=== PATIENT | female | born 1995 | race Caucasian/White ===

== ENCOUNTER 2022-03-20 21:58 | Emergency (ER) | payer OTHER, SELFPAY ==
[2022-03-20] VITALS (7 sets, daily range): BP systolic 103–143; BP diastolic 65–73; PULSE 81–98; RESP 16; TEMP 36.7; O2SAT 98–100
--- NOTE | ~2022-03-20 | US_ITS ---
EXAMINATION: US OB <=14 wk fetus w TV DATE: 03/21/2022 02:18 INDICATION: Vaginal bleeding. . TECHNIQUE: Real-time transabdominal and transvaginal pelvic ultrasound was performed. COMPARISON: None. FINDINGS: TRANSABDOMINAL ULTRASOUND: The uterus measures 7.9 x 5.9 x 3.9 cm. TRANSVAGINAL ULTRASOUND: There is an intrauterine gestational sac with mean diameter of 9 mm, which c orrelates with an estimated gestational age of 5 weeks and 5 days +/- 4 days. A yolk sac is identifie d. No pole is identified. The right ovary measures 3.3 x 1.8 x 2.4 cm. The left ovary measures 2.8 x 2.2 x 2.1 cm. There is no free fluid in the pelvis. IMPRESSION: 1. Single intrauterine gestation with estimated date of delivery of 11/16/2022. Reviewed, dictated and finalized at location A.
--- NOTE | 2022-03-20 22:40 | PC.NURSE ---
pt unable to provide urine sample at this time
[2022-03-20 23:15] LABS: Basophils Absolute Auto 0.1 K/mm3 (0.0-0.1); Basophils Percent Auto 0.4 % (0.2-1.2); Eosinophils Absolute Auto 0.2 K/mm3 (0-0.3); Eosinophils Percent Auto 1.5 % (0-4.4); Hematocrit 39.7 % (37.0-47.0); Hemoglobin 12.7 g/dL (12.0-15.0); Immature Granulocyte Absolute 0.04 K/mm3 (0.00-0.031); Immature Granulocyte Percent A 0.4 % (0-0.5); Lymphocytes Absolute Auto 4.11 K/mm3 (0.9-3.2); Lymphocytes Percent Auto 36.5 % (18.3-44.2); Mean Corpuscular Hemoglobin 28.1 pg (26-34); Mean Corpuscular Volume 87.8 fl (80-100); Mean Platelet Volume 10.7 fl (7.4-10.4); Monocytes Percent Auto 8.7 % (2.6-8.5); Neutrophils Absolute Auto 5.9 K/mm3 (1.3-6.7); Neutrophils Percent Auto 52.5 % (45.5-73.1); Platelet Count Result 297 k/mm3 (150-375); Red Blood Count 4.52 M/mm3 (4.2-5.4); White Blood Count 11.3 K/mm3 (4.5-10.0)
--- NOTE | 2022-03-20 23:16 | PC.NURSE ---
This RN notified pt of positive test.
--- NOTE | 2022-03-20 23:31 | ED.FEMALEGU ---
HPI - Female Genitourinary General Chief complaint: Vaginal Bleeding Stated complaint: vagianl bleeding Time Seen by Provider: 03/20/22 22:33 Source: patient and RN notes reviewed Mode of arrival: ambulatory Limitations: no limitations History of Present Illness HPI Narrative: This is a 26 year old female who presents for evaluation of abnormal vaginal bleeding. Her last menstrual cycle was 7-12 and she reports it was normal. Today she was getting her kids and she felt like she had urinated on herself. She found that she was having vaginal bleeding at that time so she came to ER. This bleeding started 2 hours ago. She does not think she is bleeding heavily and she has not had to change her pad since arrival. She denies dizziness, abdominal pain, or weakness. She denies history of irregular cycles. She does not take control. Last month her cycle was 8 Related Data Allergies Allergy/AdvReac Type Severity Reaction Status Date / Time iodine Allergy Unknown Swelling Verified 03/20/22 22:29 of Lip/Tongue/Throat shellfish derived Allergy Swelling Verified 03/20/22 22:29 of Lip/Tongue/Throat Review of Systems Review of Systems: All systems reviewed & are unremarkable except as noted in HPI and below Constitutional: Constitutional: Denies chills and Denies fatigue Eyes: Eyes: Denies change in vision ENT: Denies nasal congestion and Denies sore throat Cardiovascular: Cardiovascular: Denies chest pain Gastrointestinal: Gastrointestinal: Denies abdominal pain, Denies nausea and Denies vomiting Genitourinary: Genitourinary: Reports abnormal vaginal bleeding and Denies pelvic pain Musculoskeletal: Musculoskeletal: Denies back pain [facility] Past Medical History Medical History (Updated 03/21/22 @ 03:31 by Ilsa Gill MD) Patient denies medical problems Surgical History Surgical History (Updated 03/20/22 @ 23:34 by Ilsa Gill MD) H/O thyroidectomy Social History Social History (Updated 03/20/22 @ 23:34 by Ilsa Gill MD) Smoking packs per day: 0.5 Smoking cigarettes per day: 10.0 Smoking status: Current every day smoker Exam Const: General: healthy appearing, no acute distress and alert Nutritional Appearance: obese Orientation/consciousness: patient oriented x3 Limitations: no limitations HENMT: Head: normal to inspection Eyes: EOM: EOMs intact bilaterally Chest: Chest palpation & inspection: normal inspection of the chest Resp: Effort & Inspection: normal respiratory effort Auscultation: clear to auscultation bilaterally Cardio: Rate: regular rate Rhythm: regular rhythm Heart sounds: no murmurs GI: GI Palp: Yes Soft to palpation, No Tenderness to palpation present (GI), No Guarding due to palpation present (GI) and No Rigid due to palpation Auscultation: normal bowel sounds : Speculum Exam - Cervix: normal appearance of the cervix and Cervical os closed Other: small dark blood oozing from cervix Skin: General skin exam: normal color Rashes: no rashes Neuro: General: patient oriented x3, moves all extremities and CN's II-XI intact bilaterally Speech: normal speech Gait exam (Neuro): Normal gait present Extrem: General: normal to inspection Psych: Appearance: grossly normal Mental Status: mental status grossly normal Affect: normal affect Attitude: cooperative Course Reevaluation(s) Reevaluation #1: Patient reports minimal bleeding. I Discussed with patient US shows yolk sac but no pole. I Discussed that she will need to follow up with her OBGYN at [facility] as it is unclear if this is signs of miscarriage vs early . Date: 03/21/22 Time: 03:27 Vital Signs Vital signs: Vital Signs Temperature 98.0 F 03/20/22 22:12 Pulse Rate 87 03/20/22 22:12 Respiratory Rate 16 03/20/22 22:12 Blood Pressure 143/73 H 03/20/22 22:12 Pulse Oximetry 100 03/20/22 22:12 Oxygen Delivery Room Air
[2022-03-21 00:17] LABS: Prothrombin Time 13.1 Seconds (11.1-14.7)
[2022-03-21 00:32] LABS: Partial Thromboplastin Time 27.4 SECONDS (22.3-36.8)
[2022-03-21 01:18] VITALS: BP 124/78; PULSE 90; RESP 18; O2SAT 99
[2022-03-21 03:40] VITALS: BP 121/70; PULSE 84; RESP 18; O2SAT 98
== END 2022-03-21 03:40 | disposition home or self-care (01) ==
PROVIDERS: Emergency Provider General Practice; PCP Family Medicine
DX: O46.91 Antepartum hemorrhage, unspecified, first trimester (principal); Z3A.01 Less than 8 weeks gestation of pregnancy
CPT/HCPCS: 36415; 76801; 76817; 81025; 84702; 85025; 85461; 85610; 85730; 99284

== ENCOUNTER 2023-06-28 17:45 | Emergency (ER) | payer OTHER, SELFPAY ==
[2023-06-28 17:55] VITALS: BP 122/74; PULSE 102; RESP 18; TEMP 36.1; O2SAT 99
== END 2023-06-28 18:15 | disposition left against medical advice (07) ==
DX: R05.9 Cough, unspecified (principal)
CPT/HCPCS: 99199

== ENCOUNTER 2023-07-16 14:29 | Emergency (ER) | payer OTHER, SELFPAY ==
--- NOTE | ~2023-07-16 | XR_ITS ---
XR elbow LT min 3V DATE: 07/16/2023 14:51 INDICATION: Fall on hardwood floor fell 2 days ago. Left elbow injury, pain TECHNIQUE: 4 views COMPARISON: None FINDINGS: No fracture or dislocation or joint effusion. IMPRESSION: Negative Reviewed, dictated and finalized at location [facility]. [facility] IMPRESSION: Negative
--- NOTE | 2023-07-16 14:31 | ED.UPPEXIN ---
HPI - Extremity Injury (Upper) General Chief Complaint: Extremity Injury, Upper Stated Complaint: left arm injury Time Seen by Provider: 07/16/23 14:42 Source: patient, RN notes reviewed and old records reviewed Mode of arrival: ambulatory Limitations: no limitations History of Present Illness HPI narrative: 27-year-old female presents to the [facility] with complaints of left elbow pain after slipping on hardwood fours and landing on her left elbow. Pain is worse with full extension of the elbow. Injury 2 days ago No bruising, swelling noted No treatment prior to arrival Related Data Home Medications Medication Instructions Recorded Confirmed No Home Medications 07/16/23 07/16/23 Allergies Allergy/AdvReac Type Severity Reaction Status Date / Time iodine Allergy Unknown Swelling Verified 07/16/23 14:48 of Lip/Tongue/Throat shellfish derived Allergy Swelling Verified 07/16/23 14:48 of Lip/Tongue/Throat Review of Systems Review of Systems: All systems reviewed & are unremarkable except as noted in HPI and below Constitutional: Constitutional: Reports no additional constitutional complaints Eyes: Eyes: Reports no additional eye complaints ENT: Reports system reviewed and no additional complaints, except as documented Cardiovascular: Cardiovascular: Reports no additional cardiovascular complaints, Denies chest pain and Denies dyspnea Respiratory: Respiratory: Reports no additional respiratory complaints, Denies chest congestion, Denies cough and Denies dyspnea Gastrointestinal: Gastrointestinal: Reports no additional gastrointestinal complaints, Denies abdominal pain, Denies nausea and Denies vomiting Musculoskeletal: Musculoskeletal: Reports as per HPI and Reports arthralgias (Left elbow) Integumentary/Breasts: Skin/Breast: Reports system reviewed and no additional complaints, except as docu Neurologic: Reports system reviewed and no additional complaints, except as documented Psychiatric: Psychiatric: Reports no additional psychiatric complaints Allergic/Immunologic: Allergic/Immunologic: Reports no additional allergic/immunologic complaints PMFSH Past Medical History Medical History Patient denies medical problems Surgical History Surgical History H/O thyroidectomy Social History Social History Smoking packs per day: 0.5 Smoking cigarettes per day: 10.0 Smoking status: Current every day smoker Comments At the time of my signature, I reviewed and agree with the nursing past medical, surgical, social, and family history. There is no relevant family history pertinent to the patient complaint. Exam Const: General: cooperative, healthy appearing, comfortable, no acute distress, well developed, alert and well nourished Nutritional Appearance: well nourished and obese Orientation/consciousness: patient oriented x3 Limitations: no limitations HENMT: Head: normal to inspection Ears: hearing grossly normal bilaterally and external ears normal Face/Nose/Sinus: Normal external nose present, Normal nares present, Normal nasal mucous membranes and turbinates present, normal facial exam and face symmetric Face and sinus: normal facial exam and face symmetric Eyes: General: appearance normal, both eyes and all related structures Alignment and Position: alignment normal Periorbital: periorbital findings normal Pupils: Equal, round and reactive pupils present EOM: EOMs intact bilaterally Neck: Neck: normal visual inspection, full ROM, no lymphadenopathy and no meningeal signs Chest: Chest palpation & inspection: normal inspection of the chest Resp: Effort & Inspection: normal respiratory effort and able to speak in complete sentences Auscultation: clear to auscultation bilaterally, no crackles, no rales, no rhonchi a
[2023-07-16 14:42] VITALS: BP 107/59; PULSE 79; RESP 18; TEMP 36.3; O2SAT 100
== END 2023-07-16 15:05 | disposition home or self-care (01) ==
PROVIDERS: Emergency Provider Nurse Practitioner
DX: S50.02XA Contusion of left elbow, initial encounter (principal); W01.0XXA Fall on same level from slipping, tripping and stumbling without subsequent striking against object, initial encounter; F17.210 Nicotine dependence, cigarettes, uncomplicated
CPT/HCPCS: 73080; 99213; G0463

== ENCOUNTER 2023-08-29 19:26 | Emergency (ER) | payer OTHER, SELFPAY ==
[2023-08-29 19:32] VITALS: BP 136/71; PULSE 89; RESP 16; TEMP 36.8; O2SAT 100
--- NOTE | 2023-08-29 19:50 | ED.ALLEREA ---
HPI - Allergic Reaction General Chief complaint: Allergic Reaction Stated complaint: allergic reaction poss fish Time Seen by Provider: 08/29/23 19:36 Source: patient Mode of arrival: ambulatory Limitations: no limitations History of Present Illness HPI narrative: 27-year-old female presents [facility] with concern for allergic reaction. 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 Patient endorses that she has given a script for an EpiPen at that time and has since . Patient states that she is very cautious she about her diet. Patient reports that 30 minutes prior to arrival she ordered a chicken sandwich from [employer] knowing that they typically do not serve fish. Patient reports that she took 1 bite of a sandwich and immediately felt urticaria to her tongue the mouth and throat. Patient called restaurant and was informed that they are currently serving fish and cooking their chicken in the same oil. Patient has not taken anything OTC to treat her symptoms prior to arrival. Patient is A&O x3 upon arrival with no shortness of breath or signs of distress. Patient is calm and cooperative, speaking in full sentences. Patient able to control secretions the patient and tolerate fluids by mouth. Related Data Home Medications Medication Instructions Recorded Confirmed medroxyprogesterone 150 mg/mL mg IM 08/29/23 intramuscular syringe Allergies Allergy/AdvReac Type Severity Reaction Status Date / Time iodine Allergy Unknown Swelling Verified 07/16/23 14:48 of Lip/Tongue/Throat shellfish derived Allergy Swelling Verified 07/16/23 14:48 of Lip/Tongue/Throat Review of Systems Review of Systems: All systems reviewed & are unremarkable except as noted in HPI and below Constitutional: Constitutional: Reports no additional constitutional complaints Eyes: Eyes: Reports no additional eye complaints ENT: Reports system reviewed and no additional complaints, except as documented, Denies throat swelling, Denies tongue swelling and Reports other ( urticaria tongue, throat, oral mucosa) Cardiovascular: Cardiovascular: Reports no additional cardiovascular complaints, Denies chest pain and Denies dyspnea Respiratory: Respiratory: Reports no additional respiratory complaints, Denies cough and Denies dyspnea Gastrointestinal: Gastrointestinal: Reports no additional gastrointestinal complaints Musculoskeletal: Musculoskeletal: Reports no additional musculoskeletal complaints and Denies muscle weakness Neurologic: Reports system reviewed and no additional complaints, except as documented Psychiatric: Psychiatric: Reports no additional psychiatric complaints Allergic/Immunologic: Allergic/Immunologic: Reports as per HPI, Reports urticaria (throat, tongue, oral mucosa), Denies itchy eyes, Denies lip swelling, Denies throat swelling, Denies tongue swelling and Denies wheezing PMFSH Past Medical History Medical History Patient denies medical problems Surgical History Surgical History H/O thyroidectomy Social History Social History Smoking packs per day: 0.5 Smoking cigarettes per day: 10.0 Smoking status: Current every day smoker Comments At the time of my signature, I reviewed and agree with the nursing past medical, surgical, social, and family history. There is no relevant family history pertinent to the patient complaint. Exam Const: General: cooperative, healthy appearing, comfortable, no acute distress, alert and well nourished Nutritional Appearance: well nourished Orientation/consciousness: patient oriented x3 Limitations: no limitations HENMT: Head: normal to inspection Ears: external ears normal Face/Nose/Sinus: Normal external nose
[2023-08-29] MEDS: diphenhydrAMINE HCl CAP 25 MG CAPSULE PO (20:02)
[2023-08-29] MEDS: FAMOTIDINE 20 MG TABLET PO (20:02)
[2023-08-29] MEDS: predniSONE 20 MG TABLET 60 MG PO (20:03)
== END 2023-08-29 20:16 | disposition home or self-care (01) ==
PROVIDERS: Emergency Provider Nurse Practitioner Family
DX: T78.1XXA Other adverse food reactions, not elsewhere classified, initial encounter (principal); L50.9 Urticaria, unspecified; F17.210 Nicotine dependence, cigarettes, uncomplicated
CPT/HCPCS: 99213; A9270; G0463; J7512

== ENCOUNTER 2024-06-13 17:02 | Emergency (ER) | payer OTHER, SELFPAY ==
[2024-06-13 17:22] VITALS: BP 120/77; PULSE 88; RESP 17; TEMP 36.2; O2SAT 98
--- NOTE | 2024-06-13 18:07 | ED.ABDPAIN ---
HPI - Abdominal Pain General Chief Complaint: Abdominal Pain Stated Complaint: Sharp Pain in abdomen Time Seen by Provider: 06/13/24 17:53 Source: patient and RN notes reviewed Mode of arrival: ambulatory Limitations: no limitations History of Present Illness HPI narrative: Patient presents today complaining of upper abdominal pain that started last night followed by several episodes of vomiting and diarrhea. Last vomiting episode was 6:00 a.m. this morning and has been able to keep down fluids since that time. Last episode of diarrhea was around 2:00 p.m.. Denies blood or mucus in the stool. States abdominal pain has improved since onset and is intermittent. Currently rates her pain 5/10 and has tried no [id number] treatment for symptoms prior to arrival. Patient ate a [employer] buffet last night, but her mother also did and is not ill. Related Data Home Medications ?Medication ?Instructions ?Recorded ?Confirmed ?Last Taken ?Type medroxyprogesterone 150 mg/mL mg IM 08/29/23 Unknown History intramuscular syringe Allergies Allergy/AdvReac Type Severity Reaction Status Date / Time iodine Allergy Unknown Swelling Verified 06/13/24 17:49 of Lip/Tongue/Throat shellfish derived Allergy Swelling Verified 06/13/24 17:49 of Lip/Tongue/Throat Review of Systems Review of Systems: CONSTITUTIONAL: Denies body aches, fever, chills, or sweats. EYES: Denies visual changes, redness, or discharge. ENT: Denies rhinorrhea, congestion, sore throat, or otalgia. CARDIOVASCULAR: Denies chest pain, palpitations, or edema. RESPIRATORY: Denies cough or dyspnea. GASTROINTESTINAL: + abdominal pain, nausea, vomiting, diarrhea GENITOURINARY: Denies dysuria or hematuria. SKIN: Denies rash, itching, or wounds. MUSCULOSKELETAL: Denies back pain, joint pain, or myalgia. NEUROLOGIC: Denies headache, numbness, tingling, or weakness. PSYCH: Denies depression or anxiety. [facility] Past Medical History Medical History Patient denies medical problems Surgical History Surgical History H/O thyroidectomy Social History Social History Smoking packs per day: 0.5 Smoking cigarettes per day: 10.0 Smoking status: Current every day smoker Comments At time of signature, I have reviewed and agree with nursing past medical, surgical, social and family history unless otherwise noted. Please see nursing chart for further information. There is no relevant family history pertinent to the presenting complaint Exam Narrative: GENERAL: Well-appearing, well-nourished, and in no acute distress. HEAD: Normocephalic, atraumatic. EYES: EOMI. No redness or drainage. Conjunctivae normal. ENT: Mucous membranes pink and moist. NECK: Normal AROM. CHEST: No respiratory distress. Clear to auscultation. HEART: Regular rate and rhythm. No murmur appreciated. Normal peripheral pulses. ABDOMEN: Soft, nondistended, normal active bowel sounds. Mild tenderness to the upper abdomen without rebound or guarding. EXTREMITIES: Normal range of motion. No edema. SKIN: Warm, dry, no rash. Capillary refill normal. Normal skin turgor. NEURO: No focal deficits. Alert and oriented x3. Gait steady. PSYCH: Normal affect. No signs of depression or anxiety. Course Course Level of Care: Express Care Visit Vital Signs Vital signs: Vital Signs Temperature 97.2 F L 06/13/24 17:22 Pulse Rate 88 06/13/24 17:22 Respiratory Rate 17 06/13/24 17:22 Blood Pressure 120/77 06/13/24 17:22 Pulse Oximetry 98 06/13/24 17:22 Temperature 97.2 F L 06/13/24 17:22 Pulse Rate 88 06/13/24 17:22 Respiratory Rate 17 06/13/24 17:22 Blood Pressure 120/77 06/13/24 17:22 Pulse Oximetry 98 06/13/24 17:22 Reviewed MDM - Abdominal Pain MDM Narrative Medical decision making narrative: Patient's symptoms are improving. She is no longer vomiting or having diarrhea, and abdominal pain is improving. Symptoms likely viral or due to food poisoning. Zofran prescription sent to pharmacy. Recommend fluids and bland diet. Anticipatory guidance and ED precautions given. Differential Diagnosis Differential diagnosis: Likely abdominal pain, diverticulitis, gastroenteritis, pancreatitis and other (Cholecystitis, food poisoning) Critical Care Time Critical Care Time Critical Care Time: No Discharge Plan Discharge Clinical Impression: Intermittent upper abdominal pain, Nausea vomiting and diarrhea Patient Disposition: Home, Self-Care Condition: Stable Instructions: Acute Nausea and Vomiting (DC), Acute Diarrhea (ED), Abdominal Pain (ED) Additional Instructions: Please take the Zofran for nausea if needed. Rest and stay hydrated. As discussed, if symptoms worsen or your unable to keep down fluids, please go to the ER for further evaluation. Patient Language: [place] Prescriptions: New ondansetron 4 mg tablet,disintegrating 4 mg PO TID PRN (Reason: nausea and vomiting) Qty: 10 0RF No Action medroxyprogesterone 150 mg/mL syringe IM Follow-up/Referrals: [facility] [Primary Care Provider] - Time of Disposition: 18:12
== END 2024-06-13 18:18 | disposition home or self-care (01) ==
PROVIDERS: Emergency Provider Nurse Practitioner
DX: R10.10 Upper abdominal pain, unspecified (principal); R11.2 Nausea with vomiting, unspecified; R19.7 Diarrhea, unspecified; F17.210 Nicotine dependence, cigarettes, uncomplicated; Z90.89 Acquired absence of other organs
CPT/HCPCS: 99213; G0463

== ENCOUNTER 2024-12-05 10:40 | Emergency (ER) | payer OTHER, SELFPAY ==
--- NOTE | ~2024-12-05 | US_ITS ---
EXAMINATION: US OB <=14 wk fetus w TV DATE: 12/05/2024 11:45 INDICATION: Vaginal bleeding during first trimester TECHNIQUE: Real-time pelvic ultrasound utilizing both a transvaginal and transabdominal probe was pe rformed. The interpreting radiologist was not present for the study. COMPARISON: None. FINDINGS: The uterus measures 8.3 x 4.4 x 6.0 cm. There is an intrauterine gestational sac. A yolk sac and fet al pole are identified. The crown rump length measures 5 mm, which correlates with an estimated gesta tional age of 6 weeks and 1 days. heart motion is identified measuring 124 beats per minute (bp m) by M-mode Doppler. section scar seen along the anterior lower uterine segment. 8 x 3 x 3 mm region of anechoic fluid along the caudal margin of the gestational sac consistent with a very sma ll subchorionic hematoma. The right ovary measures 2.1 x 1.7 x 1.9 cm. The left ovary measures 2.2 x 1.7 x 1.6 cm. Vascular hansa w identified in both ovaries on color Doppler. There is a trace amount of anechoic free fluid in the cul-de-sac. IMPRESSION: 1. Single living fetus with heart rate of 124 bpm. 2. Gestational age by ultrasound of 6 weeks 1 day(s) +/- 3 day(s) with ultrasound estimated date of delivery (TUYET) of 07/30/2025. 3. Very small subchorionic hematoma. Reviewed, dictated and finalized at location A. IMPRESSION: 1. Single living fetus with heart rate of 124 bpm. 2. Gestational age by ultrasound of 6 weeks 1 day(s) +/- 3 day(s) with ultraso und estimated date of delivery (TUYET) of 07/30/2025. 3. Very small subchorionic hematoma.
--- OUTSIDE RECORDS SUMMARY | 2024-12-05 10:42 | XMS_ITS | Clinical Summary ---
Author Organization [facility] Address [address] [place] [address] Care Team Providers Care Diesel Technician Mechanic Name Role Phone No, Physician Primary Care Provider Allergies Active Allergy Reactions Criticality Noted Date Comments Fish Containing Products Anaphylaxis High 03/22/2021 Hydrocodone Itching Low 04/23/2022 Iodine Anaphylaxis High 03/22/2021 Shellfish Derived Anaphylaxis High 03/22/2021 Medications ibuprofen (ADVIL,MOTRIN) 600 mg tablet Take 1 tablet (600 mg total) by mouth every 6 (six) hours as needed for pain (pain > 5/10 or cramping) 20 tablet 2 Active ondansetron ODT (ZOFRAN-ODT) 4 mg disintegrating tablet Take 1 tablet (4 mg total) by mouth every 8 (eight) hours as needed for nausea or vomiting 20 tablet 5 Active Active Problems Problem Noted Date Diagnosed Date Retained products of conception after miscarriag e 04/26/2022 34 weeks gestation of 04/03/2021 Encounter for post surgical wound check 12/30/19 Dressing change or removal, surgical wound 12/29 Encounters Date Type Department Care Team Description 11/17/2024 1:12 PM CDT - 11/17/2024 11:59 PM CDT Hospital Encounter [facility] Ultrasound [address] [place] [address] Abdominal cramping affecting Discharge Disposition: Discharge to home or self care 11/16/2024 9:14 PM CDT - 11/16/2024 10:25 PM CDT Emergency [facility] Emergency Department [facility] [place] [address] Abdominal cramping affecting (Primary Dx) Discharge Disposition: Discharge to home or self care from Last 3 Months Immunizations Immunization Administration Dates Next Due Tdap 04/04/2021 Surgical History Surgery Date Site/Laterality Comments THYROIDECTOMY WRIST RECONSTRUCTION 07/01/2018 - 06/30/2019 Left plate in wrist due to shattered bone THYROIDECTOMY, PARTIAL 07/01/2015 - 06/30/2016 SECTION 07/01/2020 - 06/30/2021 Medical History Medical History Date Comments Gallstones Anemia hx w Miscarriage Family History Medical History Relation Name Comments Diabetes Maternal Grandfather Relation Name Status Comments Maternal Grandfather Social History Tobacco Use Types Packs/Day Years Used Date Smoking Tobacco: Every Day Cigarettes 0.8 8 Tobacco Cessation:Ready to Q uit: Not Asked; Counseling Given: Not Answered Alcohol Use Standard Drinks/Week Comments Yes 0 (1 standard drink = 0.6 oz pur e alcohol) occaisonally AUDIT-C Answer Date Recorded Q1: How often do you have a drink containing alcohol? Never 04/26/2022 Q2: How many drinks containi ng alcohol do you have on a typical day when you are drinking? Patient does not drink Q3: How often do you have si x or more drinks on one occasion? Never 04/26/2022 [place] Depression Scale Answer Date Recorded [place] Depression Scale Total 0 04/05/2021 The thought of harming myself has occurred to me . Never 04/05/2021 Personal Safety Answer Date Recorded Have you ever been in or are you currently in a harmful physical or emotional relationship or is someone making you feel afraid or unsafe? 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 Gender Identity Not on file Sexual Orientation Not on file Obstetrics History Para Term AB IAB SAB Ectopic Multiple Livin g Live Births 2 2 2 0 2 2 Date Outcome GA Total Labor Labor/2nd/3rd Weight Sex Type Anes PTL Millie A1 A5 Name Clin 020 32w 0d 10h 00m 2.268 kg (5 lb) M Vag-S pont None Y Livin g Delivery Location:[facility] 021 34w 3d 0h 03m 0h 03m 2.485 kg (5 lb 7.7 oz) F CS-LT ranv Epidu ral,S urban Y Livin g 8 8 MALON E,GIR LCIER Aruna Mckeon, DO Complications: Intolera nce,Rupture of Membranes > 18 hours,Premature Rupture of Membranes,Failure to Progress in First Stage Delivery Location:[facility] Main C ampus (E L AND D PROCEDURE) Last Filed Vital Signs Vital Sign Reading Time Taken Comments Blood Pressure 132/62 11/16/2024 7:16 PM CDT Pulse 102 11/16/2024 10:00 PM CDT Temperature 36.4 C (97.6 F) 11/16/2024 7:16 PM CDT Respiratory Rate 16 11/16/2024 7:16 PM CDT Oxygen Saturation 100% 11/16/2024 10: 00 PM CDT Inhaled Oxygen Concentration - - Weight 117.3 kg (258 lb 9.6 oz) 11/16/2024 7:16 PM CDT Height 162.6 cm (5' 4) 04/26/2022 8:13 AM CDT Body Mass Index 44.39 04/26/2022 8:13 AM CDT Plan of Treatment Health Maintenance Due Date Last Done Comments Cervical Cancer Screening 1993 Hepatitis C Screening 1993 Varicella Vaccines (1 of 2 - 13+ 2-dose series) 2006 HPV Vaccines (2 - 2-dose series) 07/14/2008 01/12/20 08 Regular Well Visit/Exam 18-64 11/10/2011 Pneumococcal vaccine <65 (1 of 2 - PCV) 2012 Depression Screening 04/05/2022 04/05/2021 Influenza Vaccine (Season Ended) 2025 DTaP/Tdap/Td Vaccine (8 - Td or Tdap) 04/04/2031 04/04/2021, 01/12/2008, 01/19/1999, Additional history exists Hepatitis B Screening Completed 02/14/1995 , 02/08/1994, 1993 Medical Devices Implanted Type Area Foot Gatherer Device Identifier Shelf Expiration Date Model / Serial / Lot Plate Plate Left: Wrist Description:2019 Procedures Procedure Name Priority Date/Time Associated Diagnosis Comments US OB TRANSVAGINAL Schedule CHRISTOPHER, Read CHRISTOPHER (Appt Today, Awaiting Results) 11/17/2024 1:45 PM CDT Abdominal cramping affecting URINALYSIS AND REFLEX TO MICROSCOPIC AND CULTURE STAT 11/16/2024 7:28 PM CDT EGFR STAT 11/16/2024 7:27 PM CDT DIFFERENTIAL AUTO STAT 11/16/2024 7:2 7 PM CDT ANTIBODY SCREEN STAT 11/16/2024 7:27 PM CDT ABO/RH STAT 11/16/2024 7:27 PM CDT TYPE AND SCREEN STAT 11/16/2024 7:27 PM CDT HCG, BLOOD, QUANTITATIVE STAT 11/16/2024 7:27 PM CDT LIPASE STAT 11/16/2024 7:27 PM CDT COMPREHENSIVE METABOLIC PANEL STAT 11/16/2024 7:27 PM CDT CBC WITH AUTO DIFFERENTIAL STAT 11/16/2024 7:27 PM CDT from Last 3 Months Results * US Ob Transvaginal (11/17/2024 1:45 PM CDT) Anatomical Region Laterality Modality Abdomen N/A Ultrasound 11/18/2024 1:28 AM CDT Narrative 11/18/2024 1:29 AM CDT EXAM DESCRIPTION: US OB TRANSVAGINAL REASON FOR STUDY: abdominal pain Beta-hC TECHNIQUE: Transvaginal images acquired of the pelvis. COMPARISON: None FINDINGS: UTERUS: 7.5 x 4.6 x 3.5 cm. No intrauterine gestation. 9 mm smooth endometrial stripe. RIGHT OVARY: 4 x 3 x 2.5 cm. Patent blood flow. No concerning abnormality identified. LEFT OVARY: 2.2 x 1.8 x 2.0 cm. Patent blood flow. No concerning abnormality identified. OTHER PELVIS: No free fluid. IMPRESSION: No intrauterine or ectopic gestation identified. Endometrial stripe appears normal. THIS IS AN ELECTRONICALLY VERIFIED FINAL REPORT 11/18/2024 1:29 AM - Electronically signed by Estiven Britton M.D. AR: DEDRA Report ID: [id number] Reading Location: [id number] Procedure Note Estiven Britton MD - 11/18/2024 EXAM DESCRIPTION: US OB TRANSVAGINAL REASON FOR STUDY: abdominal pain Beta-hC TECHNIQUE: Transvaginal images acquired of the pelvis. COMPARISON: None FINDINGS: UTERUS: 7.5 x 4.6 x 3.5 cm. No intrauterine gestation. 9 mm smooth endometrial stripe. RIGHT OVARY: 4 x 3 x 2.5 cm. Patent blood flow. No concerningabnormality identified. LEFT OVARY: 2.2 x 1.8 x 2.0 cm. Patent blood flow. No concerning abnormality identified. OTHER PELVIS: No free fluid. IMPRESSION: No intrauterine or ectopic gestation identified. Endometrial stripe appears normal. THIS IS AN ELECTRONICALLY VERIFIED FINAL REPORT 11/18/2024 1:29 AM - Electronically signed by Estiven Britton M.D. AR: DEDRA Report ID: [id number] Reading Location: [place] [address] us Meme Jacqueline McFadin BEDSPREAD INSPECTOR IMG OB US PROCEDURES Fin al Result * Urinalysis reflex to microscopic and culture Urine (11/16/2024 7:28 PM CDT) Color, ur Yellow Yellow Comment:Testing performed by : [facility], [address] [place] [address]., [address] Clarity, ur Clear Clear GRICEL Comment:Testing performed by : [address] [address] Specific gravity, ur 1.023 1.003 - 1.030 GRICEL Comment:Testing performed by : [facility], [address] [place] [address], [place]., [address] pH, urine 5.5 GRICEL Comment: Interpretive Data U rine pH is affected by diet, medications, systemic acid-base disturbances, and renal tubular function. pH may affect urinary stone formation. For example, urine pH below 6.0 may help reduce the tendency for calcium phosphate stones and pH greater than 6.0 may reduce the tendency for uric acid stone formation. Source: [facility] [employer] Current Interpretive Data was last revised on 2017 Testing performed by: [facility], [address] [place] [address], [place]., [address] Protein, ur ql Negative Negative GRICEL Comment:Testing performed by : [address], [place]., [address] Glucose, ur ql Negative Negative GRICEL Comment:Testing performed by : [address], [place]., [address] Ketones, ur Negative Negative GRICEL Comment:Testing performed by : [address], [place]., [address] Bilirubin, ur Negative Negative GRICEL Comment:Testing performed by : [address], [place]., [address] Blood, ur Negative Negative GRICEL Comment:Testing performed by : [address], [place]., [address] Urobilinogen, ur <2.0 <2.0 mg/dL GRICEL Comment:Testing performed by : [address] [address] Nitrite, ur Negative Negative GRICEL Comment:Testing performed by : [address], [place]., [address] Leukocyte esterase, ur Negative Negative GRICEL Comment:Testing performed by : [address], [place]., [address] UA reflex comment Reflex conditions for microscopic UA and culture not met. GRICEL Comment:Testing performed by : [address], [place]., [address] Urine 11/16/2024 7:28 PM CDT 11/16/2024 7:35 PM CDT us Julius Maddox MD LAB MICROBIOLOGY - GENERAL ORDERABLES Final Result Performing Organization Address [facility] Co de Phone Number GRICEL [address] [employer] [place] [address] * eGFR (11/16/2024 7:27 PM CDT) eGFR >90 >=60 mL/min/1. 73 m2 Comment: Interpretive Data Reference Interval Normal >/= 90 mL/min/1.73m2 Mildly decreased* 60 - 89 mL/min/1.73m2 Mildly to moderately decreased 45 - 59 mL/min/1.73m2 Moderately to severely decreased 30 - 44 mL/min/1.73m2 Severely decreased 15 - 29 mL/min/1.73m2 Kidney Failure < 15 mL/min/1.73m2 *Relative to young adult level Estimated glomerular filtration rate is determined by the 2020 CKD-EPI equation recommended by the National Kidney Foundation (A Unifying Approach to GFR Estimation: Recommendations of the NKF-ASK Task Force on Reassessing the Inclusion of Race in Diagnosing Kidney Disease, JASN 2020). The CKD-EPI equation should not be used for patients with unstable renal function and has not been validated in children and those over 70. Current interpretive data was last reviewed 2021. Testing performed by: [facility], [address] [place] [address]., [address] Blood 11/16/2024 7:27 PM CDT 11/16/2024 7:35 PM CDT us Julius Maddox MD LAB BLOOD ORDERABLE S Final Result Performing Organization Address City/[facility] Co de Phone Number GRICEL [address] Department of Laboratories [place], [place] [id number] * (ABNORMAL) Differential, auto (11/16/2024 7:27 PM CDT) Neutrophil abs 7.18(H) 1.50 - 6.50 K/cumm Comment:Testing performed by : [address], [place]., [address] Imm gran abs 0.05 0.00 - 0.10 K/cumm GRICEL Comment:Testing performed by : [address], [place]., [address] Lymphocyte abs 3.71(H) 0.80 - 3.30 K/cumm GRICEL Comment:Testing performed by : [address], [place]., [address] Monocyte abs 1.17(H) 0.20 - 0.80 K/cumm [facility] Comment:Testing performed by : [address], [place]., [address] Eosinophil abs 0.40 0.00 - 0.50 K/cumm [facility] Comment:Testing performed by : [address], [place]., [address] Basophil abs 0.07 0.00 - 0.10 K/cumm [facility] Comment:Testing performed by : [address] [address] Neutrophil pct 57.0 % [facility] Comment: Interpretive Data Percent cell count reference ranges are not reported, since discordance with absolute values may lead to misinterpretation of CBC data. Current Interpretive Data was last revised on 2017. Testing performed by: [address] [address] Imm gran pct 0.4 % [facility] Comment: Interpretive Data Percent cell count reference ranges are not reported, since discordance with absolute values may lead to misinterpretation of CBC data. Current Interpretive Data was last revised on 2017. Testing performed by: [address] [address] Lymphocyte pct 29.5 % CERNER Comment: Interpretive Data Percent cell count reference ranges are not reported, since discordance with absolute values may lead to misinterpretation of CBC data. Current Interpretive Data was last revised on 2017. Testing performed by: [address] [address] Monocyte pct 9.3 % CERNER Comment: Interpretive Data Percent cell count reference ranges are not reported, since discordance with absolute values may lead to misinterpretation of CBC data. Current Interpretive Data was last revised on 2017. Testing performed by: [address] [address] Eosinophil pct 3.2 % GRICEL Comment: Interpretive Data Percent cell count reference ranges are not reported, since discordance with absolute values may lead to misinterpretation of CBC data. Current Interpretive Data was last revised on 2017. Testing performed by: [address] [address] Basophil pct 0.6 % GRICEL Comment: Interpretive Data Percent cell count reference ranges are not reported, since discordance with absolute values may lead to misinterpretation of CBC data. Current Interpretive Data was last revised on 2017. Testing performed by: [address] [address] Blood 11/16/2024 7:27 PM CDT 11/16/2024 7:35 PM CDT us Julius Maddox MD LAB BLOOD ORDERABLE S Final Result [facility] [address] [facility] Department [place] [address] * (ABNORMAL) CBC with auto differential (11/16/2024 7:27 PM CDT) WBC 12.58(H) 3.80 - 9.90 K/cumm Comment:Testing performed by : [address] [address] Hgb 14.7 11.9 - 15.5 g/dL GRICEL Comment:Testing performed by : [address] [address] Hct 45.6(H) 35.6 - 45.5 % GRICEL Comment:Testing performed by : [address] [address] Plt 288 150 - 400 K/cumm GRICEL Comment:Testing performed by : [address] [address] MPV 10.5 9.1 - 12.3 fL GRICEL REYES Comment:Testing performed by : [address] [address] RBC 5.15 3.90 - 5.20 M/cumm GRICEL REYES Comment:Testing performed by : [address] [address] MCV 88.5 81.3 - 96.4 fL GRICEL REYES Comment:Testing performed by : [address] [address] MCH 28.5 27.1 - 33.3 pg GRICEL REYES Comment:Testing performed by : [address] [address] MCHC 32.2(L) 32.3 - 35.7 g/dL GRICEL REYES Comment:Testing performed by : [address] [address] RDW CV 13.8 11.1 - 14.9 % GRICEL Comment:Testing performed by : [address] [address] RDW SD 44.8 35.7 - 48.1 fL GRICEL Comment:Testing performed by : [address] [address] NRBC abs 0.00 0.00 - 0.01 K/cumm GRICEL REYES Comment:Testing performed by : [address] [address] Blood Venous blood specimen / Unknown 11/16/2024 7:27 PM CDT 11/16/2024 7:35 PM CDT us Julius Maddox MD LAB BLOOD ORDERABLE S Final Result GRICEL REYES [address] [facility] Department [place] [address] * ABO/Rh (11/16/2024 7:27 PM CDT) ABO/Rh A Positive Comment:Testing performed by : [address] [place] [address] Blood 11/16/2024 7:27 PM CDT 11/16/2024 7:36 PM CDT Narrative GRICEL - 11/16/2024 7:56 PM CDT Has the patient had Daratumumab or Isatuximab in the past 6 months?->Unknown Julius Maddox MD LAB BLOOD BANK TEST ORDERABLES Final Result Performing Organization Address [facility] de Phone Number [address] [address] * Antibody screen (11/16/2024 7:27 PM CDT) Pathologist [facility] Tamir, indirect, Gel Interpretation Negative ABSC Comment:Testing performed by : [address] [address] Blood 11/16/2024 7:27 PM CDT 11/16/2024 7:36 PM CDT Narrative GRICEL - 11/16/2024 8:12 PM CDT Has the patient had Daratumumab or Isatuximab in the past 6 months?->Unknown Julius Maddox MD LAB BLOOD BANK TEST ORDERABLES Final Result Performing Organization Address [facility] de Phone Number [address] [address] * (ABNORMAL) hCG, blood, quantitative (11/16/2024 7:27 PM CDT) Pathologist [facility] hCG, quant 94.9(H) 0.0 - 5.0 IUnits/L Comment: Interpretive Data Male: < 5 IU/L Non- premenopausal Female: <5 IU/L The Ruben hCG Beta Quant assay procedure was used. Results from different manufacturers or methods may not be comparable. Serial testing should be performed using the same method. Interpretive Data was last revised on 2023 Testing performed by: [address] [address] Blood 11/16/2024 7:27 PM CDT 11/16/2024 7:35 PM CDT Julius Maddox MD LAB BLOOD ORDERABLE S Edited Result - Final Performing Organization Address [facility] de Phone Number [address] [address] * Lipase (11/16/2024 7:27 PM CDT) Pathologist [facility] Lipase 19 10 - 99 Units/L Comment:Testing performed by : [address] [address] Blood Venous blood specimen / Unknown 11/16/2024 7:27 PM CDT 11/16/2024 7:35 PM CDT us Julius Maddox MD LAB BLOOD ORDERABLE S Final Result Performing Organization Address [facility] de Phone Number [address] [address] * (ABNORMAL) Comprehensive metabolic panel (11/16/2024 7:27 PM CDT) [facility] Sodium 137 135 - 145 mmol/L Comment:Testing performed by : [address] [address] Potassium, pl 4.0 3.3 - 4.9 mmol/L GRICEL Comment:Testing performed by : [address] [address] Chloride 104 97 - 110 mmol/L GRICEL Comment:Testing performed by : [address] [address] CO2 24 22 - 32 mmol/L GRICEL Comment:Testing performed by : [address] [address] Anion gap 9 2 - 15 mmol/L GRICEL Comment:Testing performed by : [address] [address] BUN 8 6 - 25 mg/dL GRICEL Comment:Testing performed by : [address] [address] Creatinine 0.50(L) 0.60 - 1.10 mg/dL GRICEL Comment:Testing performed by : [address] [address] Glucose 80 70 - 199 mg/dL GRICEL Comment: Interpretive Data Fasting glucose >/= 126 mg/dl is diagnostic for diabetes. Fasting is defined as no caloric intake for at least 8 hours. Fasting glucose between 100 mg/dl to 125 mg/dl is diagnostic of prediabetes. In a patient with classic symptoms of hyperglycemia or hyperglycemic crisis, a random glucose >/= 200 mg/dl is diagnostic for diabetes. In the absence of unequivocal hyperglycemia, results should be confirmed by repeat testing. The classification and Diagnosis of Diabetes Diabetes Care 202; 46: S19-S40. Current interpretive data was last revised 2022. Testing performed by: [address] [address] Calcium 8.9 8.5 - 10.3 mg/dL [facility] Comment:Testing performed by : [address] [address] Bilirubin, total <0.2 0.1 - 1.2 mg/dL GRICEL Comment:Testing performed by : [address] [address] Protein, pl 7.0 6.5 - 8.5 g/dL GRICEL Comment:Testing performed by : [address] [address] Albumin 3.9 3.5 - 5.0 g/dL [facility] Comment:Testing performed by : [address] [address] Alk phos 113 40 - 130 Units/L GRICEL Comment:Testing performed by : [address] [address] ALT 23 7 - 45 Units/L GRICEL Comment:Testing performed by : [address] [address] AST 18 10 - 45 Units/L GRICEL Comment:Testing performed by : [facility], [address] [place] [address]., [address] Blood 11/16/2024 7:27 PM CDT 11/16/2024 7:35 PM CDT us Julius Maddox MD LAB BLOOD ORDERABLE S Final Result Performing Organization Address City/State/ZIP Co vt Phone Number GRICEL [address] [facility] Department [place] [address] from Last 3 Months Insurance [facility] Advance Directives For more information, please contact: [phone] * Full Code (Latest Code Status on File) Date Activated Date Inactivated Comments 04/04/2021 6:16 AM 04/06/2021 3:50 PM * Full Code Date Activated Date Inactivated Comments 04/03/2021 7:35 AM 04/04/2021 6:16 AM Full CPR in case of cardiopulmonary arrest Care Teams Diesel Technician Mechanic Relationship Specialty Start Date End Date No, Physician PCP - General 03/22/21
--- OUTSIDE RECORDS SUMMARY | 2024-12-05 10:42 | XMS_ITS | Data Portability ---
Author Organization [employer] , [facility] Address [address] [place] [address] Assessment No assessment recorded. Plan of Treatment Reminders Order Date Submit Date Provider Last Modified By Organization Details Last Modified Time Details Appointments BAGGAGE HANDLER SONO 30 2024 11:00A M Ultrasound [place] 3 Not available Not available Not available BAGGAGE HANDLER EST 2024 11:30A M Mariela Gutierrez MD Not available Not available Not available Lab beta-HC G, quantit ative, serum or plasma 2024 025 [facility], [address] [place] [address], [address], 11/21/2024 10:33:33 pregnan cy test, urine 2022 023 [facility], [address] [place], [address], 01/23/2023 20:25:53 Referral dermato logist referra l 2022 023 [facility], [address] [facility] , [place], [address], 12/11/2022 15:30:04 Procedures None recorde d. Surgeries None recorde d. Imaging None recorde d. Medication Orders None recorde d. Patient TargetsNo targets recorded. Patient InstructionsNo instructions recorded. Reason for Referral Transportation Security Officer Referral for I nfection of sebaceous cyst Referring Physician: Nesha Minor, LEGAL INSTRUCTOR, Encounter Date: 11/07/2022 Results Created Date Observation Date Name Description Value Unit Range Abnormal Flag Note LastModifiedBy Organization Detail LastModifiedTime 07/26/1907/26/2022 TISSU E PATHO LOGY clinical information HGSIL Not Available [facility] [address] [address] [place], [address], 07/26/2022 21:06:26 07/26/19 23 07/26/2022 TISSU E PATHO LOGY pathologist Karen hwang MD Board Certi fied in Anato berta Patho logy and Clini linda Patho logy [phone] (elec troni c signa ture) Not Available [facility] [address] [address] [place], [address], 07/26/2022 21:06:26 07/26/19 23 07/26/2022 TISSU E PATHO LOGY report notes The curre nt biops y and recen t cytol ogic repor t corre late suffi cient ly to guide patie nt manag ement . (TC22 [id number]) This test was perfo rmed using a kit that has not been clear ed or appro lori by the FDA. The rosalinda tical perfo rmanc e kehinde cteri stics of this test have been deter mined by [facility] membrenos. Perfo rmanc e kehinde cteri stics refer to the rosalinda tical perfo rmanc e of the test. Not Available [facility] [address] [place], [address], 07/26/2022 21:06:26 07/26/19 23 07/26/2022 TISSU E PATHO LOGY A source Cervi x, 9 o'cristina ck, biops y Not Available [facility] [address] [address] [place], [address], 07/26/2022 21:06:26 07/26/19 23 07/26/2022 TISSU E PATHO LOGY A gross description Speci men is recei lori in forma ross, label ed with multi ple patie nt ident ifier s and consi sts of one fragm ent of tissu e measu ring 0.2 x 0.2 x 0.2 cm, irreg ular in shape and yello w-whi te in color . The speci men is entir karthik submi tted in one casse tte. 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 A few detac hed benig n strip s of endoc ervic al gland s. Not Available [facility] [address] [address] [place], [address], 07/26/2022 21:06:07/26/19 23 07/26/2022 TISSU E PATHO LOGY A comment No evide nce of dyspl marjan ident ified in the speci men submi tted. Immun ostai n p16 (nega tive resul t) suppo rts the diagn osis (all posit saeid and requi red negat saeid contr ols stain ed appro priat karthik). Trans forma tion zone not ident ified . Not Available [facility] [address] [address] [place], [address], 07/26/2022 21:06:07/26/19 23 07/26/2022 TISSU E PATHO LOGY B source Cervi x, 6 o'cristina ck, biops y Not Available [facility] [address] [address] [place], [address], 07/26/2022 21:06:07/26/19 23 07/26/2022 TISSU E PATHO LOGY B gross description Speci men is recei lori in forma ross, label ed with multi ple patie nt ident ifier s and consi sts of one fragm ent of tissu e measu ring 0.2 x 0.2 x 0.2 cm, irreg ular in shape and yello w-whi te in color . The speci men is entir karthik submi tted in one casse tte. Not Available [facility] [address] [address] [place], [address], 07/26/2022 21:06:07/26/19 23 07/26/2022 TISSU E PATHO LOGY B diagnosis Exoce rvix with react saeid dyllan es; no evide nce of dyspl marjan in the speci men submi tted. Trans forma tion zone not ident ified . Not Available [facility] [address] [address] [place], [address], 07/26/2022 21:06:07/26/19 23 07/26/2022 TISSU E PATHO LOGY C source Endoc ervix , curet tage Not Available [facility] [address], [address], 07/26/2022 21:06:07/26/19 23 07/26/2022 TISSU E PATHO LOGY C gross description Speci men is recei lori in forma ross, label ed with multi ple patie nt ident ifier s and consi sts of multi ple fragm ents of mucoi d mater ial aggre gatin g to 0.3 x 0.3 x 0.1 cm, irreg ular in shape and queen-b rown in color . The speci men is entir karthik submi tted in one casse tte. Not Available [facility] [address] [address] [place], [address], 07/26/2022 21:06:26 07/26/19 23 07/26/2022 TISSU E PATHO LOGY C diagnosis Small detac hed fragm ents of high grade squam ous intra epith elial lesio n (MILADYS 2-foc al 3). Scant benig n strip s of endoc ervic al gland s, react saeid and metap lasti c squam ous epith elium . Not Available [facility] [address] [place], [address], 07/26/2022 21:06:26 07/26/1907/26/2022 TISSU E PATHO LOGY C comment Immun ostai n p16 (posi tive resul t) suppo rts the diagn osis (all posit saeid and requi red negat saeid contr ols stain ed appro priat karthik). NO COLLE CTION DATE RECEI LORI. WE HAVE USED THE DATE THE SPECI MEN WAS RECEI LORI BY THIS LABOR ATORY THE COLLE CTION DATE. IF THIS IS INCOR RECT, PLEAS E CONTA CT CLIEN T SERVI NEO. PHONE NUMBE R: [phone] Not Available [facility] [address] [address] [address], [place], [address], 07/26/2022 21:06:26 11/22/19 25 11/21/2024 HCG, TOTAL , QUANT HCG, total, quant 513 mIU/m L <5 high Refer ence Range s are for femal es aged 18 years - Adult Nonpr egnan t or preme nopau maury <5 Postm enopa usal <10 Value s from diffe rent assay metho ds may vary. The use of this assay to monit or or to diagn ose patie nts with cance r or any other condi tion unrel ated to pregn hoang has not been valid ated by the manuf actur er of this assay . Not Available [facility] [address] [place], [address], 11/21/2024 10:33:33 11/26/19 25 11/25/2024 HCG, TOTAL , QUANT HCG, total, quant 2068 mIU/m L <5 high Refer ence Range s are for femal es aged 18 years - Adult Nonpr egnan t or preme nopau maury <5 Postm enopa usal <10 Value s from diffe rent assay metho ds may vary. The use of this assay to monit or or to diagn ose patie nts with cance r or any other condi tion unrel ated to pregn hoang has not been valid ated by the jeanette actur er of this assay . Not Available [facility] [address] [place], [address], 11/25/2024 11:14:00 07/23/19 23 07/23/2022 pregn hoang test, urine HCG negati ve Not Available [facility] [address] [place], [address], 07/23/2022 11:37:32 09/07/19 23 09/07/2022 JHON SURGI LINDA PATHO LOGY path report [facility] [address] [facility] [place] [address] Phone : [phone] Fax: Depar tment of Patho logy Patho logy Repor t SURGI LINDA FINAL REPOR T Patie nt Name: ИВАН AVENDAÑO jeremy# : [id number] : 1995 (Age: 26) Locat ion: DIONISIO Hendrix Gende r: F Colle cted Date: 023 Med Rec #: [id number] Date Recei lori: 023 Date Repor shelia: 2022 Provi kaylin: ANAID SHAFER ICK DO Speci men(s ) A: Ectoc ervic al biops y B: Endoc ervix , biops y C: Endoc ervix , curet tage Final Patho logic Diagn osis A. UTERU S, ECTOC ERVIX , LEEP EXCIS ION: SQUAM OUS AND ENDOC ERVIC AL MUCOS A WITH NO DYSPL MARJAN OR KAILAIG TRINIDAD B. UTERU S, ENDOC ERVIX , LEEP EXCIS ION: FOCAL HIGH GRADE SQUAM OUS DYSPL MARJAN (MILADYS 3) DYSPL MARJAN NOT PRESE NT AT RESEC TION ROSS N C. UTERU S, CERVI X, CURET TAGE: SCANT STRIP S OF BENIG N ENDOC ERVIC AL AND ENDOM ETRIA L EPITH ELIUM NO DYSPL MARJAN OR MALIG TRINIDAD Marli ctron icall y Sunni d Out MATT BURNETT MD Patho logis t SMO:l c Micro scopi c Descr iptio n: Micro scopi c exami natio n subst antia max above diagn osis. 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 A. Addit ional ly label ed ecto cervi linda (sutu re at 12), colle ction time 023 at 0830. The speci men consi sts of a porti on of ragge d pink- queen to red-p ink cervi linda tissu e measu ring 2.7x 2.0 x 0.7 cm. There is a sutur e desig natin g 12 o'cristina ck. The speci men is ragge d from the 6 to 9 to 12 o'cristina ck aspec t. There is minim al tissu e from 6 to 9 o'cristina ck. The ectoc ervix is pink- queen to red-p ink and sligh tly ragge d. The speci men is inked as follo ws: The tenta tive ectoc ervic al ross n is inked black , and the tenta tive endoc ervic al ross n is inked orang e. The cervi x is step secti oned and submi tted entir karthik as follo ws: A1 - tenta tive 3 to 6 o'cristina ck, step secti oned and submi tted entir karthik A2-4 - cervi x step secti oned from tenta tive 6 to 3 o'cristina ck and submi tted entir karthik (maddie ettes A2 and A3 conta in from 6 to 9 to 12 o'cristina ck tenta tivel y and casse tte A4 conta ins 12 to 3 o'cristina ck tenta tivel y) Revie wed orien tatio n with Dr. Ken Fernández. Addit ional ly label ed endo cervi linda, colle ction time 023 at 0830. The speci men consi sts of an unori ented porti on of pink- queen to red-p ink ragge d cervi linda tissu e measu ring 2.2 x 1.1 x up to 0.6 cm. One aspec t of the tissu e is pink- red and anatoliy h with minim al adher ed mucin ous mater ial. The remai mahad aspec ts are caute rized . The surgi linda ross n is inked black . The tissu e is step secti oned and submi tted entir karthik in casse ttes B1 throu gh B3. C. Addit ional ly label ed ECC (endo cervi linda biops y), colle ction time 023 at 0832. The speci men consi sts of a gauze pad with adher ed mucin ous and hemor rhagi c mater ial measu ring 0.5 x 0.4 x 0.1 cm in aggre gate dimen sions . The speci men is wrapp ed and submi tted in toto in casse tte C1. A porti on of the speci men will likel y not survi ve proce ssing . Pictu res are avail able of cervi linda tissu e of parts A and B. :curt aviles Fee Code( s): 28215 (2), 77619 Not Available [facility] ([facility] [address] [facility], [place], [address], 09/07/2022 23:10:14 01/24/20 23 01/23/2023 pregn hoang test, urine HCG negati ve Not Available [facility] [address] [facility], [place], [address], 01/23/2023 14:27:23 11/19/19 25 11/17/2024 imagi ng/di agnos tic resul t No observ ation record ed. [address], [address], 11/18/2024 02:33:36 Result Notes None recorded. Problems Name Problem SNOMED Code Status Onset Date Resolution Date Notes Provider Name and Address Organization Details Recorded Time Pregnanc y, childbir th and puerperi um finding Completed 201809/14/2019 Encounte r for supervis ion of normal first pregnanc y, second trimeste r; Progress : Stable Added By: Merle Friend Add to Current Problems : NO ProblemS tatus: Resolve Not Available [facility] 2 15:52:17 Gestatio n period, 29 weeks [id number] Completed 201909/14/2019 29 weeks gestatio n of pregnanc y; Progress : Stable Added By: Diane uGtierrez Add to Current Problems : NO ProblemS tatus: Resolve Not Available [facility] 2 15:52:16 Pregnanc y, childbir th and puerperi um finding Completed 201809/14/2019 Encounte r for supervis ion of normal first pregnanc y, first trimeste r; Progress : Stable Added By: Alpa Nicole Add to Current Problems : NO ProblemS tatus: Resolve Not Available [facility] 2 15:52:14 Contrace ptive sheath status [id number] Completed 201911/29/2020 Encounte r for initial prescrip tion of other contrace ptives; Progress : Stable Added By: Marion Gutierrez Add to Current Problems : NO ProblemS tatus: Resolve Not Available [facility] 2 15:52:12 Normal pregnanc y in multigra guerita [id number] 4106 Active 2020 Encounte r for supervis ion of other normal pregnanc y, first trimeste r; Severity : Moderate Progress : Stable Added By: Haroon Jason Add to Current Problems : NO ProblemS tatus: Resolve; Start Date : 10/05/19 21 Encou nter for supervis ion of other normal pregnanc y, second trimeste r; Severity : Moderate Progress : Stable Added By: Mert Vazquez Add to Current Problems : YES ProblemS tatus: Current Not Available [facility] 1 19:51:38 Gestatio n period, 13 weeks [id number] Completed 201809/14/2019 13 weeks gestatio n of pregnanc y; Progress : Stable Added By: Alpa Nicole Add to Current Problems : NO ProblemS tatus: Resolve Not Available [facility] 2 15:52:13 Gestatio n period, 17 weeks 86608928 Completed 201809/14/2019 17 weeks gestatio n of pregnanc y; Progress : Stable Added By: Marcy Noel Add to Current Problems : NO ProblemS tatus: Resolve Not Available [facility] 2 15:52:17 Gestatio n period, 10 weeks 36662415 Completed 201809/14/2019 10 weeks gestatio n of pregnanc y; Progress : Stable Added By: Diane Gutierrez Add to Current Problems : NO ProblemS tatus: Resolve Not Available [facility] 2 15:52:18 Pregnanc y, childbir th and puerperi um finding Completed 201909/14/2019 Encounte r for supervis ion of normal first pregnanc y, third trimeste r; Progress : Stable Added By: Ora Mantilla Add to Current Problems : NO ProblemS tatus: Resolve Not Available [facility] 2 15:52:14 Lochia finding Completed 201911/29/2020 Encounte r for routine postpart um follow-u p; Progress : Stable Added By: Jelena Sequeira Add to Current Problems : NO ProblemS tatus: Resolve Not Available [facility] 2 15:52:16 Gestatio n period, 16 weeks [id number] Completed 202012/27/2020 16 weeks gestatio n of pregnanc y; Progress : Stable Added By: Mert Vazquez Add to Current Problems : NO ProblemS tatus: Resolve Not Available [facility] 2 15:52:19 Postoper ative hypothyr oidism 29996411 Completed 202001/24/2021 Postproc edural hypothyr oidism; Progress : Stable Added By: Mert Vazquez Add to Current Problems : NO ProblemS tatus: Resolve Not Available [facility] 2 15:52:18 Gestatio n period, 24 weeks 441788415 Completed 202002/09/2021 24 weeks gestatio n of pregnanc y; Progress : Stable Added By: Mert Vazquez Add to Current Problems : NO ProblemS tatus: Resolve Not Available [facility] 2 15:52:15 Gestatio n period, 25 weeks 91925983 Completed 201809/14/2019 25 weeks gestatio n of pregnanc y; Progress : Stable Added By: Merle Friend Add to Current Problems : NO ProblemS tatus: Resolve Not Available [facility] 2 18:22:58 Evaluati on finding Completed 202011/29/2020 Other specifie d abnormal findings of blood chemistr y; Progress : Stable Added By: Kyle Lam Add to Current Problems : NO ProblemS tatus: Resolve Not Available [facility] 2 15:52:13 Gestatio n period, 18 weeks 57456373 Completed 202012/27/2020 18 weeks gestatio n of pregnanc y; Progress : Stable Added By: Kimmie Gonzalez Add to Current Problems : NO ProblemS tatus: Resolve Not Available [facility] 2 15:52:[address] Concept Completed 202001/24/2021 Supervis ion of other high risk pregnanc ies, second trimeste r; Progress : Stable Added By: Ludmila Reynolds Add to Current Problems : NO ProblemS tatus: Resolve Not Available [facility] 2 15:52:15 Gestatio n period, 22 weeks 37284842 Completed 202001/24/2021 22 weeks gestatio n of pregnanc y; Progress : Stable Added By: Ludmila Reynolds Add to Current Problems : NO ProblemS tatus: Resolve Not Available [facility] 2 15:52:17 Gestatio n period, 20 weeks 07151530 Completed 201801/09/2021 20 weeks gestatio n of pregnanc y; Progress : Stable Added By: Mert Vazquez Add to Current Problems : NO ProblemS tatus: Resolve Not Available [facility] 2 15:52:12 Gestatio n period, 8 weeks 63329621 Completed 202011/29/2020 8 weeks gestatio n of pregnanc y; Progress : Stable Added By: Haroon Jason Add to Current Problems : NO ProblemS tatus: Resolve Not Available [facility] 2 18:22:57 Gestatio n period, 31 weeks 28355119 Active 2019 31 weeks gestatio n of pregnanc y; Severity : Moderate Progress : Stable Added By: Kimmie Gonzalez Add to Current Problems : YES ProblemS tatus: Current Not Available [facility] 08:17:53 Gestatio n period, 33 weeks 23994928 Completed 201909/14/2019 33 weeks gestatio n of pregnanc y; Severity : Moderate Progress : Stable Added By: Ora Mantilla Add to Current Problems : NO ProblemS tatus: Resolve Not Available [facility] 19:51:42 Gestatio n period, 12 weeks 71776359 Completed 202011/29/2020 12 weeks gestatio n of pregnanc y; Progress : Stable Added By: Haroon Jason Add to Current Problems : NO ProblemS tatus: Resolve Not Available [facility] 2 15:52:13 High risk pregnanc y due to history of labor 005040812 Completed 202003/15/2021 Personal history of pre-term labor; Severity : Moderate Progress : Stable Added By: Mert Vazquez Add to Current Problems : NO ProblemS tatus: Resolve Not Available [facility] 08:17:[address] Concept Completed 202003/15/2021 Supervis ion of other high risk pregnanc ies, third trimeste r; Progress : Stable Added By: Ludmila Reynolds Add to Current Problems : NO ProblemS tatus: Resolve Not Available [facility] 2 18:22:58 Gestatio n period, 26 weeks 96693664 Completed 202002/23/2021 26 weeks gestatio n of pregnanc y; Progress : Stable Added By: Mert Vazquez Add to Current Problems : NO ProblemS tatus: Resolve Not Available [facility] 2 15:52:16 Gestatio n period, 28 weeks 95773773 Completed 202003/15/2021 28 weeks gestatio n of pregnanc y; Progress : Stable Added By: Marcy Noel Add to Current Problems : NO ProblemS tatus: Resolve Not Available [facility] 2 15:52:13 Depressi on screenin g Active 2020 Encounte r for screenin g for maternal depressi on; Progress : Stable Added By: Barbie Rosa Add to Current Problems : YES ProblemS tatus: Current Not Available [facility] 2 15:52:14 Antenata l screenin g Active 2020 Encounte r for antenata l screenin g for cervical length; Progress : Stable Added By: Mert Vazquez Add to Current Problems : NO ProblemS tatus: Resolve; Start Date : 12/14/19 Encou nter for other specifie d antenata l screenin g; Progress : Stable Added By: Layne Guaman Add to Current Problems : YES ProblemS tatus: Current Not Available [facility] 2 15:52:14 Congenit al abnormal ity of uterus complica ting postpart um care - baby delivere d during previous episode of care 784163157 Active 2020 Complica tion of the puerperi um, unspecif ied; Progress : Stable Added By: Jacki Brown i Add to Current Problems : YES ProblemS tatus: Current Not Available [facility] 2 15:52:15 Gestatio n period, 33 weeks 49911831 Active 2020 33 weeks gestatio n of pregnanc y; Progress : Stable Added By: Layne Guaman Add to Current Problems : YES ProblemS tatus: Current Not Available [facility] 15:52:17 Antenata l screenin g for malforma tion Completed 201801/24/2021 Encounte r for antenata l screenin g for malforma tions; Progress : Stable Added By: Ludmila Reynolds Add to Current Problems : NO ProblemS tatus: Resolve Not Available [facility] 15:52:18 Past pregnanc y history of prematur e labor 115178196 Completed 202003/15/2021 Personal history of pre-term labor; Progress : Stable Added By: Mert Vazquez Add to Current Problems : NO ProblemS tatus: Resolve Not Available [facility] 15:52:19 Problem Notes None recorded. Procedures Surgical History Date Name Laterality Status Provider Name and Address Organization Details Recorded Time 023 Depo Provera Injection completed Jelena Sequeira [facility] 01/23/2023 14:27:10 023 Depo Provera Injection completed Jelena Sequeira [facility] 09/20/2022 11:49:20 023 loop electrosurgical excision procedure completed ELDER XAVIER DO [address] [place] [address], [address], [facility] 09/20/2022 07:41:26 023 Colposcopy - Cervix completed JORGE LUIS Delaney [facility] [place], [address], [facility] 07/23/2022 12:06:28 022 Depo Provera Injection completed Jelena Sequeira [facility] 05/31/2022 15:04:24 022 Date of Last Pap Smear completed JORGE LUIS Delaney [address] [place], [address], [facility] 07/06/2022 09:28:31 022 Mirena IUD Removal completed Anjum Freedman [facility] [address] [place], [address], [facility] 07/18/2021 10:32:23 021 IUD Insertion completed JORGE LUIS Delaney [address] [facility], [place], [address], [facility] 06/19/2021 18:21:20 Dilation and curettage completed Funmilayo Washington [facility] 07/23/2022 11:36:53 [facility] 06/13/2021 21:04:20 procedure on upper arm completed [facility] 06/13/2021 21:05:21 Imaging Results None recorded. Procedure Notes None recorded. Medical Equipment None Reported. Allergies Allergen ID Allergen Name Allergen Category Reaction Reaction Severity Criticality Documentation Date Start Date Code Code System Note Provider Name and Address Organization Details Recorded Time 366933 iodine medicatio n Not available Not available Not available 04/21/20212018 5933 RxNorm Sever ity: Moder ate; Not Available [facility] 01:05:17 790029 shellfish derived food,medi cation Not available Not available Not available 05/31/2022 12508 UNLizzy Grossbentleymarissa [facility] 12:33:03 Medications Name Sig Start Date Stop Date Status Note LastModified by Organization Details LastModified Time Mirena 21 mcg/24 hr (up to 8 years) 52 mg intrauter ine device Take 1 device by intraute rine route. 03/22 completed Placed by Ute James DNP Not Available Not Available Not Available Colace 100 mg capsule TAKE ONE CAPSULE BY MOUTH TWICE DAILY WITH MEALS 05/17 completed Not Available Not Available Not Available desogestr el 0.15 mg-ethiny l estradiol 0.03 mg tablet take 1 tablet by oral route once daily 10/04 completed desogest reL-ethi nyl estradio L 0.15-0.0 3 mg oral tablet RxNorm: [id number] Allow Substitu tion: True Refill Denied: No Edited by: ranjana(Haroon Choi ) on 10/05/19 21 Stopped by: ranjana(Haroon Choi ) on 10/05/19 21 Not Available Not Available Not Available azithromy miladys 250 mg tablet TK 2 TS PO ON DAY 1, THEN TK 1 T PO D FOR 4 DAYS 05/17 completed Not Available Not Available Not Available Lidocaine Viscous 2 % mucosal solution PLEASE SEE ATTACHED FOR DETAILED DIRECTIO NS 11/20 completed Not Available Not Available Not Available cephalexi n 250 mg capsule take 1 capsule (250 mg) by oral route every 6 hours for 10 days 02/09 completed cephALEX in 250 mg oral capsule RxNorm: [id number] Allow Substitu tion: True Refill Denied: No Edited by: soco hendrix(Porfirio hankins, Mert ) on 02/10/20 Stopped by: soco hendrix(Porfirio hankins, Mert ) on 02/10/20 Not Available Not Available Not Available promethaz ine 6.25 mg/5 mL oral syrup TAKE 10 ML BY MOUTH EVERY 6 HOURS NEEDED 05/17 completed Not Available Not Available Not Available pyridoxin e (vitamin B6) 25 mg tablet Take one tablet up to 4 times daily before meals 11/29 completed pyridoxi ne (vitamin B6) 25 mg oral tablet RxNorm: [id number] Allow Substitu tion: True Refill Denied: No Edited by: soco hendrix(Porfirio hankins, Mert ) on 11/30/19 Stopped by: soco hendrix(Tony Mert hankins ) on 11/30/19 Not Available Not Available Not Available prednison e 20 mg tablet TAKE 2 TABLETS BY MOUTH DAILY FOR 3 DAYS THEN 1 TABLET DAILY FOR 3 DAYS 11/20 completed Not Available Not Available Not Available metronida zole 500 mg tablet 04/27 completed Not Available Not Available Not Available sulfameth oxazole 800 mg-trimet hoprim 160 mg tablet take 1 tablet by oral route twice daily for ten days 05/17 completed Not Available Not Available Not Available oxycodone -acetamin ophen 5 mg-325 mg tablet TAKE 1 TABLET BY MOUTH EVERY 4 HOURS NEEDED FOR PAIN 05/17 completed Not Available Not Available Not Available ibuprofen 600 mg tablet TAKE 1 TABLET (600 MG TOTAL) BY MOUTH EVERY 6 (SIX) HOURS NEEDED FOR PAIN OR FEVER 11/20 completed Not Available Not Available Not Available levofloxa miladys 500 mg tablet TAKE 1 TABLET BY MOUTH EVERY 24 HOURS 05/17 completed Not Available Not Available Not Available medroxypr ogesteron e 150 mg/mL intramusc ular syringe INJECT 1 MILLILIT ER INTRAMUS CULARLY EVERY 3 MONTHS 11/20 completed Not Available Not Available Not Available Sleep Aid (doxylami ne) 25 mg tablet Take one table every 8 hours 11/29 completed doxylami ne succinat e 25 mg oral tablet RxNorm: [id number] Allow Substitu tion: True Refill Denied: No Edited by: Mert Larson ) on 11/30/19 Stopped by: soco hendrix(Mert Morales ) on 11/30/19 Not Available Not Available Not Available Ibuprofen IB 600mg as needed 03/22 completed Ibuprofe n IB Allow Substitu tion: False Refill Denied: No Refill DateOccu rred: 04/18/20 Edited by: Jacki Kaye ) on 04/19/20 21 Stopped by: Jacki Kaye ) on Not Available Not Available Not Available 28 mg iron-800 mcg tablet 03/30 completed 28 mg iron- 800 mcg oral tablet Allow Substitu tion: False Refill Denied: No Refill DateOccu rred: 04/28/20 Edited by: Layne Rollins ) on 03/30/20 Stopped by: Layne Rollins ) on 03/30/20 21 Not Available Not Available Not Available Zofran (base) active Not Available Not Available Not Available Se-René 19 29 mg iron-1 mg tablet Take one tablet daily 11/29 completed PNV 119-iron fum-foli c acid 29 mg iron- 1 mg oral tablet Allow Substitu tion: True Refill Denied: No Edited by: Mert Larson ) on 11/30/19 21 Stopped by: soco s(Tonyl es, Mert ) on 11/30/19 21 Not Available Not Available Not Available Vitals Date Recorded Body height Body mass index (BMI) Body weight Body temperature Systolic blood pressure Diastolic blood pressure Provider Name and Address Organization Details Last Updated DateTime 3 162.56 cm 41.1 kg/m2 577124. 73 g 97.7 [degF] 110 mm[Hg] 70 mm[Hg] Teresita Fred [place] [facility] 3 10:21:53 Date Recorded Body height Body mass index (BMI) Body weight Body temperature Systolic blood pressure Diastolic blood pressure Provider Name and Address Organization Details Last Updated DateTime 3 162.56 cm 40.9 kg/m2 136285. 7 g 97.3 [degF] 120 mm[Hg] 70 mm[Hg] Teresita Fred [place] [facility] 3 11:04:51 Date Recorded Body height Provider Name an d Address Organization Details Last Updated DateTime 11/07/2022 162.56 cm Chelo Zurita [facility] 11/07/2022 14:23:48 Date Recorded Body height Body mass index (BMI) Body weight Systolic blood pressure Diastolic blood pressure Provider Name and Address Organization Details Last Updated DateTime 11/20/2024 162.56 cm 44.7 kg/m2 803695.7 3 g 124 mm[Hg] 80 mm[Hg] Diane Mtz [place] [employer] 5 12:21:39 Social History Question Answer Notes LastModified by Organizat ion Details LastModified Time Tobacco Smoking Status Current Every Day Smoker JORGE LUIS Delaney [address] [place], [address], [facility] [employer] [facility] 06/18/2021 10:03:14 Are You Blind Or Do You Have Difficulty Seeing? No Information not available 07/17/2021 Are You Deaf Or Do You Have Serious Difficulty Hearing? No Information not available 07/17/2021 What Type Of Diet Are You Following? REGULAR Information not available 07/17/2021 What Is Your Relationship Status? Single Information not available 06/13/2021 Are You Sexually Active? Yes Information not available 06/13/2021 Sex: Unknown Functional Status Question Answer Note LastModified by Organizat ion Details LastModified Time Do you use any illicit or recreational drugs? No Information not available 07/17/2021 Do you or have you ever used any other forms of tobacco or nicotine? No Information not available 07/17/2021 What is your exercise level? None Information not available 07/17/2021 Mental Status None recorded. Family History Relationship Description Onset Age of this Age Resolved Age Notes LastModified by Organization Details LastModified Time Maternal Grandfather Type 2 diabetes mellitus [email or web address] Not available 05/31 21:05:43 Medical History Condition Response Other Cancer N High Blood Pressure N Colon Cancer N Cytomegalovirus N Hyperthyroidism N Blood Transfusion N MRSA N Herpes (HSV) N Breast Cancer N Lung Cancer N Depression N Hypothyroidism N Incontinence N Panic Attacks N Neurological Disorder N Deep Vein Thrombosis N Anxiety Disorder N Autoimmune disease N Arthritis N Shingles N Tuberculosis/Positive PPD N Polycystic Ovarian Syndrome N Cervical Cancer N Chlamydia N Hematuria N Stroke N Varicosities N Seasonal allergies N Crohn's Disease N Alzheimer's/Dementia N COPD/Emphysema N Endometriosis N HPV/Genital Warts N IBS (Irritable Bowel Syndrome) N History of Abnormal Pap N High Cholesterol N Liver Disease N Kidney Infection N Fibromyalgia N Ulcer N Kidney Disease N HIV N Gallbladder disease N Von Willebrand disease N Sickle Cell Disease/Trait N ADD/ADHD N Eating Disorder N Diabetes Mellitus (non-insulin dependent ) N Anemia N Ovarian Problems N Multiple Sclerosis N Gonorrhea N Frequent Urinary Tract infections N Osteopenia N Headaches/migraines N GERD (reflux) N Ovarian Cancer N Diabetes (insulin dependent) N Seizures/Epilepsy N Fibroids N Asthma N Heart Attack N Endometrial Cancer N Lupus N Rubella N Blood Clotting Disorder N Bipolar Disorder N Diabetes Mellitus (during ) N Ulcerative Colitis N Hepatitis N Heart Disease N Pulmonary Embolism N RPR N Chicken Pox N Osteoporosis N Gynecological History Statement/Question Response Date of Last Pap Smear 05/31/2022 Current Control Method Age at Menarche 10 Flow Heavy Date of LMP 09/08/2024 Obstetrics History GPAL:G 3 P 1 1 1 2 Type Value Multiple Births 0 Full Term 1 Induced 0 Spontaneous 1 Premature 1 Living 2 Ectopics 0 Total 3 Past Encounters Encounter ID Performer Location Encounter Start Date Encounter Closed Date Diagnosis/Indication Diagnosis SNOMED-CT Code Diagnosis ICD10 Code Diagnosis Note [id number] Jacki Mckay Ko, [facility] [address] [place] [address] 05/17/2021 10:11:15 05/30/2021 13:58:15 state 15914464 Z39.2 Desires Mirena. Last pap 03/13/19 [id number] Ronna James, [facility] [address] [place] [address] 06/19/2021 13:17:39 07/04/2021 14:21:12 Insertion of intrauterine contraceptive device 00596734 Z30.430 Pt educated on risks Vs benefits of use, reviewed ACHES symptoms. Dosing schedule reviewed. Pt educated on bleeding profile of device, expulsion sx, and when to notify HCP/go to ER. Plan to F/U PRN or at next [employer]. [id number] Anjum Freedman, [address] [address] 07/17/2021 13:15:42 08/01/2021 12:07:42 Contraception care 013771790 Z30.09 control options reviewed. Carla is undecided as to what she wants to do. Educationa l pamhlets on options provided. Surveillan ce of intrauterine device contraception done 3798835611 28821 Z30.431 IUD removed per Carla's request. Explained that current bleeding pattern not unusual and that it may take several months before cessation of menses or reduced bleeding. Encouraged her to give it another 3 months at least and explained that we can give estrogen for now to help stop the bleeding-- she refuses. [id number] Sanjuana mayer, [address] [address] 03/22/2022 14:00:19 03/22/2022 14:55:19 test positive 302884273 Z32.01 Discussed bleeding precaution s, and concern for SAB will follow Hcg, states was 5000 in ER [id number] Jacki Mckay Ko, [facility] [address] [place] [place] [address] 04/17/2022 11:02:47 04/18/2022 11:36:42 test positive 519910550 Z32.01 Incomplete miscarriage 123136372 O03.4 test remains positive today. Retained products today. Discussed options and would like to continue to wait. Repeat quant today. Stict precaution s reviewed. [id number] NESHA MINOR [facility] [address] [place] [address] 04/27/2022 09:54:35 04/27/2022 10:38:03 Missed miscarriage 15252469 O02.1 Postoperative visit 1836 10728 Z09 [id number] [facility] [address] [place] [place] [address] 05/31/2022 12:14:30 06/01/2022 14:53:24 Gynecologic examination 57560430 Z01.419 Screening for malignant neoplasm of cervix 089756314 Z12.4 Contracept ion care education 518014702 Z30.09 Contracept saeid counseling : Discussed options including OCPs, NuvaRing, Nexplanon, hormonal and copper IUDs. Discussed risks, efficacy, noncontrac eptive benefits, and side effects of each option, including risk of VTE with hormonal contracept ion and uterine perforatio n, expulsion, infection with IUD. Depression screening 171 685185 Z13.31 Initiation of depot contraception done 4557416740 96198 Z30.619 [id number] Ludmila Reynolds, [facility] [address] [facility] [place] [address] 05/31/2022 13:25:22 06/06/2022 14:55:44 [id number] Ronna James [facility] [address] [place] [place] [address] 07/23/2022 11:18:01 07/23/2022 12:33:19 High grade squamous intraepithelial lesion on cervical Papanicolaou smear 2736830822 9107 R87.613 UPT in office is negative. Pt educated on exam findings and samples taken. Pt tolerated procedure well. Pt educated on bleeding precaution s following procedure, to avoid anything in the vagina X 1 week post procedure, and when to notify HCP/go to ER. Samples sent to pathology. Further POC pending pathology results. Pt encouraged to consider smoking cessation and Gardasil administra tion. [id number] ELDER XAVIER DO [facility] [address] [place] [address] 08/15/2022 10:02:10 08/15/2022 12:36:11 Cervical intraepithelial neoplasia grade 2 093952613 N87.1 26 y.o. with colpo showing MILADYS II, III on endocervic al biopsy after Pap. - Reviewed colpo path results- Per ASCCP guidelines recommend diagnostic excisional procedure- Discussed LEEP as lower risk, in-office option with local anesthesia versus LEEP with sedation, or CKC procedure. Discussed difference s in procedures , risks, recovery.- Does NOT desire future childbeari ng- After discussing options elects for office LEEP- Reviewed general risks of procedure including bleeding, infection, damage to surroundin g structures , potential need for further procedures , and anesthetic or medical complicati ons.- LEEP handout from [facility] given-Plan for LEEP in OR @ . [facility] [id number] ELDER XAVIER DO [facility] [address] [place] [address] 09/20/2022 10:37:27 09/20/2022 14:33:30 Postoperative visit 656603466 Z09 26 yo s/p LEEP for MILADYS 2,3 Post-op path: focal MILADYS 3 in endocervix w/ negative marginsRev iewed Surgical findings. Patient instructed that she may return to routine activities . All of her questions were answered. Resume routine [employer] care. Cervical intraepithelial neoplasia grade III with severe dysplasia 825430251 D06.9 Will need repeat pap w/ HPV in 6 months. Followed by yearly Pap w/ HPV for 3 normal paps in a row. Surveillan ce of depot contraception done 6524597522 9104 Z30.42 [id number] JORGE LUIS DURAN-JAYNE [facility] [address] [place] [address] 11/07/2022 14:09:21 11/08/2022 11:59:28 Infection of sebaceous cyst 817130666 L72.3 [id number] SHAD MARCIAL, [facility] [address] [place] [address] 01/23/2023 13:30:57 01/25/2023 02:11:39 Surveillance of depot contraception done 4003191180 9104 Z30.42 [id number] LEONARD BIRMINGHAM, [facility] [address] [place] [address] 11/20/2024 11:35:39 11/24/2024 15:06:41 test positive 235275853 Z32.01 Quant HCG 95 in ER on 11/16, repeat Quant today in office, and repeat Quant Saturday or Saturday at [facility]. Pt denies pain or abnormal vaginal bleeding. SAB/Ectopi c precaution s reviewed with patient. Will return to office for TVUS based upon quant HCG results. Health Concerns Section Related Observation LastModified by Organization Detai ls LastModified Time None Recorded Concern Status LastModified by Organization Details LastModified Time None Recorded Advance Directives Directive None Recorded Payers Insurance Date Sequence Insurance Name Policy Number Policy Jimenez Covered Member ID Jimenez Member ID Guarantor Name 12/05/2024 1 [facility] ON OR AFTER 12/29/20 (MEDICAID REPLACEMENT - HMO) Carla Santos [id number] Carla Santos Notes Date Note Type Note Provider Name and Address Organization Details Recorded Time 08/15/2022 text/html Pt here for LEEP consult. MILADYS 2-3 on endocervical biopsy ELDER XAVIER, [address] [facility], [place], [address], [facility] [employer] [facility] 08/15/2022 10:58:20 09/20/2022 text/html Post-OpReported bypatient.Associate d Symptoms:incision healing well; no fatigue; normal appetite; normal bowel function; no constipation; no nausea; no emesis; pain improving; no pain; no fever; no bleeding; no lower extremity edema/pain; no dysuria/urinary symptoms pt here for post-op from [facility]EEPPt requesting her depo-provera shot today. Pt brought it with her.denies fevers, chills, n/v, abdominal pain, dysuria, or vaginal bleeding ELDER XAVIER, [facility] [place], [address], [facility] [employer] [facility] 09/20/2022 14:01:19 11/07/2022 text/html Pt here for concerns of tender area underneath right breast.Pt states that there seems to be puss coming from a mole like bump. JORGE LUIS DURAN-[address], [place], [address], [facility] [employer] [facility] 11/07/2022 18:00:48 11/20/2024 text/html Confirmation VisitReported bypatient.obstetric s and gynecologyLMP: (august); date positive test: (11-16-24); no bleeding between periods; 4; para 3Notes:09/06/22 Carla is a 29 y/o female who presents today for ER Follow up. She was seen in ER on 11/16 for abdominal pain. Quant HCG in ER 95. Ultrasound was done which showed No intrauterine or ectopic gestation identified. Normal endometrial stripe.LMP 09/08/24 -History of HSIL with LEEP 09/06/22- Post-op path: focal MILADYS 3 in endocervix w/ negative margins pt did not follow up with repeat paps JORGE LIUS CRESPO [address] [place] [address], [phone], [facility] [employer] [facility] 11/20/2024 18:27:18 OBGyn Episode Ob Episode Information Episode Created Date Number of Fetuses Patient Bloodtype Patient rh Status Prepregnancy Weight lbs Domestic Partner Domestic Partner Phone Father Name Candy Butcher Status 07/17/19 22 1 CLOSED Fetus Data First Name Last Name Admitted to NICU Weight (g) Sex Living Outcome Pediatric Complications Fetus ID Race Codes Race Delivery Type 2494.75 6 F Prematur e [id number] Primary Elvis Calculation Initial Elvis Date Initial Exam Date Initial Exam Provider Initial Ultrasound Date Last Menstrual Period Date Ultra Sound Weeks Gestation 0 Eighteen To Twenty Week Elvis Update Ultra Sound Date Fundal Height At Umbil Quickening Date Ultra Sound Latest Weeks Gestation Final Elvis Confirmed By Final Elvis Confirmed Date Final Elvis Date Ultra Sound Latest Days Gestation 0 0 Menstrual History Last Menstrual Date Menses Monthly On Bcp Conception Prior Menses Frequency Hcg Plus Date Menarche Onset Age Delivery Information Delivery Date Delivery Type Labor Anesthesia Weeks Gestation Incision Type Labor Labor Length Hrs Delivered By Post Complications Tubal Sterilization Discharge Date Comments 1 Regional-Sp inal 36 true Discharge Information Feeding Method Contraceptive Method Maternal HG B and HCT Levels Ob Episode Information Episode Created Date Number of Fetuses Patient Bloodtype Patient rh Status Prepregnancy Weight lbs Domestic Partner Domestic Partner Phone Father Name Candy Butcher Status 09/15/19 22 1 CLOSED Fetus Data First Name Last Name Admitted to NICU Weight (g) Sex Living Outcome Pediatric Complications Fetus ID Race Codes Race Delivery Type 2267.96 M [id number] Elvis Calculation Initial Elvis Date Initial Exam Date Initial Exam Provider Initial Ultrasound Date Last Menstrual Period Date Ultra Sound Weeks Gestation 0 Eighteen To Twenty Week Elvis Update Ultra Sound Date Fundal Height At Umbil Quickening Date Ultra Sound Latest Weeks Gestation Final Elvis Confirmed By Final Elvis Confirmed Date Final Elvis Date Ultra Sound Latest Days Gestation 0 0 Menstrual History Last Menstrual Date Menses Monthly On Bcp Conception Prior Menses Frequency Hcg Plus Date Menarche Onset Age Delivery Information Delivery Date Delivery Type Labor Anesthesia Weeks Gestation Incision Type Labor Labor Length Hrs Delivered By Post Complications Tubal Sterilization Discharge Date Comments 0 None 237 true Discharge Information Feeding Method Contraceptive Method Maternal HG B and HCT Levels
--- OUTSIDE RECORDS SUMMARY | 2024-12-05 10:42 | XMS_ITS | Data Portability ---
Author Organization Chelsea ERICKSON Address [address] [facility] [place] [address] Assessment No assessment recorded. Plan of Treatment Reminders Order Date Submit Date Provider Last Modified By Organization Details Last Modified Time Details Appointments None recorded. Lab culture, wound 2018 019 SELENA WEBB, [address] [place], [place] [address]jacobkas[address]er[address], [address], [place], [address], 9 12:08:31 varicella- zoster igg Ab screen, serum 2018 019 SELENA JON, [address] [place], [place] [address]leroy Kartik, [address], [place], [address], 9 12:47:02 culture, urine 2018 019 SELENA JON, [address] [place], [place] [address]leroy [address], [address], [place], [address], 9 12:08:44 drug screen, urine 2018 019 SELENA LABTASNEEM, [facility] [address], [address], [place], [address], 9 12:08:41 hemoglobin S (hbs), presence, blood 2018 019 SELENA WEBB, [address] [place], [place] [address]kas[address]eroy [address], [address], [place], [address], 9 12:08:42 cf (cystic fibrosis) profile 2018 SELENA [facility], [address] [facility], [address], [place], [address], 9 12:08:42 obstetric screen, serum or blood 2018 019 lbsudheer [facility], [address] [facility], [address], [place], [address], 9 12:00:32 HIV 1+2 AB + HIV 1 p24 Ag, qualitativ e immunoassa y, serum 2018 SELENA [facility], [address] [facility] [address], [address], [place], [address], 9 12:08:43 CT + NG + TV, DNA, urine/swab 2018 019 SELENA [facility], [address] [facility], [address], [place], [address], 9 08:09:40 test, urine 2018 SELENA In-Office Order, Internal Use Only DO Not Attach Compendium DO Not Attach Compendium, Do Not Delete/merge, [id number] 9 15:46:[address]/dietiti an referral 2018 019 ATHENAFAX Not available 9 09:20:27 Procedures None recorded. Surgeries None recorded. Imaging None recorded. Medication Orders levofloxac in 500 mg tablet 2020 021 [facility] #[id number], [address] [place], [place], [id number], 10:35:29 promethazi ne 6.25 mg/5 mL oral syrup 2020 021 [facility], [address] [place] [address], [id number], 1 10:35:40 Zithromax Z-Moiz 250 mg tablet 2019 020 [facility], [address] [place] [address], [id number], 1 10:34:46 promethazi ne 6.25 mg/5 mL oral syrup 2019 020 [facility], [address] [place] [address], [id number], 1 10:35:40 promethazi ne 6.25 mg/5 mL oral syrup 2019 020 [facility], [address] [place] [address], [id number], 1 10:35:40 Zithromax Z-Moiz 250 mg tablet 2019 020 [facility], [address] [place] [address], [id number], 10:34:46 cephalexin 500 mg capsule 2018 019 [facility] #56391, [address] [place], [place], [id number], 10:35:03 Patient TargetsNo targets recorded. Patient Instructions Encounter Date Encounter Id Patient Instructions Last Modified By Organization Details Last Modified Time 02/27/2019 [id number] nutrition during : care instructions [email or web address] Not available 02/27/2019 17:34:04 06/09/2019 [id number] cellulitis: care instructions [email or web address] Not available 06/09/2019 13:35:34 skin abscess: care instructions [email or web address] Not available 06/09/2019 13:35:34 04/20/2020 [id number] upper respirator y infection (cold): care instructions [email or web address] Not available 04/20/2020 18:27:43 Take your medicines as directed. Get rest. Drink plenty of fluids. Get covid testing if symptoms persist. Follow up with your doctor. Go to the ER if symptoms worsen. Not available 04/21/2020 00:50:07 06/20/2020 [id number] upper respirator y infection (cold): care instructions [email or web address] Not available 06/20/2020 19:10:28 Take your medicines as directed. Get rest. Drink plenty of fluids. Follow up with your doctor. Go to the ER if symptoms worsen. Not available 06/20/2020 23:34:17 08/01/2020 [id number] upper respirator y infection (cold): care instructions [email or web address] Not available 08/01/2020 19:31:01 TAKE THE MEDICIN E DIRECTED. GET REST. DRINK PLENTY FLUIDS. FOLLOW UP WITH YOUR DOCTOR. GO TO THE ER IF YOU WORSEN. RETURN HERE NEEDED. 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 for Referring Physician: Radha Castillo, Manager Nursing, Encounter Date: 02/27/2019 Results Created Date Observation Date Name Description Value Unit Range Abnormal Flag Note LastModifiedBy Organization Detail LastModifiedTime 02/06/20 19 02/06/2019 HCG, intac t + beta subun it, quant , serum or plasm a HCG,beta subunit,qnt, serum 8195 mIU/m L Femal e (Non- pregn ant) 0 - 5 (Post menop ausal ) 0 - 8 Femal e (Preg nant) Weeks of Gesta tion 3 6 - 71 4 10 - 750 5 517 - 3056 6 102 - 86159 7 3730 -5352 63 8 71783 -6608 71 9 64688 -1612 10 10 23770 -6689 77 12 38621 -5141 12 14 58330 - 64898 15 90437 - 70741 16 9833 - 25675 17 9575 - 74645 18 5997 - [phone] Ruben ECLIA metho dolog y Not Available [facility] ([facility]) [address] [place], [address], 02/06/2019 14:11:27 02/06/20 19 02/06/2019 HCG, intac t + beta subun it, quant , serum or plasm a progesterone 5.7 NG/mL Folli cular phase 0.1 - 0.9 Lutea l phase 1.8 - 23.9 Ovula tion phase 0.1 - 12.0 Pregn ant First trime ster 11.0 - 44.3 Secon d trime ster 25.4 - 83.3 Third trime ster 58.7 - 214.0 Postm enopa usal 0.0 - 0.1 Not Available [facility] ([facility]) [address] [place], [address], 02/06/2019 14:11:27 02/18/20 19 02/18/2019 HCG, intac t + beta subun it, quant , serum or plasm a HCG,beta subunit,qnt, serum 99389 mIU/m L Femal e (Non- pregn ant) 0 - 5 (Post menop ausal ) 0 - 8 Femal e (Preg nant) Weeks of Gesta tion 3 6 - 71 4 10 - 750 5 217 - 5238 6 158 - 70970 7 2942 -9557 63 8 24193 -5357 71 9 90747 -1514 10 10 28430 -1859 77 12 72527 -2106 12 14 85570 - 42380 15 72725 - 66370 16 9040 - 43772 17 8175 - 69382 18 4324 - 88193 Ruben ECLIA metho dolog y Not Available [facility] ([facility]) [address] [place], [address], 02/18/2019 06:12:37 02/18/20 19 02/17/2019 cytol ogy pal cytology CYTOL OGY FINAL REPOR T Patie nt Name: JEFF ИВАН Sheets #:[id number] Med. Rec. #:[id number] : 1995 (Age: 23) Gende r: Florencia phelan( s): DOUGLAS Mejia t: [facility] Locat ion: ISAK aviles #[id number] [id number] Copy To: Taken : 2018 Recei lori: 2018 Repor shelia: 2018 Speci men(s ) Recei lori A: Thyro id, Fine Needl e Aspir ation , Isthm us B: Thyro id, Fine Needl e Aspir ation Final Patho logic Diagn osis A. THYRO ID, ISTHM US NODUL E; ULTRA SOUND -GUID ED FINE NEEDL E ASPIR ATION : -NEGA TIVE/ BENIG N The aspir ate smear s and Thin Prep slide demon strat e bland folli cular cells and abund ant collo id consi stent with a benig n thyro id nodul e. B. THYRO ID, RIGHT NODUL E; ULTRA SOUND -GUID ED FINE NEEDL E ASPIR ATION : -NEGA TIVE/ BENIG N The aspir ate smear s and Thin Prep slide demon strat e bland folli cular cells and abund ant collo id consi stent with a benig n thyro id nodul e. if/ 019 El ectro nical ly Sunni d Out By SNEHAL Reyes Micro scopi c Descr iptio n Micro scopi c exami natio n is perfo rmed and the findi ngs suppo rt the final diagn osis. Clini linda Histo ry Right and isthm us kirstin s Froze n Secti on Diagn osis Immed iate Inter preta tion A. Thyro id, isthm us nodul e Passe s 1-3: Adequ ate cellu larit y B. Thyro id, right nodul e Passe s 1-3: Adequ ate cellu larit y SNEHAL Reyes Gross Descr iptio n A. Recei lori from three passe s are three air-d ried slide s and two fixed slide s along with 30 cc of red CytoL yt from which one Thin Prep is made. B. Juliannai lori from three passe s are three air-d ried slide s and three fixed slide s along with 30 cc of red CytoL yt from which one Thin Prep is made. mpw/i / Ronny ng Fee Code( s): 02806 (2), 41027 (2) Not Available [facility] ([facility]) [address] [facility], [place], [address], 02/18/2019 14:47:33 02/28/2003/03/2019 CT + NG + TV, DNA, urine /swab chlamydia by MATI Positi ve negati ve abnormal Not Available [facility] ([facility]) [address] [place], [address], 03/03/2019 08:09:40 02/28/2003/03/2019 CT + NG + TV, DNA, urine /swab gonococcus by MATI Negati ve negati ve Not Available [facility] ([facility]) [address] [place], [address], 03/03/2019 08:09:40 02/28/2003/03/2019 CT + NG + TV, DNA, urine /swab trich vag by MATI Negati ve negati ve Not Available [facility] ([facility]) [address] [place], [address], 03/03/2019 08:09:40 02/28/20 19 02/28/2019 obste tric scree n, serum or blood HBsAg screen Negati ve negati ve Not Available [facility] ([facility]) [address] [place], [address], 03/09/2019 12:08:40 02/28/2002/28/2019 obste tric scree n, serum or blood RPR Non Reacti ve non reacti ve Not Available [facility] ([facility]) [address] [place], [address], 03/09/2019 12:08:40 02/28/2002/28/2019 obste tric scree n, serum or blood rubella antibodies, IgG <0.90 index immune >0.99 below low normal Non-i mmune <0.90 Equiv ocal 0.90 - 0.99 Immun e >0.99 Not Available [facility] ([facility]) [address], [place], [place], [address], 03/09/2019 12:08:40 02/28/2002/28/2019 obste tric scree n, serum or blood ABO grouping A Not Available [facility] ([facility]) [address], [place], [place], [address], 03/09/2019 12:08:40 02/28/2002/28/2019 obste tric scree n, serum or blood Rh factor Positi ve Pleas e note: Prior recor ds for this patie nt's ABO / Rh type are not avail able for addit ional verif icati on. Not Available [facility] ([facility]) [address], [place], [place], [address], 03/09/2019 12:08:40 02/28/2002/28/2019 obste tric scree n, serum or blood antibody screen Negati ve negati ve Not Available [facility] ([facility]) [address] [place], [address], 03/09/2019 12:08:40 02/28/2002/28/2019 obste tric scree n, serum or blood WBC 11.8 x10e3 /uL 3.4-10 .8 above high normal Not Available [facility] ([facility]) [address] [place], [address], 03/09/2019 12:08:40 02/28/20 19 02/28/2019 obste tric scree n, serum or blood RBC 4.42 x10e6 /uL 3.77-5 .28 Not Available [facility] ([facility]) [address], [place], [place], [address], 03/09/2019 12:08:40 02/28/20 19 02/28/2019 obste tric scree n, serum or blood hemoglobin 13.2 g/dL 11.1-1 5.9 Not Available [facility] ([facility]) [address], [place], [place], [address], 03/09/2019 12:08:40 02/28/20 19 02/28/2019 obste tric scree n, serum or blood hematocrit 39.7 % 34.0-4 6.6 Not Available [facility] ([facility]) [address], [place], [place], [address], 03/09/2019 12:08:40 02/28/20 19 02/28/2019 obste tric scree n, serum or blood MCV 90 fL 79-97 Not Available [facility] ([facility]) [address], [place], [place], [address], 03/09/2019 12:08:40 02/28/20 19 02/28/2019 obste tric scree n, serum or blood MCH 29.9 pg 26.6-3 3.0 Not Available [facility] ([facility]) [address], [place], [place], [address], 03/09/2019 12:08:40 02/28/20 19 02/28/2019 obste tric scree n, serum or blood MCHC 33.2 g/dL 31.5-3 5.7 Not Available [facility] ([facility]) [address], [place], [place], [address], 03/09/2019 12:08:40 02/28/20 19 02/28/2019 obste tric scree n, serum or blood RDW 13.6 % 12.3-1 5.4 Not Available [facility] ([facility]) [address] [place], [address], 03/09/2019 12:08:40 02/28/20 19 02/28/2019 obste tric scree n, serum or blood platelets 295 x10e3 /uL 150-45 0 Not Available [facility] ([facility]) [address], [place], [place], [address], 03/09/2019 12:08:40 02/28/20 19 02/28/2019 obste tric scree n, serum or blood neutrophils 71 % not estab. Not Available [facility] ([facility]) [address], [place], [place], [address], 03/09/2019 12:08:40 02/28/20 19 02/28/2019 obste tric scree n, serum or blood lymphs 20 % not estab. Not Available [facility] ([facility]) [address], [place], [place], [address], 03/09/2019 12:08:40 02/28/20 19 02/28/2019 obste tric scree n, serum or blood monocytes 8 % not estab. Not Available [facility] ([facility]) [address], [place], [place], [address], 03/09/2019 12:08:40 02/28/20 19 02/28/2019 obste tric scree n, serum or blood eos 1 % not estab. Not Available [facility] ([facility]) [address], [place], [place], [address], 03/09/2019 12:08:40 02/28/2002/28/2019 obste tric scree n, serum or blood basos 0 % not estab. Not Available [facility] ([facility]) [address], [place], [place], [address], 03/09/2019 12:08:40 02/28/2002/28/2019 obste tric scree n, serum or blood immature cells PATIENT SAFETY OFFICER Not Available [facility] ([facility]) [address], [place], [place], [address], 03/09/2019 12:08:40 02/28/20 19 02/28/2019 obste tric scree n, serum or blood neutrophils (absolute) 8.3 x10e3 /uL 1.4-7. 0 above high normal Not Available [facility] ([facility]) [address] [place], [address], 03/09/2019 12:08:40 02/28/20 19 02/28/2019 obste tric scree n, serum or blood lymphs (absolute) 2.4 x10e3 /uL 0.7-3. 1 Not Available [facility] ([facility]) [address] [place], [address], 03/09/2019 12:08:40 02/28/20 19 02/28/2019 obste tric scree n, serum or blood monocytes(ab solute) 1.0 x10e3 /uL 0.1-0. 9 above high normal Not Available [facility] ([facility]) [address] [place], [address], 03/09/2019 12:08:40 02/28/20 19 02/28/2019 obste tric scree n, serum or blood eos (absolute) 0.1 x10e3 /uL 0.0-0. 4 Not Available [facility] ([facility]) [address] [place], [address], 03/09/2019 12:08:40 02/28/20 19 02/28/2019 obste tric scree n, serum or blood baso (absolute) 0.0 x10e3 /uL 0.0-0. 2 Not Available [facility] ([facility]) [address] [place], [address], 03/09/2019 12:08:40 02/28/20 19 02/28/2019 obste tric scree n, serum or blood immature granulocytes 0 % not estab. Not Available [facility] ([facility]) [address] [place], [address], 03/09/2019 12:08:40 02/28/20 19 02/28/2019 obste tric scree n, serum or blood immature grans (abs) 0.0 x10e3 /uL 0.0-0. 1 Not Available [facility] ([facility]) [address] [place], [address], 03/09/2019 12:08:40 02/28/2002/28/2019 obste tric scree n, serum or blood NRBC PATIENT SAFETY OFFICER Not Available [facility] ([facility]) [address] [place], [address], 03/09/2019 12:08:40 02/28/20 19 02/28/2019 obste tric scree n, serum or blood hematology comments: PATIENT SAFETY OFFICER Not Available [facility] ([facility]) [address] [place], [address], 03/09/2019 12:08:40 02/28/20 19 02/28/2019 drug scree n, urine amphetamines , urine Negati ve NG/mL cutoff =1000 Amphe tamin e test inclu william Amphe tamin e and Metha mphet amine . Not Available [facility] ([facility]) [address] [place], [address], 03/09/2019 12:08:41 02/28/2002/28/2019 drug scree n, urine barbiturate Negati ve NG/mL cutoff =300 Not Available [facility] ([facility]) [address] [place], [address], 03/09/2019 12:08:41 02/28/2002/28/2019 drug scree n, urine benzodiazepi tariq Negati ve NG/mL cutoff =300 Not Available [facility] ([facility]) [address] [place], [address], 03/09/2019 12:08:41 02/28/20 19 02/28/2019 drug scree n, urine cannabinoid Negati ve NG/mL cutoff =50 Not Available [facility] ([facility]) [address] [place], [address], 03/09/2019 12:08:41 02/28/20 19 02/28/2019 drug scree n, urine cocaine (metab.) Negati ve NG/mL cutoff =300 Not Available [facility] ([facility]) [address] [place], [address], 03/09/2019 12:08:41 02/28/20 19 02/28/2019 drug scree n, urine opiates Negati ve NG/mL cutoff =300 Opiat e test inclu william Codei ne and Morph ine only. Not Available [facility] ([facility]) [address] [place], [address], 03/09/2019 12:08:41 02/28/20 19 02/28/2019 drug scree n, urine phencyclidin e Negati ve NG/mL cutoff =25 Not Available [facility] ([facility]) [address] [place], [address], 03/09/2019 12:08:41 02/28/20 19 02/28/2019 drug scree n, urine methadone screen, urine Negati ve NG/mL cutoff =300 Not Available [facility] ([facility]) [address] [place], [address], 03/09/2019 12:08:41 02/28/20 19 02/28/2019 drug scree n, urine propoxyphene , urine Negati ve NG/mL cutoff =300 Not Available [facility] ([facility]) [address] [place], [address], 03/09/2019 12:08:41 02/28/20 19 02/27/2019 cf (cyst ic fibro sis) profi le comment: Commen t The assay provi william infor matio n inten ded to be used for margarita er scree mahad in adult s of repro ducti ve age, as an aid in [facility] rn scree mahad, and as a confi rmato ry test for anoth er medic ally estab lishe d diagn osis in [facility] rns and child ulysses. The test is not indic ated for use in diagn ostic testi ng, pre-i mplan tatio n scree mahad, or for any stand -naomie e diagn ostic purpo ses witho ut confi rmati on by anoth er medic ally estab lishe d diagn ostic produ ct or proce dure. Not Available [facility] ([facility]) [address], [place], [place], [address], 03/09/2019 12:08:42 02/28/20 19 03/09/2019 cf (cyst ic fibro sis) profi le CF, screen Commen t: RESUL TS: Negat saeid for 32 mutat ions rosalinda zed INTER PRETA TION: This indiv idual is negat saeid for the mutat ions rosalinda zed. This negat saeid resul t may need furth er inter preta tion depen ding on the clini linda indic ation . This resul t reduc es but does not elimi lydia the risk to be a CF margarita er. COMME NTS: The detec tion rate varie s with [place] and is liste d below . The prese nce of an undet ected mutat ion in the CF gene canno t be ruled out. In the absen ce of famil y histo ry, the remai mahad risk that a perso n with a negat saeid resul t could have at least one CF mutat ion is liste d in the table . If there is a famil y histo ry of CF, these risk figur es do not apply . As detai led infor dalia mendez this indiv idual 's famil y histo ry would permi t a more accur ate asses sment of this indiv idual 's risk to be a margarita er of cysti c fibro sis, pleas e conta ct [facility] jaye at for a erik ed repor t. Mutat ion Detec tion Detec tion rates are based on mutat ion Rates among Ethni c frequ encie s in patie nts affec shelia with Group s cysti c fibro sis. Among indiv idual s with an atypi linda or mild prese ntati on (e.g. conge nital absen ce of the vas defer ens, pancr eatit is) detec tion rates may vary from those provi ded here: Margarita er risk reduc tion when no famil y histo ry Detec tion [place]ni city Rate Ashsapna nazi 07/26 to 97% Jewis h Cauca piero 07/25 to 90% (non- Hispa rocky) Afric an-Am radhames n to 69% Hispa rocky to 73% to 55% This inter preta tion is based on the clini linda and famil y relat ionsh ip infor matio n provi ded and the curre nt under stand ing of the molec ular dao ics of this condi tion. MUTAT IONS ROSALINDA ZED: G85E V520F W1282 X 2183A A to G R117H G542X N1303 K 2184d Khloe R334W S549N 394de lTT 2789+ 5G to A R347H S549R 621+1 G to T 3120+ 1G to A R347P G551D 711+1 G to T 3659d elC A455E R553X 1078d elT 3849+ 10kbC to T Delta I507 R560T 1717- 1G to A 3876d Khloe Delta F508 R1162 X 1898+ 1G to A 3905i nsT METHO DS/LI MITAT IONS: DNA is isola shelia from the sampl e and teste d for the 32 CF mutat ions on the [employer] (Lalitha nex). Regio ns of the CFTR gene are ampli fied enzym atica lly and subje cted to a solut ion-p hase multi plex allel e-spe cific prime r exten jeremy with subse quent hybri dizat ion to a bead array and fluor escen ce detec tion. Polym orphi sms F508C , I506V and I507V are inclu ded in this panel to rule out false posit saeid delta F508 homoz ygote s. Refle x testi ng of 5T is inclu ded in the panel for R117H inter preta tion. False posit saeid or negat saeid resul ts may occur for reaso ns that inclu de dao ic varia nts, blood trans fusio ns, bone marro w trans plant ation , lidia eous repre senta tion of famil y relat ionsh ips or conta minat ion of a sampl e with mater nal cells . REFER ENCES : 1. Updat es on Margarita er Scree mahad for Cysti c Fibro sis. (2011 ) Am J Ob Gynec ol 117(4 ):102 8-103 1 2. [place] chan et al. (2004 ) Dao Med 6:387 -91 3. Marla carreon, et al. (2002 ) Dao Med 4:379 -391 4. Preco ncept ion and prena tiffany margarita er scree mahad for cysti c fibro sis: (2000 )ACOG .ACMG publi catio n Resul ts Relea sed By: Eran guerrero, Ph.D. , [facility] Repor t Relea sed By: Eran guerrero, Ph.D. , [facility] Not Available [facility] ([facility]) [address], [place], [place], [address], 03/09/2019 12:08:42 02/28/2003/09/2019 cf (cyst ic fibro sis) profi le pdf . Not Available [facility] ([facility]) [address], [place], [place], [address], 03/09/2019 12:08:42 02/28/2003/03/2019 hemog lobin S (hbs) , prese nce, blood hemoglobin (HGB) solubility Negati ve negati ve Since a varie ty of condi tions and other abnor mal hemog lobin s in addit ion to Hemog lobin S may give false -posi tive resul ts, posit saeid Hemog lobin Solub ility tests shoul d be confi rmed by hemog lobin fract ionat ion testi ng. Not Available [facility] ([facility]) [address] [place], [address], 03/09/2019 12:08:42 02/28/20 19 02/28/2019 HIV 1+2 AB + HIV 1 p24 Ag, quali tativ e immun oassa y, serum HIV screen 4TH generation wrfx Non Reacti ve non reacti ve Not Available [facility] ([facility]) [address] [place], [address], 03/09/2019 12:08:43 02/28/20 19 02/28/2019 cultu re, urine urine culture, routine Final report Not Available [facility] ([facility]) [address] [place], [address], 03/09/2019 12:08:44 02/28/20 19 02/28/2019 cultu re, urine result 1 Commen t Mixed uroge nital kavitha 25,00 0-50, 000 colon y formi ng units per mL Not Available [facility] ([facility]) [address], [place], [place], [address], 03/09/2019 12:08:44 03/04/20 19 03/04/2019 pregn hoang test, urine HCG positi ve Not Available In-Office Order Internal Use Only DO Not Attach Compendium DO Not Attach Compendium, Do Not Delete/merge, [id number] 03/04/2019 14:47:57 06/09/20 19 06/12/2019 cultu re, wound aerobic culture Final report abnormal Not Available [facility] ([facility]) [address] [place] [address], [address], 06/15/2019 12:08:31 06/09/20 19 06/12/2019 cultu re, wound result 1 Staphy lococc us aureus abnormal Light growt h Most isola max of Staph yloco ccus sp. produ ce a beta- lacta caron enzym e rende ring them resis tant to penic illin . Pleas e conta ct the labor atory if penic illin is being consi dered for thera py. Based on susce ptibi lity to oxaci llin this isola te would be susce ptibl e to: *Peni cilli nase- stabl e penic illin s, such as: Cloxa cilli n, Diclo xacil ross, Nafci llin *Beta -lact am combi natio n agent s, such as: Amoxi cilli n-cla vulan ic acid, Ampic illin -sulb actam , Piper acill in-ta zobac devine *Oral cephe ms, such as: Cefac macy, Cefdi dee, Cefpo doxim e, Cefpr ozil, Cefur oxime , Cepha lexin , Lorac arbef *Pare ntera l cephe ms, such as: Cefaz jayne, Cefep juni, Cefot axime , Cefot carlin, Cefta rolin e, Cefti zoxim e, Ceftr iaxon e, Cefur oxime *Carb apene ms, such as: Dorip enem, Ertap enem, Imipe nem, Merop enem Not Available [facility] ([facility]) [address], [place], [place], [address], 06/15/2019 12:08:31 06/09/20 19 06/12/2019 cultu re, wound antimicrobia l susceptibili ty Commen t S = Susce ptibl e; I = Inter media te; R = Resis tant P = Posit saeid; N = Negat saeid MICS are expre ssed in micro grams per mL Antib iotic RSLT# 1 RSLT# 2 RSLT# 3 RSLT# 4 Cipro floxa imladys S Clind amyci n S Eryth romyc in R Genta micin S Levof loxac in S Linez olid S Moxif loxac in S Oxaci llin S Quinu prist in/Da lfopr istin S Rifam pin S Tetra cycli ne S Trime thopr im/Deng lfa S Vanco mycin S Not Available [facility] ([facility]) [address], [place], [place], [address], 06/15/2019 12:08:31 06/09/20 19 06/15/2019 cultu re, wound anaerobic culture Final report Not Available [facility] ([facility]) [address], [place], [place], [address], 06/15/2019 12:08:31 06/09/20 19 06/15/2019 cultu re, wound result 1 Commen t No anaer obic growt h in 72 hours . Not Available [facility] ([facility]) [address], [place], [place], [address], 06/15/2019 12:08:31 08/22/19 20 08/22/2019 patho logy, place nta pal surgical pathology [facility] [address] [facility] [place] [address] Phone : [phone] Fax: Depar tment of Patho logy Patho logy Repor t SURGI LINDA FINAL REPOR T Patie nt Name: ИВАН AVENDAÑO Carmen Madhavi jeremy# : [id number] : 1995 (Age: 23) Locat ion: [facility] IF Gende r: F Colle cted Date: 2019 Med Rec #: [id number] Date Recei lori: 2019 Date Repor shelia: 2019 Provi kaylin: NICOLE LOPEZ MD Speci men(s ) Place nta and Umbil ical Cord Final Patho logic Diagn osis PLACE NTA AND UMBIL ICAL CORD, VAGIN AL DELIV JULIAN: [address] NTA (>90T H PERCE NTILE FOR GESTA DINORAH L AGE) THREE -VESS EL UMBIL ICAL CORD WITH NO HISTO PATHO LOGIC ABNOR MALIT Y MEMBR ANES WITH ACUTE CHORI OAMNI ONITI S MATUR E VILLO US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 ELVIS of 10/03/2019 based on LMP/1st trimester US. PMHx of subtotal thyroidect lauren . complicate d by smoking. depression screen: negBMI: 30; and ideal term weight: 241-250lbs -discussed smoking cessation patient is down from 1ppd to 0.5ppd -nutrition consult ordered -IPN (initial ) labs: ordered; normal/abn ormal (list abnormals with appropriat e plan) - A1c to be completed at next visit - Rh pos/neg (if neg, list anticipate d RhoGam date(s)) - flu shot if in season (Jan-Aug) - 1st trimester US/2nd trimester US showed ____ - Pap done 18: negative- G&C neg/pos - genetic screening: CF/sickle/ MSAFP - 20 wk US showed - 28 wk CBC, GTT, Tdap, repeat dep screen - 32 wk repeat STI screening (if high risk) - 35-37 wk GBBS neg/pos; confirm vertex position w/ bedside US - 39 wk -- SVE, optional membrane sweeping, consider IOL planning - contracept ion plans, epidural Y/N, breastfeed ing Y/N, circumcisi on Y/N if applicable , preadmissi on paperwork done Y/N - RTC 4 wk(s) Smoker [id number] F17.200 1ppd previously has cut down to 0.5ppd-dis cussed continual decrease in number of cigarettes with hopes to get to zero by end of 1st trimester [id number] Aida Woodruff MD [place] [address] [address] 06/09/2019 12:16:57 06/10/2019 09:40:00 Cellulitis and abscess of buttock [id number] L02.31 Pt appears healthy, no systemic Sxs or local spread. She has not been treating abscess.Ap ply warm compresses 15 min four times per day.If abscess is not improving after 2 days or if it starts to worsen, pt should start Keflex 500mg 4x/daily.F [phone] [id number] Cristo Leonard MD [address] [address] 04/20/2020 17:34:00 04/21/2020 07:25:17 Upper respiratory infection [id number] J06.9 [id number] Cristo Leonard MD [address] [address] 06/20/2020 17:47:11 06/21/2020 09:10:44 Upper respiratory infection 26552585 J06.9 [id number] Cristo Leonard MD [address] [address] 08/01/2020 17:47:00 08/03/2020 07:30:52 Upper respiratory infection [id number] J06.9 Health Concerns Section Related Observation LastModified by Organization Detai ls LastModified Time None Recorded Concern Status LastModified by Organization Details LastModified Time None Recorded Advance Directives Directive Y: Payers Encounter Date Sequence Insurance Name Policy Number Policy Jimenez Covered Member ID Jimenez Member ID Guarantor Name 02/27/2019 1 [employer] PRIOR TO 12/29/2020 (MEDICAID REPLACEMENT - HMO) Carla Santos [id number] Cy Ireland 06/09/2019 1 [employer] PRIOR TO 12/29/2020 (MEDICAID REPLACEMENT - HMO) Carla Santos [id number] Cy Ireland 04/20/2020 1 [employer] PRIOR TO 12/29/2020 (MEDICAID REPLACEMENT - HMO) Carla Santos [id number] Cy Ireland 06/20/2020 1 [employer] PRIOR TO 12/29/2020 (MEDICAID REPLACEMENT - HMO) Carla Santos [id number] Cy Ireland 08/01/2020 1 [employer] PRIOR TO 12/29/2020 (MEDICAID REPLACEMENT - HMO) Carla Santos [id number] Cy [place] Notes Date Note Type Note Provider Name and Address Organization Details Recorded Time 02/27/2019 text/html [id number] @9+4wga by LMP c/w 1st trimester U/S ELVIS 10/03/2019 presents for IPN. complicated by smoking and hx of subtotal thyroidectomy. Patient states that early in the she had spotting but that has since resolved. Denies any vaginal discharge, vaginal bleeding, dysuria, N/V, hematuria, VILLATORO, change in vision.Last pap was 09/03/2017 and was negative [facility] [place], [place] - [facility] 03/06/2019 12:44:49 06/09/2019 text/html Pt presents for a spider bite that she got 1 week ago. She is 22 weeks and reports normal movement, denies LOF, VB, and ctxs. She denies fever, chills, night sweats. She notes pustular drainage from the spider bite which is on her left upper buttock. She states that she saw the spider but does not know what kind of spider it is. Vamsi Medina, CURRICULUM AND ASSESSMENT COORDINATOR null, [place] - [facility] 06/10/2019 09:22:19 04/20/2020 text/html Phone visit: Ángel ck Care: c/o a cold x 3 days. She tested neg. for covid 19. No appetite. ? mild fever. Cristo Leonard MD Attn: Accounting,[address] [facility], [place], [address], [facility] [place], [place] 04/21/2020 00:50:24 06/20/2020 text/html Phone visit: Ángel ck Care: In for a cold with cough & congestion x 2 1/2 days. No chills or fever. Cristo Leonard MD Attn: Accounting[address] [place], [address], [facility] [place], [place] 06/20/2020 23:34:34 08/01/2020 text/html Phone visit: Ángel ck Care: In for a cold with cough & congestion x 5 days. she ask for stronger medicine this time. No chills or fever. Cristo Leonard MD Attn: Accounting[address] [place], [address], [facility] [place], [place] 08/01/2020 23:37:05 OBGyn Episode Ob Episode Information Episode Created Date Number of Fetuses Patient Bloodtype Patient rh Status Prepregnancy Weight lbs Domestic Partner Domestic Partner Phone Father Name Jewel Hole Rough Opener Status 02/28/20 19 1 A Positive CLOSED Fetus Data First Name Last Name Admitted to NICU Weight (g) Sex Living Outcome Pediatric Complications Fetus ID Race Codes Race Delivery Type [id number] Elvis Calculation Initial Elvis Date Initial Exam Date Initial Exam Provider Initial Ultrasound Date Last Menstrual Period Date Ultra Sound Weeks Gestation 09/28/2019 02/27/2019 [email or web address] 12/22/2018 0 Eighteen To Twenty Week Elvis Update Ultra Sound Date Fundal Height At Umbil Quickening Date Ultra Sound Latest Weeks Gestation Final Elvis Confirmed By Final Elvis Confirmed Date Final Elvis Date Ultra Sound Latest Days Gestation 0 09/28/19 20 0 Pre- Flowsheet Flowsheet Date 02/27/2019 Ball Score Blood Edema Fundus Height Fundus Units Glucose Ketones Leukocytes Nitrite Labor Signs Protein Cervic Dilation Cervic Effacement Cervic Station Type Weight in lbs Pre/Post Dialysis Refused Weight [id number] BP Diastolic BP Location Tested BP Systolic BP Type 60 110 sitting Fetus Heart Rate Present Fetus Movement Comments Menstrual History Last Menstrual Date Menses Monthly On Bcp Conception Prior Menses Frequency Hcg Plus Date Menarche Onset Age 0612/22/2018 Genetic Screening And Infection History Question Response Note Patient's Age Will Be 35 Yea rs Or Older At Estimated Date of Delivery false Thalassemia (Korean, Mauritanian, Mediterranean, Or Background): MCV < 80 false Neural Tube Defect (Meningom yelocele, Spina Bifida, Or Anencephaly) false Congenital Heart Defect false Down Syndrome false Mingo-Sachs (eg, Yarsani, Cajun, Kazakh-Citizen Of [place]) f alse Luis E Disease false Sickle Cell Disease Or Trait () false Hemophilia Or Other Blood Disorders false Muscular Dystrophy false Cystic Fibrosis false Amanda's Chorea false Mental Retardation/Autism false If Yes, Was Person Tested For Fragile X? false Other Inherited Genetic Or Chromosomal Disorder false Maternal Metabolic Disorder (eg, Type 1 Diabetes , PKU) false Patient Or Baby's Father Had A Child With Defects Not Listed Above false Recurrent Loss, Or A Stillbirth false Medications (including Suppl ements, Vitamins, Herbs, OTC Drugs), Illicit/Recreational Drugs, Alcohol true cigarettes If Yes, Agent(s) And Strength/Dosage false Any Other Genetic History false Live With Someone With TB Or Exposed To TB false Patient Or Partner Has History Of Genital Herpes false Rash Or Viral Illness Since Last Menstrual Perio d false History Of STD, Gonorrhea, Chlamydia, HPV, Syphi lis false Other Infection History false History of HIV false History of Hepatitis false Prior GBS-infected child false Delivery Information Delivery Date Delivery Type Labor Anesthesia Weeks Gestation Incision Type Labor Labor Length Hrs Delivered By Post Complications Tubal Sterilization Discharge Date Comments Discharge Information Feeding Method Contraceptive Method Maternal HG B and HCT Levels
--- OUTSIDE RECORDS SUMMARY | 2024-12-05 10:43 | XMS_ITS | Referral Summary ---
Author Organization [facility] Address [address] [place] [address] Care Team Providers Care Director [facility] Name Role Phone No, Physician Primary Care Provider [phone] Encounters Date Type Department Care Team Description 11/17/2024 1:12 PM CDT - 11/17/2024 11:59 PM CDT Hospital Encounter [facility] Ultrasound [address] [place] [id number] Abdominal cramping affecting Discharge Disposition: Discharge to home or self care 11/16/2024 9:14 PM CDT - 11/16/2024 10:[address] [facility] Emergency Department [address] [place] [id number] Abdominal cramping affecting (Primary Dx) Discharge Disposition: Discharge to home or self care from Last 3 Months Allergies Active Allergy Reactions Criticality Noted Date Comments Fish Containing Products Anaphylaxis High 03/22/2021 Hydrocodone Itching Low 04/23/2022 Iodine Anaphylaxis High 03/22/2021 Shellfish Derived Anaphylaxis High 03/22/2021 Medications ibuprofen (ADVIL,MOTRIN) 600 mg tablet Take 1 tablet (600 mg total) by mouth every 6 (six) hours as needed for pain (pain > 5/10 or cramping) 20 tablet Active ondansetron ODT (ZOFRAN-ODT) 4 mg disintegrating tablet Take 1 tablet (4 mg total) by mouth every 8 (eight) hours as needed for nausea or vomiting 20 tablet 5 Active Active Problems Problem Noted Date Diagnosed Date Retained products of conception after miscarriag e 04/26/2022 34 weeks gestation of 04/03/2021 Encounter for post surgical wound check 12/30/19 19 Dressing change or removal, surgical wound 12/29 Immunizations Immunization Administration Dates Next Due Tdap 04/04/2021 Social History Tobacco Use Types Packs/Day Years [...] more drinks on one occasion? 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 AR: DEDRA Report ID: [id number] Reading Location: [id number] Procedure Note Estiven Britton MD - 11/18/2024 [...] Estiven Britton M.D. AR: DEDRA Report ID: [id number] Reading Location: [id number] us Meme Carlson FENCE ERECTOR SUPERVISOR IMG OB US PROCEDURES Fin al Result * Urinalysis reflex to microscopic and culture Urine (11/16/2024 7:28 PM CDT) Color, ur Yellow Yellow Comment:Testing performed by : [facility], [address] [place] [address]., [id number] Clarity, ur Clear Clear GRICEL Comment:Testing performed by : [facility], [address] [place] [address], [place]., [address] Specific gravity, ur 1.023 1.003 - 1.030 GRICEL Comment:Testing performed by : [facility], [address] [place] [address], [place]., [address] pH, urine 5.5 GRICEL Comment: Interpretive Data U rine pH is affected by diet, medications, systemic acid-base disturbances, and renal tubular function. pH may affect urinary stone formation. For example, urine pH below 6.0 may help reduce the tendency for calcium phosphate stones and pH greater than 6.0 may reduce the tendency for uric acid stone formation. Source: [facility] [employer] Current Interpretive Data was last revised on 2017 Testing performed by: [address] [address] Protein, ur ql Negative Negative GRICEL Comment:Testing performed by : [address] [address] Glucose, ur ql Negative Negative GRICEL Comment:Testing performed by : [address], [place]., [address] Ketones, ur Negative Negative GRICEL Comment:Testing performed by : [address] [address] Bilirubin, ur Negative Negative GRICEL Comment:Testing performed by : [address] [address] Blood, ur Negative Negative GRICEL Comment:Testing performed by : [address] [address] Urobilinogen, ur <2.0 <2.0 mg/dL GRICEL Comment:Testing performed by : [address] [address] Nitrite, ur Negative Negative GRICEL Comment:Testing performed by : [address] [address] Leukocyte esterase, ur Negative Negative GRICEL Comment:Testing performed by : [address] [address] UA reflex comment Reflex conditions for microscopic UA and culture not met. GRICEL Comment:Testing performed by : [address] [place] [address] Urine 11/16/2024 7:28 PM CDT 11/16/2024 7:35 PM CDT Julius Maddox MD LAB MICROBIOLOGY - GENERAL ORDERABLES Final Result Performing Organization Address [facility] Co de Phone Number GRICEL [address] [place] [address] * eGFR (11/16/2024 7:27 PM CDT) eGFR [...] was last reviewed 2021. Testing performed by: [facility], [address] [place] [address]., [address] Blood 11/16/2024 7:27 PM CDT 11/16/2024 7:35 PM CDT us Julius Maddox MD LAB BLOOD ORDERABLE S Final Result Performing Organization Address City/[facility]/ZIP Co de Phone Number GRICEL [facility] [place] [address] * (ABNORMAL) Differential, auto (11/16/2024 7:27 PM CDT) Neutrophil abs 7.18(H) 1.50 - 6.50 K/cumm Comment:Testing performed by : [address] [address] Imm gran abs 0.05 0.00 - 0.10 K/cumm GRICEL Comment:Testing performed by : [address] [address] Lymphocyte abs 3.71(H) 0.80 - 3.30 K/cumm GRICEL Comment:Testing performed by : [address] [address] Monocyte abs 1.17(H) 0.20 - 0.80 K/cumm GRICEL Comment:Testing performed by : [address] [address] Eosinophil abs 0.40 0.00 - 0.50 K/cumm GRICEL Comment:Testing performed by : [address] [address] Basophil abs 0.07 0.00 - 0.10 K/cumm [facility] Comment:Testing performed by : [address] [address] Neutrophil pct 57.0 % [facility] Comment: Interpretive Data Percent cell count reference ranges are not reported, since discordance with absolute values may lead to misinterpretation of CBC data. Current Interpretive Data was last revised on 2017. Testing performed by: [address] [address] Imm gran pct 0.4 % [facility] Comment: Interpretive Data Percent cell count reference ranges are not reported, since discordance with absolute values may lead to misinterpretation of CBC data. Current Interpretive Data was last revised on 2017. Testing performed by: [address] [address] Lymphocyte pct 29.5 % [facility] Comment: Interpretive Data Percent cell count reference ranges are not reported, since discordance with absolute values may lead to misinterpretation of CBC data. Current Interpretive Data was last revised on 2017. Testing performed by: [address] [address] Monocyte pct 9.3 % GRICEL Comment: Interpretive Data Percent cell count reference ranges are not reported, since discordance with absolute values may lead to misinterpretation of CBC data. Current Interpretive Data was last revised on 2017. Testing performed by: [address] [address] Eosinophil pct 3.2 % GRICEL REYES Comment: Interpretive Data Percent cell count reference ranges are not reported, since discordance with absolute values may lead to misinterpretation of CBC data. Current Interpretive Data was last revised on 2017. Testing performed by: [address] [address] Basophil pct 0.6 % GRICEL Comment: Interpretive Data Percent cell count reference ranges are not reported, since discordance with absolute values may lead to misinterpretation of CBC data. Current Interpretive Data was last revised on 2017. Testing performed by: [address] [address] Blood 11/16/2024 7:27 PM CDT 11/16/2024 7:35 PM CDT us Julius Maddox MD LAB BLOOD ORDERABLE S Final Result GRICEL [address] [facility] [place] [address] * (ABNORMAL) CBC with auto differential (11/16/2024 7:27 PM CDT) WBC 12.58(H) 3.80 - 9.90 K/cumm Comment:Testing performed by : [address] [address] Hgb 14.7 11.9 - 15.5 g/dL GRICEL REYES Comment:Testing performed by : [address] [address] Hct 45.6(H) 35.6 - 45.5 % GRICEL REYES Comment:Testing performed by : [address] [address] Plt 288 150 - 400 K/cumm GRICEL REYES Comment:Testing performed by : [address] [address] MPV 10.5 9.1 - 12.3 fL GRICEL REYES Comment:Testing performed by : [address], [address] RBC 5.15 3.90 - 5.20 M/cumm GRICEL REYES Comment:Testing performed by : [address] [address] MCV 88.5 81.3 - 96.4 fL GRICEL REYES Comment:Testing performed by : [address], [address] MCH 28.5 27.1 - 33.3 pg GRICEL REYES Comment:Testing performed by : [address], [address] MCHC 32.2(L) 32.3 - 35.7 g/dL GRICEL REYES Comment:Testing performed by : [address], [address] RDW CV 13.8 11.1 - 14.9 % GRICEL Comment:Testing performed by : [address], [address] RDW SD 44.8 35.7 - 48.1 fL GRICEL Comment:Testing performed by : [address], [address] NRBC abs 0.00 0.00 - 0.01 K/cumm GRICEL Comment:Testing performed by : [address] [address] Blood Venous blood specimen / Unknown 11/16/2024 7:27 PM CDT 11/16/2024 7:35 PM CDT us Julius Maddox MD LAB BLOOD ORDERABLE S Final Result GRICEL [address] [facility] Department [place] [address] * ABO/Rh (11/16/2024 7:27 PM CDT) Pathologist [facility] ABO/Rh A Positive Comment:Testing performed by : [address] [address] Blood 11/16/2024 7:27 PM CDT 11/16/2024 7:36 PM CDT Narrative [facility] 11/16/2024 7:56 PM CDT Has the patient had Daratumumab or Isatuximab in the past 6 months?->Unknown Julius Maddox MD LAB BLOOD BANK TEST ORDERABLES Final Result Performing Organization Address [facility] Co de Phone Number [address] [place] [address] * Antibody screen (11/16/2024 7:27 PM CDT) Pathologist [facility] Tamir, indirect, Gel Interpretation Negative ABSC Comment:Testing performed by : [facility], [address] [place] [address]., [address] Blood 11/16/2024 7:27 PM CDT 11/16/2024 7:36 PM CDT Narrative [facility] 11/16/2024 8:12 PM CDT Has the patient had Daratumumab or Isatuximab in the past 6 months?->Unknown Julius Maddox MD LAB BLOOD BANK TEST ORDERABLES Final Result Performing Organization Address [facility] Co de Phone Number [address] [place] [address] * (ABNORMAL) hCG, blood, quantitative (11/16/2024 7:27 PM CDT) Pathologist [facility] hCG, quant 94.9(H) 0.0 - 5.0 IUnits/L Comment: Interpretive Data Male: < 5 IU/L Non- premenopausal Female: <5 IU/L The Ruben hCG Beta Quant assay procedure was used. Results from different manufacturers or methods may not be comparable. Serial testing should be performed using the same method. Interpretive Data was last revised on 2023 Testing performed by: [address] [address] Blood 11/16/2024 7:27 PM CDT 11/16/2024 7:35 PM CDT Julius Maddox MD LAB BLOOD ORDERABLE S Edited Result - Final Performing Organization Address [facility]/ZIP Co de Phone Number [address] [place] [address] * Lipase (11/16/2024 7:27 PM CDT) Pathologist [facility] Lipase 19 10 - 99 Units/L Comment:Testing performed by : [address] [address] Blood Venous blood specimen / Unknown 11/16/2024 7:27 PM CDT 11/16/2024 7:35 PM CDT Julius Maddox MD LAB BLOOD ORDERABLE S Final Result Performing Organization Address [facility] Co de Phone Number [address] [address] * (ABNORMAL) Comprehensive metabolic panel (11/16/2024 7:27 PM CDT) Pathologist [facility] Sodium 137 135 - 145 mmol/L Comment:Testing performed by : [address] [address] Potassium, pl 4.0 3.3 - 4.9 mmol/L GRICEL Comment:Testing performed by : [address] [address] Chloride 104 97 - 110 mmol/L GRICEL Comment:Testing performed by : [address] [address] CO2 24 22 - 32 mmol/L GRICEL Comment:Testing performed by : [address] [address] Anion gap 9 2 - 15 mmol/L GRICEL Comment:Testing performed by : [address] [address] BUN 8 6 - 25 mg/dL GRICEL Comment:Testing performed by : [address] [address] Creatinine 0.50(L) 0.60 - 1.10 mg/dL GRICEL Comment:Testing performed by : [address] [address] Glucose 80 70 - 199 mg/dL GRICEL [...] was last revised 2022. Testing performed by: [address] [address] Calcium 8.9 8.5 - 10.3 mg/dL GRICEL Comment:Testing performed by : [address] [address] Bilirubin, total <0.2 0.1 - 1.2 mg/dL GRICEL Comment:Testing performed by : [address] [address] Protein, pl 7.0 6.5 - 8.5 g/dL GRICEL Comment:Testing performed by : [address] [address] Albumin 3.9 3.5 - 5.0 g/dL GRICEL Comment:Testing performed by : [address] [address] Alk phos 113 40 - 130 Units/L GRICEL Comment:Testing performed by : [address] [address] ALT 23 7 - 45 Units/L GRICEL Comment:Testing performed by : [address], [place]., [address] AST 18 10 - 45 Units/L GRICEL REYES Comment:Testing performed by : [facility], [address] [place] [address]., [address] Blood 11/16/2024 7:27 PM CDT 11/16/2024 7:35 PM CDT us Julius Maddox MD LAB BLOOD ORDERABLE S Final Result GRICEL REYES [address] [facility] [place] [address] from Last 3 Months Insurance [facility] Advance Directives For more information, please contact: [phone] * Full Code (Latest Code Status on File) Date Activated Date Inactivated Comments 04/04/2021 6:16 AM 04/06/2021 3:50 PM * Full Code Date Activated Date Inactivated Comments 04/03/2021 7:35 AM 04/04/2021 6:16 AM Full CPR in case of cardiopulmonary arrest Care Teams Director [employer] Relationship Specialty Start Date End Date No, Physician PCP - General 03/22/21
[2024-12-05 10:45] VITALS: BP 137/82; PULSE 80; RESP 16; TEMP 36.8; O2SAT 97
--- NOTE | 2024-12-05 10:53 | ED_ITS ---
HPI - General Adult General Chief complaint: HIGH TENSION TESTER Stated complaint: 7.5 weeks -vaginal bleeding Time Seen by Provider: 12/05/24 10:42 History of Present Illness HPI narrative: 29-year-old female presented to the emergency department for evaluation for vaginal bleeding. Patient is 7.5 weeks . Patient is with 1 prior miscarriage. Patient does follow up with [facility] in [facility]. Patient states that she started having vaginal bleeding this morning. Patient states she has gone through 1 pad today. Patient described as light vaginal bleeding not as heavy as a menstrual cycle. Patient denies any associated pain. Patient presented emergency department as she was concerned that she was having a miscarriage. Patient does have follow-up with OB Gyne on Saturday. Related Data Home Medications ?Medication ?Instructions ?Recorded ?Confirmed ?Last Taken ?Type medroxyprogesterone 150 mg/mL mg IM 08/29/23 Unknown History intramuscular syringe Allergies Allergy/AdvReac Type Severity Reaction Status Date / Time iodine Allergy Unknown Swelling Verified 12/05/24 11:00 of Lip/Tongue/Throat shellfish derived Allergy Swelling Verified 12/05/24 11:00 of Lip/Tongue/Throat Review of Systems 2 Review of Systems: All systems reviewed & are unremarkable except as noted in HPI and below PMFSH Past Medical History Medical History Patient denies medical problems Surgical History Surgical History H/O thyroidectomy Social History Social History Smoking packs per day: 0.5 Smoking cigarettes per day: 10.0 Smoking status: Current every day smoker Course Vital Signs Vital signs: Vital Signs Temperature 98.3 F 12/05/24 10:45 Pulse Rate 80 12/05/24 10:45 Respiratory Rate 16 12/05/24 10:45 Blood Pressure 137/82 12/05/24 10:45 Pulse Oximetry 97 12/05/24 10:45 Oxygen Delivery Room Air 12/05/24 10:45 Temperature 98.3 F 12/05/24 10:45 Pulse Rate 95 12/05/24 12:32 Respiratory Rate 18 12/05/24 12:32 Blood Pressure 120/70 12/05/24 12:32 Pulse Oximetry 97 12/05/24 12:32 Oxygen Delivery Room Air 12/05/24 10:45 Medical Decision Making [facility] Narrative Medical decision making narrative: 29-year-old female presents emergency department for evaluation for vaginal bleeding during early . Patient is currently afebrile with a leukocytosis of 10.5 and hemoglobin of 14.1. Patient's INR is 1.0. Patient has no acute abnormalities on her CMP. Patient's blood type was A positive. Ultrasound shows a Single living fetus with heart rate of 124 bpm, gestational age by ultrasound of 6 weeks 1 day(s) +/- 3 day(s) with ultrasound estimated date of delivery (TUYET) of 07/30/2025, very small subchorionic hematoma. Patient was encouraged to have close follow-up with Ob gyne. All questions concerns were addressed. Differential Diagnosis Differential Diagnosis: Miscarriage, recurrent hemorrhage, vaginal bleeding, vaginal bleeding early , ectopic Vital Signs Vital Signs: Vital Signs Temperature 98.3 F 12/05/24 10:45 Pulse Rate 80 12/05/24 10:45 Respiratory Rate 16 12/05/24 10:45 Blood Pressure 137/82 12/05/24 10:45 Pulse Oximetry 97 12/05/24 10:45 Oxygen Delivery Room Air 12/05/24 10:45 Temperature 98.3 F 12/05/24 10:45 Pulse Rate 95 12/05/24 12:32 Respiratory Rate 18 12/05/24 12:32 Blood Pressure 120/70 12/05/24 12:32 Pulse Oximetry 97 12/05/24 12:32 Oxygen Delivery Room Air 12/05/24 10:45 Lab Data Lab results reviewed: Yes I reviewed the patient's lab results. 12/05/24 11:03 12/05/24 11:03 Labs: Lab Results 12/05/24 Range/Units 11:03 WBC 10.5 H (4.5-10.0) K/mm3 RBC 4.89 (4.2-5.4) M/mm3 Hgb 14.1 (12.0-15.0) g/dL Hct 43.3 (37.0-47.0) % MCV 88.5 (80-100) fl MCH 28.8 (26-34) pg MCHC 32.6 (32-36) g/dl RDW 13.6 (11.5-14.5) % Plt Count 294 (150-375) k/mm3 MPV 10.3 (7.4-10.4) fl Immature Gran % (Auto) 0.3 (0-0.5) % Neut % (Auto) 65.1 (45.5-73.1) % Lymph % (Auto) 23.4 (18.3-44.2) % Boyle % (Auto) 8.1 (2.6-8.5) % Eos % (Auto) 2.7 (0-4.4) % Baso % (Auto) 0.4 (0.2-1.2) % Lymph # (Auto) 2.45 (0.9-3.2) K/mm3 Boyle # (Auto) 0.9 H (0.1-0.6) K/mm3 Eos # (Auto) 0.3 (0-0.3) K/mm3 Baso # (Auto) 0.0 (0.0-0.1) K/mm3 Abs Immat Gran (auto) 0.03 (0.00-0.031) K/mm3 Absolute Neuts (auto) 6.8 H (1.3-6.7) K/mm3 Absolute Nucleated RBC 0.000 (0.0-0.012) K/mm3 Nucleated RBC % 0.0 (0.0-0.2) % PT 13.5 (11.1-14.7) Seconds INR 1.0 APTT 25.2 (22.3-36.8) Seconds Sodium 135 L (137-145) mmol/L Potassium 3.9 (3.4-5.0) mmol/L Chloride 106 (98-107) mmol/L Carbon Dioxide 22 (22-30) mmol/L Anion Gap 7 (4-12) mmol/L BUN 8 (7-17) mg/dL Creatinine 0.57 L (0.7-1.0) mg/dL Estim Creat Clear Calc 147 ml/min Estimated GFR > 60 (59 - ) Glucose 108 (65-110) mg/dL Calcium 9.4 (8.4-10.2) mg/dL Total Bilirubin 0.3 (0.2-1.3) mg/dL AST 40 H (14-36) U/L ALT 53 H (6-35) U/L Alkaline Phosphatase 98 (38-126) U/L Total Protein 6.8 (6.3-8.2) g/dL Albumin 3.9 (3.5-5.1) g/dL Beta HCG, Quant 07398.00 mIU/ML Blood Type A Positive Antibody Screen Negative Screen Not Reportable Baby's Blood Type Not Reportable Baby's GIRMA Not Reportable Doses of RhIg Required 0 Imaging Data Radiologist's impression: Impressions Obstetrics Ultrasound 12/05/24 11:49 IMPRESSION: 1. Single living fetus with heart rate of 124 bpm. 2. Gestational age by ultrasound of 6 weeks 1 day(s) +/- 3 day(s) with ultrasound estimated date of delivery (TUYET) of 07/30/2025. 3. Very small subchorionic hematoma. Discharge Plan Discharge Clinical Impression: Vaginal bleeding in , Subchorionic hemorrhage Patient Disposition: Home Condition: Stable Instructions: Antibiotic Form, Non-Threatening First Trimester Vaginal Bleed (ED) Additional Instructions: Your ultrasound showed single living fetus with a heart rate of 124 beats per minute and an estimated gestational age of 6 weeks and 1 day. Have close follow-up with OB Gyne as scheduled on Saturday. Drink plenty of fluids. Tylenol for pain control as needed. If you have any worsening symptoms then please call or return to the emergency department. Patient Language: Slovenian Prescriptions: No Action medroxyprogesterone 150 mg/mL syringe IM ondansetron 4 mg tablet,disintegrating 4 mg PO TID PRN (Reason: nausea and vomiting) Qty: 10 0RF ondansetron 4 mg tablet,disintegrating 4 mg PO DAILY PRN (Reason: nausea and vomiting) Qty: 10 0RF Follow-up/Referrals: [facility] [Non-Staff] -
[2024-12-05 11:08] LABS: Basophils Percent Auto 0.4 % (0.2-1.2); Eosinophils Absolute Auto 0.3 K/mm3 (0-0.3); Eosinophils Percent Auto 2.7 % (0-4.4); Hematocrit 43.3 % (37.0-47.0); Hemoglobin 14.1 g/dL (12.0-15.0); Immature Granulocyte Absolute 0.03 K/mm3 (0.00-0.031); Immature Granulocyte Percent A 0.3 % (0-0.5); Lymphocytes Absolute Auto 2.45 K/mm3 (0.9-3.2); Lymphocytes Percent Auto 23.4 % (18.3-44.2); Mean Corpuscular HGB Conc 32.6 g/dl (32-36); Mean Corpuscular Hemoglobin 28.8 pg (26-34); Mean Corpuscular Volume 88.5 fl (80-100); Mean Platelet Volume 10.3 fl (7.4-10.4); Monocytes Absolute Auto 0.9 K/mm3 (0.1-0.6); Monocytes Percent Auto 8.1 % (2.6-8.5); Neutrophils Absolute Auto 6.8 K/mm3 (1.3-6.7); Neutrophils Percent Auto 65.1 % (45.5-73.1); Platelet Count Result 294 k/mm3 (150-375); Red Blood Count 4.89 M/mm3 (4.2-5.4); Red Cell Distribution Width 13.6 % (11.5-14.5); White Blood Count 10.5 K/mm3 (4.5-10.0)
[2024-12-05 11:21] LABS: Prothrombin Time 13.5 Seconds (11.1-14.7)
[2024-12-05 11:22] LABS: Partial Thromboplastin Time 25.2 Seconds (22.3-36.8)
[2024-12-05 11:23] LABS: Alanine Aminotransferase 53 U/L (6-35); Albumin Level 3.9 g/dL (3.5-5.1); Alkaline Phosphatase 98 U/L (38-126); Anion Gap 7 mmol/L (4-12); Aspartate Amino Transferase 40 U/L (14-36); Bilirubin,Total 0.3 mg/dL (0.2-1.3); Blood Urea Nitrogen 8 mg/dL (7-17); Calcium 9.4 mg/dL (8.4-10.2); Carbon Dioxide 22 mmol/L (22-30); Chloride 106 mmol/L (98-107); Estimated CRCL calculation 147 ml/min; Estimated Glomerular Filt Rate > 60; Glucose 108 mg/dL (65-110); Potassium 3.9 mmol/L (3.4-5.0); Sodium 135 mmol/L (137-145); Total Protein 6.8 g/dL (6.3-8.2)
[2024-12-05 12:32] VITALS: BP 120/70; PULSE 95; RESP 18; O2SAT 97
== END 2024-12-05 12:33 | disposition home or self-care (01) ==
PROVIDERS: Emergency Provider Emergency Medicine
DX: O20.8 Other hemorrhage in early pregnancy (principal); O99.281 Endocrine, nutritional and metabolic diseases complicating pregnancy, first trimester; E89.0 Postprocedural hypothyroidism; O99.331 Smoking (tobacco) complicating pregnancy, first trimester; F17.210 Nicotine dependence, cigarettes, uncomplicated; Z3A.01 Less than 8 weeks gestation of pregnancy
CPT/HCPCS: 36415; 76801; 76817; 80053; 84702; 85025; 85461; 85610; 85730; 86850; 86900; 86901; 99284

== ENCOUNTER 2025-02-19 21:46 | Emergency (ER) | payer OTHER, SELFPAY ==
--- NOTE | ~2025-02-19 | XR_ITS ---
XR chest 1V portable INDICATION: Shortness of breath and cough TECHNIQUE: 2 view chest. FINDINGS: 09/14/2015 There is mild bilateral interstitial prominence and peribronchial cuffing. There is no focal consolidation, pleural effusion, or pneumothorax. The cardiomediastinal silhouette is normal. IMPRESSION: 1. Findings most consistent with bronchiolitis versus an atypical or viral pneumonia. Reviewed, dictated and finalized at location O. IMPRESSION: 1. Findings most consistent with bronchiolitis versus an atypical or viral pne umonia.
[2025-02-19 21:48] VITALS: BP 131/72; PULSE 117; RESP 20; TEMP 37.2; O2SAT 100
--- OUTSIDE RECORDS SUMMARY | 2025-02-19 21:48 | XMS_ITS | Clinical Summary ---
Author Organization [facility] Address [address] [place] [address] Care Team Providers Care Legal Administrator Name Role Phone None, Provider MD Primary Care Provider Unavaila ble Allergies Active Allergy Reactions Criticality Noted Date Comments Fish-Derived Products Anaphylaxis High 12/19/2020 Hydrocodone Itching 10/24/2022 Iodine Throat swelling 05/04/2017 Shellfish-Derived Products Anaphylaxis High 12/23/19 19 Shrimp/tilapia Medications medroxyPROGEST ERone (DEPO-PROVERA) injection INJECT 1 MILLILITER INTRAMUSCULARLY EVERY 3 MONTHS 05/31/20 22 Active lidocaine viscous (XYLOCAINE) 2 % solution Take 15 mLs by mouth every 4 (four) hours as needed for Pain. May dilute in 30 CC of water and swish, gargle, and spit. 200 mL 10/25/19 23 Active Active Problems Problem Noted Date Diagnosed Date High grade squamous intraepi thelial lesion (HGSIL), grade 3 HAN, on biopsy of cervix 09/06/2022 S/P LEEP 09/06/2022 Resolved Problems Problem Noted Date Diagnosed Date Resolved Date uterine contractions , antepartum, third trimester (HHS/HCC) 08/23/2019 08/23/2019 Other closed extra-articular fracture of distal end of left radius, initial encounter 12/23/2018 08/23/2019 Family History Medical History Relation Comments Diabetes Maternal Grandmother Relation Status Comments Maternal Grandmother Mother Alive Social History Tobacco Use Types Packs/Day Years Used Date Smoking Tobacco: Every Day Cigarettes 0.5 6 Smokeless Tobacco: Never Tobacco Cessation:Ready to Q uit: Not Asked; Counseling Given: Not Answered Alcohol Use Standard Drinks/Week Comments No 0 (1 standard drink = 0.6 oz pur e alcohol) AUDIT-C Answer Date Recorded Frequency of Alcohol Consumption Never 06/05/2018 Average Number of Drinks Not on file 018 Frequency of Binge Drinking Not on file 11/2017 Comments No Sex and Gender Information Value Date Recorded Sex Assigned at Female 08/06/2019 9:24 PM INTERVENTIONAL PAIN PHYSICIAN Legal Sex Female 10:39 PM CDT Gender Identity Female 08/06/2019 9:24 PM INTERVENTIONAL PAIN PHYSICIAN Sexual Orientation Straight 08/06/2019 9: 24 PM INTERVENTIONAL PAIN PHYSICIAN Last Filed Vital Signs Vital Sign Reading Time Taken Comments Blood Pressure 134/106 07/28/2024 10:19 PM INTERVENTIONAL PAIN PHYSICIAN Pulse 112 07/28/2024 10:19 PM INTERVENTIONAL PAIN PHYSICIAN Temperature 37.2 C (99 F) 07/28/2024 10:19 PM INTERVENTIONAL PAIN PHYSICIAN Respiratory Rate 18 07/29/2024 12:52 AM INTERVENTIONAL PAIN PHYSICIAN Oxygen Saturation 100% 07/28/2024 10:19 PM INTERVENTIONAL PAIN PHYSICIAN Inhaled Oxygen Concentration - - Weight 104.3 kg (230 lb) 07/28/2024 10:19 PM INTERVENTIONAL PAIN PHYSICIAN Height 162.6 cm (5' 4) 07/28/2024 10:19 PM INTERVENTIONAL PAIN PHYSICIAN Body Mass Index 39.48 07/28/2024 10:19 PM INTERVENTIONAL PAIN PHYSICIAN Plan of Treatment Health Maintenance Due Date Last Done Comments Cervical Cancer Screening Pa p Smear (Age 30 to 64) Every 3 Years 1993 Annual Physical 1996 HPV Vaccines (2 - 2-dose series) 07/14/2008 01/12/2008 Hepatitis C 11/10/2011 DTaP, Tdap and Td Vaccines ( 3 - Tdap) 2012 01/19/1999, 05/04/1997 Hepatitis B Vaccines (1 of 3 - 19+ 3-dose series) 2012 Pneumococcal Vaccine: Pediatrics (0 to 5 Years) and At-Risk Patients (6 to 49 Years) (1 of 2 - PCV) 2012 Cervical Cancer Screening Pa p with HPV Testing (Age 30 to 64) Every 5 Years 11/10/2023 Cervical Cancer Screening wi th HPV 11/10/2023 COVID-19 Vaccine (2023-2 5 season) 2024 Meningococcal Vaccine Aged Out 01/12/2008 No mónica meseret eligible based on patient's age to complete this topic Meningococcal B Vaccine Aged Out No l onger eligible based on patient's age to complete this topic RSV Immunizations Under 20 Months Aged Out No longer eligible b ased on patient's age to complete this topic Medical Devices Implanted Type Area Robotics Application Engineer Device Identifier Shelf Expiration Date Model / Serial / Lot Plate Synthes 2.4 Va-Lcp Vlr Dist Radius 6h Hd/2h Shaft Left - [id number] Implanted:Qty: 1 on 12/23/2018 by Jose Antonio Bhatt MD at [facility] Left: Radius SYNTHES [id number] / / Description:6 HOLE VA DISTAL RADIUS PLATE Screw Synthes 2.4 Cortical Self Tap 14mm - [id number] Implanted:Qty: 2 on 12/23/2018 by Jose Antonio Bhatt MD at [facility] Left: Radius SYNTHES [id number] / / Screw Synthes 2.4 Locking Stardrive 16mm - [id number] Implanted:Qty: 4 on 12/23/2018 by Jose Antonio Bhatt MD at [facility] Left: Radius SYNTHES [id number] / / Screw Synthes 2.4 Locking Stardrive 18mm - [id number] Implanted:Qty: 1 on 12/23/2018 by Jose Antonio Bhatt MD at [facility] Left: Radius SYNTHES [id number] / / Explanted Type Area Robotics Application Engineer Device Identifier Shelf Expiration Date Model / Serial / Lot Wire Synthes 1.25mm Wes W/Trocar Point 150mm - [id number] Explanted:Qty: 1 on 12/23/2018 by Jose Antonio Bhatt MD at [facility] Left: Radius SYNTHES [id number] / / Insurance [facility] Advance Directives * Full Code (Latest Code Status on File) Date Activated Date Inactivated Comments 08/22/2019 12:41 PM 08/23/2019 8:39 AM Care Teams Legal Administrator Relationship Specialty Start Date End Date None, Provider, MD PCP - General UNKNOWN PHYSICIAN SPECIALTY 09/06/22
--- OUTSIDE RECORDS SUMMARY | 2025-02-19 21:48 | XMS_ITS | Clinical Summary ---
Author Organization [facility] Address [address] [place] [address] Care Team Providers Care Handy Worker Name Role Phone No, Physician Primary Care Provider [phone] Allergies Active Allergy Reactions Criticality Noted Date [...] nausea or vomiting 20 tablet 5 Active albuterol HFA (PROVENTIL HFA,VENTOLIN HFA,PROAIR HFA) 90 mcg/actuation inhalerIndications: Bronchospasm Prevention Inhale 2 puffs every 4 (four) hours as needed for wheezing 1 each 1 5 02/17/20 26 Active Active Problems Problem Noted Date Diagnosed Date Retained products of conception after miscarriag e 04/26/2022 34 weeks gestation of 04/03/2021 Encounter for post surgical wound check 12/30/19 Dressing change or removal, surgical wound 12/29 Estimated Date of Delivery Comme nts Yes 07/26/2025 Encounters Date Type Department Care Team Description 02/15/2025 11:57 PM CDT - 02/16/2025 1:05 AM CDT Emergency [facility] Emergency Department [address] [place] [address] Cindy Galvan MD Spotting affecting in second trimester (Primary Dx); Chronic cough; Tobacco abuse Discharge Disposition: Discharge to home or self [...] more drinks on one occasion? Never 04/26/2022 [place] Depression Scale Answer Date Recorded [place] Depression Scale Total 0 04/05/2021 The thought of harming myself has occurred to me . Never 04/05/2021 Personal Safety Answer Date Recorded Have you ever been in or are you currently in a harmful physical or emotional relationship or is someone making you feel afraid or unsafe? Denies 02/16/2025 Estimated Date of Delivery Comme nts Yes 07/26/2025 Sex and Gender Information Value Date Recorded Sex Assigned at Not on file Legal Sex Female 9:06 PM NIGHT STOCKER Gender Identity Not on file Sexual Orientation Not on file Obstetrics History Para Term AB IAB SAB Ectopic Multiple Livin g Live Births 3 2 2 0 2 2 Date Outcome GA Total Labor Labor/2nd/3rd Weight Sex Type Anes PTL Millie A1 A5 Name Clin 020 32w 0d 10h 00m 2.268 kg (5 lb) M Vag-S pont None Y Livin g Delivery Location:[facility] 021 34w 3d 0h 03m 0h 03m 2.485 kg (5 lb 7.7 oz) F CS-LT ranv Epidu ral,S urban Y Livin g 8 8 MALON E,GIR LCIER Aruna Mckeon, Complications: Intolera nce,Rupture of Membranes > 18 hours,Premature Rupture of Membranes,Failure to Progress in First Stage Delivery Location:[facility] Main C ampus (E L AND D PROCEDURE) Current Last Filed Vital Signs Vital Sign Reading Time Taken Comments Blood Pressure 107/64 02/16/2025 12:45 AM CDT Pulse 105 02/16/2025 12:45 AM CDT Temperature 36.8 C (98.2 F) 02/15/2025 9:10 PM CDT Respiratory Rate 16 02/15/2025 9:10 PM CDT Oxygen Saturation 98% 02/16/2025 12:45 AM CDT Inhaled Oxygen Concentration - - Weight 121.6 kg (268 lb) 02/15/2025 9:10 PM CDT Height 162.6 cm (5' 4) 02/15/2025 9:10 PM CDT Body Mass Index 46 02/15/2025 9:10 PM CDT Plan of Treatment Health Maintenance Due Date Last Done Comments Cervical Cancer Screening 1993 Hepatitis C Screening 1993 Varicella Vaccines (1 of 2 - 13+ 2-dose series) 2006 HPV Vaccines (2 - 2-dose series) 07/14/2008 01/12/20 08 Regular Well Visit/Exam 18-64 11/10/2011 Pneumococcal vaccine <65 (1 of 2 - PCV) 2012 Depression Screening 04/05/2022 04/05/2021 Influenza Vaccine (#1) 2025 DTaP/Tdap/Td Vaccine (8 - Td or Tdap) 04/04/2031 04/04/2021, 01/12/2008, 01/19/1999, Additional history exists Hepatitis B Screening Completed 02/14/1995 , 02/08/1994, 1993 Medical Devices Implanted Type Area Early Intervention Specialist Device Identifier Shelf Expiration Date Model / Serial / Lot Plate Plate Left: Wrist Description:2019 Procedures Procedure Name Priority Date/Time Associated Diagnosis Comments DIFFERENTIAL AUTO STAT 02/15/2025 9:2 0 PM CDT ABO/RH STAT 02/15/2025 9:20 PM CDT HCG, BLOOD, QUANTITATIVE STAT 02/15/2025 9:20 PM CDT CBC WITH AUTO DIFFERENTIAL STAT 02/15/2025 9:20 PM CDT from Last 3 Months Results * (ABNORMAL) Differential, auto (02/15/2025 9:20 PM CDT) Neutrophil abs 10.81(H) 1.50 - 6.50 K/cumm Imm gran abs 0.07 0.00 - 0.10 K/cumm [facility] ([facility]) Lymphocyte abs 3.02 0.80 - 3.30 K/cumm [facility] ([facility]) Monocyte abs 1.06(H) 0.20 - 0.80 K/cumm [facility] ([facility]) Eosinophil abs 0.24 0.00 - 0.50 K/cumm [facility] ([facility]) Basophil abs 0.04 0.00 - 0.10 K/cumm [facility] ([facility]) Neutrophil pct 70.8 % [facility] ([facility]) Comment: Interpretive Data Percent cell count reference ranges are not reported, since discordance with absolute values may lead to misinterpretation of CBC data. Current Interpretive Data was last revised on 2017. Imm gran pct 0.5 % [facility] ([facility]) Comment: Interpretive Data Percent cell count reference ranges are not reported, since discordance with absolute values may lead to misinterpretation of CBC data. Current Interpretive Data was last revised on 2017. Lymphocyte pct 19.8 % [facility] ([facility]) Comment: Interpretive Data Percent cell count reference ranges are not reported, since discordance with absolute values may lead to misinterpretation of CBC data. Current Interpretive Data was last revised on 2017. Monocyte pct 7.0 % [facility] ([facility]) Comment: Interpretive Data Percent cell count reference ranges are not reported, since discordance with absolute values may lead to misinterpretation of CBC data. Current Interpretive Data was last revised on 2017. Eosinophil pct 1.6 % [facility] ([facility]) Comment: Interpretive Data Percent cell count reference ranges are not reported, since discordance with absolute values may lead to misinterpretation of CBC data. Current Interpretive Data was last revised on 2017. Basophil pct 0.3 % [facility] ([facility]) Comment: Interpretive Data Percent cell count reference ranges are not reported, since discordance with absolute values may lead to misinterpretation of CBC data. Current Interpretive Data was last revised on 2017. Blood 02/15/2025 9:20 PM CDT 02/15/2025 9:22 PM CDT us Cindy Galvan MD LAB BLOOD ORDERABLES Final Resul t [facility] ([facility]) 1 [facility] Department of Laboratories [place], [place] [id number] * (ABNORMAL) CBC with auto differential (02/15/2025 9:20 PM CDT) WBC 15.24(H) 3.80 - 9.90 K/cumm Hgb 12.0 11.9 - 15.5 g/dL [facility] ([facility]) Hct 36.0 35.6 - 45.5 % [facility] ([facility]) Plt 230 150 - 400 K/cumm [facility] ([facility]) MPV 10.4 9.1 - 12.3 fL [facility] ([facility]) RBC 4.05 3.90 - 5.20 M/cumm [facility] ([facility]) MCV 88.9 81.3 - 96.4 fL [facility] ([facility]) MCH 29.6 27.1 - 33.3 pg [facility] ([facility]) MCHC 33.3 32.3 - 35.7 g/dL [facility] ([facility]) RDW CV 13.3 11.1 - 14.9 % [facility] ([place]) RDW SD 43.4 35.7 - 48.1 fL [facility] ([place]) NRBC abs 0.00 0.00 - 0.01 K/cumm [facility] ([facility]) Blood Venous blood specimen / Unknown 02/15/2025 9:20 PM CDT 02/15/2025 9:22 PM CDT Cindy Galvan MD LAB BLOOD ORDERABLES Final Resul t [facility] ([place]) 1 [facility] [place] [address] * ABO/Rh (02/15/2025 9:20 PM CDT) ABO/Rh A Positive Blood 02/15/2025 9:20 PM CDT 02/15/2025 9:22 PM CDT Result [facility] Cindy Galvan MD LAB BLOOD BANK TEST ORDERABLES F inal Result Performing Organization Address [facility] Co de Phone Number [facility] ([place]) 1 [facility] [place] [address] * (ABNORMAL) hCG, blood, quantitative (02/15/2025 9:20 PM CDT) hCG, quant 17,823.0( H) 0.0 - 5.0 IUnits/L [facility] ([place]) Comment: Interpretive Data Male: < 5 IU/L Non- premenopausal Female: <5 IU/L The Ruben hCG Beta Quant assay procedure was used. Results from different manufacturers or methods may not be comparable. Serial testing should be performed using the same method. Interpretive Data was last revised on 2023 Blood 02/15/2025 9:20 PM CDT 02/15/2025 9:22 PM CDT Cindy Galvan MD LAB BLOOD ORDERABLES Final Resul t [facility] 1 [facility] Department [place] [address] from Last 3 Months Insurance [employer] [facility] Advance Directives For more information, please contact: [phone] * Full Code (Latest Code Status on File) Date Activated Date Inactivated Comments 04/04/2021 6:16 AM 04/06/2021 3:50 PM * Full Code Date Activated Date Inactivated Comments 04/03/2021 7:35 AM 04/04/2021 6:16 AM Full CPR in case of cardiopulmonary arrest Care Teams Handy Worker Relationship Specialty Start Date End Date No, Physician PCP - General 03/22/21
[2025-02-19] MEDS: SODIUM CHLORIDE 0.9% IV 1,000 ML 999 ML IV CONT (22:22)
[2025-02-19] MEDS: ONDANSETRON INJ 4 MG/2 ML VIAL IV PUSH (22:23)
[2025-02-19 22:39] LABS: Alanine Aminotransferase 20 U/L (6-35); Albumin Level 3.5 g/dL (3.5-5.1); Alkaline Phosphatase 111 U/L (38-126); Anion Gap 7 mmol/L (4-12); Aspartate Amino Transferase 26 U/L (14-36); Bilirubin,Total 0.3 mg/dL (0.2-1.3); Blood Urea Nitrogen 3 mg/dL (7-17); Calcium 8.9 mg/dL (8.4-10.2); Carbon Dioxide 22 mmol/L (22-30); Chloride 105 mmol/L (98-107); Estimated CRCL calculation 218 ml/min; Estimated Glomerular Filt Rate > 60; Glucose 94 mg/dL (65-110); Lipase 23 U/L (23-300); Magnesium 1.7 mg/dL (1.6-2.3); Potassium 3.3 mmol/L (3.4-5.0); Sodium 134 mmol/L (137-145); Total Protein 6.8 g/dL (6.3-8.2)
[2025-02-19 22:46] LABS: Hematocrit 37.0 % (37.0-47.0); Hemoglobin 12.4 g/dL (12.0-15.0); Immature Granulocyte Percent A 0.5 % (0-0.5); Lymphocytes Absolute Auto 2.68 K/mm3 (0.9-3.2); Mean Corpuscular HGB Conc 33.5 g/dl (32-36); Mean Corpuscular Hemoglobin 29.2 pg (26-34); Mean Corpuscular Volume 87.1 fl (80-100); Nucleated Red Blood Cells Absolute Auto 0.000 K/mm3 (0.0-0.012); Nucleated Red Blood Cells Perc 0.0 % (0.0-0.2); Platelet Count Result 259 k/mm3 (150-375); Red Blood Count 4.25 M/mm3 (4.2-5.4); White Blood Count 15.3 K/mm3 (4.5-10.0)
--- NOTE | 2025-02-19 23:04 | ED.GENADULT ---
HPI - General Adult General Chief complaint: Upper Respiratory Infection Stated complaint: cough Time Seen by Provider: 02/19/25 21:57 History of Present Illness HPI narrative: Patient is a 29-year-old female who presents to the emergency department this evening complaining of 3 days worth of a cough. States that she has been having some shortness of breath, chills and denies any sick contacts at home or any exposure to illnesses far she is aware. Patient is also complaining of nausea and vomiting, states that she is approximately 17 weeks . Patient does have Zofran at home but states that it has not really been helping with her nausea/ vomiting. Denies any additional symptoms or concerns at this time. Related Data Home Medications ?Medication ?Instructions ?Recorded ?Confirmed ?Last Taken ?Type medroxyprogesterone 150 mg/mL mg IM 08/29/23 Unknown History intramuscular syringe Allergies Allergy/AdvReac Type Severity Reaction Status Date / Time iodine Allergy Unknown Swelling Verified 02/19/25 21:54 of Lip/Tongue/Throat shellfish derived Allergy Swelling Verified 02/19/25 21:54 of Lip/Tongue/Throat Review of Systems Review of Systems: All systems are reviewed and are negative unless stated otherwise in the HPI. [facility] Past Medical History Medical History Patient denies medical problems Surgical History Surgical History H/O thyroidectomy Social History Social History Smoking packs per day: 0.5 Smoking cigarettes per day: 10.0 Smoking status: Current every day smoker Exam Narrative: General: Alert, awake, afebrile, in no acute distress, dry cough. HEENT: PERRL, no rhinorrhea, no post nasal drip, oropharynx clear. Neck: Trachea midline, no JVD, no lymphadenopathy. Cardiovascular: Regular rate and rhythm, no murmurs, rubs or gallops, no peripheral edema. Respiratory: Mild expiratory wheezing bilaterally, no tachypnea, no rhonchi, no rubs, no respiratory distress. Abdomen: Soft, nontender, nondistended, no rebound, no guarding, no peritoneal signs. Musculoskeletal: No joint swelling or deformity, normal muscle tone. Skin: No rashes or petechia, no signs of infection. Psychiatric: Alert and oriented, normal behavior and judgment for situation. Neurological: Alert and oriented to person, place, and time. Follows all commands. No focal deficits, speech is clear and fluent. Course Vital Signs Vital signs: Vital Signs Temperature 99 F 02/19/25 21:48 Pulse Rate 117 H 02/19/25 21:48 Respiratory Rate 20 02/19/25 21:48 Blood Pressure 131/72 02/19/25 21:48 Pulse Oximetry 100 02/19/25 21:48 Oxygen Delivery Room Air 02/19/25 21:48 Temperature 99 F 02/19/25 21:48 Pulse Rate 117 H 02/19/25 21:48 Respiratory Rate 20 02/19/25 21:48 Blood Pressure 131/72 02/19/25 21:48 Pulse Oximetry 100 02/19/25 21:48 Oxygen Delivery Room Air 02/19/25 22:27 Medical Decision Making MDM Narrative Medical decision making narrative: The patient was evaluated by myself in the emergency department. History is obtained from patient who is an independent historian and physical exam was performed. External medical records were reviewed at this time. IV was established and pertinent tests were ordered. Patient was administered 4 mg IV Zofran for nausea / vomiting and 1 L IV fluid bolus with normal saline. Laboratory results obtained revealing Mild hypokalemia with a potassium of 3.3 otherwise unremarkable. At this time patient was administered 40 mEq of potassium orally. Viral swabs negative for COVID / influenza/ RSV. Imaging studies obtained included CXR which was independently interpreted by me revealing: IMPRESSION: 1. Findings most consistent with bronchiolitis versus an atypical or viral pneumonia. Differential diagnosis considerations include acute viral syndrome, pneumonia, dehydration, electrolyte derangements, hyperemesis . Comorbidities impacting this visit include current 1st trimester . I have evaluated and discussed social determinants of health with the patient that could potentially impact subsequent diagnosis and treatment plans. On repeat assessment of the patient, reevaluation revealed that the patient is doing well and is in no acute distress. Patient symptoms have improved since she arrived to our emergency department. Repeat vital signs were all reviewed and noted to be stable. Differential diagnosis and treatment plan were discussed with the patient at bedside. Patient agrees with discussion and after shared medical decision making agrees with discharge. All questions were answered to the patient's satisfaction. Patient will follow up with her PCP/OBGYN in 3-5 days. A script for Amoxicillin was sent to patients pharmacy to take as prescribed for her possible pneumonia. Patient was provided with strict return precautions and instructed to return to the emergency department if any new or worsening symptoms develop. The patient was discharged in stable condition. Vital Signs Vital Signs: Vital Signs Temperature 99 F 02/19/25 21:48 Pulse Rate 117 H 02/19/25 21:48 Respiratory Rate 20 02/19/25 21:48 Blood Pressure 131/72 02/19/25 21:48 Pulse Oximetry 100 02/19/25 21:48 Oxygen Delivery Room Air 02/19/25 21:48 Temperature 99 F 02/19/25 21:48 Pulse Rate 117 H 02/19/25 21:48 Respiratory Rate 20 02/19/25 21:48 Blood Pressure 131/72 02/19/25 21:48 Pulse Oximetry 100 02/19/25 21:48 Oxygen Delivery Room Air 02/19/25 22:27 Lab Data 02/19/25 22:20 02/19/25 22:20 Labs: Lab Results 02/19/25 Range/Units 22:20 WBC 15.3 H (4.5-10.0) K/mm3 RBC 4.25 (4.2-5.4) M/mm3 Hgb 12.4 (12.0-15.0) g/dL Hct 37.0 (37.0-47.0) % MCV 87.1 (80-100) fl MCH 29.2 (26-34) pg MCHC 33.5 (32-36) g/dl RDW 13.5 (11.5-14.5) % Plt Count 259 (150-375) k/mm3 MPV 10.8 H (7.4-10.4) fl Immature Gran % (Auto) 0.5 (0-0.5) % Neut % (Auto) 73.8 H (45.5-73.1) % Lymph % (Auto) 17.5 L (18.3-44.2) % Starke % (Auto) 6.8 (2.6-8.5) % Eos % (Auto) 1.2 (0-4.4) % Baso % (Auto) 0.2 (0.2-1.2) % Lymph # (Auto) 2.68 (0.9-3.2) K/mm3 Starke # (Auto) 1.0 H (0.1-0.6) K/mm3 Eos # (Auto) 0.2 (0-0.3) K/mm3 Baso # (Auto) 0.0 (0.0-0.1) K/mm3 Abs Immat Gran (auto) 0.07 H (0.00-0.031) K/mm3 Absolute Neuts (auto) 11.3 H (1.3-6.7) K/mm3 Absolute Nucleated RBC 0.000 (0.0-0.012) K/mm3 Nucleated RBC % 0.0 (0.0-0.2) % Sodium 134 L (137-145) mmol/L Potassium 3.3 L (3.4-5.0) mmol/L Chloride 105 (98-107) mmol/L Carbon Dioxide 22 (22-30) mmol/L Anion Gap 7 (4-12) mmol/L BUN 3 L D (7-17) mg/dL Creatinine 0.39 L (0.7-1.0) mg/dL Estim Creat Clear Calc 218 ml/min Estimated GFR > 60 (59 - ) Glucose 94 (65-110) mg/dL Calcium 8.9 (8.4-10.2) mg/dL Magnesium 1.7 (1.6-2.3) mg/dL Total Bilirubin 0.3 (0.2-1.3) mg/dL AST 26 (14-36) U/L ALT 20 (6-35) U/L Alkaline Phosphatase 111 (38-126) U/L Total Protein 6.8 (6.3-8.2) g/dL Albumin 3.5 (3.5-5.1) g/dL Lipase 23 (23-300) U/L Influenza A (RT-PCR) Negative (Negative) Influenza B (RT-PCR) Negative (Negative) SARS-CoV-2 RNA (RT-PCR) Negative (Negative) Discharge Plan Discharge Clinical Impression: Upper respiratory infection, Pneumonia, Nausea & vomiting Patient Disposition: Home Condition: Improved Instructions: Antibiotic Form, Acute Nausea and Vomiting (DC), Community Acquired Pneumonia (DC) Additional Instructions: Please take the prescribed antibiotic as instructed for your pneumonia. Return to the emergency department if any new or worsening symptoms develop. Follow-up with your family doctor or your OBGYN within the next 3-5 days. Patient Language: Welsh Prescriptions: New amoxicillin 500 mg capsule 1,000 mg PO TID 5 Days Qty: 30 0RF No Action medroxyprogesterone 150 mg/mL syringe IM ondansetron 4 mg tablet,disintegrating 4 mg PO TID PRN (Reason: nausea and vomiting) Qty: 10 0RF ondansetron 4 mg tablet,disintegrating 4 mg PO DAILY PRN (Reason: nausea and vomiting) Qty: 10 0RF Follow-up/Referrals: UNKNOWN,DOCTOR [Primary Care Provider] - 3 Days Time of Disposition: 23:02
[2025-02-19] MEDS: POTASSIUM CHLORIDE 20 MEQ PACKET (FOR LIQUID) 40 MEQ PO (23:15)
[2025-02-19 23:18] LABS: Influenza A QL RT-PCR Negative (Negative); Influenza B QL RT-PCR Negative (Negative); SARS-CoV-2 RNA PCR Negative (Negative)
[2025-02-20 00:08] VITALS: BP 136/70; PULSE 110; RESP 20; O2SAT 99
== END 2025-02-20 00:09 | disposition home or self-care (01) ==
PROVIDERS: Emergency Provider Emergency Medicine
DX: O99.512 Diseases of the respiratory system complicating pregnancy, second trimester (principal); J18.9 Pneumonia, unspecified organism; J06.9 Acute upper respiratory infection, unspecified; O21.9 Vomiting of pregnancy, unspecified; Z20.822 Contact with and (suspected) exposure to COVID-19; O99.332 Smoking (tobacco) complicating pregnancy, second trimester; F17.210 Nicotine dependence, cigarettes, uncomplicated; Z3A.17 17 weeks gestation of pregnancy
CPT/HCPCS: 36415; 71045; 80053; 83690; 83735; 85025; 87636; 96361; 96374; 99284; A9270; J2405; J7030

== ENCOUNTER 2025-03-25 14:18 | Observation (INO) | payer OTHER, SELFPAY ==
[2025-03-25 14:43] VITALS: BP 115/53; PULSE 97
[2025-03-25 14:52] VITALS: BMI 46.5
--- NOTE | 2025-03-25 14:53 | OBADM ---
This patient, Carla Santos, admitted to the OB room OB Post 115 for observation. Patient/family oriented to hospital policies and general routines including ID bracelet, bed and alarms, visiting hours, pain management, procedures, bathroom and other care routines, personal items, smoking policy, room service/diet, and visiting hours. Patient/Family are encouraged to report perceived risks to care and to ask questions if they do not understand what they are told or what they should do.
[2025-03-25 14:55] LABS: Add Urine Microscopic? YES; Appearance Urine Cloudy (Clear); Glucose Urine UA Negative (Negative); Leukocyte Esterase Ur Trace LEU/UL (Negative); Nitrate Urine Negative (Negative); Non Pathogenic Casts 0-2; Specific Grav Ur 1.014 (1.001-1.035)
[2025-03-25 15:01] VITALS: BP 115/62; PULSE 104
[2025-03-25 15:31] VITALS: BP 116/67; PULSE 100
--- OUTSIDE RECORDS SUMMARY | 2025-03-25 17:02 | XMS_ITS | Clinical Summary ---
Author Organization [facility] Address [address] [place] [address] Care Team Providers Care Company Secretary Name Role Phone No, Physician Primary Care Provider [phone] No, Physician Unavailable Allergies Active Allergy Reactions Criticality Noted Date [...] Encounters Date Type Department Care Team Description 02/19/2025 8:49 PM CDT - 02/19/2025 9:32 PM CDT Emergency [facility] Emergency Department [address] [place] [address] Naif Altman MD Discharge Disposition: Left without being seen 02/15/2025 11:57 PM CDT - 02/16/2025 1:05 AM CDT Emergency [facility] Emergency Department 1 [place] [address] Cindy Galvan MD Spotting affecting in second [...] more drinks on one occasion? 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 Gender Identity Not on file Sexual Orientation Not on file Obstetrics History Para Term AB IAB SAB Ectopic Multiple Livin g Live Births 3 2 2 0 2 2 Date Outcome GA Total Labor Labor/2nd/3rd Weight Sex Type Anes PTL Millie A1 A5 Name Clin 020 32w 0d 10h 00m 2.268 kg (5 lb) M Vag-S pont None Y Livin g Delivery Location:[facility] 021 34w 3d 0h 03m 0h 03m 2.485 kg (5 lb 7.7 oz) F CS-LT ranv Epidu ral,S urban Y Livin g 8 8 ZULLY AVENDAÑO RA, Debra Ann, Complications: Intolera nce,Rupture of Membranes > 18 hours,Premature Rupture of Membranes,Failure to Progress in First Stage Delivery Location:[facility] Main C ampus (MHE L AND D PROCEDURE) Current Last Filed [...] 02/08/1994, 1993 Medical Devices Implanted Type Area Customs Opener Verifier Packer Device Identifier Shelf Expiration Date Model / [...] 3.02 0.80 - 3.30 K/cumm [facility] (YAIR) Monocyte abs 1.06(H) 0.20 - 0.80 K/cumm [...] BLOOD ORDERABLES Final Resul t [facility] (YAIR) 1 [facility] Department [place] [address] * (ABNORMAL) CBC with auto differential (02/15/2025 9:20 PM CDT) WBC 15.24(H) 3.80 - 9.90 K/cumm Hgb 12.0 11.9 - 15.5 g/dL [facility] (YAIR) Hct 36.0 35.6 - 45.5 % [facility] (YAIR) Plt 230 150 - 400 K/cumm [facility] (YAIR) MPV 10.4 9.1 - 12.3 fL [facility] ([facility] RBC 4.05 3.90 - 5.20 M/cumm [facility] (YAIR) MCV 88.9 81.3 - 96.4 fL [facility] (YA[place]) MCH 29.6 27.1 - 33.3 pg [facility] (YA[place]) MCHC 33.3 32.3 - 35.7 g/dL [facility] (YA[place]) RDW CV 13.3 11.1 - 14.9 % [facility] ([place]) RDW SD 43.4 35.7 - 48.1 fL [facility] ([facility]) NRBC abs 0.00 0.00 - 0.01 K/cumm [facility] (YAIR) Blood Venous blood specimen / Unknown 02/15/2025 9:20 PM CDT 02/15/2025 9:22 PM CDT Cindy Galvan MD LAB BLOOD ORDERABLES Final Resul t Performing Organization Address City/[facility]/ZIP Co de Phone Number [facility] ([place]) 1 [facility] [employer] [place] [address] * ABO/Rh (02/15/2025 9:20 PM CDT) Pathologist [facility] ABO/Rh A Positive Blood 02/15/2025 9:20 PM CDT 02/15/2025 9:22 PM CDT Cindy Galvan MD LAB BLOOD BANK TEST ORDERABLES F inal Result [facility] ([place]) 1 [facility] [employer] [place] [address] * (ABNORMAL) hCG, blood, quantitative (02/15/2025 9:20 PM CDT) hCG, quant 17,823.0( H) 0.0 - 5.0 IUnits/L [facility] (YAIR) Comment: Interpretive Data Male: < 5 IU/L [...] BLOOD ORDERABLES Final Resul t [facility] ([place]) 1 [facility] Department of Laboratories [place], [place] [id number] from Last 3 Months Insurance [facility] Advance Directives For more information, please contact: [phone] * Full Code (Latest Code Status on File) Date Activated Date Inactivated Comments 04/04/2021 6:16 AM 04/06/2021 3:50 PM * Full Code Date Activated Date Inactivated Comments 04/03/2021 7:35 AM 04/04/2021 6:16 AM Full CPR in case of cardiopulmonary arrest Care Teams Company Secretary Relationship Specialty Start Date End Date No, Physician PCP - General 02/19/25 No, Physician 02/19/25
--- OUTSIDE RECORDS SUMMARY | 2025-03-25 17:02 | XMS_ITS | Clinical Summary ---
Author Organization [facility] Address [address] [place] [address] Care Team Providers Care Hydraulic Press Operator Name Role Phone None, Provider MD Primary [...] Sex Assigned at Female 08/06/2019 9:24 PM MANDREL CLEANER Legal Sex Female 10:39 PM CDT Gender Identity Female 08/06/2019 9:24 PM MANDREL CLEANER Sexual Orientation Straight 08/06/2019 9: 24 PM MANDREL CLEANER Last Filed Vital Signs Vital Sign Reading Time Taken Comments Blood Pressure 134/106 07/28/2024 10:19 PM MANDREL CLEANER Pulse 112 07/28/2024 10:19 PM MANDREL CLEANER Temperature 37.2 C (99 F) 07/28/2024 10:19 PM MANDREL CLEANER Respiratory Rate 18 07/29/2024 12:52 AM MANDREL CLEANER Oxygen Saturation 100% 07/28/2024 10:19 PM MANDREL CLEANER Inhaled Oxygen Concentration - - Weight 104.3 kg (230 lb) 07/28/2024 10:19 PM MANDREL CLEANER Height 162.6 cm (5' 4) 07/28/2024 10:19 PM MANDREL CLEANER Body Mass Index 39.48 07/28/2024 10:19 PM MANDREL CLEANER Plan of Treatment Health Maintenance Due Date [...] HPV 11/10/2023 COVID-19 Vaccine (2023-2 5 season) 2025 Meningococcal Vaccine Aged Out 01/12/2008 No mónica meseret eligible based on patient's age to complete this topic Meningococcal B Vaccine Aged Out No l onger eligible based on patient's age to complete this topic RSV Immunizations Under 20 Months Aged Out No longer eligible b ased on patient's age to complete this topic Medical Devices Implanted Type Area Felt Washing Machine Tender Device Identifier Shelf Expiration Date Model / Serial / Lot Plate Synthes 2.4 Va-Lcp Vlr Dist Radius 6h Hd/2h Shaft Left - [id number] Implanted:Qty: 1 on 12/23/2018 by Jose Antonio Bhatt MD at [facility] Left: Radius SYNTHES [id number] / / Description:6 HOLE VA DISTAL RADIUS PLATE Screw Synthes 2.4 Cortical Self Tap 14mm - [id number] Implanted:Qty: 2 on 12/23/2018 by Jose Antonio Bhatt MD at [facility] Left: Radius SYNTHES 201.764 / / Screw Synthes 2.4 Locking Stardrive 16mm - [id number] Implanted:Qty: 4 on 12/23/2018 by Jose Antonio Bhatt MD at [facility] Left: Radius SYNTHES 02.210.116 / / Screw Synthes 2.4 Locking Stardrive 18mm - [id number] Implanted:Qty: 1 on 12/23/2018 by Jose Antonio Bhatt MD at [facility] Left: Radius SYNTHES 02.210.118 / / Explanted Type Area Felt Washing Machine Tender Device Identifier Shelf Expiration Date Model / Serial / Lot Wire Synthes 1.25mm Wes W/Trocar Point 150mm - [id number] Explanted:Qty: 1 on 12/23/2018 by Jose Antonio Bhatt MD at [facility] Left: Radius SYNTHES 292.12 / / Insurance [facility] Advance Directives * Full Code (Latest Code Status on File) Date Activated Date Inactivated Comments 08/22/2019 12:41 PM 08/23/2019 8:39 AM Care Teams Hydraulic Press Operator Relationship Specialty Start Date End Date None, Provider, MD PCP - General UNKNOWN PHYSICIAN SPECIALTY 09/06/22
--- NOTE | 2025-04-17 23:34 | PM.OBTRLD ---
OB - Triage/Final Diagnosis Visit Information Comments/Additional reasons for admission: I have assessed the risk for this patient, Carla Santos, and determined that she would benefit from observation care. Evaluation Laboratory results: Laboratory Tests 03/25/25 14:44 Urine Color Yellow Urine Appearance Cloudy H Urine pH 7.0 Ur Specific [place] 1.014 Urine Protein Negative Urine Glucose (UA) Negative Urine Ketones Negative Ur Blood (Man) Negative Urine Nitrate Negative Urine Bilirubin Negative Urine Urobilinogen 1.0 Ur Leukocyte Esterase Trace H Urine RBC 0-2 Urine WBC 6-10 H Ur Squamous Epith Cells Moderate Urine Bacteria None seen Urine Casts 0-2 Final Diagnosis (1) False labor: Code(s): O47.9 - False labor, unspecified Status: Acute
== END 2025-03-25 16:15 | disposition home or self-care (01) ==
PROVIDERS: Admitting Provider Obstetrics & Gynecology; PCP Obstetrics & Gynecology; Visit Provider Obstetrics & Gynecology
DX: O47.02 False labor before 37 completed weeks of gestation, second trimester (principal); Z3A.22 22 weeks gestation of pregnancy
CPT/HCPCS: 81001; G0378; G0379

== ENCOUNTER 2025-05-05 10:32 | Observation (INO) | payer OTHER, SELFPAY ==
[2025-05-05 11:00] VITALS: BMI 45.8
[2025-05-05 11:01] VITALS: BP 124/64; PULSE 110
[2025-05-05 11:16] VITALS: BP 119/60; PULSE 100
[2025-05-05 11:31] VITALS: BP 115/71; PULSE 97
--- NOTE | 2025-05-05 11:42 | OBADM ---
This patient, Carla Santos, admitted to the OB room OB Post 113 for observation. Patient/family oriented to hospital policies and general routines including ID bracelet, bed and alarms, visiting hours, pain management, procedures, bathroom and other care routines, personal items, smoking policy, room service/diet, and visiting hours. Patient/Family are encouraged to report perceived risks to care and to ask questions if they do not understand what they are told or what they should do.
[2025-05-05 11:43] VITALS: TEMP 36.6
[2025-05-05 13:01] VITALS: BP 117/56; PULSE 94
[2025-05-05 13:24] LABS: Appearance Urine Clear (Clear)
[2025-05-05 13:25] LABS: Add Urine Microscopic? NO; Glucose Urine UA Negative (Negative); Leukocyte Esterase Ur Negative LEU/UL (Negative); Nitrate Urine Negative (Negative); Specific Grav Ur 1.016 (1.001-1.035)
[2025-05-05 13:31] VITALS: BP 125/67; PULSE 96
--- OUTSIDE RECORDS SUMMARY | 2025-05-05 19:19 | XMS_ITS | Encounter Summary ---
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 Role Phone No, Physician Primary Care Provider [phone] No, Physician Unavailable Reason for Visit * Reason Comments Contractions Encounter Details Date Type Department Care Team (Latest Contact Info) Description 05/05/2025 7:19 PM HIGH LEAD YARDER - 05/06/2025 12:05 AM [facility] Hospital Encounter [facility] [address] [place] [address] Byron Franklin MD [address] [place] [address] DR MACHADO B [address] [address] Discharge Disposition: Discharge to home or self care Social History Tobacco Use Types Packs/Day Years Used Date Smoking Tobacco: Every Day Cigarettes 0.8 8 Alcohol Use Standard Drinks/Week Comments Not Currently 0 (1 standard drink = 0.6 oz pur e alcohol) occaisonally PHQ-2 Answer Date Recorded PHQ-2 Total Score (If total score is 3 or more points, staff should administer the PHQ-9) 0 05/05/2025 Pike Depression Scale Answer Date Recorded Pike Depression Scale Total 0 04/05/2021 The thought of harming myself has occurred to me . Never 04/05/2021 Humiliation, Afraid, Rape, and Kick questionnair e Answer Date Recorded Within the last year, have y ou been afraid of your partner or ex-partner? No 05/05/2025 Within the last year, have y ou been humiliated or emotionally abused in other ways by your partner or ex-partner? No Within the last year, have y ou been kicked, hit, slapped, or otherwise physically hurt by your partner or ex-partner? No 05/05/2025 Within the last year, have y ou been raped or forced to have any kind of sexual activity by your partner or ex-partner? No 05/05/2025 Social Connection and Isolation Panel Answer Date Recorded In a typical week, how many times do you talk on the phone with family, friends, or neighbors? More than three times a week 05/05/2025 How often do you get togethe r with friends or relatives? More than three times a week 05/05/2025 How often do you attend [facility] or latter day services? Never 05/05/2025 Do you belong to any clubs o r organizations such as caodaism groups, unions, fraternal or athletic groups, or school groups? No 05/05/2025 How often do you attend meet ings of the clubs or organizations you belong to? Never 05/05/2025 Are you , , di vorced, , never , or living with a partner? Never 05/05/2025 AUDIT-C Answer Date Recorded Q1: How often do you have a drink containing alcohol? Never 05/05/2025 Q2: How many drinks containi ng alcohol do you have on a typical day when you are drinking? Patient does not drink Q3: How often do you have si x or more drinks on one occasion? Never 05/05/2025 Overall Financial Resource Strain (CARDIA) Answe r Date Recorded How hard is it for you to pa y for the very basics like food, housing, medical care, and heating? Not very hard 05/05/2025 [facility] Point of Occupat ional Health - Occupational Stress Questionnaire Answer Date Recorded Do you feel stress - tense, restless, nervous, or anxious, or unable to sleep at night because your mind is troubled all the time - these days? Not at all 05/05/2025 Exercise Vital Sign Answer Date Recorde d On average, how many days pe r week do you engage in moderate to strenuous exercise (like a brisk walk)? 7 days 05/05/2025 On average, how many minutes do you engage in exercise at this level? 60 min 05/05/2025 Hunger Vital Sign Answer Date Recorded Within the past 12 months, y ou worried that your food would run out before you got the money to buy more. Never true 05/05/20 25 Within the past 12 months, t he food you bought just didn't last and you didn't have money to get more. Never true 05/05/2025 PRAPARE - Transportation Answer Date Re corded In the past 12 months, has l ack of transportation kept you from medical appointments or from getting medications? No 10/2024 In the past 12 months, has l ack of transportation kept you from meetings, work, or from getting things needed for daily living? No 05/05/2025 Housing Stability Vital Sign Answer Hans e Recorded In the last 12 months, was t here a time when you were not able to pay the mortgage or rent on time? No 05/05/2025 In the past 12 months, how m any times have you moved where you were living? 1 05/05/2025 At any time in the past 12 m [place], were you homeless or living in a alf (including now)? No 05/05/2025 [facility] Utilities Answer Date Recorded In the past 12 months has th e electric, gas, oil, or water company threatened to shut off services in your home? No 05/05/2025 Personal Safety Answer Date Recorded Have you ever been in or are you currently in a harmful physical or emotional relationship or is someone making you feel afraid or unsafe? Denies 05/05/2025 Estimated Date of Delivery Comme nts Yes 07/26/2025 Date entered paras or to episode creation Sex and Gender Information Value Date Recorded Sex Assigned at Not on file Legal Sex Female 9:06 PM HIGH LEAD YARDER Gender Identity Not on file Sexual Orientation Not on file documented as of this encounter Last Filed Vital Signs Vital Sign Reading Time Taken Comments Blood Pressure 124/58 05/05/2025 10:56 PM HIGH LEAD YARDER Pulse 93 05/05/2025 10:56 PM HIGH LEAD YARDER Temperature - - Respiratory Rate - - Oxygen Saturation - - Inhaled Oxygen Concentration - - Weight - - Height - - Body Mass Index - - documented in this encounter Functional Status * AUDIT-C Score Answer Date of Assessment Author 0 05/05/2025 7:42 PM Sofia Hammond RN * Question Answer Date of Assessment Author Q1: How often do you have a drink containing alcohol? Never 05/05/2025 7:42 PM Sofia Hammond RN Q2: How many drinks containing alcohol do you have on a typical day when you are drinking? Patient does not drink 05/05/2025 7:42 PM Sofia Hammond RN Q3: How often do you have six or more drinks on one occasion? Never 05/05/2025 7:42 PM Sofia Hammond RN documented as of this encounter Discharge Instructions * Attachments The following attachments cannot be sent through Care Everywhere. * Labor (General Information) (Maldivian) documented in this encounter Medications at Time of Discharge nitrofurantoin monohydrate (MACROBID) 100 mg capsuleIndications :Urinary Tract/Genitourinar y Infection Take 1 capsule (100 mg total) by mouth 2 (two) times a day 10 capsule 04/11/2025 PNV [id number] acid-dha 35 mg iron-5 mg iron-1 mg capsule Take 1 tablet/capsul e by mouth daily documented as of this encounter Discharge Disposition Disposition Code Departure Means Destination Discharge to home or self care documented in this encounter Plan of Treatment Upcoming Encounters Date Type Department Care Team (Late st Contact Info) Description 07/26/2025 Hospital Encounter [facility] [address] [place] [address] Byron Franklin MD [address] [place] [address] DR JEANNETTE Fernández [address] [address] documented as of this encounter Procedures Procedure Name Priority Date/Time Associated Diagnosis Comments FIBRONECTIN Routine 05/05/2025 8:1 8 PM HIGH LEAD YARDER URINALYSIS AND REFLEX TO MICROSCOPIC AND CULTURE Routine 05/05/2025 7:56 PM HIGH LEAD YARDER documented in this encounter Results * fibronectin (05/05/2025 8:18 PM HIGH LEAD YARDER) Fibronectin, Negative Negative Comment: NORMAL RANGE: Symptomatic women (24 - 34 weeks gestation):Positive result is 16.7% predictive of delivery in less than or equal to 14 days. Negative result is 99.2% predictive that delivery will not occur in less than or equal to 14 days. (N=[id number]; AM J OBSTET GYNECOL 1997;177:13) Asymptomatic women (21 - 31 weeks gestation): Positive result is 14.7% predictive of delivery at less than or equal to 35 weeks. Negative result is 99.7% predictive that delivery will not occur at less than or equal to 35 weeks.(T=[id number]; AM J OBSTET GYNECOL 1997;177:8) Testing performed by: [facility], [address] [place] [address]., [id number] Cervical 05/05/2025 8:18 PM HIGH LEAD YARDER 05/06/2025 1:55 AM HIGH LEAD YARDER Byron Franklin MD LAB BODY FLUIDS AND ST OOLS ORDERABLES Final Result [facility] ([place]) 1 [facility] Department [place] [address] * (ABNORMAL) Urinalysis reflex to microscopic and culture Urine, clean voided (05/05/2025 7:56 PM HIGH LEAD YARDER) Color, ur Yellow Yellow Clarity, ur Clear Clear [facility] ([place]) Specific gravity, ur 1.016 1.003 - 1.030 [facility] ([place]) pH, urine 6.5 [facility] ([place]) Comment: Interpretive Data U rine pH is affected by diet, medications, systemic acid-base disturbances, and renal tubular function. pH may affect urinary stone formation. For example, urine pH below 6.0 may help reduce the tendency for calcium phosphate stones and pH greater than 6.0 may reduce the tendency for uric acid stone formation. Source: [facility] Current Interpretive Data was last revised on 2017 Protein, ur ql Negative Negative [facility] ([place]) Glucose, ur ql Negative Negative [facility] ([place]) Ketones, ur Negative Negative [facility] (YAIR) Bilirubin, ur Negative Negative [facility] ([place]) Blood, ur Negative Negative [facility] ([place]) Urobilinogen, ur 2.0(A) <2.0 mg/dL [facility] ([place]) Nitrite, ur Negative Negative [facility] (YA[facility]) Leukocyte esterase, ur Negative Negative [facility] ([place]) UA reflex comment Reflex conditions for microscopic UA and culture not met. [facility] ([place]) Urine, clean voided 05/05/2025 7:56 PM HIGH LEAD YARDER 05/05/2025 8:01 PM HIGH LEAD YARDER us Byron Franklin MD LAB MICROBIOLOGY - GEN ERAL ORDERABLES Final Result [facility] ([place]) 1 [facility] Department [place] [address] documented in this encounter Visit Diagnoses Not on filedocumented in this encounter Administered Medications Inactive Administered Medications - up to 3 most recent administrations Medication Order MAR Action Action Date Dose Rate Site Lactated Ringer's (LR) bolus 1,000 mL 1,000 mL, intravenous, at 999 mL/hr, Administer over 1 Hours, Once, On Sat05/05/25 at 2100, For 1 dose New Bag 05/05/2025 9:10 PM HIGH LEAD YARDER 1,000 mL 999 mL/hr documented in this encounter Discontinued Medications Medication Sig Discontinue Reason Start Date End Da te ondansetron ODT (ZOFRAN-ODT) 4 mg disintegrating tablet Take 1 tablet (4 mg total) by mouth every 8 (eight) hours as needed for nausea or vomiting Therapy completed 11/16/2024 05/05/2025 documented as of this encounter Active and Recently Administered Medications Times are shown in HIGH LEAD YARDER. Scheduled Medication Order 05/04/2025 05/05/2025 05/06/2025 Lactated Ringer's (LR) bolus 1,000 mL (COMPLETED) 1,000 mL, intravenous, at 999 mL/hr, Administer over 1 Hours, Once, On Sat05/05/25 at 2100, For 1 dose 2109 (New Bag - Provider: Sofia Washington, RN)2209 (Stopped - Provider: Sofia Washington, RN) documented in this encounter Orders Medications Ordered That Blair ht Not Have Been Administered Count Last Ordered Date First Ordered Date Lactated Ringer's (LR) bolus 1,000 mL 1 10/2024 Discharge Count Last Ordered Date First Orde red Date DISCHARGE PATIENT 1 05/05/2025 documented in this encounter Care Teams Sugar Cane Planting Equipment Operator Relationship Specialty Start Date End Date No, Physician PCP - General 02/19/25 No, Physician 02/19/25 documented as of this encounter
--- OUTSIDE RECORDS SUMMARY | 2025-05-06 10:17 | XMS_ITS | Data Portability ---
Author Organization [employer] , [facility]_[place] Address [address] [place] [address] Assessment Encounter Date Assessment Date Assessment LastModified by Organization Details LastModified Time 02/02/2025 02/02/2025 This patient was initially evaluated by JORGE LUIS Crespo who performed the history and examination. I then saw the patient to review the findings and plan of care, which was developed in collaboration . josue Not available 02/02/2025 14:23:24 Plan of Treatment Reminders Order Date Submit Date Provider Last Modified By Organization Details Last Modified Time Details Appointments LAB 15 2024 09:30A M [facility] H Not available Not available Not available OB [id number] EST 2024 09:30A M DRE IQBAL NP Not available Not available Not available Lab afp (alpha-fe toprotein ) panel, maternal screen, serum 2024 025 [facility], [address] [place], [address], 02/25/2025 15:16:27 hemoglobi n A1c, QN, blood 2024 025 [employer] Clay Kemar, [address] [place] [address], [address], 01/05/2025 12:52:25 abo group + rh type, blood 2024 025 [facility], [address] [place], [address], 01/05/2025 23:42:00 CBC w/ auto diff 2024 025 [facility], [address] [place], [address], 01/05/2025 15:06:20 CT + NG DNA, PCR, unspecifi ed specimen 2024 025 [facility], [address] [place], [address], 01/05/2025 14:55:42 drug of abuse panel, urine 2024 025 [facility], [address] [place], [address], 01/05/2025 12:52:32 obstetric screen + HIV, serum or blood 2024 025 [facility], [address] [place], [address], 01/05/2025 13:48:44 measles igg Ab, serum 2024 025 [facility], [address] [place], [address], 01/05/2025 23:41:59 culture, urine 2024 025 [facility], [address] [place], [address], 01/05/2025 23:42:00 varicella -zoster igg Ab screen, serum 2024 025 [facility], [address] [place], [address], 01/05/2025 23:41:59 antibody screen, serum or plasma 2024 025 [facility], [address] [place], [address], 01/05/2025 23:42:00 TSH + free T4, serum 2024 025 [facility], [address] [place], [address], 01/06/2025 14:41:42 HPV E6+E7 mRNA, qualitati ve PCR, cervix 2024 025 SELENA [facility], [address] [place], [address], 01/12/2025 14:10:06 pap, LB 2024 025 [facility], [address] [facility], [place], [address], 01/05/2025 23:41:58 Referral None recorded. Procedures None recorded. Surgeries None recorded. Imaging US, obstetric , transvagi nal 2024 025 [facility], [address], [place], [address], 03/25/2025 07:11:27 US, obstetric , 2nd trimester 2024 025 [email or web address], [address], [place], [address], 03/24/2025 14:04:58 US, obstetric , 2nd trimester 2024 025 [facility]LE[facility], [address], [place], [address], 03/11/2025 23:17:53 US, obstetric , transvagi nal 2024 025 [facility], [address], [place], [address], 03/11/2025 23:17:07 US, obstetric , transvagi nal 2024 025 [facility], [address], [place], [address], 03/03/2025 13:58:31 US, obstetric , transvagi nal - cervical length baseline 2024 025 [facility], [address] [place], [address], 02/02/2025 14:16:01 Medication Orders ondansetr on 4 mg disintegr ating tablet [email or web address] [place] [address] [id number], [address] [place], [place], [id number], 02/02/2025 14:21:58 Patient TargetsNo targets recorded. Patient Instructions Encounter Date Encounter Id Patient Instructions Last Modified By Organization Details Last Modified Time 01/04/2025 [id number] - Continue takin g vitamins and attend all scheduled visits. - Use Zyrtec and Mucinex for chest congestion and consult if symptoms persist. - Quit smoking to reduce risks of low weight and labor. - Monitor for any heavy bleeding or severe abdominal pain and seek medical attention if these occur. [email or web address] Not available 01/04/2025 12:33:21 I discussed with the patient the importance of monitoring cervical length due to her history of LEEP procedure, and the need for regular visits to ensure a healthy . We also reviewed the risks associated with smoking during , including low weight and labor, and I encouraged her to quit smoking. The patient was advised to use Zyrtec and Mucinex for her chest congestion, suspected to be allergy-related. We scheduled her next visit in four weeks and discussed the importance of follow-up appointments. [email or web address] Not available 01/04/2025 12:33:22 Reason for Referral None Reported. Results Created Date Observation Date Name Description Value Unit Range Abnormal Flag Note LastModifiedBy Organization Detail LastModifiedTime 01/05/20 25 01/05/2025 HEMOG LOBIN A1C hemoglobin A1C 5.4 % <5.7 normal The refer ence range for HbA1c is indic ated in the table below . Sugge sted Diagn osis =6.5% Consi stent with diabe max 5.7 6.4% Consi stent with incre ased risk for diabe max (pred iabet ic) <5.7% Consi stent with the absen ce of diabe max Not Available [facility] [address] [place], [address], 01/05/2025 12:52:25 01/05/20 25 01/05/2025 DRUG ABUSE PANEL 7 W/CON FIRM amphetamines Negati ve negati ve normal Not Available [facility] [address] [place], [address], 01/05/2025 12:52:32 01/05/20 25 01/05/2025 DRUG ABUSE PANEL 7 W/CON FIRM barbiturates Negati ve negati ve normal Not Available [facility] [address] [place], [address], 01/05/2025 12:52:32 01/05/20 25 01/05/2025 DRUG ABUSE PANEL 7 W/CON FIRM benzodiazepi tariq Negati ve negati ve normal Not Available [facility] [address] [place], [address], 01/05/2025 12:52:32 01/05/20 25 01/05/2025 DRUG ABUSE PANEL 7 W/CON FIRM cocaine metabolites Negati ve negati ve normal Not Available [facility] [address] [place], [address], 01/05/2025 12:52:32 01/05/20 25 01/05/2025 DRUG ABUSE PANEL 7 W/CON FIRM cannabinoids Negati ve negati ve normal Not Available [facility] [address] [place], [address], 01/05/2025 12:52:32 01/05/20 25 01/05/2025 DRUG ABUSE PANEL 7 W/CON FIRM methadone Negati ve negati ve normal Not Available [facility] [address] [place], [address], 01/05/2025 12:52:32 01/05/20 25 01/05/2025 DRUG ABUSE PANEL 7 W/CON FIRM opiates Negati ve negati ve normal Not Available [address], [address], 01/05/2025 12:52:32 01/05/20 25 01/05/2025 DRUG ABUSE PANEL 7 W/CON FIRM creatinine, urine 163 mg/dL 20 - 275 normal Not Available [address], [address], 01/05/2025 12:52:32 01/05/20 25 01/05/2025 OB PANEL - STD BLOOD WORK hep BS Ag Non-Re active non-re active normal Not Available [address], [address], 01/05/2025 13:48:44 01/05/20 25 01/05/2025 OB PANEL - STD BLOOD WORK hep C Ab Non-Re active non-re active normal Not Available [address], [address], 01/05/2025 13:48:44 01/05/20 25 01/05/2025 OB PANEL - STD BLOOD WORK HIV 1/2 Ag/Ab Non-Re active non-re active normal Not Available [address], [address], 01/05/2025 13:48:44 01/05/20 25 01/05/2025 OB PANEL - STD BLOOD WORK syphilis Ab Non-Re active non-re active normal Not Available [address], [address], 01/05/2025 13:48:44 01/05/20 25 01/05/2025 OB PANEL - STD BLOOD WORK rubella Ab IgG 6.1 IU/mL low INTER PRETI VE INFOR MATIO N: Rubel la Antib ct, IgG. < 5.0 IU/mL ..... ..... . Not consi stent with immun ity 5.0 - 9.9 IU/mL ..... . Equiv ocal: Indet ermin ate-R epeat testi ng in 10-14 days may be helpf ul. > or = 10.0 IU/mL ... Consi stent with immun ity The prese nce of Rubel la IgG antib ct sugge st respo nse to immun izati on or prior /curr ent expos ure to the Rubel la virus . Not Available [address], [place], [address], 01/05/2025 13:48:44 01/05/20 25 01/05/2025 CT/NG chlamydia trachomatis CT neg negati ve normal This repor t is inten ded for us in clini raman monit oring and manag ement of patie nts. It is not inten ded for use in medic al-le gal appli catio n. Not Available [facility] [address] [place] [address], [place], [address], 01/05/2025 14:55:42 01/05/20 25 01/05/2025 CT/NG neisseria gonorrhoeae GC neg negati ve normal This repor t is inten ded for us in clini raman monit oring and manag ement of patie nts. It is not inten ded for use in medic al-le gal appli catio n. Not Available [employer] [address] [place] [address], [place], [address], 01/05/2025 14:55:42 01/05/20 25 01/05/2025 CBC (INCL UDES DIFF/ PLT) WBC 11.5 thous and/u L 4.0 - 9.8 high Not Available [facility] [address] [place] [address], [address], 01/05/2025 15:06:20 01/05/20 25 01/05/2025 CBC (INCL UDES DIFF/ PLT) RBC 4.8 emilee on/uL 3.9 - 4.9 normal Not Available [place], [address], 01/05/2025 15:06:20 01/05/20 01/05/2025 CBC (INCL UDES DIFF/ PLT) hemoglobin 13.9 g/dL 11.8 - 14.8 normal Not Available [address], [address], 01/05/2025 15:06:20 01/05/2001/05/2025 CBC (INCL UDES DIFF/ PLT) hematocrit 42.8 % 35.5 - 44.0 normal Not Available [address], [address], 01/05/2025 15:06:20 01/05/20 25 01/05/2025 CBC (INCL UDES DIFF/ PLT) MCV 89.9 fL 82.0 - 99.0 normal Not Available [address], [address], 01/05/2025 15:06:20 01/05/2001/05/2025 CBC (INCL UDES DIFF/ PLT) MCH 29.2 pg 27.2 - 32.6 normal Not Available [address], [address], 01/05/2025 15:06:20 01/05/2001/05/2025 CBC (INCL UDES DIFF/ PLT) MCHC 32.5 g/dL 31.5 - 35.5 normal Not Available [address], [address], 01/05/2025 15:06:20 01/05/2001/05/2025 CBC (INCL UDES DIFF/ PLT) RDW-CV 13.4 % 11.5 - 14.5 normal Not Available [address], [address], 01/05/2025 15:06:20 01/05/20 25 01/05/2025 CBC (INCL UDES DIFF/ PLT) platelet 221 thous and/u L 140 - 350 normal Not Available [address], [address], 01/05/2025 15:06:20 01/05/20 25 01/05/2025 CBC (INCL UDES DIFF/ PLT) MPV 12.1 fL 9.3 - 12.4 normal Not Available [address], [address], 01/05/2025 15:06:20 01/05/20 25 01/05/2025 CBC (INCL UDES DIFF/ PLT) absolute neutrophil 7.97 thous and/u L 1.90 - 7.00 high Not Available [address], [address], 01/05/2025 15:06:20 01/05/20 25 01/05/2025 CBC (INCL UDES DIFF/ PLT) absolute lymphocyte 2.48 thous and/u L 0.70 - 4.50 normal Not Available [address], [address], 01/05/2025 15:06:20 01/05/20 25 01/05/2025 CBC (INCL UDES DIFF/ PLT) absolute monocyte 0.67 thous and/u L 0.10 - 1.30 normal Not Available [address], [address], 01/05/2025 15:06:20 01/05/20 25 01/05/2025 CBC (INCL UDES DIFF/ PLT) absolute eosinophil 0.22 thous and/u L <0.70 normal Not Available [address], [address], 01/05/2025 15:06:20 01/05/20 25 01/05/2025 CBC (INCL UDES DIFF/ PLT) absolute basophil 0.07 thous and/u L <0.20 normal Not Available [address], [address], 01/05/2025 15:06:20 01/05/20 25 01/05/2025 CBC (INCL UDES DIFF/ PLT) absolute immature granulocyte 0.06 thous and/u L <0.03 high Not Available [facility] [address] [place], [address], 01/05/2025 15:06:20 01/05/2001/05/2025 THINP REP TIS PAP report status: Not Available [address] [address] [place], [address], 01/05/2025 23:41:58 01/05/2001/05/2025 THINP REP TIS PAP clinical information: Not Available [address] [address] [place], [address], 01/05/2025 23:41:58 01/05/2001/05/2025 THINP REP TIS PAP LMP: Not Available [address] [address] [place], [address], 01/05/2025 23:41:58 01/05/20 25 01/05/2025 THINP REP TIS PAP prev. Pap: Not Available [address] [address] [place], [address], 01/05/2025 23:41:58 01/05/2001/05/2025 THINP REP TIS PAP prev. BX: Not Available [address] [address] [place], [address], 01/05/2025 23:41:58 01/05/2001/05/2025 THINP REP TIS PAP source: Not Available [address] [address] [place], [address], 01/05/2025 23:41:58 01/05/2001/05/2025 THINP REP TIS PAP statement of adequacy: Not Available [address] [address] [place], [address], 01/05/2025 23:41:58 01/05/20 25 01/05/2025 THINP REP TIS PAP general categorizati on: Not Available [address] [place], [address], 01/05/2025 23:41:58 01/05/20 25 01/05/2025 THINP REP TIS PAP interpretati on/result: Not Available [address] [place], [address], 01/05/2025 23:41:58 01/05/20 25 01/05/2025 THINP REP TIS PAP infection: Not Available [address] [place], [address], 01/05/2025 23:41:58 01/05/20 25 01/05/2025 THINP REP TIS PAP comment: Not Available [address] [place], [address], 01/05/2025 23:41:58 01/05/20 25 01/05/2025 THINP REP TIS PAP cytotechnolo gist: Not Available [address] [place], [address], 01/05/2025 23:41:58 01/05/20 25 01/05/2025 THINP REP TIS PAP review cytotechnolo gist: Not Available [address] [place], [address], 01/05/2025 23:41:58 01/05/20 25 01/05/2025 THINP REP TIS PAP pathologist: Not Available [address] [address] [place], [address], 01/05/2025 23:41:58 01/05/20 25 01/05/[address] VIRUS ANTIB CT (IGG) varicella zoster virus antibody (IgG) 8.11 S/co normal Signa l to Cut-o ff S/CO Inter preta tion ----- ---- ----- ----- ----- ----- -- <1.00 Negat saeid - Antib ct not detec shelia > or = 1.00 Posit saeid - Antib ct detec shelia A posit saeid resul t indic ates that the patie nt has antib ct to VZV but does not diffe renti ate betwe en an activ e or past infec tion. The clini raman diagn osis must be inter prete d in conju nctio n with the clini raman signs and sympt oms of the patie nt. This assay relia sachin measu res immun ity due to previ ous infec tion but may not be sensi tive enoug h to detec t antib odies induc ed by vacci natio n. Thus, a negat saeid resul t in a vacci nated indiv idual does not neces saril y indic ate susce ptibi lity to VZV infec tion. A more sensi tive test for vacci natio n-ind uced immun ity is Varic cora Alejaste r Virus Antib ct Immun ity Scree n, ACIF. Not Available [address] [address] [place], [address], 01/05/2025 23:41:59 01/05/20 25 01/05/2025 MEASL ES AB (IGG) , IMMUN E STATU S measles Ab (IgG), immune status 39.10 AU/mL normal AU/mL Inter preta tion ----- ----- ----- ---- <13.5 0 Not consi stent with immun ity 13.50 -16.4 9 Equiv ocal >16.4 9 Consi stent with immun ity The prese nce of measl es IgG sugge sts immun izati on or past or curre nt infec tion with measl es virus . For addit ional jt alas refer to http: //yanni vincentQue stDia gnost ics.c om/fa q/FAQ 162 (This link is being provi ded for infor dalia kirk/ educa tonya l purpo ses only. ) Not Available [address], [address], 01/05/2025 23:41:59 01/05/2001/08/[address] SCREE N, RBC W/REF L ID, TITER AND AG antibody screen, RBC w/refl id, titer and Ag NO ANTIBO DIES DETECT ED normal Refer ence range No antib odies detec shelia This assay is a scree mahad test for the detec tion of red blood cell antib odies . The test is not to be used for pretr ansfu jeremy scree mahad or for the medic al manag ement of an alloi mmuni zed pregn hoang. Not Available [address], [address], 01/08/2025 10:50:18 01/05/20 25 01/08/2025 ABO GROUP AND RH TYPE ABO group A Not Available [address], [address], 01/08/2025 10:50:19 01/05/20 25 01/08/2025 ABO GROUP AND RH TYPE Rh type RH(D) POSITI VE For addit ional infor jt servin e refer to http: //[facility] asia Olvera stDia gnost ics.c om/fa q/FAQ 111 (This link is being provi ded for infor dalia kirk/ pete salgado purpo ses only. ) Not Available [address] [place], [address], 01/08/2025 10:50:19 01/05/2001/08/2025 CULTU RE, URINE , ROUTI NE culture, urine, routine SEE NOTE abnormal CULTU RE, URINE , ROUTI NE Micro Numbe r: [id number] Test Statu s: Final Speci men Sourc e: Urine Speci men Quali ty: Adequ ate Resul t: 10,00 0-49, 000 CFU/m L of Group B Strep tococ cus isola shelia Beta- hemol ytic strep tococ ci are predi ctabl y susce ptibl e to Penic illin and other beta- lacta ms. Susce ptibi lity testi ng not routi drake perfo rmed. Pleas e conta ct the labor atory withi n 3 days if susce ptibi lity testi ng is kaelyn ed. Comme nt: Eryth romyc in and clind amyci n are not recom donya d for treat ment of urina ry tract infec tions , but clind amyci n may be usefu l for treat ment of recto vagin al colon izati on or infec tion. Any amoun t of group B Strep tococ cus in urine speci mens obtai stuart from pregn ant femal es is a marke r of genit al tract colon izati on. If this patie nt is pregn ant, pleas e refer to ACOG guide lines for appro priat e scree mahad and manag ement of pregn ant women . Resul t: 10,00 0-49, 000 CFU/m L of Enter ococc us speci es Enter ococc us sp. ----- ----- ----- - INT LONG AMPIC ILLIN S <=2 NITRO FURAN TOIN S <=16 VANCO MYCIN S 1 S = Susce ptibl e I = Inter media te R = Resis tant NS = Not susce ptibl e SDD = Susce ptibl e Dose Depen dent * = Not Teste d NR = Not Repor shelia NN = See Thera py Comme nts Not Available [facility] [address] [place], [address], 01/08/2025 10:50:19 01/05/20 25 01/06/2025 TSH W/ T4, FREE TSH 0.22 mIU/L 0.55 - 4.78 low COMME NT: Erika te teste d with TSH Gener ation II reage nt. Refer ence Range Femal e aged 18-Ad ult: 0.55- 4.78 Pregn hoang Refer ence Range s First Trime ster 0.26- 2.66 Secon d Trime ster 0.55- 2.73 Third Trime ster 0.43- 2.91 Not Available [facility] [address] [place], [address], 01/06/2025 14:41:42 01/05/20 25 01/06/2025 TSH W/ T4, FREE T4, free 0.92 NG/dL 0.89 - 1.76 normal Not Available [address], [address], 01/06/2025 14:41:42 01/05/20 25 01/08/2025 THINP REP TIS PAP clinical information: normal None given Not Available [facility] [address], [address], 01/08/2025 12:43:15 01/05/20 25 01/08/2025 THINP REP TIS PAP LMP: normal NONE GIVEN Not Available [facility] [address] [place], [address], 01/08/2025 12:43:15 01/05/20 25 01/08/2025 THINP REP TIS PAP prev. Pap: normal NONE GIVEN Not Available [facility] [address], [address], 01/08/2025 12:43:15 01/05/20 25 01/08/2025 THINP REP TIS PAP prev. BX: normal NONE GIVEN Not Available [facility] [address], [address], 01/08/2025 12:43:15 01/05/20 25 01/08/2025 THINP REP TIS PAP source: normal Cervi x Not Available [facility] [address], [address], 01/08/2025 12:43:15 01/05/20 25 01/08/2025 THINP REP TIS PAP statement of adequacy: normal Satis facto ry for evalu ation . Endoc ervic al/tr ansfo rmati on zone compo nent prese nt. Age and/o r menst rual statu s not provi ded Not Available [address] [address] [place], [address], 01/08/2025 12:43:15 01/05/20 25 01/08/2025 THINP REP TIS PAP interpretati on/result: normal Cytol ogy Resul ts: Negat saeid for intra epith elial lesio n or malig mariela . Not Available [address] [address] [place], [address], 01/08/2025 12:43:15 01/05/20 25 01/08/2025 THINP REP TIS PAP infection: normal Shift in vagin al kavitha sugge stive of bacte rial vagin osis. Not Available [address] [address] [place], [address], 01/08/2025 12:43:15 01/05/20 25 01/08/2025 THINP REP TIS PAP comment: normal This Pap test has been evalu ated with compu ter grace shelia techn ology . Not Available [address] [address] [place], [address], 01/08/2025 12:43:15 01/05/20 25 01/08/2025 THINP REP TIS PAP cytotechnolo gist: normal LMT, CT( CP) CT scree mahad locat ion: [address] [address] [place] [address] Not Available [address] [address] [place], [address], 01/08/2025 12:43:15 01/05/2001/08/2025 THINP REP TIS PAP review cytotechnolo gist: normal MARINA, CT( CP) CT scree mahad locat ion: [address] [address] [place] [address] Not Available [address] [address] [place], [address], 01/08/2025 12:43:15 01/05/20 25 01/08/2025 THINP REP TIS PAP comment EXPLA NATMICHELLE Y NOTE: The Pap is a scree mahad test for cervi raman cance r. It is not a diagn ostic test and is subje ct to false negat saeid and false posit saeid resul ts. It is most relia ble when a satis facto ry sampl e, regul mireille obtai stuart, is submi tted with relev ant clini raman findi ngs and histo ry, and when the Pap resul t is evalu ated along with histo alethea and curre nt clini raman infor matio n. Not Available [address] [address] [place], [address], 01/08/2025 12:43:15 01/05/20 25 01/11/2025 T3, FREE T3, free 3.9 pg/mL 2.3 - 4.2 normal Not Available [facility] [address] [place] [address], [address], 01/11/2025 14:10:39 01/05/20 25 01/12/2025 HPV GENOT YPE HPV 16 Negati ve negati ve normal Not Available [facility] [place], [address], 01/12/2025 14:10:06 01/05/20 25 01/12/2025 HPV GENOT YPE HPV 18/45 Negati ve negati ve normal Assay can diffe renti ate HPV 16 from HPV 18 and/o r HPV 45. But canno t diffe renti ate betwe en 18 and 45. Not Available [place], [address], 01/12/2025 14:10:06 01/05/20 25 01/05/2025 HPV HIGH RISK HPV high risk POSITI VE negati ve abnormal The HPV High Risk assay is inten ded for use as co-te sting with cytol ogy and not as a subst itute for regul ar cervi raman cytol ogy scree mahad. This assay is not inten ded for use as a scree mahad devic e for women under age 30 with brody l cervi raman cytol ogy. Not Available [facility] [address] [place], [address], 01/12/2025 14:10:06 01/07/20 25 01/06/2025 CHROM OSOME S 13, 18, 21 + SEX CHROM OSOME ERIKA SIS chromosomes 13, 18, 21 + sex chromosome analysis Negati ve normal See PDF for compl ete resul ts. Overa ll Resul t: Negat saeid Negat saeid for all order ed condi tions Clini raman Notes : * The resid ual risks provi ded repre sent the remai mahad chanc e that the pregn hoang is affec shelia with the indic ated chrom osome aneup loidy in view of a negat saeid resul t. * This is a scree mahad test; there fore, false posit saeid and false negat saeid resul ts can occur . No irrev ersib le decis ion shoul d be made based on these findi ngs alone . Clini raman corre latio n with ultra sound findi ngs and histo ry is indic ated. If defin itive diagn osis is kaelyn ed, chori onic villu s sampl ing or amnio cente sis is neces barb. fract ion: 13.7% - fract ion is one compo nent of the algor ithm used and is combi stuart with other quali ty metri cs to deter mine the aneup loidy scree mahad resul t. Not Available [facility] [address], [place], [address], 01/12/2025 10:17:36 02/24/20 25 02/25/2025 MATER NAL SERUM AFP interpretati on: Scree n negat saeid for open NTD. Not Available [facility] [address] [address], [place], [address], 02/25/2025 15:16:27 02/24/20 25 02/25/2025 MATER NAL SERUM AFP risk for ontd 1 [place] [address] Not Available [facility] [address] [address] [place], [address], 02/25/2025 15:16:27 02/24/2002/25/2025 MATER NAL SERUM AFP AFP, serum 42.4 NG/mL Not Available [facility] [address] [address] [place], [address], 02/25/2025 15:16:27 02/24/20 25 02/25/2025 MATER NAL SERUM AFP AFP MOM 1.35 Not Available [facility] [address] [address] [place], [address], 02/25/2025 15:16:27 02/24/2002/25/2025 MATER NAL SERUM AFP comments: This patie nt's ELVIS (brandy mated date of shar whittaker) was used to calcu late the gesta tonya l age. The AFP test resul t indic ates that this patie nt is scree n negat saeid for open NTD. It shoul d be noted that brody l test resul ts can never guara ntee the of a brody l baby and that 2-3% of [facility] rns have some type of physi raman or menta l defec t, many of which are undet ectab le throu gh any known prena tiffany diagn ostic techn ique. Not Available [facility] [address] [address] [place], [address], 02/25/2025 15:16:27 02/24/20 25 02/25/2025 MATER NAL SERUM AFP comment This is a scree mahad test, not a diagn ostic test. This risk asses sment repor t is based in part on demog raphi c data provi ded by the order ing physi zhane. Pleas e notif y the labor atory promp tly if any data are incor rect. For grace tance with recal culat ions, pleas e call your local [facility] . For grace tance with inter preta tion of these resul ts, pleas e conta ct your Local [facility] dao ic couns elor or call [phone]( [phone]). Inter preti ve Cutof fs Scree n Posit saeid for Open NTD: > or = 2.50 adjus shelia MOM > or = 1.90 adjus shelia MOM for insul in-de pende nt diabe tics > or = 4.00 adjus shelia MOM for twins > or = 3.50 adjus shelia MOM for twins insul in-de pende nt diabe tics > or = 4.50 adjus shelia MOM for tripl ets For addit ional infor jt servin e refer to http: //[facility] asia chan.que stdia gnost ics.c om/fa q/FAQ 74v1 (This link is being provi ded for infor dalia kirk/ pete ratliffo ses only. ) Not Available [facility] [address] [address] [place], [address], 02/25/2025 15:16:27 02/24/20 25 02/25/2025 MATER NAL SERUM AFP calc'd gestational age 18.0 weeks Not Available [facility] [address] [address] [place], [address], 02/25/2025 15:16:27 02/24/20 25 02/25/2025 MATER NAL SERUM AFP maternal weight 267 lbs Not Available [facility] [address] [address] [place], [address], 02/25/2025 15:16:27 02/24/20 25 02/25/2025 MATER NAL SERUM AFP est'd date of delivery 2025 Not Available [facility] [address] [address] [place], [address], 02/25/2025 15:16:27 02/24/20 25 02/25/2025 MATER NAL SERUM AFP elvis determined by ULTRAS OUND Not Available [facility] [address] [address] [place], [address], 02/25/2025 15:16:27 02/24/20 25 02/25/2025 MATER NAL SERUM AFP mother's ethnic origin CAUCAS SNEHAL Not Available [address] [address] [place], [address], 02/25/2025 15:16:27 02/24/20 25 02/25/2025 MATER NAL SERUM AFP number of fetuses 1 Not Available [address] [address] [place], [address], 02/25/2025 15:16:27 02/24/20 25 02/25/2025 MATER NAL SERUM AFP insulin depend diabetic NO Not Available [address] [address] [place], [address], 02/25/2025 15:16:27 02/24/20 25 02/25/2025 MATER NAL SERUM AFP repeat specimen NO Not Available [address] [address] [place], [address], 02/25/2025 15:16:27 02/24/20 25 02/25/2025 MATER NAL SERUM AFP Hx of neural tube defects NO Not Available [address] [address] [place], [address], 02/25/2025 15:16:27 02/24/20 25 02/25/2025 MATER NAL SERUM AFP prev down synd NO Not Available [address] [address] [place], [address], 02/25/2025 15:16:27 02/24/20 25 02/25/2025 MATER NAL SERUM AFP donor egg NO Not Available [address] [address] [place], [address], 02/25/2025 15:16:27 02/24/20 25 02/25/2025 MATER NAL SERUM AFP donor age: egg retrieval NOT GIVEN Not Available [address] [address] [place], [address], 02/25/2025 15:16:27 12/10/1912/08/2024 US, trans vagin al No observ ation record ed. [email or web address] [address], [place], [address], 12/09/2024 22:17:34 02/03/2002/02/2025 US, obste tric, trans vagin al No observ ation record ed. [email or web address] [address], [place], [address], 02/02/2025 22:33:02 02/24/2002/23/2025 US, obste tric, trans vagin al No observ ation record ed. [email or web address] [address], [place], [address], 02/23/2025 15:13:37 03/08/20 , obste tric, 2nd trime ster No observ ation record ed. [facility] [address] [place] [address], [address], 03/09/2025 11:42:12 03/09/2003/09/2025 , obste tric, 2nd trime ster No observ ation record ed. [email or web address] Kim[address], [place], [address], 03/12/2025 00:51:26 03/24/20 , obste tric, 2nd trime ster No observ ation record ed. [facility] [address] [place], [address], 03/24/2025 10:34:03 03/25/2003/24/2025 US, obste tric, trans vagin al No observ ation record ed. [email or web address] [address], [place], [address], 03/25/2025 13:20:18 Result Notes None recorded. Problems Name Problem [...] : NO ProblemS tatus: Resolve Not Available [facility] 2 15:52:14 Gestatio n period, 10 weeks 31995224 Completed 201809/14/2019 10 weeks gestatio n of pregnanc y; Progress : Stable Added By: Diane Gutierrez Add to Current Problems : NO ProblemS tatus: Resolve Not Available [facility] 2 15:52:18 Gestatio n period, 13 weeks 56115968 Completed 201809/14/2019 13 weeks gestatio n of pregnanc y; Progress : Stable Added By: Alpa Nicole Add to Current Problems : NO ProblemS tatus: Resolve Not Available [facility] 2 15:52:13 Pregnanc y, childbir th and puerperi um finding Completed 201809/14/2019 Encounte r for supervis ion of normal first pregnanc y, second trimeste r; Progress : Stable Added By: Merle Friend Add to Current Problems : NO ProblemS tatus: Resolve Not Available [facility] 2 15:52:17 Gestatio n period, 17 weeks 39042477 Completed 201809/14/2019 17 weeks gestatio n of pregnanc y; Progress : Stable Added By: Marcy Noel Add to Current Problems : NO ProblemS tatus: Resolve Not Available [facility] 2 15:52:17 Gestatio n period, 20 weeks 51355038 Completed 201801/09/2021 20 weeks gestatio n of pregnanc y; Progress : Stable Added By: Mert Vazquez Add to Current Problems : NO ProblemS tatus: Resolve Not Available [facility] 2 15:52:12 Antenata l screenin g for malforma tion Completed 201801/24/2021 Encounte r for antenata l screenin g for malforma tions; Progress : Stable Added By: Ludmila Reynolds Add to Current Problems : NO ProblemS tatus: Resolve Not Available [facility] 2 15:52:18 Gestatio n period, 25 weeks 64854368 Completed 201809/14/2019 25 weeks gestatio n of pregnanc y; Progress : Stable Added By: Merle Friend Add to Current Problems : NO ProblemS tatus: Resolve Not Available [facility] 2 18:22:58 Gestatio n period, 29 weeks 26016231 Completed 201909/14/2019 29 weeks gestatio n of pregnanc y; Progress : Stable Added By: Diane Gutierrez Add to Current Problems : NO ProblemS tatus: Resolve Not Available [facility] 2 15:52:16 Pregnanc y, childbir th and puerperi um finding Completed 201909/14/2019 Encounte r for supervis ion of normal first pregnanc y, third trimeste r; Progress : Stable Added By: Ora Mantilla Add to Current Problems : NO ProblemS tatus: Resolve Not Available [facility] 2 15:52:14 Gestatio n period, 31 weeks 00097777 Active 2019 31 weeks gestatio n of pregnanc y; Severity : Moderate Progress : Stable Added By: Kimmie Gonzalez Add to Current Problems : YES ProblemS tatus: Current Not Available [facility] 1 08:17:53 Gestatio n period, 33 weeks 48418476 Completed 201909/14/2019 33 weeks gestatio n of pregnanc y; Severity : Moderate Progress : Stable Added By: Ora Mantilla Add to Current Problems : NO ProblemS tatus: Resolve Not Available [facility] 1 19:51:42 Contrace ptive sheath status 338997046 Completed 201911/29/2020 Encounte r for initial prescrip tion of other contrace ptives; Progress : Stable Added By: Marion Gutierrez Add to Current Problems : NO ProblemS tatus: Resolve Not Available [facility] 2 15:52:12 Lochia finding Completed 201911/29/2020 Encounte r for routine postpart um follow-u p; Progress : Stable Added By: Jelena Sequeira Add to Current Problems : NO ProblemS tatus: Resolve Not Available [facility] 2 15:52:16 Gestatio n period, 8 weeks 88807395 Completed 202011/29/2020 8 weeks gestatio n of pregnanc y; Progress : Stable Added By: Haoron Jason Add to Current Problems : NO ProblemS tatus: Resolve Not Available [facility] 2 18:22:57 Evaluati on finding Completed 202011/29/2020 Other specifie d abnormal findings of blood chemistr y; Progress : Stable Added By: Kyle Lam Add to Current Problems : NO ProblemS tatus: Resolve Not Available [facility] 2 15:52:13 Gestatio n period, 12 weeks 86946304 Completed 202011/29/2020 12 weeks gestatio n of pregnanc y; Progress : Stable Added By: Haroon Jason Add to Current Problems : NO ProblemS tatus: Resolve Not Available [facility] 2 15:52:13 Normal pregnanc y in multigra guerita 79514874121 4106 Active 2020 Encounte r for supervis [...] : YES ProblemS tatus: Current Not Available [facility] 1 19:51:38 Gestatio n period, 16 weeks 74779567 Completed 202012/27/2020 16 weeks gestatio n of pregnanc y; Progress : Stable Added By: Mert Vazquez Add to Current Problems : NO ProblemS tatus: Resolve Not Available [facility] 2 15:52:19 Gestatio n period, 18 weeks 39052076 Completed 202012/27/2020 18 weeks gestatio n of pregnanc y; Progress : Stable Added By: Kimmie Gonzalez Add to Current Problems : NO ProblemS tatus: Resolve Not Available [facility] 2 15:52:18 Postoper ative hypothyr oidism 06341766 Completed 202001/24/2021 Postproc edural hypothyr oidism; Progress : Stable Added By: Mert Vazquez Add to Current Problems : NO ProblemS tatus: Resolve Not Available [facility] 2 15:52:[address] Concept Completed 202001/24/2021 Supervis ion of other high risk pregnanc ies, second trimeste r; Progress : Stable Added By: Ludmila Reynolds Add to Current Problems : NO ProblemS tatus: Resolve Not Available [facility] 2 15:52:15 Gestatio n period, 22 weeks 93136629 Completed 202001/24/2021 22 weeks gestatio n of pregnanc y; Progress : Stable Added By: Ludmila Reynolds Add to Current Problems : NO ProblemS tatus: Resolve Not Available [facility] 2 15:52:17 Gestatio n period, 24 weeks 006387925 Completed 202002/09/2021 24 weeks gestatio n of pregnanc y; Progress : Stable Added By: Mert Vazquez Add to Current Problems : NO ProblemS tatus: Resolve Not Available [facility] 2 15:52:15 High risk pregnanc y due to history of labor 597920521 Completed 202003/15/2021 Personal history of pre-term labor; Severity : Moderate Progress : Stable Added By: Mert Vazquez Add to Current Problems : NO ProblemS tatus: Resolve Not Available [facility] 08:17:51 Gestatio n period, 26 weeks 67750646 Completed 202002/23/2021 26 weeks gestatio n of pregnanc y; Progress : Stable Added By: Mert Vazquez Add to Current Problems : NO ProblemS tatus: Resolve Not Available [facility] 2 15:52:16 Past pregnanc y history of prematur e labor 682112785 Completed 202003/15/2021 Personal history of pre-term labor; Progress : Stable Added By: Mert Vazquez Add to Current Problems : NO ProblemS tatus: Resolve Not Available [facility] 2 15:52:[address] Concept Completed 202003/15/2021 Supervis ion of other high risk pregnanc ies, third trimeste r; Progress : Stable Added By: Ludmila Reynolds Add to Current Problems : NO ProblemS tatus: Resolve Not Available [facility] 2 18:22:58 Gestatio n period, 28 weeks 62769493 Completed 202003/15/2021 28 weeks gestatio n of pregnanc y; Progress : Stable Added By: Marcy Noel Add to Current Problems : NO ProblemS tatus: Resolve Not Available [facility] 2 15:52:13 Antenata l screenin g Active 2020 Encounte [...] : YES ProblemS tatus: Current Not Available [facility] 2 15:52:14 Gestatio n period, 33 weeks 09270879 Active 2020 33 weeks gestatio n of pregnanc y; Progress : Stable Added By: Layne Guaman Add to Current Problems : YES ProblemS tatus: Current Not Available [facility] 2 15:52:17 Depressi on screenin g Active 2020 Encounte r for screenin g for maternal depressi on; Progress : Stable Added By: Barbie Rosa Add to Current Problems : YES ProblemS tatus: Current Not Available [facility] 2 15:52:14 Congenit al abnormal ity of uterus complica ting postpart um care - baby delivere d during previous episode of care 004411995 Active 2020 Complica tion of the puerperi um, unspecif ied; Progress : Stable Added By: Jacki Brown i Add to Current Problems : YES ProblemS tatus: Current Not Available [facility] 2 15:52:15 Pregnanc y 40437505 Active 2024 JORGE LUIS CRESPO [address] [place] [address], [address] , [facility] [employer] IV 5 15:44:46 Body mass index 40+ - severely obese 227005926 Active 2024 pre-preg BMI 44.7 Serial Growths at 28w, 32w, 36w Weekly BPP at 34w JORGE LUIS CRESPO [address] [place] [address], [address] , [facility] [employer] | [employer] | [employer] IV 5 12:11:17 History of loop electros urgical excision procedur e 08125437844 102 Active 2024 Hx of Leep 09-05-19 23 MILADYS 3 Cervical Length at 18, 20, and 22 weeks JORGE LUIS CRESPO [address] [place] [address], [address] , [facility] [employer] 5 12:05:28 Tobacco user 887034738 Active 2024 pre-preg mariela smoking 1 ppd, has decrease d to 1/2 ppd at NOB. Discusse d smoking cessatio n. 03/09: has decrease d to 4 cig/day. Praised and continue efforts at reductio n/quitti ng Mariela Gutierrez MD [address] [place] [address], [address] , [facility] [employer] | [employer] IV 5 23:10:44 Past pregnanc y history of section 622283712 Active 2024 JORGE LUIS CRESPO [address] [place] [address], [address] , [facility] [employer] 5 15:26:26 History of thyroide ctomy 588304046 Active 2024 TSH and T4 drawn at [facility] [place] [place], [address], [address] , [facility] [employer] [facility] IV 5 17:42:19 Bacteriu rochelle 48645990 Active 2024 GBS positive urine culture at [facility] [place], [address], [address] , [facility] [employer] [facility] IV 5 18:40:03 Past pregnanc y history of prematur e rupture of membrane s 36291393101 9100 Active 2024 32-33 weeks with first pregnanc y [facility] [place], [address], [address] , [facility] [employer] [facility] IV 5 20:08:45 Human papillom avirus deoxyrib onucleic acid detected , high risk on cervical specimen 201593442 Active 2024 Needs colposco py PP [facility] [place], [address], [address] , [facility] [employer] [facility] IV 5 14:20:13 History of pneumoni a 197412075 Active 2024 Mariela Gutierrez MD [address] [place] [address], [address] , [facility] [employer] [facility] 5 23:09:29 Problem Notes None recorded. Procedures Surgical History Date Name Laterality Status Provider Name and Address Organization Details Recorded Time 025 Date of Last Pap Smear completed Jennie Hernandez [facility] [employer] [facility] 02/23/2025 10:22:59 023 Depo Provera Injection completed Jelena Sequeira [facility] [employer] [facility] 01/23/2023 14:27:10 023 Depo Provera Injection completed Jelena Sequeira [facility] [employer] [facility] IV 09/20/2022 11:49:20 023 loop electrosurgical excision procedure completed ELDER XAVIER DO [address] [place] [address] [place], [address], [facility] - [facility] 09/20/2022 07:41:26 023 Colposcopy - Cervix completed Ronna James, [address], [address], [facility] - [facility] 07/23/2022 12:06:28 022 Depo Provera Injection completed Jelena Sequeira [place] - [facility] 05/31/2022 15:04:24 022 Mirena IUD Removal completed Anjum Freedman, [address], [address], [facility] - [facility] IV 07/18/2021 10:32:23 021 IUD Insertion completed Ronna James, [address], [address], [facility] - [facility] IV 06/19/2021 18:21:20 Dilation and curettage completed Funmilayo Washington [facility] 07/23/2022 11:36:53 C Section completed Leia Tariq [place] - [facility] 01/04/2025 11:42:41 thyroidectomy completed [facility] [place], [address], [address], [facility] - [facility] IV 01/09/2025 19:57:11 procedure on upper arm completed Delisa Muller [place] - [facility] 06/13/2021 21:05:21 Imaging Results None recorded. Procedure Notes None recorded. Medical Equipment None Reported. Allergies Allergen ID Allergen Name Allergen Category Reaction Reaction Severity Criticality Documentation Date Start Date Code Code System Note Provider Name and Address Organization Details Recorded Time 039102 iodine medicatio n Not available Not available Not available 04/21/20212018 5933 RxNorm Sever ity: Moder ate; Not Available [facility] 01:05:17 795095 shellfish derived food,medi cation Not available Not available Not available 05/31/2022 [place], [place] - [facility] 12/01/202 2 12:33:03 691453 iodine medicatio n Not available Not available Not available 01/04/[address] [facility], [facility] 5 11:42:41 309178 Fish (substanc e) food,medi cation anaphylax is Not available high 02/23/20252020 [address] [facility], [facility] 5 11:05:15 181027 hydrocodo ne Not available itching Not available low 02/23/20252021 [address] [facility], [facility] 5 11:05:18 337982 Shellfish (substanc e) food,medi cation anaphylax is Not available high 02/23/20252020 [address] [facility], [facility] 5 11:05:26 Medications Name Sig Start Date Stop Date Status Note LastModified by Organization Details LastModified Time amoxicill in 500 mg capsule TAKE 2 CAPSULES BY MOUTH THREE TIMES DAILY FOR 5 DAYS 03/08 completed Not Available Not Available Not Available Mirena 21 mcg/24 hr (up to 8 years) 52 mg intrauter ine device Take 1 device by intraute rine route. 03/22 completed Placed by Ute James, DEREK Not Available Not Available Not Available Colace 100 mg capsule TAKE ONE CAPSULE BY MOUTH TWICE DAILY WITH MEALS 05/17 completed Not Available Not Available Not Available desogestr el 0.15 mg-ethiny l estradiol 0.03 mg tablet take 1 tablet by oral route once daily 10/04 completed desogest reL-ethi nyl estradio L 0.15-0.0 3 mg oral tablet RxNorm: [id number] Allow Substitu tion: True Refill Denied: No Edited by: ranjana(Haroon Choi ) on 10/05/19 Stopped by: ranjana(Haroon Choi ) on 10/05/19 [...] cephALEX in 250 mg oral capsule RxNorm: [id number] Allow Substitu tion: True Refill Denied: No Edited by: soco hendrix([employer]ra[employer], Mert ) on 02/10/20 Stopped by: soco [...] (vitamin B6) 25 mg oral tablet RxNorm: [id number] Allow Substitu tion: True Refill Denied: No Edited by: soco hendrix([employer], Taramparo ) on 11/30/19 Stopped by: soco hendrix(Porfirio es, Taryne ) on 11/30/19 Not Available Not Available Not Available prednison e 20 mg tablet TAKE 2 TABLETS BY MOUTH DAILY FOR 3 DAYS THEN 1 TABLET DAILY FOR 3 DAYS 11/20 completed Not Available Not Available Not Available metronida zole 500 mg tablet Take 1 tablet twice a day by oral route for 7 days. 01/28 completed Not Available Not Available Not Available [...] completed Not Available Not Available Not Available albuterol sulfate HFA 90 mcg/actua tion aerosol inhaler INHALE 2 PUFFS BY MOUTH EVERY 4 HOURS NEEDED FOR WHEEZING active Not Available Not Available No t Available ondansetr on 4 mg disintegr ating tablet Place 1 tablet every 8 hours by translin gual route as needed, for nausea. 2024 active Not Available Not Available Not Avai lable Vitamin 27 mg iron-0.8 mg tablet TAKE 1 TABLET BY MOUTH EVERY DAY active Not Available Not Available No t Available medroxypr ogesteron e 150 mg/mL intramusc ular syringe INJECT 1 MILLILIT ER INTRAMUS CULARLY EVERY 3 MONTHS 11/20 completed Not Available Not Available Not Available Sleep Aid (doxylami ne) 25 mg tablet Take one table every 8 hours 11/29 completed doxylami ne succinat e 25 mg oral tablet RxNorm: [id number] Allow Substitu tion: True Refill Denied: No Edited by: Mert Larson ) on 11/30/19 Stopped by: Mert Larson ) on 11/30/19 Not Available Not Available Not Available Ibuprofen IB 600mg as needed 03/22 completed Ibuprofe n IB Allow Substitu tion: False Refill Denied: No Refill DateOccu rred: 04/18/20 Edited by: Jacki Kaye ) on 04/19/20 21 Stopped by: Jacki Kaye ) on Not Available Not Available Not Available 28 mg iron-800 mcg tablet Take 1 tablet every day by oral route. 03/09 completed Not Available Not Available Not Available Zofran (base) 02/23 completed Not Available Not Available Not Available Se- 19 29 mg iron-1 mg tablet Take one tablet daily 11/29 completed PNV 119-iron fum-foli c acid 29 mg iron- 1 mg oral tablet Allow Substitu tion: True Refill Denied: No Edited by: Mert Larson ) on 11/30/19 Stopped by: soco hendrix(Mert Morales ) on 11/30/19 21 Not Available Not Available Not Available Vitals Date Recorded Body height Body mass index (BMI) Body weight Systolic And Diastolic Provider Name and Address Organization Details Last Updated DateTime 01/04/2025 162.56 cm 45.6 kg/m2 227967.85 g 120/60 mm[Hg] [facility] 01/04/2025 11:49:28 Date Recorded Body height Body mass index (BMI) Body weight Systolic And Diastolic Provider Name and Address Organization Details Last Updated DateTime 02/02/2025 162.56 cm 46 kg/m2 597781.76 g 116/70 mm[Hg] [facility] IV 02/02/2025 11:23:58 Date Recorded Body height Provider Name an d Address Organization Details Last Updated DateTime 02/23/[address] [facility] 02/23/2025 11:05:03 Date Recorded Body mass index (BMI) Body weight Systolic And Diastolic Provider Name and Address Organization Details Last Updated DateTime 02/23/2025 45.9 kg/m2 104356.88 g 114/70 mm[Hg] Jacki Thorneshelia [facility] 02/23/2025 11:23:15 Date Recorded Body height Body weight Systolic And Diastolic Provider Name and Address Organization Details Last Updated DateTime 03/09/2025 162.56 cm 086945.978 05 g 100/68 mm[Hg] [facility] 03/09/2025 12:41:54 Date Recorded Body height Body mass index (BMI) Body weight Systolic And Diastolic Provider Name and Address Organization Details Last Updated DateTime 03/24/2025 162.56 cm 46.5 kg/m2 893932.53 g 100/62 mm[Hg] [facility] IV 03/24/2025 11:52:20 Social History Question Answer Notes LastModified by Organizat ion Details LastModified Time Tobacco Smoking Status Current Every Day Smoker JORGE LUIS Delaney [address] [place], [address], [facility] 06/18/2021 10:03:14 If You Are , What Was Your Level Of Alcohol Consumption Prior To ? Occasional Information not available 01/04/2025 Are You Blind Or Do You Have Difficulty Seeing? No Information not available 07/17/2021 Are You Deaf Or Do You Have Serious Difficulty Hearing? No Information not available 07/17/2021 What Type Of Diet Are You Following? REGULAR Information not available 07/17/2021 What Is The Highest Grade Or Level Of School You Have Completed Or The Highest Degree You Have Received? [id number] Information not available 01/04/2025 How Many Children Do You Have? 2 Information not available 01/04/2025 What Is Your Relationship Status? Single [email or web address] Information not available 06/13/2021 Are You Sexually Active? No Information not available 01/04/2025 At What Age Did You Start Smoking Tobacco? 15 Information not available 01/04/2025 How Much Tobacco Do You Smoke? 0.5 PPD Information not available 01/04/2025 How Many Years Have You Smoked Tobacco? 13 Information not available 01/04/2025 Sex: Unknown Functional Status Question Answer Note LastModified by Organizat ion Details LastModified Time Do you use any illicit or recreational drugs? No Information not available 07/17/2021 Do you or have you ever used any other forms of tobacco or nicotine? No Information not available 07/17/2021 What is your level of alcohol consumption? None Information not available 01/04/2025 Are you currently employed? No Information not available 01/04/2025 Do you or have you ever used e-cigarettes or vape? Never used electronic cigarettes Information not available 01/04/2025 What is your exercise level? None Information not available 07/17/2021 Mental Status None recorded. Family History Relationship Description Onset Age of this Age Resolved Age Notes LastModified by Organization Details LastModified Time Maternal Grandfather Type 2 diabetes mellitus Not available 2024 11:42:41 Maternal Grandfather Hypertensive disorder Not available 2024 11:42:41 Maternal Grandfather Diabetes mellitus Not available 2024 11:42:41 Sister Hypertensive disorder Not available 2024 11:42:41 Father Hypercholest erolemia Not available 2024 11:42:41 Father Myocardial infarction Not available 01/04 11:42:41 Father Hypertensive disorder Not available 2024 11:42:41 Father Diabetes mellitus Not available 2024 11:42:41 Medical History Condition Response Other Cancer N High Blood Pressure N Colon Cancer N Cytomegalovirus N Hyperthyroidism N MRSA N Blood Transfusion N Herpes (HSV) N Breast Cancer N [...] Gynecological History Statement/Question Response Date of Last Colonoscopy Date of last HPV 01/04/2025 Frequency of Cycle (Q days) 30 Date of LMP 09/08/2024 Most Recent Bone Density Date of Last Pap Smear 01/04/2025 Duration of Flow (days) 5 Most Recent Mammogram Current Control Method Age at Menarche 10 Obstetrics History GPAL:G 4 P 0 2 1 2 Type Value Multiple Births 0 Full Term 0 Induced 0 Spontaneous 1 Premature 2 Living 2 Ectopics 0 Total 4 Past Encounters Encounter ID Performer Location Encounter Start Date Encounter Closed Date Diagnosis/Indication Diagnosis SNOMED-CT Code Diagnosis ICD10 Code Diagnosis IMO Codes Diagnosis Note [id number] Jacki Connell, [facility] [address] [place] [address] 05/17/2021 10:11:15 05/30/2021 13:58:15 state 39736606 Z39.2 Desires Mirena. Last pap 03/13/19 [id number] Ronna James, [facility] [address] [place] [address] 06/19/2021 13:17:39 07/04/2021 14:21:12 Insertion of intrauterine contraceptive device 36808294 Z30.430 Pt educated on risks Vs benefits of use, reviewed ACHES symptoms. Dosing schedule reviewed. Pt educated on bleeding profile of device, expulsion sx, and when to notify HCP/go to ER. Plan to F/U PRN or at next WWE. [id number] Anjum Freedman, [address] [address] 07/17/2021 13:15:42 08/01/2021 12:07:42 Contraception care 852819897 Z30.09 control options reviewed. Carla is undecided as to what she wants to do. Cori silva on options provided. Surveillan ce of intrauterine device contraception done 7881319879 49439 Z30.431 IUD removed per Carla's request. Explained that current bleeding pattern not unusual and that it may take several months before cessation of menses or reduced bleeding. Encouraged her to give it another 3 months at least and explained that we can give estrogen for now to help stop the bleeding-- she refuses. [id number] Sanjuana mayer, [facility] [address] [place] [address] 03/22/2022 14:00:19 03/22/2022 14:55:19 test positive 706459815 Z32.01 Discussed bleeding precaution s, and concern for SAB will follow Hcg, states was 5000 in ER [id number] [facility] [address] [place] [address] 04/17/2022 11:02:47 04/18/2022 11:36:42 test positive 250415477 Z32.01 Incomplete miscarriage 892749121 O03.4 test remains positive today. Retained products today. Discussed options and would like to continue to wait. Repeat quant today. Stict precaution s reviewed. [id number] [facility] [address] [place] [address] 04/27/2022 09:54:35 04/27/2022 10:38:03 Missed miscarriage 85837059 O02.1 Postoperative visit 1836 40509 Z09 [id number] [facility] [address] [place] [address] 05/31/2022 12:14:30 06/01/2022 14:53:24 Gynecologic examination 09886612 Z01.419 Screening for malignant neoplasm of cervix 744420183 Z12.4 Contracept ion care education 853359032 Z30.09 Contracept saeid counseling : Discussed options including OCPs, NuvaRing, Nexplanon, hormonal and copper IUDs. Discussed risks, efficacy, noncontrac eptive benefits, and side effects of each option, including risk of VTE with hormonal contracept ion and uterine perforatio n, expulsion, infection with IUD. Depression screening 171 313217 Z13.31 Initiation of depot contraception done 1314436619 11870 Z30.993 [id number] [facility] [address] [place] [address] 05/31/2022 13:25:22 06/06/2022 14:55:44 [id number] Ronna James [facility] [address] [place] [address] 07/23/2022 11:18:01 07/23/2022 12:33:19 High grade squamous intraepithelial lesion on cervical Papanicolaou smear 4303243358 9107 R87.613 UPT in office is negative. [...] consider smoking cessation and Gardasil administra tion. [id number] ELDER XAVIER, DO [facility] [address] [place] [address] 08/15/2022 10:02:10 08/15/2022 12:36:11 Cervical intraepithelial neoplasia grade 2 278338407 N87.1 26 y.o. with colpo showing MILADYS [...] given-Plan for LEEP in OR @ . ' [id number] ELDER XAVIER DO [facility] [address] [place] [address] 09/20/2022 10:37:27 09/20/2022 14:33:30 Postoperative visit 906404566 Z09 26 yo s/p LEEP for MILADYS 2,3 Post-op path: focal MILADYS 3 in endocervix w/ negative marginsRev iewed Surgical findings. Patient instructed that she may return to routine activities . All of her questions were answered. 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 Cervical intraepithelial neoplasia grade III with severe dysplasia 144825917 D06.9 Will need repeat pap w/ HPV in 6 months. Followed by yearly Pap w/ HPV for 3 normal paps in a row. Surveillan ce of depot contraception done 3710281052 9104 Z30.42 [id number] NESHA CERVANTES, [facility] [address] 11/07/2022 14:09:21 11/08/2022 11:59:28 Infection of sebaceous cyst 469518822 L72.3 [id number] SHAD MARCIAL, [address] [address] 01/23/2023 13:30:57 01/25/2023 02:11:39 Surveillance of depot contraception done 7985595177 9104 Z30.42 [id number] LEONARD B[place] [place] [address] 11/20/2024 11:35:39 11/24/2024 15:06:41 test positive 473553526 Z32.01 [id number] Quant HCG 95 in ER on 11/16, repeat Quant today in office, and repeat Quant Saturday or Saturday at [facility]. Pt denies pain or abnormal vaginal bleeding. SAB/Ectopi c precaution s reviewed with patient. Will return to office for TVUS based upon quant HCG results. [id number] Mariela Gutierrez MD [address] [address] 12/08/2024 11:59:21 12/08/2024 19:37:45 Uncertain viability of 871655501 O36.80X0 31939687 - Routine antepartum care reviewed including visit schedule, ultrasound s, and labs. Care team reviewed. First trimester teaching provided. Reviewed Guide.-Pre vitamins daily-S/S of SAB reviewed and when to seek care Patient was counseled on purpose, process and potential outcomes of NIPT and carrier screening. We discussed benefits, limitation s and accuracy of screenings . Alternativ es including, no testing, were reviewed. Patient was given the opportunit y to ask questions, which were addressed thoroughly . After confirming understand ing, patient provided verbal consent for NIPT and carrier screening. Plan for NIPT at next visit. --BMI: 44.7Gestat ional weight gain during reviewed RTC 4 weeks for 1st OBV -NOB labs and pap at next visit First trim bebeto 20942660 Z34.91 535258 [id number] JORGE LUIS CRESPO [facility] [address] [place] [address] 01/04/2025 11:39:39 01/11/2025 12:57:47 screening 123723635 Z36.89 - Conduct genetic screening and other tests as scheduled. Cancer cer vix screening status 395414347 Z12.4 797555 -Pap and HPV collected today, history of abnormal pap with Leep procedure in 2022, has not had follow up pap since LEEP High risk 4720 0007 O09.91 67100778 - Continue routine visits to monitor progressio n and address any complicati ons early.-- NOB labs done today-- Accepts NIPT-- PAP collected today-- Low dose aspirin recommende d start at 12 weeks gestation- - Pre-Pregna ncy BMI: 44.7-- History of section due to distress; future delivery options should be discussed. -- Smoking cessation is encouraged due to risks of low weight and labor. -- Chest congestion suspected to be allergy-re lated; advised to use Zyrtec and Mucinex - Advise use of Zyrtec and Mucinex for suspected allergy-re lated congestion . Re-evaluat e if symptoms persist. - OB/ER warnings reviewed. RTC in 4 weeks History of loop electrosurgical excision procedure 1287367688 9102 Z98.890 61785334 - Monitor cervical length due to history of LEEP procedure, with ultrasound s scheduled at 18, 20, and 22 weeks. Body mass index 40+ - severely obese 594076129 Z68.41 606159 pre-preg BMI 44.7Serial Growths at 28w, 32w, 36wWeekly BPP at 34w Tobacco user 556484112 Z 72.0 674663 - Has reduced smoking significan tly from 1 ppd to 1/2 ppd. Encouraged smoking cessation to reduce risks. History of thyroidectomy 845821593 Z98.890 Z90.89 024652 [id number] Mariela Gutierrez MD [facility] [address] [place] [address] 02/02/2025 11:06:12 02/03/2025 11:37:31 Gestation period, 15 weeks 8548043 Z3A.15 2965573 High risk 4720 0007 O09.212 64933998 Hx of delivery with SROM at 32-33 weeks and history of leep CL 3.68, occasional nausea zofran refilledro und ligament pain discussed comfort measuresRT C in 3 weeks, repeat CL at next visit Nausea and vomiting in 6604456109 O21.9 032697 [id number] Mariela Gutierrez MD [address] [address] 02/23/2025 10:46:28 02/23/2025 16:23:16 Gestation period, 18 weeks 91482816 Z3A.18 4252464 High risk 4720 0007 O09.892 07037060 Hx of delivery with SROM at 32-33 weeks and history of leep CL, following cervical lengths and today was 3.82cm. will repeat next visit with anatomy scan [id number] Mariela Gutierrez MD [address] [address] 03/09/2025 11:42:10 03/12/2025 09:56:59 screening for malformation 354280379 Z36.3 anatomy incomplete screening 2437 49801 Z36.86 High risk 4720 0007 O09.068 2249410 Hx of delivery with SROM at 32-33 weeks and history of leep CL, following cervical lengths will repeat next visit at 22 wks/p recent pneumonia, appears resolved. [id number] JORGE LUIS CRESPO [address] [address] 03/24/2025 10:33:13 03/24/2025 13:34:22 High risk 55306115 O09.892 97014555 Gestation period, 22 weeks 75861516 Z3A.22 9064695 anatomy study 2714 32426 Z36.2 5378996865 care status 24 9957285 Z34.82 31416929 Anatomy complete, CL WNLPTL precaution s reviewedDi scussed stretches for sciaticaRT C in 4 wks Health Concerns Section Related Observation LastModified by Organization Detai ls LastModified Time None Recorded Concern Status LastModified by Organization Details LastModified Time None Recorded Advance Directives Directive None Recorded Payers Insurance Date Sequence Insurance Name Policy Number Policy Jimenez Covered Member ID Jimenez Member ID Guarantor Name 04/28/2025 1 [facility] - DOS ON OR AFTER 20 (MEDICAID REPLACEMENT - HMO) Carla Santos [id number] Carla Santos Notes Date Note Type Note Provider Name and Address Organization Details Recorded Time 01/04/2025 text/html ROS as noted in the HPI Carla is a 29 y/o who presents for an initial visit at 10.6 weeks gestation --Medical History:Partial Thyroidectomy in 2016 -- Medications:Taking daily PNV, was prescribed Zofran after ER visit but has not taken since shortly after ER visit - -Pap History:last Pap smear: [id number] electrosurgical excision procedure: 07-20-4692KCR 3 --OB History:.08-22-2019,M, 5lbs- 32-33w following PPROM 2.04-04-2021-F, 5lbs 8oz, Primary @36 weeksfetal distress caused by umbilical cord complications -- Denies of defects or chromosomal abnormalities - - Pre- BMI: 44.7 She denies any complaints of the presence of vaginal bleed, leaking fluid, abdominal cramps, nausea, vomiting, headache or visual disturbances. JORGE LUIS CRESPO [facility] [place], [address], [facility] [employer] [facility] IV 01/10/2025 01:58:31 02/02/2025 text/html ROS as noted in the HPI Carla is a 29 y/o at 15 weeks gestation who presents today for return ob visit She denies any complaints of the presence of vaginal bleed, leaking fluid, abdominal cramps, nausea, vomiting, headache or visual disturbances. Mariela Gutierrez MD [facility] [place], [address], [facility] [employer] [facility] 03/02/2025 14:32:01 02/23/2025 text/html Patient is here today for a routine OB visit. She is currently at 18.0 weeks gestation. vitamins: yes She has not felt movement.She denies any complaints of the presence of vaginal bleed, leaking fluid, abdominal cramps, nausea, vomiting, headache or visual disturbances. Patient had a cervical length u/s done today due to history of LEEP procedure. Carla reports she has had a cough for the past few weeks, it got worse and she went to [facility] ER, was told she had pneumonia and was given Amoxicillin with improvement. She has no hx of asthma. She is a smoker, used to smoke 1.5 ppd and now 0.5ppd.States she smokes due to anxiety. 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 Working on decreasing smoking She is currently at 20.0 weeks gestation. vitamins: yes She has felt movement.She is getting anatomy scan today. We are also following serial cx length She denies any complaints of the presence of vaginal bleed, leaking fluid, abdominal cramps, nausea, vomiting, headache or visual disturbances. Pt. has no concerns. Mariela Gutierrez MD [address] [place] [address], [place], [address], [employer] [facility] 03/11/2025 23:17:16 03/24/2025 text/html ROS as noted in the HPI Patient is here today for a routine OB visit. She is currently at 22.1 weeks gestation. vitamins: yes She has felt movement.She denies any complaints of the presence of vaginal bleed, leaking fluid, abdominal cramps, nausea, vomiting, headache or visual disturbances. JORGE LUIS CRESPO [address] [place], [address], [facility] 03/24/2025 13:24:12 OBGyn Episode Ob Episode Information Episode Created Date Number of Fetuses Patient Bloodtype Patient rh Status Prepregnancy Weight lbs Domestic Partner Domestic Partner Phone Father Name Ham Sawyer Status 07/17/19 22 1 CLOSED Fetus Data First Name Last Name Admitted to NICU Weight (g) Sex Living Outcome Pediatric Complications Fetus ID Race Codes Race Delivery Type 2494.75 6 F Prematur e [id number] Primary Elvis Calculation Initial Elvis Date Initial [...] Domestic Partner Domestic Partner Phone Father Name Ham Sawyer Status 09/15/19 22 1 CLOSED Fetus Data First Name Last Name Admitted to NICU Weight (g) Sex Living Outcome Pediatric Complications Fetus ID Race Codes Race Delivery Type 2267.96 M Prematur e [id number] Elvis Calculation Initial Elvis Date Initial Exam [...] Tubal Sterilization Discharge Date Comments 0 None 33 true at 32-33w following SROM Discharge Information Feeding Method Contraceptive Method Maternal HG B and HCT Levels Ob Episode Information Episode Created Date Number of Fetuses Patient Bloodtype Patient rh Status Prepregnancy Weight lbs Domestic Partner Domestic Partner Phone Father Name Ham Sawyer Status 01/02/20 25 1 A Positive OPEN Fetus Data First Name Last Name Admitted to NICU Weight (g) Sex Living Outcome Pediatric Complications Fetus ID Race Codes Race Delivery Type [id number] Problems Problem Notes Problem Name Start Date End Date Resolution Snomed Code Not e Past history of section 01/04/2025 [id number] Body mass index 40+ - severely obese 01/04/2025 248619895 pre-preg BMI 44.7Serial Growths at 28w, 32w, 36wWeekly BPP at 34w Human papillomavirus deoxyribonucleic acid detected, high risk on cervical specimen 02/02/2025 888180564 Needs colp oscopy PP Bacteriuria 01/06/2025 00230138 GBS pos itive urine culture at [facility] History of pneumonia 03/11/2025 85697860 4 History of thyroidectomy 01/04/2025 076590106 TSH and T4 pj wn at [facility] Tobacco user 01/04/2025 567142811 pre-pr egnancy smoking 1 ppd, has decreased to 1/2 ppd at [facility]. Discussed smoking cessation.03/09: has decreased to 4 cig/day. Praised and continue efforts at reduction/quitti ng History of loop electrosurgical excision procedure 01/04/2025 20957533619601 Hx of L eep 09-04-2022 MILADYS 3Cervical Length at 18, 20, and 22 weeks Past history of premature rupture of membranes 01/09/2025 395391737102859 32-3 3 weeks with first Elvis Calculation Initial Elvis Date Initial Exam Date Initial Exam Provider Initial Ultrasound Date Last Menstrual Period Date Ultra Sound Weeks Gestation 01/01/2025 0 Eighteen To Twenty Week Elvis Update Ultra Sound Date Fundal Height At Umbil Quickening Date Ultra Sound Latest Weeks Gestation Final Elvis Confirmed By Final Elvis Confirmed Date Final Elvis Date Ultra Sound Latest Days Gestation 0 07/27/19 26 0 Pre-rohit Flowsheet Flowsheet Date 01/04/2025 Ball Score Blood Edema Fundus Height Fundus Units Glucose Ketones Leukocytes Nitrite Labor Signs Protein Cervic Dilation Cervic Effacement Cervic Station none none none neg Type Weight in lbs Pre/Post Dialysis Refused With clothes 265.256052603598 BP Diastolic BP Location Tested BP Systolic BP Type 60 120 sitting Fetus Heart Rate Present A 160 Fetus Movement A No Comments 1st OBV- Pre-preg BMI 44.7 - NOB labs, NIPT, and Pap collected todayc/o congestion discussed safe meds- recommend Zyrtec and Mucinex RTC 4 weeks Flowsheet Date 02/02/2025 Ball Score Blood Edema Fundus Height Fundus Units Glucose Ketones Leukocytes Nitrite Labor Signs Protein Cervic Dilation Cervic Effacement Cervic Station none none Type Weight in lbs Pre/Post Dialysis Refused With clothes 268.58109686374 BP Diastolic BP Location Tested BP Systolic BP Type 70 116 sitting Fetus Heart Rate Present A 142 Fetus Movement Comments Hx of delivery with SROM at 32-33 weeks and history of leep CL 3.68, occasional nausea zofran refilledround ligament pain discussed comfort measuresRTC in 3 weeks, repeat CL at next visit Flowsheet Date 02/23/2025 Ball Score Blood Edema Fundus Height Fundus Units Glucose Ketones Leukocytes Nitrite Labor Signs Protein Cervic Dilation Cervic Effacement Cervic Station none none neg Type Weight in lbs Pre/Post Dialysis Refused Weight 267.081681915356 BP Diastolic BP Location Tested BP Systolic BP Type 70 114 sitting Fetus Heart Rate Present A 130 Fetus Movement A No Comments cervical length today 3.82cm , being followed for hx of and LEEP. Cx length is stable. Discussed and delivery preferences. Would prefer vaginal if possible. Pt had LTCS 03/[address] Zavala due to NRFHT. discussed risk uterine rupture, 0.5%. Pt dx with pneumonia last week, went to [facility], prescribed amoxil and improving. no hx of asthma but + smoker. used to smoke 1.5 ppd, cut down to 0.5 ppd. Advised that she can use nicotine patches, gum to help with cessation Flowsheet Date 03/09/2025 Ball Score Blood Edema Fundus Height Fundus Units Glucose Ketones Leukocytes Nitrite Labor Signs Protein Cervic Dilation Cervic Effacement Cervic Station none none none neg Type Weight in lbs Pre/Post Dialysis Refused 265.454918539506 BP Diastolic BP Location Tested BP Systolic BP Type 68 100 sitting Fetus Heart Rate Present A 150 Present Fetus Movement A Yes Comments anatomy scan incomplete toda y. cervical length good. s/p pneumonia, doing well. discussed smoking cessation, has dec to 4/day and enc to continueRTC 2 wk for final cx length check and complete anatomy Flowsheet Date 03/24/2025 Ball Score Blood Edema Fundus Height Fundus Units Glucose Ketones Leukocytes Nitrite Labor Signs Protein Cervic Dilation Cervic Effacement Cervic Station none none none neg Type Weight in lbs Pre/Post Dialysis Refused With clothes 271.911811223059 BP Diastolic BP Location Tested BP Systolic BP Type 62 100 sitting Fetus Heart Rate Present A 147 Fetus Movement A Yes Comments Anatomy complete, CL WNLPTL precautions reviewedDiscussed stretches for sciaticaRTC in 4 wks Menstrual History Last Menstrual Date Menses Monthly On Bcp Conception Prior Menses Frequency Hcg Plus Date Menarche Onset Age Genetic Screening And Infection History Question Response Note Patient's Age Will Be 35 Years Or Older At Estim ated Date of Delivery false Personal or Family History o f Neural Tube Defect (Meningomyelocele, Spina Bifida, Or Anencephaly) false Personal or Family History of Congenital Heart D efect false Maternal Metabolic Disorder (eg, Type 1 Diabetes , PKU) false Recurrent Loss, Or A Stillbirth false Patient Or Partner Has History Of Genital Herpes false Prior GBS-infected child false History of HIV false History of Hepatitis false Genetic Carrier Screen positive false Delivery Information Delivery Date Delivery Type Labor Anesthesia Weeks Gestation Incision Type Labor Labor Length Hrs Delivered By Post Complications Tubal Sterilization Discharge Date Comments Discharge Information Feeding Method Contraceptive Method Maternal HG B and HCT Levels Ob Episode Information Episode Created Date Number of Fetuses Patient Bloodtype Patient rh Status Prepregnancy Weight lbs Domestic Partner Domestic Partner Phone Father Name Ham Sawyer Status 12/09/19 25 1 DELETED Fetus Data First Name Last Name Admitted to NICU Weight (g) Sex Living Outcome Pediatric Complications Fetus ID Race Codes Race Delivery Type [id number] Elvis Calculation Initial Elvis Date Initial Exam Date Initial Exam Provider Initial Ultrasound Date Last Menstrual Period Date Ultra Sound Weeks Gestation 12/08/2024 0 Eighteen To Twenty Week Elvis Update Ultra Sound Date Fundal Height At Umbil Quickening Date Ultra Sound Latest Weeks Gestation Final Elvis Confirmed By Final Elvis Confirmed Date Final Elvis Date Ultra Sound Latest Days Gestation 0 07/27/19 26 0 Menstrual History Last Menstrual Date Menses Monthly On Bcp Conception Prior Menses Frequency Hcg Plus Date Menarche Onset Age Delivery Information Delivery Date Delivery Type Labor Anesthesia Weeks Gestation Incision Type Labor Labor Length Hrs Delivered By Post Complications Tubal Sterilization Discharge Date Comments Discharge Information Feeding Method Contraceptive Method Maternal HG B and HCT Levels"
--- OUTSIDE RECORDS SUMMARY | 2025-05-06 10:18 | XMS_ITS | Clinical Summary ---
Author Organization [facility] Address [address] [place] [address] Care Team Providers Care Furniture Sprayer Name Role Phone None, Provider MD Primary Care Provider Unavaila ble Allergies Active Allergy Reactions Criticality Noted Date Comments Fish Protein-Containing Drug Products Anaphylaxis High 12/19/2020 Hydrocodone Itching 10/24/2022 Iodine Throat swelling 05/04/2017 Shellfish Protein-Containing Drug Products Anaphylaxis High 12/22/2018 Shrimp/tilapia Medications medroxyPROGEST ERone (DEPO-PROVERA) injection INJECT [...] Date uterine contractions , antepartum, third trimester 08/23/2019 08/23/2019 Other closed extra-articular fracture of [...] Sex Assigned at Female 08/06/2019 9:24 PM EMPLOYMENT SERVICE SPECIALIST Legal Sex Female 10:39 PM CDT Gender Identity Female 08/06/2019 9:24 PM EMPLOYMENT SERVICE SPECIALIST Sexual Orientation Straight 08/06/2019 9: 24 PM EMPLOYMENT SERVICE SPECIALIST Last Filed Vital Signs Vital Sign Reading Time Taken Comments Blood Pressure 134/106 07/28/2024 10:19 PM EMPLOYMENT SERVICE SPECIALIST Pulse 112 07/28/2024 10:19 PM EMPLOYMENT SERVICE SPECIALIST Temperature 37.2 C (99 F) 07/28/2024 10:19 PM EMPLOYMENT SERVICE SPECIALIST Respiratory Rate 18 07/29/2024 12:52 AM EMPLOYMENT SERVICE SPECIALIST Oxygen Saturation 100% 07/28/2024 10:19 PM EMPLOYMENT SERVICE SPECIALIST Inhaled Oxygen Concentration - - Weight 104.3 kg (230 lb) 07/28/2024 10:19 PM EMPLOYMENT SERVICE SPECIALIST Height 162.6 cm (5' 4) 07/28/2024 10:19 PM EMPLOYMENT SERVICE SPECIALIST Body Mass Index 39.48 07/28/2024 10:19 PM EMPLOYMENT SERVICE SPECIALIST Plan of Treatment Health Maintenance Due Date [...] Every 5 Years 11/10/2023 Cervical Cancer Screening [facility] HPV 11/10/2023 COVID-19 Vaccine ( - 2024-2 6 season) 2025 Influenza Adult (#1) 2025 Meningococcal Vaccine Aged Out 01/12/2008 No mónica meseret eligible based on patient's age to complete this topic Hepatitis A Vaccines Aged Out No long er eligible based on patient's age to complete this topic Meningococcal B Vaccine Aged Out No l onger eligible based on patient's age to complete this topic RSV Immunizations Under 20 Months Aged Out No longer eligible b ased on patient's age to complete this topic Medical Devices Implanted Type Area Wire Wrapper Machine Operator Device Identifier Shelf Expiration Date Model / Serial / Lot Plate Synthes 2.4 Va-Lcp Vlr Dist Radius 6h Hd/2h Shaft Left - [id number] Implanted:Qty: 1 on 12/23/2018 by Jose Antonio Bhatt MD at [facility] Left: Radius SYNTHES [id number] / / Description:6 HOLE VA DISTAL RADIUS PLATE Screw Synthes 2.4 Cortical Self Tap 14mm - [id number] Implanted:Qty: 2 on 12/23/2018 by Jose Antonio Bhatt MD at [facility] Left: Radius SYNTHES 201.764 / / Screw Synthes 2.4 Locking Stardrive 16mm - [id number] Implanted:Qty: 4 on 12/23/2018 by Jose Antonio Bhatt MD at [facility] Left: Radius SYNTHES 02.210.116 / / Screw Synthes 2.4 Locking Stardrive 18mm - [id number] Implanted:Qty: 1 on 12/23/2018 by Jose Antonio Bhatt MD at [facility] Left: Radius SYNTHES [id number] / / Explanted Type Area Wire Wrapper Machine Operator Device Identifier Shelf Expiration Date Model / Serial / Lot Wire Synthes 1.25mm Wes W/Trocar Point 150mm - [id number] Explanted:Qty: 1 on 12/23/2018 by Jose Antonio Bhatt MD at [facility] Left: Radius SYNTHES [id number] / / Insurance [employer] Advance Directives * Full Code (Latest Code Status on File) Date Activated Date Inactivated Comments 08/22/2019 12:41 PM 08/23/2019 8:39 AM Care Teams Furniture Sprayer Relationship Specialty Start Date End Date None, Provider, MD PCP - General UNKNOWN PHYSICIAN SPECIALTY 09/06/22
--- OUTSIDE RECORDS SUMMARY | 2025-05-06 10:18 | XMS_ITS | Clinical Summary ---
Author Organization [facility] Address [address] [place] [address] Care Team Providers Care Textile Artist Name Role Phone No, Physician Primary Care Provider [phone] No, Physician Unavailable Allergies Active Allergy Reactions Criticality Noted Date Comments Fish Containing Products Anaphylaxis High 03/22/2021 Hydrocodone Itching Low 04/23/2022 Iodine Anaphylaxis High 03/22/2021 Shellfish Derived Anaphylaxis High 03/22/2021 Medications PNV [id number] acid-dha 35 mg iron-5 mg iron-1 mg capsule Take 1 tablet/capsule by mouth daily Active nitrofurantoin monohydrate (MACROBID) 100 mg capsuleIndications :Urinary Tract/Genitourinar y Infection Take 1 capsule (100 mg total) by mouth 2 (two) times a day 10 capsule 04/11/20 25 Active Additional Information Patient not taking.Reported on 05/05/2025 ibuprofen (ADVIL,MOTRIN) 600 mg tablet Take 1 tablet (600 mg total) by mouth every 6 (six) hours as needed for pain (pain > 5/10 or cramping) 20 tablet 04/26/20 22 025 Discontin ued(Thera py completed ) ondansetron ODT (ZOFRAN-ODT) 4 mg disintegrating tablet Take 1 tablet (4 mg total) by mouth every 8 (eight) hours as needed for nausea or vomiting 20 tablet 11/17/19 25 025 Discontin ued(Thera py completed ) albuterol HFA (PROVENTIL HFA,VENTOLIN HFA,PROAIR HFA) 90 mcg/actuation inhalerIndications :Bronchospasm Prevention Inhale 2 puffs every 4 (four) hours as needed for wheezing 1 each 1 02/17/20 25 025 Discontin ued(Stop Taking at Discharge ) Active Problems Problem Noted Date Diagnosed Date Retained products of conception after miscarriag e 04/26/2022 34 weeks gestation of 04/03/2021 Encounter for post surgical wound check 12/30/19 Dressing change or removal, surgical wound 12/29 Estimated Date of Delivery Comme nts Yes 07/26/2025 Date entered paras or to episode creation Encounters Date Type Department Care Team Description 05/05/2025 7:19 PM SERVICE CENTER SUPERVISOR - 05/06/2025 12:05 AM SERVICE CENTER SUPERVISOR Hospital Encounter [facility] [address] [place] [address] Byron Franklin MD Discharge Disposition: Discharge to home or self care 04/11/2025 6:47 PM CDT - 04/11/2025 8:20 PM CDT Hospital Encounter [facility] [address] [place] [address] Byron Franklin MD Discharge Disposition: Discharge to home or self care 02/19/2025 8:49 PM CDT - 02/19/2025 9:32 PM CDT Emergency [facility] Emergency Department [address] [place] [address] Naif Altman MD Discharge Disposition: Left without being seen 02/15/2025 11:57 PM CDT - 02/16/2025 1:05 AM CDT Emergency [facility] Emergency Department [address] [place] [address] Cindy Galvan MD Spotting affecting in second trimester (Primary Dx); Chronic cough; Tobacco abuse Discharge Disposition: Discharge to home or self care from Last 3 Months Immunizations Immunization Administration Dates Next Due Tdap 04/04/2021 Surgical History Surgery Date Site/Laterality Comments THYROIDECTOMY WRIST RECONSTRUCTION 07/01/2018 - 06/30/2019 Left plate in wrist due to shattered bone THYROIDECTOMY, PARTIAL 07/01/2015 - 06/30/2016 SECTION 07/01/2020 - 06/30/2021 DILATION AND CURETTAGE OF UTERUS 07/01/2021 - 06/30/2022 Medical History Medical History Date Comments Gallstones Anemia hx w Miscarriage Thyroid disease had partial thyr oidectomy but not meds Abnormal Pap smear of cervix Family History Medical History Relation Name Comments Diabetes Maternal Grandfather Relation Name Status Comments Maternal Grandfather Social History Tobacco Use Types Packs/Day Years Used Date Smoking Tobacco: Every Day Cigarettes 0.8 8 Tobacco Cessation:Ready to Q uit: Not Asked; Counseling Given: Not Answered Alcohol Use Standard Drinks/Week Comments Not Currently 0 (1 standard drink = 0.6 oz pur e alcohol) occaisonally PHQ-2 Answer Date Recorded PHQ-2 Total Score (If total score is 3 or more points, staff should administer the PHQ-9) 0 05/05/2025 Ruffin Depression Scale Answer Date Recorded Ruffin Depression Scale Total 0 04/05/2021 The thought [...] week 05/05/2025 How often do you attend chur ch or cheondoism services? Never 05/05/2025 Do you belong to any clubs o r organizations such as mu-ism groups, unions, fraternal or athletic groups, or [...] care, and heating? Not very hard 05/05/2025 [facility] - Occupational Stress [...] any time in the past 12 m [facility], were you homeless or living in a care home (including now)? No 05/05/2025 [facility] Utilities Answer Date Recorded In the past [...] on file Legal Sex Female 9:06 PM SERVICE CENTER SUPERVISOR Gender Identity Not on file Sexual Orientation Not on file Obstetrics History Para Term AB IAB SAB Ectopic Multiple Livin g Live Births 4 2 2 1 0 2 2 Date Outcome GA Total Labor Labor/2nd/3rd Weight Sex Type Anes PTL Millie A1 A5 Name Clin AB 020 32w 0d 10h 00m 2.268 kg (5 lb) M Vag-S pont None Y Livin g Delivery Location:[facility] Es 021 34w 3d 0h 03m 0h 03m 2.485 kg (5 lb 7.7 oz) F CS-LT ranv Epidu ral,S urban Y Livin g 8 8 MALON E,GIR Aruna Linder RA, Complications: Intolera nce,Rupture of Membranes > 18 hours,Premature Rupture of Membranes,Failure to Progress in First Stage Delivery Location:[facility] ([facility] L AND D PROCEDURE) Current Summary Episode Dates Number of Fetuses Estimated Date of Delivery 04/11/2025 - Present (05/06/2025) 07/26/2025 (based on Alternate TUYET Entry) Dating Summary Based On TUYET GA Diff Last Menstrual Period on 10/21/2024 07/28/2025 -2d Alternate TUYET Entry 07/26/2025 Working Comment:Date entered prior t o episode creation Vitals Pregravid Weight Height TWG (As of 05/06/2025) Pregrav id BMI 162.6 cm (5' 4) Date GA Fund Present FHR Mvmt BP Weight Edema Alb Glu Ket Dil/ Eff/Sta 5 24w6d Inpatient data not displayed here. See encounter summary. 28w3d Inpatient data not displayed here. See encounter summary. Last Filed Vital Signs Vital Sign Reading Time Taken Comments Blood Pressure 124/58 05/05/2025 10:56 PM SERVICE CENTER SUPERVISOR Pulse 93 05/05/2025 10:56 PM SERVICE CENTER SUPERVISOR Temperature 36.5 C (97.7 F) 04/11/2025 7:12 PM CDT Respiratory Rate 18 04/11/2025 7:12 PM CDT Oxygen Saturation 96% 04/11/2025 6:39 PM CDT Inhaled Oxygen Concentration - - Weight 120.2 kg (265 lb) 04/11/2025 6:39 PM CDT Height 162.6 cm (5' 4) 04/11/2025 7:12 PM CDT Body Mass Index 45.49 04/11/2025 6:39 PM CDT Plan of Treatment Upcoming Encounters Date Type Department Care Team (Late st Contact Info) Description 07/26/2025 Hospital Encounter [facility] [address] [place] [address] Byron Franklin MD [address] [place] [address] DR MACHADO B [facility] [address] [place] [address] Health Maintenance Due Date Last Done Comments Cervical Cancer Screening 1993 Hepatitis C Screening 1993 Varicella Vaccines (1 of 2 - 13+ 2-dose series) 2006 HPV Vaccines (2 - 2-dose series) 07/14/2008 01/12/20 08 Regular Well Visit/Exam 18-64 11/10/2011 Pneumococcal vaccine <65 (1 of 2 - PCV) 2012 Influenza Vaccine (#1) 2025 Depression Screening 04/11/2026 04/11/2025, 04/11/2025, 04/05/2021 DTaP/Tdap/Td Vaccine (8 - Td or Tdap) 04/04/2031 04/04/2021, 01/12/2008, 01/19/1999, Additional history exists Hepatitis B Screening Completed 02/14/1995 , 02/08/1994, 1993 Medical Devices Implanted Type Area Analyst Programmer Device Identifier Shelf Expiration Date Model / Serial / Lot Plate Plate Left: Wrist Description:2019 Procedures Procedure Name Priority Date/Time Associated Diagnosis Comments FIBRONECTIN Routine 05/05/2025 8:1 8 PM SERVICE CENTER SUPERVISOR URINALYSIS AND REFLEX TO MICROSCOPIC AND CULTURE Routine 05/05/2025 7:56 PM SERVICE CENTER SUPERVISOR URINALYSIS, MICROSCOPIC ONLY STAT 04/11/2025 7:03 PM CDT URINE CULTURE STAT 04/11/2025 7:03 PM CDT URINALYSIS AND REFLEX TO MICROSCOPIC AND CULTURE STAT 04/11/2025 7:03 PM CDT DIFFERENTIAL AUTO STAT 02/15/2025 9:2 0 PM CDT ABO/RH STAT 02/15/2025 9:20 PM CDT HCG, BLOOD, QUANTITATIVE STAT 02/15/2025 9:20 PM CDT CBC WITH AUTO DIFFERENTIAL STAT 02/15/2025 9:20 PM CDT from Last 3 Months Results * fibronectin (05/05/2025 8:18 PM SERVICE CENTER SUPERVISOR) Fibronectin, Negative Negative Comment: NORMAL RANGE: Symptomatic [...] at less than or equal to 35 weeks.(S=1352; AM J OBSTET GYNECOL 1997;177:8) Testing performed by: [facility], [place]., [address] Cervical 05/05/2025 8:18 PM SERVICE CENTER SUPERVISOR 05/06/2025 1:55 AM SERVICE CENTER SUPERVISOR us Byron Franklin MD LAB BODY FLUIDS AND ST OOLS ORDERABLES Final Result [facility] ([place]) 1 [facility] Department [place] [address] * (ABNORMAL) Urinalysis reflex to microscopic and culture Urine, clean voided (05/05/2025 7:56 PM SERVICE CENTER SUPERVISOR) Color, ur Yellow Yellow Clarity, ur Clear Clear [facility] ([place]) Specific gravity, ur 1.016 1.003 - 1.030 [facility] ([place]) pH, urine 6.5 [facility] ([place]) Comment: Interpretive Data U rine pH is affected by diet, medications, systemic acid-base disturbances, and renal tubular function. pH may affect urinary stone formation. For example, urine pH below 6.0 may help reduce the tendency for calcium phosphate stones and pH greater than 6.0 may reduce the tendency for uric acid stone formation. Source: [facility] Current Interpretive Data was last revised on [...] (YAIR) Urine, clean voided 05/05/2025 7:56 PM SERVICE CENTER SUPERVISOR 05/05/2025 8:01 PM SERVICE CENTER SUPERVISOR us Byron Franklin MD LAB MICROBIOLOGY - GEN ERAL ORDERABLES Final Result [facility] ([place]) 1 [facility] Department [place] [address] * (ABNORMAL) Urinalysis reflex to microscopic and culture Urine, clean voided (04/11/2025 7:03 PM CDT) Color, ur Yellow Yellow Clarity, ur Clear Clear [facility] ([place]) Specific gravity, ur 1.009 1.003 - 1.030 [facility] ([place]) pH, urine 7.0 [facility] ([place]) Comment: Interpretive Data U rine pH is affected by diet, medications, systemic acid-base disturbances, and renal tubular function. pH may affect urinary stone formation. For example, urine pH below 6.0 may help reduce the tendency for calcium phosphate stones and pH greater than 6.0 may reduce the tendency for uric acid stone formation. Source: [facility] [employer] Current Interpretive Data was last revised on 2017 Protein, ur ql Negative Negative [facility] ([place]) Glucose, ur ql Negative Negative [facility] ([place]) Ketones, ur Negative Negative [facility] ([place]) Bilirubin, ur Negative Negative [facility] ([place]) Blood, ur Negative Negative [facility] ([place]) Urobilinogen, ur <2.0 <2.0 mg/dL [facility] ([place]) Nitrite, ur Negative Negative [facility] ([place]) Leukocyte esterase, ur 3+(A) Negative [facility] ([place]) UA reflex comment Reflex to microscopic UA will be performed. [facility] ([place]) Urine, clean voided 04/11/2025 7:03 PM CDT 04/11/2025 7:08 PM CDT Byron Franklin MD LAB MICROBIOLOGY - GEN ERAL ORDERABLES Final Result Performing Organization Address City/[facility]/ZIP Co de Phone Number GR[facility] MICHAEL) [address] [place] [address] * (ABNORMAL) Urinalysis, microscopic only (04/11/2025 7:03 PM CDT) WBC, ur 21-50(A) 0 - 5 /HPF RBC, ur 0-2 0 - 2 /HPF [facility] ([place]) Epithelial cells, squamous, ur 1-5 0 - 5 /HPF [facility] ([place]) Mucous, ur Present(A) [facility] ([place]) Culture Reflex Comment Reflex to urine culture will be performed. [facility] ([place]) Urine, clean voided 04/11/2025 7:03 PM CDT 04/11/2025 7:08 PM CDT Byron Franklin MD LAB URINE ORDERABLES F inal Result Performing Organization Address [facility] Co de Phone Number [facility] ([place]) [address] [place] [address] * (ABNORMAL) Urine culture Urine, clean voided (04/11/2025 7:03 PM CDT) Report Final Report: Less than 100,000 colonies/mL (clinically insignificant growth based on current clinical standards) Includes the following: Less than 100,000 colonies/mL Streptococcus agalactiae (Group B Streptococci) * * * * * * * * * * * * * * * * * * * * Resistance to penicillin in Group B Streptococcus has not been reported. Group B Streptococci are universally susceptible to beta-lactam antibiotics and vancomycin. Routine susceptibility testing is not performed. In penicillin allergic patients, please contact the laboratory at [phone] to request susceptibility testing * * * * * * * * * * * * * * * * * * * * This laboratory routinely screens urine cultures for any amount of Group B Streptococcus in reproductive age women. Recovery of this isolate may be significant in women, however, the recovery of this organism in small quantities in non- women represents contamination with periurethral kavitha. (.) Comment:Testing performed by : [facility], [address] [place]., [address] Organism (CLINICALLY INSIGNIFICANT GROWTH [facility] ([place]) Organism STREPTOCOCCUS AGALACTIAE (GROUP B STREPTOCOCCI) [facility] ([place]) Urine, clean voided 04/11/2025 7:03 PM CDT 04/12/2025 1:36 AM CDT Narrative [facility] ([place]) - 04/13/2025 10:47 AM CDT Urine culture reflexed based upon urinalysis results. Testing performed by [facility] ([phone]) us Byron Franklin MD LAB MICROBIOLOGY - GEN ERAL ORDERABLES Final Result [facility] ([place]) 1 [facility] Department [place] [address] * (ABNORMAL) Differential, auto (02/15/2025 9:20 PM [...] revised on 2017. Basophil pct 0.3 % [facility] ([place]) Comment: Interpretive Data Percent cell count reference ranges are not reported, since discordance with absolute values may lead to misinterpretation of CBC data. Current Interpretive Data was last revised on 2017. Blood 02/15/2025 9:20 PM CDT 02/15/2025 9:22 PM CDT us Cindy Galvan MD LAB BLOOD ORDERABLES Final Resul t [facility] ([place]) 1 [facility] Department [place] [address] * (ABNORMAL) CBC with auto differential (02/15/2025 9:20 PM CDT) WBC 15.24(H) 3.80 - 9.90 K/cumm Hgb 12.0 11.9 - 15.5 g/dL [facility] ([place]) Hct 36.0 35.6 - 45.5 % [facility] ([place]) Plt 230 150 - 400 K/cumm [facility] ([place]) MPV 10.4 9.1 - 12.3 fL [facility] ([place]) RBC 4.05 3.90 - 5.20 M/cumm [facility] ([place]) MCV 88.9 81.3 - 96.4 fL [facility] ([place]) MCH 29.6 27.1 - 33.3 pg [facility] ([place]) MCHC 33.3 32.3 - 35.7 g/dL [facility] ([place]) RDW CV 13.3 11.1 - 14.9 % [facility] ([place]) RDW SD 43.4 35.7 - 48.1 fL [facility] ([place]) NRBC abs 0.00 0.00 - 0.01 K/cumm [facility] ([place]) Blood Venous blood specimen / Unknown 02/15/2025 9:20 PM CDT 02/15/2025 9:22 PM CDT Cindy Galvan MD LAB BLOOD ORDERABLES Final Resul t Performing Organization Address City/[facility]/ZIP Co de Phone Number [facility] ([place]) 1 [facility] [employer] [place] [address] * ABO/Rh (02/15/2025 9:20 PM CDT) ABO/Rh A Positive Blood 02/15/2025 9:20 PM CDT 02/15/2025 9:22 PM CDT Cindy Galvan MD LAB BLOOD BANK TEST ORDERABLES F inal Result Performing Organization Address City/[facility]/ZIP Co de Phone Number [facility] ([place]) [address] [facility] [place] [address] * (ABNORMAL) hCG, blood, quantitative (02/15/2025 9:20 PM CDT) hCG, quant 17,823.0( H) 0.0 - 5.0 IUnits/L [facility] ([place]) Comment: Interpretive Data Male: < [...] BLOOD ORDERABLES Final Resul t [facility] ([place]) 1 [facility] Department [place] [address] from Last 3 Months Insurance [facility] Advance Directives For more information, please contact: [phone] * Full Code (Latest Code Status on File) Date Activated Date Inactivated Comments 04/04/2021 6:16 AM 04/06/2021 3:50 PM * Full Code Date Activated Date Inactivated Comments 04/03/2021 7:35 AM 04/04/2021 6:16 AM Full CPR in case of cardiopulmonary arrest Care Teams Textile Artist Relationship Specialty Start Date End Date No, Physician PCP - General 02/19/25 No, Physician 02/19/25
--- NOTE | 2025-05-07 07:45 | PM.OBTRLD ---
OB - Triage/Final Diagnosis Visit Information Date of evaluation: 05/05/25 Reason for evaluation: threatened labor Comments/Additional reasons for admission: I have assessed the risk for this patient, Carla Santos, and determined that she would benefit from observation care. Evaluation Laboratory results: Laboratory Tests 05/05/25 11:20 Urine Color Light yellow Urine Appearance Clear Urine pH 7.0 Ur Specific [place] 1.016 Urine Protein Negative Urine Glucose (UA) Negative Urine Ketones Negative Ur Blood (Man) Negative Urine Nitrate Negative Urine Bilirubin Negative Urine Urobilinogen 1.0 Leukocyte Esterase Rfl Negative
== END 2025-05-05 13:43 | disposition home or self-care (01) ==
PROVIDERS: Admitting Provider Obstetrics & Gynecology; Visit Provider Obstetrics & Gynecology
DX: O47.03 False labor before 37 completed weeks of gestation, third trimester (principal); Z3A.28 28 weeks gestation of pregnancy
CPT/HCPCS: 81003; G0378; G0379

== ENCOUNTER 2025-05-22 18:36 | Emergency (ER) | payer OTHER, SELFPAY ==
[2025-05-22 18:42] VITALS: PULSE 120; RESP 24; TEMP 36.8; O2SAT 100
[2025-05-22 18:48] VITALS: BP 131/64; PULSE 120; RESP 23; O2SAT 100
--- NOTE | 2025-05-22 19:11 | ECG_ITS ---
Test Date: 2025-05-22 19:32:32 Measurements Intervals [place] Rate: 108 P: 50 WV: 129 QRS: 34 QRSD: 82 T: 11 QT: 315 QTc: 423 Interpretive Statements SINUS TACHYCARDIA POSSIBLE LEFT ATRIAL ENLARGEMENT [-0.1mV P-WAVE IN V1/V2] ABNORMAL RHYTHM ECG No previous ECG available for comparison Electronically Signed On 05-22-2025 22:56:17 CASE MANAGEMENT ASSISTANT by Ambrose Quezada M.D.
[2025-05-22 19:16] VITALS: BP 111/75; PULSE 118; RESP 18; O2SAT 99
--- NOTE | 2025-05-22 19:21 | ED_ITS ---
HPI - Extremity Injury (Upper) General Chief Complaint: Extremity Injury, Upper Stated Complaint: 30 weeks , headache, hands and feet swelli Time Seen by Provider: 05/22/25 19:03 History of Present Illness HPI narrative: 29-year-old female at 30 weeks presenting to the emergency department today with numerous complaints. She follows my the [facility] for her OBGYN care. Patient has had 3 prior pregnancies 2 alive and 1 miscarriage. Patient presents today as she was having a frontal headache that started at 9:00 p.m. last night rating 4-5 in intensity. She has also been noticing worsening leg swelling. She has had bilateral extremity swelling throughout the that usually stops when she elevates her legs but for last day she has not had any relief and notices that she is having puffiness in both over top of the foot. She is also complaining of paresthesias in both palms. She describes the paresthesias as a numb tingling almost burning sensation that starts at the flexor retinaculum was and goes to each finger tip on the palmar surface only. No traumatic injuries or history of carpal tunnel. Was otherwise in her normal state of health. No complications during this otherwise. She has had some premature deliveries during prior pregnancies but no history of preeclampsia, eclampsia, gestational hypertension or diabetes. She tried some Tylenol at home for headache and had no symptom relief. She has tried elevation of her legs without any symptom relief. No chest pain difficulty in breathing. No nausea vomiting, vision changes, neck pain, cough, fever, chills, back pain. No vaginal bleeding or leakage of fluids. Related Data Home Medications ?Medication ?Instructions ?Recorded ?Confirmed ?Last Taken ?Type vits no.130-ferrous fum tablet PO 04/05/25 Unknown History 27 mg iron-folic acid 800 mcg tablet ( Vitamin) Allergies Allergy/AdvReac Type Severity Reaction Status Date / Time iodine Allergy Unknown Swelling Verified 05/22/25 18:41 of Lip/Tongue/Throat shellfish derived Allergy Swelling Verified 05/22/25 18:41 of Lip/Tongue/Throat Review of Systems 2 Review of Systems: as reviewed above in HPI [facility] Past Medical History Medical History Patient denies medical problems Surgical History Surgical History H/O dilation and curettage History of delivery (04/04/21) distress cord around baby neck H/O wrist surgery H/O thyroidectomy Family History Family History Father Hypertension Heart disease Diabetes mellitus Depression Grandparent Heart disease Hypertension Social History Social History Smoking packs per day: 0.5 Smoking cigarettes per day: 10.0 Smoking status: Current every day smoker Tobacco type: cigarettes Alcohol intake: never Substance use: never Substance use type: does not use Do You Feel Safe in your Home?: Yes Lack of Transportation: No Lack of Food: Never True Current Housing: I Have Housing Concerned About Future Housing: No Difficulty Paying Gas/Electric Bills: No Difficulty Paying for Meds: No Currently Unemployed: No Education: High School Diploma/GED Difficulty w/ Childcare or Family Care: No Living arrangements: with family Additional living arrangements comments: single Occupation/Education: occupation 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 Mucous membranes moist. NECK: Supple. CHEST: [Clear to auscultation. No respiratory distress.] HEART: Tachycardic rate but regular rhythm. No murmur heard. [Normal peripheral pulses.] ABDOMEN: [Soft, nondistended], [nontender], [No rigidity or guarding] EXTREMITIES: Normal range of motion. 1+ pitting edema bilaterally to the distal knees down. Normal range of motion of the arms and legs. Senior Cytotechnologist strength full 5/5 bilaterally. Ankle plantar and dorsiflexion 5/5 bilaterally. Ambulatory without difficulty. SKIN: Warm, dry, no rash. NEURO: [No focal deficits]. Alert and oriented [x3.] PSYCH: [Normal mood and affect.] Course Vital Signs Vital signs: Vital Signs Temperature 36.8 C 05/22/25 18:42 Pulse Rate 120 H 05/22/25 18:42 Respiratory Rate 24 H 05/22/25 18:42 Pulse Oximetry 100 05/22/25 18:42 Oxygen Delivery Room Air 05/22/25 18:42 Temperature 36.8 C 05/22/25 18:42 Pulse Rate 104 H 05/22/25 20:16 Respiratory Rate 26 H 05/22/25 20:16 Blood Pressure 117/62 05/22/25 20:16 Pulse Oximetry 99 05/22/25 20:16 Oxygen Delivery Room Air 05/22/25 18:42 MDM - Extremity Injury (Upper) MDM Narrative Medical decision making narrative: 29-year-old female at 30 weeks presenting to the emergency department today with numerous complaints. She follows my the [facility] for her OBGYN care. Patient has had 3 prior pregnancies 2 alive and 1 miscarriage. Patient presents today as she was having a frontal headache that started at 9:00 p.m. last night rating 4-5 in intensity. She has also been noticing worsening leg swelling. She has had bilateral extremity swelling throughout the that usually stops when she elevates her legs but for last day she has not had any relief and notices that she is having puffiness in both over top of the foot. She is also complaining of paresthesias in both palms. She describes the paresthesias as a numb tingling almost burning sensation that starts at the flexor retinaculum was and goes to each finger tip on the palmar surface only. No traumatic injuries or history of carpal tunnel. Was otherwise in her normal state of health. No complications during this otherwise. She has had some premature deliveries during prior pregnancies but no history of preeclampsia, eclampsia, gestational hypertension or diabetes. She tried some Tylenol at home for headache and had no symptom relief. She has tried elevation of her legs without any symptom relief. No chest pain difficulty in breathing. No nausea vomiting, vision changes, neck pain, cough, fever, chills, back pain. No vaginal bleeding or leakage of fluids. patient has a blood pressure 114/84, pulse rate of 118/120. Respirations at 20. Afebrile, 100% saturation on room air. She does have pitting edema 1+ bilateral ankles slightly worse than her baseline according to the patient. Does have subjective paresthesias in the palmar distribution distal to the flexor retinaculum is of both wrists right worse than left consistent with carpal tunnel syndrome rather than central pathology as this does not match dermatomal distributions. Patient has a mild headache nonexertional in onset and no red flag signs or symptoms on examination to suspect subarachnoid hemorrhage or other acute intracranial process. Given she has tried some Tylenol at home we will try Reglan diphenhydramine fluid bolus. Basic laboratory studies obtained. Urinalysis ordered to see if there is protein or infectious process. Possibility of some proteinuria or atypical presentation of preeclampsia less likely as she is normotensive. Got q15 minute blood pressure checks ordered. Will re-evaluate for symptom control and disposition. Patient re-evaluated and doing well. Feels improved after interventions. Symptoms improving. Laboratory studies showed no signs of preeclampsia. she does have a leukocytosis but has had elevated leukocytosis in the past, no signs of infection on examination. No abdominal discomfort or pain. No nausea, vomiting. Headache resolved with fluids and Reglan. Heart rate came down with fluids. Currently 104. Afebrile. No significant anemia. Normal platelet count. Electrolytes are unremarkable. Normal kidney function. Normal GFR. Normal ALT and AST. Normal uric acid. Normal LDH. urine protein count is normal. No urinary signs of infection or proteinuria. Albumin is slightly low which could explain some for increased swelling. Likely having some increased swelling arms as well, and some carpal tunnel like symptoms. I went and discussed these results with the patient and plan of care for outpatient follow- up with OBGYN and strict return precautions. She has an appointment in 2 days time to meet with her OBGYN which is reassuring. We discussed signs and symptoms to watch out for and return with and she was safe for discharge home. Medical Records Attestation: I reviewed the patient's medical records. Lab Data Attestation: I reviewed the patient's lab results. 05/22/25 19:27 05/22/25 19:27 Labs: Lab Results 05/22/25 Range/Units 19:27 WBC 15.6 H (4.5-10.0) K/mm3 RBC 4.06 L (4.2-5.4) M/mm3 Hgb 11.7 L (12.0-15.0) g/dL Hct 35.2 L (37.0-47.0) % MCV 86.7 (80-100) fl MCH 28.8 (26-34) pg MCHC 33.2 (32-36) g/dl RDW 14.2 (11.5-14.5) % Plt Count 302 (150-375) k/mm3 MPV 10.5 H (7.4-10.4) fl Immature Gran % (Auto) 0.6 H (0-0.5) % Neut % (Auto) 69.1 (45.5-73.1) % Lymph % (Auto) 21.2 (18.3-44.2) % [place] % (Auto) 7.8 (2.6-8.5) % Eos % (Auto) 1.0 (0-4.4) % Baso % (Auto) 0.3 (0.2-1.2) % Lymph # (Auto) 3.31 H (0.9-3.2) K/mm3 [place] # (Auto) 1.2 H (0.1-0.6) K/mm3 Eos # (Auto) 0.2 (0-0.3) K/mm3 Baso # (Auto) 0.0 (0.0-0.1) K/mm3 Abs Immat Gran (auto) 0.10 H (0.00-0.031) K/mm3 Absolute Neuts (auto) 10.8 H (1.3-6.7) K/mm3 Absolute Nucleated RBC 0.000 (0.0-0.012) K/mm3 Nucleated RBC % 0.0 (0.0-0.2) % Sodium 132 L (137-145) mmol/L Potassium 3.6 (3.4-5.0) mmol/L Chloride 105 (98-107) mmol/L Carbon Dioxide 23 (22-30) mmol/L Anion Gap 4 (4-12) mmol/L BUN 3 L (7-17) mg/dL Creatinine 0.44 L (0.7-1.0) mg/dL Estim Creat Clear Calc 203 ml/min Estimated GFR > 60 (59 - ) Glucose 90 (65-110) mg/dL Uric Acid 3.1 (2.5-7.5) mg/dL Calcium 8.9 (8.4-10.2) mg/dL Magnesium 1.8 (1.6-2.3) mg/dL Total Bilirubin 0.3 (0.2-1.3) mg/dL AST 21 (14-36) U/L ALT 13 (6-35) U/L Alkaline Phosphatase 165 H (38-126) U/L Lactate Dehydrogenase 158 (120-246) U/L Total Protein 6.6 (6.3-8.2) g/dL Albumin 3.3 L (3.5-5.1) g/dL Urine Color Yellow (Yellow) Urine Appearance Clear (Clear) Urine pH 7.0 (5.0-9.0) Ur Specific [place] 1.004 (1.001-1.035) Urine Protein Negative (Negative) mg/dL Urine Glucose (UA) Negative (Negative) mg/dL Urine Ketones Negative (Negative) mg/dL Ur Blood (Man) Negative (Negative) Urine Nitrate Negative (Negative) Urine Bilirubin Negative (Negative) Urine Urobilinogen 0.2 (<2.0) mg/dL Leukocyte Esterase Rfl Negative (Negative) JADA/UL U Random Total Protein 16 mg/dL Discharge Plan Discharge Clinical Impression: Headache in , Leg swelling in , Carpal tunnel syndrome Patient Disposition: Home Condition: Stable Instructions: Antibiotic Form, Acute Headache (DC), Leg Edema (ED) Additional Instructions: Follow-up with your OBGYN in 2 days on Saturday. Return with any recurrent symptoms or emergent concerns such as nausea and vomiting inability to tolerate oral intake, neck stiffness, vision changes, worsening leg swelling, shortness of breath, mental status changes, diffuse abdominal pain, vaginal bleeding or contractions. you have no urinary proteinuria or any signs of preeclampsia on examination or laboratory studies but you do have some mildly low serum albumin protein which can contribute to the leg swelling you are experiencing. Follow- up with your doctors and return with any emergencies. Patient Language: Croatian Prescriptions: No Action Vitamin 27 mg iron- 800 mcg tablet PO Follow-up/Referrals: UNKNOWN,DOCTOR [Primary Care Provider] Time of Disposition: 20:52
[2025-05-22] MEDS: LACTATED RINGERS 1,000 ML 999 ML IV CONT (19:29)
[2025-05-22 19:31] VITALS: BP 136/67; PULSE 115; RESP 26; O2SAT 100
--- NOTE | 2025-05-22 19:31 | PC.NURSE ---
Received report from MICHAEL Friend for cont. of care, pt lying on stretcher c/o bilateral hand tingling, edema to lower extremities, and headache. Pt 30 weeks , and tachycardiac on monitor. EKG done at bedside, refer to MISAEL for medication administration.
[2025-05-22 19:34] LABS: Hematocrit 35.2 % (37.0-47.0); Hemoglobin 11.7 g/dL (12.0-15.0); Immature Granulocyte Percent A 0.6 % (0-0.5); Lymphocytes Absolute Auto 3.31 K/mm3 (0.9-3.2); Mean Corpuscular HGB Conc 33.2 g/dl (32-36); Mean Corpuscular Hemoglobin 28.8 pg (26-34); Mean Corpuscular Volume 86.7 fl (80-100); Nucleated Red Blood Cells Absolute Auto 0.000 K/mm3 (0.0-0.012); Nucleated Red Blood Cells Perc 0.0 % (0.0-0.2); Platelet Count Result 302 k/mm3 (150-375); Red Blood Count 4.06 M/mm3 (4.2-5.4); White Blood Count 15.6 K/mm3 (4.5-10.0)
[2025-05-22] MEDS: METOCLOPRAMIDE HCL INJ 10 MG/2 ML VIAL IV PUSH (19:34)
[2025-05-22 19:37] LABS: Add Urine Microscopic? NO; Appearance Urine Clear (Clear); Glucose Urine UA Negative (Negative); Leukocyte Esterase Ur Negative LEU/UL (Negative); Nitrate Urine Negative (Negative); Specific Grav Ur 1.004 (1.001-1.035)
[2025-05-22 19:44] LABS: Total Protein Urine Random 16 mg/dL
--- OUTSIDE RECORDS SUMMARY | 2025-05-22 19:46 | XMS_ITS | Continuity of Care Document ---
Author Organization [facility] Address [address] [place] [address] Assessment No assessment recorded. Plan of Treatment Reminders Order Date Submit Date Provider Last Modified By Organization Details Last Modified Time Details Appointments 3HR GLUCOSE 2024 08:30A M RN SCHEDULE Not available Not available Not available U/S OB GROWTH 2024 02:30P M ULTRASOUND Not available Not available Not available OB ROUTINE 2024 03:15P M NAZANIN OTTO MD Not available Not available Not available Lab drug screen, urine [email or web address] [place], [place] [address], [address], [place], [address], 05/21/2025 11:46:46 CT + NG + TV, RNA, unspeci fied specime n 2024 025 [facility] (Lab), [address], [place], [address], 05/21/2025 11:47:20 culture , urine 2024 025 [facility] (Lab), [address], [place], [address], 05/21/2025 11:47:20 Referral None recorde d. Procedures None recorde d. Surgeries None recorde d. Imaging None recorde d. Medication Orders None recorde d. Patient TargetsNo targets recorded. Patient InstructionsNo instructions recorded. Reason for Referral None Reported. Results Created Date Observation Date Name Description Value Unit Range Abnormal Flag Note LastModifiedBy Organization Detail LastModifiedTime 05/21/20 25 05/21/2025 drug scree n, urine Amphetamines : negati ve Not Available [place] [address], [place], [address], 05/21/2025 11:45:28 05/21/20 25 05/21/2025 drug scree n, urine Cannabinoids : negati ve Not Available [place] [address], [place], [address], 05/21/2025 11:45:28 05/21/20 25 05/21/2025 drug scree n, urine Cocaine: negati ve Not Available [place] [address], [place], [address], 05/21/2025 11:45:28 05/21/20 25 05/21/2025 drug scree n, urine Opiates: negati ve Not Available [place] [address], [place], [address], 05/21/2025 11:45:28 05/21/20 25 05/21/2025 drug scree n, urine Phenocyclidi ne: negati ve Not Available [place] [address], [place], [address], 05/21/2025 11:45:28 05/21/20 25 05/21/2025 drug scree n, urine Barbiturates : negati ve Not Available [place] [address], [place], [address], 05/21/2025 11:45:28 05/21/20 25 05/21/2025 drug scree n, urine Benzodiazepi tariq: negati ve Not Available [place] [address], [place], [address], 05/21/2025 11:45:28 Result Notes None recorded. Problems Name Problem SNOMED Code Status Onset Date Resolution Date Notes Provider Name and Address Organization Details Recorded Time 25145056 Active 2024 Annalee [place], [facility] 10:03:53 Past history of premature delivery 786783935 Active 2024 x2 31 weeks PPROM 34 weeks PPROM plan MFM consult Madiha Hernandez CNM [address], [place], [address], [facility] 5 12:01:52 Obesity caused by energy imbalance 762905576 Active 2024 bmi 48 Madiha Hernandez CNM [address], [place], [address], [facility] 5 11:58:27 Past history of premature delivery 898332196 Active 2024 x2 31 weeks PPROM 34 weeks PPROM plan MFM consult Madiha Hernandez CNM [address], [place], [address], [facility] 5 12:01:52 Past history of section 042962219 Active 2024 due to distress desires TOLAC Madiha Hernandez CNM [address], [place], [address], [facility] 5 12:02:17 Tobacco user 635158107 Active 2024 1-2 packs/day Madiha Hernandez CNM [address], [place], [address], [facility] 5 12:02:31 History of subtotal thyroidec kyler 052051642 Active 2024 no meds currently , will rpt today Madiha Hernandez CNM [address], [place], [address], [place] [facility] 12:02:49 Problem Notes None recorded. Procedures Surgical History Date Name Laterality Status Provider Name and Address Organization Details Recorded Time 1 Caesarean Section completed [facility] 05/21/2025 09:42:35 Thyroid Surgery completed [facility] 05/21/2025 09:42:35 procedure on wrist completed [facility] 05/21/2025 10:35:26 Imaging Results None recorded. Procedure Notes None recorded. Medical Equipment None Reported. Allergies Allergen ID Allergen Name Allergen Category Reaction Reaction Severity Criticality Documentation Date Start Date Code Code System Note Provider Name and Address Organization Details Recorded Time 29231 hydrocodo ne Not available itching Not available Not available 05/21/20252022 5489 RxNorm Not Available [facility] - prod 03:03:44 75084 iodine medicatio n Not available Not available Not available 05/21/20252016 5933 RxNorm unrec ogniz ed react ion (text : Iker briceno ing, code: 63791 [id number]) (from exter nal sourc e) Not Available [employer] [facility] - prod 03:03:44 96682 Fish (substanc e) food,medi cation other severe Not available 05/21/2025 06454 1005 SNOMED [facility] 09:42:34 55881 Shellfish (substanc e) food,medi cation anaphylax is Not available [facility] 05/21/20252020 95990 9006 SNOMED Not Available [employer] [facility] - prod 03:04:05 Medications Name Sig Start Date Stop Date Status Note LastModified by Organization Details LastModified Time amoxicillin 500 mg capsule TAKE 2 CAPSULES BY MOUTH THREE TIMES DAILY FOR 5 DAYS 05/18 completed Not Available Not Available Not Available metronidazo le 500 mg tablet TAKE 1 TABLET BY MOUTH TWICE DAILY FOR 7 DAYS 05/18 completed Not Available Not Available Not Available albuterol sulfate HFA 90 mcg/actuati on aerosol inhaler INHALE 2 PUFFS BY MOUTH EVERY 4 HOURS NEEDED FOR WHEEZING active Not Available Not Available No t Available Vitamin 27 mg iron-0.8 mg tablet TAKE 1 TABLET BY MOUTH EVERY DAY active Not Available Not Available No t Available Vitals Date Recorded Body height Body mass index (BMI) Body weight Systolic And Diastolic Provider Name and Address Organization Details Last Updated DateTime 05/21/2025 162.56 cm 48.2 kg/m2 525197.46 g 140/84 mm[Hg] Annalee Duron [facility] 05/21/2025 09:42:07 Social History Question Answer Notes LastModified by Organizat ion Details LastModified Time Do You Have An Advance Directive? No [email or web address] Information n ot available 05/21/2025 How Many Years Have You Consumed Alcohol? 10 [email or web address] Information not available 05/21/2025 Are You Blind Or Do You Have Difficulty Seeing? No [email or web address] Information not available 05/21/2025 What Is Your Level Of Caffeine Consumption? Heavy [email or web address] Information not available 05/21/2025 How Much Tobacco Do You Chew? None [email or web address] Information not available 05/21/2025 In The 14 Days Before Symptom Onset, Have You Had Close Contact With A Laboratory-confirme d COVID-19 While That Case Was Ill? No [email or web address] Information n ot available 05/21/2025 In The 14 Days Before Symptom Onset, Have You Had Close Contact With A Person Who Is Under Investigation For COVID-19 While That Person Was Ill? No [email or web address] Information not available 05/21/2025 Have You Been To An Area Known To Be High Risk For COVID-19? No [email or web address] Information not available 05/21/2025 Are You Deaf Or Do You Have Serious Difficulty Hearing? No [email or web address] Information not available 05/21/2025 What Type Of Diet Are You Following? REGULAR [email or web address] Information n ot available 05/21/2025 What Is The Highest Grade Or Level Of School You Have Completed Or The Highest Degree You Have Received? MX58993-6 [email or web address] Information not available 05/21/2025 Are There Any Guns Present In Your Home? No [email or web address] Information not available 05/21/2025 Do You Use Protection During Sex? Usually [email or web address] Information not available 05/21/2025 Do You Use Your Seat Belt Or Car Seat Routinely? Yes [email or web address] Information not available 05/21/2025 Do You Have Smoke And Carbon Monoxide Detectors In Your Home? Yes Information not available 05/21/2025 At What Age Did You Start Smoking Tobacco? 14 [email or web address] Information not available 05/21/2025 How Much Tobacco Do You Smoke? 1 PPD [email or web address] Information not available 05/21/2025 Do You Use Sunscreen Routinely? No [email or web address] Information not available 05/21/2025 How Many Years Have You Smoked Tobacco? 15 Information not available 05/21/2025 Have You Used IV Drugs? No [email or web address] Information not available 05/21/2025 Sex: Unknown Functional Status Question Answer Note LastModified by Organizat ion Details LastModified Time Do you use any illicit or recreational drugs? No [email or web address] Information not available 05/21/2025 What is your level of alcohol consumption? Occasional [email or web address] Information not available 05/21/2025 Are you able to walk independently without assistance or assistive devices? YESWOREST [email or web address] Information not available 05/21/2025 What is your occupation? Na [email or web address] Information not available 05/21/2025 What is your exercise level? Moderate [email or web address] Information not available 05/21/2025 Mental Status Question Answer Note LastModified by Organization D etails LastModified Time Do you feel stressed (tense, restless, nervous, or anxious, or unable to sleep at night)? [id number] [email or web address] Information not available 05/21/2025 Family History Relationship Description Onset Age of this Age Resolved Age Notes LastModified by Organization Details LastModified Time Paternal Grandmother Anxiety disorder [email or web address] Not available 2024 09:42:34 Paternal Grandmother Heart disease [email or web address] Not available 2024 09:42:34 Paternal Grandmother Mental disorder [email or web address] Not available 2024 09:42:34 Paternal Aunt Anxiety disorder [email or web address] Not available 2024 09:42:34 Paternal Aunt Substance abuse [email or web address] Not available 2024 09:42:34 Paternal Aunt Diabetes mellitus [email or web address] Not available 2024 09:42:34 Paternal Aunt Mental disorder [email or web address] Not available 2024 09:42:34 Paternal Uncle Anxiety disorder [email or web address] Not available 2024 09:42:34 Paternal Uncle Substance abuse [email or web address] Not available 2024 09:42:34 Paternal Uncle Diabetes mellitus [email or web address] Not available 2024 09:42:34 Paternal Uncle Mental disorder [email or web address] Not available 2024 09:42:34 Maternal Grandfather Diabetes mellitus [email or web address] Not available 2024 09:42:34 Paternal Grandfather Substance abuse Not available 2024 09:42:34 Paternal Grandfather Diabetes mellitus [email or web address] Not available 2024 09:42:34 Father Anxiety disorder [email or web address] Not available 2024 09:42:34 Father Substance abuse [email or web address] Not available 2024 09:42:34 Father Diabetes mellitus Not available 2024 09:42:34 Father Mental disorder [email or web address] Not available 2024 09:42:34 Medical History Condition Response Thyroid Problems Y Gynecological History Statement/Question Response Abnormal Pap Y Date of Last Mammogram On BCP's at Conception? N N Was last menstrual period normal Y STIs/STDs N HPV Vaccine N Duration of Flow (days) 5 Current Control Method Age at First Child 23 Date of Last Colonoscopy Frequency of Cycle (Q days) 30 Sexually Active? N Date of DEXA bone scan Age of first menstrual cycle 14 Date of Last Pap Smear Sexual Problems? N Desired Control Method Unknown LMP Unknown N Obstetrics History GPAL:G 3 P 2 0 1 0 Type Value Full Term 2 Spontaneous 1 Total 3 Past Encounters Encounter ID Performer Location Encounter Start Date Encounter Closed Date Diagnosis/Indication Diagnosis SNOMED-CT Code Diagnosis ICD10 Code Diagnosis IMO Codes Diagnosis Note [id number] Madiha Hernandez CNM [place] [address] [address] 05/21/2025 09:27:14 05/21/2025 12:08:11 screening 264325339 Z36.85 Gestation period, 30 weeks 07446065 Z3A.30 1391365 Health Concerns Section Related Observation LastModified by Organization Detai ls LastModified Time None Recorded Concern Status LastModified by Organization Details LastModified Time None Recorded Payers Encounter Date Sequence Insurance Name Policy Number Policy Jimenez Covered Member ID Jimenez Member ID Guarantor Name 05/21/2025 1 [facility] ON OR AFTER 12/29/20 (MEDICAID REPLACEMENT - HMO) Carlade Santos [id number] Carlaangelica Santos OBGyn Episode Ob Episode Information Episode Created Date Number of Fetuses Patient Bloodtype Patient rh Status Prepregnancy Weight lbs Domestic Partner Domestic Partner Phone Father Name Stage Electrician Status 05/21/20 25 1 OPEN Fetus Data First Name Last Name Admitted to NICU Weight (g) Sex Living Outcome Pediatric Complications Fetus ID Race Codes Race Delivery Type [id number] Problems Problem Notes MFM referral faxed 05/21 Problem Name Start Date End Date Resolution Snomed Code Not e Past history of section 05/21/2025 819465077 due to f etal distress desires TOLAC Obesity caused by energy imbalance 05/21/2025 879459477 bmi 48 Tobacco user 05/21/2025 067577466 1-2 pa cks/day History of subtotal thyroidectomy 05/21/2025 568343405 no meds gissell heller today Past history of premature delivery 05/21/2025 399187842 x231 w eeks PPROM34 weeks PPROMplan MFM consult Elvis Calculation Initial Elvis Date Initial Exam Date Initial Exam Provider Initial Ultrasound Date Last Menstrual Period Date Ultra Sound Weeks Gestation 05/21/2025 [email or web address] 0 Eighteen To Twenty Week Elvis Update Ultra Sound Date Fundal Height At Umbil Quickening Date Ultra Sound Latest Weeks Gestation Final Elvis Confirmed By Final Elvis Confirmed Date Final Elvis Date Ultra Sound Latest Days Gestation 0 07/27/19 26 0 Pre-rohit Flowsheet Flowsheet Date 05/21/2025 Ball Score Blood Edema Fundus Height Fundus Units Glucose Ketones Leukocytes Nitrite Labor Signs Protein Cervic Dilation Cervic Effacement Cervic Station Type Weight in lbs Pre/Post Dialysis Refused Weight 281.693741989731 BP Diastolic BP Location Tested BP Systolic BP Type 84 L arm 140 sitting Fetus Heart Rate Present Fetus Movement A Yes Comments transfer from [facility], [facility] to home, wants tolac at [place], has not been referred to [facility] place order today, not currently taking bASA, tobacco use 1-2packs/daily discussed risks of /SGA. history of vaginal delivery at 31 weeks pprom, 34 weeks pprom and distress and section. history of partial thyroidectomy no current meds will order labs today. elevated bp today, no hx of elevated bp plan [facility] lab baseline with gtt. denies pih sxs. reviewed risks of tolac including uterine rupture and maternal . education and precautions +FM, will review with md plan next visit with md Menstrual History Last Menstrual Date Menses Monthly On Bcp Conception Prior Menses Frequency Hcg Plus Date Menarche Onset Age Genetic Screening And Infection History Question Response Note Mental Retardation/Autism false Patient's Age Will Be 35 Years Or Older At Estim ated Date of Delivery false Thalassemia (Tanzanian, Mongolian, Mediterranean, Or Background): MCV < 80 false Neural Tube Defect (Meningomyelocele, Spina Bifi da, Or Anencephaly) false Congenital Heart Defect false Down Syndrome false Mingo-Sachs (eg, Lutheran, Cajun, Latvian-[place]urn) f alse Luis E Disease false Sickle Cell Disease Or Trait () false Hemophilia Or Other Blood Disorders false Muscular Dystrophy false Cystic Fibrosis false Amanda's Chorea false Intellectual Disability/Autism false If Yes, Was Person Tested For Fragile X? false Other Inherited Genetic Or Chromosomal Disorder false Maternal Metabolic Disorder (eg, Type 1 Diabetes , PKU) false Patient Or Baby's Father Had A Child With Defects Not Listed Above false Recurrent Loss, Or A Stillbirth false Medications (including Suppl ements, Vitamins, Herbs, OTC Drugs), Illicit/Recreational Drugs, Alcohol false If Yes, Agent(s) And Strength/Dosage false Any [...] of Hepatitis false Prior GBS-infected child false Hemoglobinopathy Or Carrier false Other Structural Defect false Recent Travel History Outside of Country false Delivery Information Delivery Date Delivery Type Labor Anesthesia Weeks Gestation Incision Type Labor Labor Length Hrs Delivered By Post Complications Tubal Sterilization Discharge Date Comments Discharge Information Feeding Method Contraceptive Method Maternal HG B and HCT Levels
--- OUTSIDE RECORDS SUMMARY | 2025-05-22 19:46 | XMS_ITS | Data Portability ---
Author Organization [employer] , [facility] Address [address] [place] [address] Assessment Encounter Date Assessment Date Assessment LastModified [...] Modified Time Details Appointments LAB 15 2024 09:00A M LAB_[facility] Not available Not available Not available OB RETURN EST 2024 11:30A M DRE FARIDA, FREELANCE COPYWRITER Not available Not available Not available OB SONOGRA M 30 2024 11:00A M Ultrasound [place] 3 Not available Not available Not available OB RETURN EST 2024 11:30A M DRE IQBAL, FREELANCE COPYWRITER Not available Not available Not available Lab glucose toleran ce test, post-50 G, 1-hour 2024 025 [facility], [address] [place], [address], 05/11/2025 11:29:09 CBC w/ auto diff 2024 025 [facility], [address] [place], [address], 05/11/2025 12:41:14 obstetr ic screen, serum or blood 2024 025 [facility], [address] [place], [address], 05/11/2025 12:46:24 TSH + free T4, serum 2024 025 [facility], [address] [place], [address], 05/11/2025 12:50:06 afp (alpha- fetopro tein) panel, materna l screen, serum 2024 025 [facility], [address] [place], [address], 02/25/2025 15:16:27 Referral None recorde d. Procedures None recorde d. Surgeries None recorde d. Imaging US, obstetr ic, transva ginal 2024 025 [facility], [address], [place], [address], 03/25/2025 07:11:27 US, obstetr ic, 2nd trimest er 2024 025 [email or web address] [facility], [address], [place], [address], 03/24/2025 14:04:58 US, obstetr ic, 2nd trimest er 2024 025 [facility], [address], [place], [address], 03/11/2025 23:17:53 US, obstetr ic, transva ginal 2024 025 ATHENAFAX [facility], [address], [place], [address], 03/11/2025 23:17:07 US, obstetr ic, transva ginal 2024 025 [email or web address] [facility], [address] [place], [address], 03/03/2025 13:58:31 US, obstetr ic, transva ginal - cervica l length baselin e 2024 [facility]25 [facility] [address] [place], [address], 02/02/2025 14:16:01 Medication Orders ondanse francisco j 4 mg disinte grating tablet 2024 PAHRUMP [id number], [address] [place] [address], [id number], 05/10/2025 10:37:04 Patient TargetsNo targets recorded. Patient Instructions Encounter Date Encounter Id Patient Instructions Last Modified By Organization Details Last Modified Time 05/10/2025 [id number] learning about depression during Not available 05/10/2025 10:55:28 learning about screening for gestational diabetes Not available 05/10/2025 10:55:28 Reason for Referral None Reported. Results Created Date Observation Date Name Description Value Unit Range Abnormal Flag Note LastModifiedBy Organization Detail LastModifiedTime 05/11/2005/11/2025 TSH+F REE T4 TSH 0.19 mIU/L low Refer ence Range > or = 20 Years 0.40- 4.50 Pregn hoang Range s First trime ster 0.26- 2.66 Secon d trime ster 0.55- 2.73 Third trime ster 0.43- 2.91 Not Available [facility] [id number] [place] [address], [place], [address], 05/11/2025 12:50:06 05/11/2005/11/2025 TSH+F REE T4 T4, free 0.9 NG/dL 0.8-1. 8 normal NO COLLE CTION DATE RECEI MICHAEL. WE HAVE USED THE DATE THE SPECI MEN WAS RECEI MICHAEL BY THIS LABOR ATORY THE COLLE CTION DATE. IF THIS IS INCOR RECT, PLEAS E CONTA CT CLIEN T SERVI NEO. PHONE NUMBE R: [phone] Not Available [facility] [address] , [place], [address], 05/11/2025 12:50:06 01/05/20 25 01/05/2025 HEMOG LOBIN A1C hemoglobin A1C 5.4 % <5.7 normal The refer ence range for HbA1c is indic ated in the table below . Sugge sted Diagn osis =6.5% Consi stent with diabe max 5.7 6.4% Consi stent with incre ased risk for diabe max (pred iabet ic) <5.7% Consi stent with the absen ce of diabe max Not Available [facility] [address] [place], [address], 01/05/2025 12:52:25 01/05/20 25 01/05/2025 DRUG ABUSE PANEL 7 W/CON FIRM amphetamines Negati ve negati ve normal Not Available [facility] [address] [place], [address], 01/05/2025 12:52:32 01/05/20 25 01/05/2025 DRUG ABUSE PANEL 7 W/CON FIRM barbiturates Negati ve negati ve normal Not Available [facility] [address] [place], [address], 01/05/2025 12:52:32 01/05/20 25 01/05/2025 DRUG ABUSE PANEL 7 W/CON FIRM benzodiazepi tariq Negati ve negati ve normal Not Available [facility] [address] [place], [address], 01/05/2025 12:52:32 01/05/20 25 01/05/2025 DRUG ABUSE PANEL 7 W/CON FIRM cocaine metabolites Negati ve negati ve normal Not Available [facility] [address] [place], [address], 01/05/2025 12:52:32 01/05/20 25 01/05/2025 DRUG ABUSE PANEL 7 W/CON FIRM cannabinoids Negati ve negati ve normal Not Available [facility] [address] [place] [address], [address], 01/05/2025 12:52:32 01/05/20 25 01/05/2025 DRUG ABUSE PANEL 7 W/CON FIRM methadone Negati ve negati ve normal Not Available [facility] [address] [place] [address], [address], 01/05/2025 12:52:32 01/05/20 25 01/05/2025 DRUG ABUSE PANEL 7 W/CON FIRM opiates Negati ve negati ve normal Not Available [address], [address], 01/05/2025 12:52:32 01/05/20 25 01/05/2025 DRUG ABUSE PANEL 7 W/CON FIRM creatinine, urine 163 mg/dL 20 - 275 normal Not Available [address], [address], 01/05/2025 12:52:32 01/05/20 25 01/05/2025 OB PANEL - STD BLOOD WORK hep BS Ag Non-Re active non-re active normal Not Available [address], [address], 01/05/2025 13:48:44 01/05/20 25 01/05/2025 OB PANEL - STD BLOOD WORK hep C Ab Non-Re active non-re active normal Not Available [address], [address], 01/05/2025 13:48:44 01/05/20 25 01/05/2025 OB PANEL - STD BLOOD WORK HIV 1/2 Ag/Ab Non-Re active non-re active normal Not Available [facility], [address], 01/05/2025 13:48:44 01/05/20 25 01/05/2025 OB PANEL - STD BLOOD WORK syphilis Ab Non-Re active non-re active normal Not Available [address], [address], 01/05/2025 13:48:44 01/05/20 25 01/05/2025 OB PANEL [...] the Rubel la virus . Not Available [facility] [address] [place] [address], [place], [address], 01/05/2025 13:48:44 01/05/20 25 01/05/2025 CT/NG chlamydia trachomatis CT neg negati ve normal This repor t is inten ded for us in clini raman monit oring and manag ement of patie nts. It is not inten ded for use in medic al-le gal appli catio n. Not Available [address], [address], 01/05/2025 14:55:42 01/05/20 25 01/05/2025 CT/NG neisseria gonorrhoeae GC neg negati ve normal This repor t is inten ded for us in clini raman monit oring and manag ement of patie nts. It is not inten ded for use in medic al-le gal appli catio n. Not Available [facility] [address] [place], [address], 01/05/2025 14:55:42 01/05/20 25 01/05/2025 CBC (INCL UDES DIFF/ PLT) WBC 11.5 thous and/u L 4.0 - 9.8 high Not Available [facility] [address] [place] [address], [address], 01/05/2025 15:06:20 01/05/20 25 01/05/2025 CBC (INCL UDES DIFF/ PLT) RBC 4.8 emilee on/uL 3.9 - 4.9 normal Not Available [facility] [address] [place] [address], [address], 01/05/2025 15:06:20 01/05/20 25 01/05/2025 CBC (INCL UDES DIFF/ PLT) hemoglobin 13.9 g/dL 11.8 - 14.8 normal Not Available [facility], [address], 01/05/2025 15:06:20 01/05/20 25 01/05/2025 CBC (INCL UDES DIFF/ PLT) hematocrit 42.8 % 35.5 - 44.0 normal Not Available [facility] [address] [place] [address], [address], 01/05/2025 15:06:20 01/05/20 25 01/05/2025 CBC (INCL UDES DIFF/ PLT) MCV 89.9 fL 82.0 - 99.0 normal Not Available [facility], [address], 01/05/2025 15:06:20 01/05/20 25 01/05/2025 CBC (INCL UDES DIFF/ PLT) MCH 29.2 pg 27.2 - 32.6 normal Not Available [facility] [address] [place] [address], [address], 01/05/2025 15:06:20 01/05/20 25 01/05/2025 CBC (INCL UDES DIFF/ PLT) MCHC 32.5 g/dL 31.5 - 35.5 normal Not Available [facility] [address] [place] [address], [address], 01/05/2025 15:06:20 01/05/20 25 01/05/2025 CBC (INCL UDES DIFF/ PLT) RDW-CV 13.4 % 11.5 - 14.5 normal Not Available [address], [address], 01/05/2025 15:06:20 01/05/20 25 01/05/2025 CBC (INCL UDES DIFF/ PLT) platelet 221 thous and/u L 140 - 350 normal Not Available [address], [address], 01/05/2025 15:06:20 01/05/20 25 01/05/2025 CBC (INCL UDES DIFF/ PLT) MPV 12.1 fL 9.3 - 12.4 normal Not Available [address], [address], 01/05/2025 15:06:20 01/05/20 25 01/05/2025 CBC (INCL UDES DIFF/ PLT) absolute neutrophil 7.97 thous and/u L 1.90 - 7.00 high Not Available [address], [address], 01/05/2025 15:06:20 01/05/20 25 01/05/2025 CBC (INCL UDES DIFF/ PLT) absolute lymphocyte 2.48 thous and/u L 0.70 - 4.50 normal Not Available [address], [address], 01/05/2025 15:06:20 01/05/20 25 01/05/2025 CBC (INCL UDES DIFF/ PLT) absolute monocyte 0.67 thous and/u L 0.10 - 1.30 normal Not Available [address], [address], 01/05/2025 15:06:20 01/05/20 25 01/05/2025 CBC (INCL UDES DIFF/ PLT) absolute eosinophil 0.22 thous and/u L <0.70 normal Not Available [address], [address], 01/05/2025 15:06:20 01/05/20 25 01/05/2025 CBC (INCL UDES DIFF/ PLT) absolute basophil 0.07 thous and/u L <0.20 normal Not Available [address], [address], 01/05/2025 15:06:20 01/05/20 25 01/05/2025 CBC (INCL UDES DIFF/ PLT) absolute immature granulocyte 0.06 thous and/u L <0.03 high Not Available [address], [address], 01/05/2025 15:06:20 01/05/20 25 01/05/2025 THINP REP TIS PAP report status: Not Available [address] [place], [address], 01/05/2025 23:41:58 01/05/20 25 01/05/2025 THINP REP TIS PAP clinical information: Not Available [address] [address] [place], [address], 01/05/2025 23:41:58 01/05/20 25 01/05/2025 THINP REP TIS PAP LMP: Not Available [address] [place], [address], 01/05/2025 23:41:58 01/05/20 25 01/05/2025 THINP REP TIS PAP prev. Pap: Not Available [address] [place], [address], 01/05/2025 23:41:58 01/05/20 25 01/05/2025 THINP REP TIS PAP prev. BX: Not Available [address] [place], [address], 01/05/2025 23:41:58 01/05/2001/05/2025 THINP REP TIS PAP source: Not Available [address], [address], 01/05/2025 23:41:58 01/05/2001/05/2025 THINP REP TIS PAP statement of adequacy: Not Available [address], [address], 01/05/2025 23:41:58 01/05/2001/05/2025 THINP REP TIS PAP general categorizati on: Not Available [address], [address], 01/05/2025 23:41:58 01/05/2001/05/2025 THINP REP TIS PAP interpretati on/result: Not Available [address], [address], 01/05/2025 23:41:58 01/05/2001/05/2025 THINP REP TIS PAP infection: Not Available [address], [address], 01/05/2025 23:41:58 01/05/2001/05/2025 THINP REP TIS PAP comment: Not Available [address], [address], 01/05/2025 23:41:58 01/05/20 25 01/05/2025 THINP REP TIS PAP cytotechnolo gist: Not Available [address], [address], 01/05/2025 23:41:58 01/05/20 25 01/05/2025 THINP REP TIS PAP review cytotechnolo gist: Not Available [address], [address], 01/05/2025 23:41:58 01/05/2001/05/2025 THINP REP TIS PAP pathologist: Not Available [facility] [address] [place], [address], 01/05/2025 23:41:58 01/05/20 25 01/05/2025 VARIC CORA ZOSTE R VIRUS ANTIB CT (IGG) varicella zoster virus [...] n-ind uced immun ity is Varic cora Zoste r Virus Antib ct Immun ity Scree n, ACIF. Not Available [facility] [address] [place], [address], 01/05/2025 23:41:59 01/05/2001/05/2025 MEASL ES AB (IGG) , IMMUN E [...] measl es virus . For addit ional elvar jt servin e refer to http: //[facility].Que stDia gnost ics.c om/fa q/FAQ 162 (This link is being provi ded for infor matio nal/ educa dinorah l purpo ses only. ) Not Available [facility] [address] [address] [place], [address], 01/05/2025 23:41:59 01/05/20 25 01/08/[address] SCREE N, RBC W/REF L [...] alloi mmuni zed pregn hoang. Not Available [facility] [address] [address] [place], [address], 01/08/2025 10:50:18 01/05/20 25 01/08/2025 ABO GROUP AND RH TYPE ABO group A Not Available [facility] [address] [address] [place], [address], 01/08/2025 10:50:19 01/05/20 25 01/08/2025 ABO GROUP AND RH TYPE Rh type RH(D) POSITI VE For addit ional infor jt servin e refer to http: //[facility].Que stDia gnost ics.c om/fa q/FAQ 111 (This link is being provi ded for infor matio nal/ educa dinorah l purpo ses only. ) Not Available [facility] [address], [place], [address], 01/08/2025 10:50:19 01/05/20 25 01/08/2025 CULTU RE, URINE , ROUTI NE culture, urine, routine SEE NOTE abnormal CULTU RE, URINE , ROUTI NE Micro Numbe r: [id number] Test Statu s: Final Speci men [...] See Thera py Comme nts Not Available [address], [address], 01/08/2025 10:50:19 01/05/20 25 01/06/2025 TSH W/ T4, FREE TSH 0.22 mIU/L 0.55 - 4.78 low COMME NT: Erika te teste d with TSH Gener ation II reage nt. Refer ence Range Femal e aged 18-Ad ult: 0.55- 4.78 Pregn hoang Refer ence Range s First Trime ster 0.26- 2.66 Secon d Trime ster 0.55- 2.73 Third Trime ster 0.43- 2.91 Not Available [address], [address], 01/06/2025 14:41:42 01/05/20 25 01/06/2025 TSH W/ T4, FREE T4, free 0.92 NG/dL 0.89 - 1.76 normal Not Available [address], [address], 01/06/2025 14:41:42 01/05/2001/08/2025 THINP REP TIS PAP clinical information: normal None given Not Available [facility] [address], [address], 01/08/2025 12:43:15 01/05/20 25 01/08/2025 THINP REP TIS PAP LMP: normal NONE GIVEN Not Available [facility] [address], [address], 01/08/2025 12:43:15 01/05/20 25 01/08/2025 THINP REP TIS PAP prev. Pap: normal NONE GIVEN Not Available [facility] [address], [address], 01/08/2025 12:43:15 01/05/20 25 01/08/2025 THINP REP TIS PAP prev. BX: normal NONE GIVEN Not Available [facility] [place], [address], 01/08/2025 12:43:15 01/05/20 25 01/08/2025 THINP REP TIS PAP source: normal Cervi x Not Available [address], [address], 01/08/2025 12:43:15 01/05/20 25 01/08/2025 THINP REP TIS PAP statement of adequacy: normal Satis facto ry for evalu ation . Endoc ervic al/tr ansfo rmati on zone compo nent prese nt. Age and/o r menst rual statu s not provi ded Not Available [address], [address], 01/08/2025 12:43:15 01/05/20 25 01/08/2025 THINP REP TIS PAP interpretati on/result: normal Cytol ogy Resul ts: Negat saeid for intra epith elial lesio n or malmaddie sierra . Not Available [address], [address], 01/08/2025 12:43:15 01/05/20 25 01/08/2025 THINP REP TIS PAP infection: normal Shift in vagin al kavitha sugge stive of bacte rial vagin osis. Not Available [address], [address], 01/08/2025 12:43:15 01/05/20 25 01/08/2025 THINP REP TIS PAP comment: normal This Pap test has been evalu ated with compu ter grace shelia techn ology . Not Available [address], [address], 01/08/2025 12:43:15 01/05/20 25 01/08/2025 THINP REP TIS PAP cytotechnolo gist: normal LMT, CT( CP) CT scree mahad locat ion: [address] [address] [place] [address] Not Available [facility] [address] [address] [address], [place], [address], 01/08/2025 12:43:15 01/05/20 25 01/08/2025 THINP REP TIS PAP review cytotechnolo gist: normal MARINA, CT( CP) CT scree mahad locat ion: [address] [address] [place] [address] Not Available [facility] [address], [place], [address], 01/08/2025 12:43:15 01/05/20 25 01/08/2025 THINP REP TIS PAP comment EXPLA NATOR Y NOTE: The Pap is a scree [...] clini raman infor matio n. Not Available [address], [place], [address], 01/08/2025 12:43:15 01/05/20 25 01/11/2025 T3, FREE T3, free 3.9 pg/mL 2.3 - 4.2 normal Not Available [facility] [address] [place], [address], 01/11/2025 14:10:39 01/05/20 25 01/12/2025 HPV GENOT YPE HPV 16 Negati ve negati ve normal Not Available [facility] [address] [place], [address], 01/12/2025 14:10:06 01/05/20 25 01/12/2025 HPV GENOT YPE HPV 18/45 Negati ve negati ve normal Assay can diffe renti ate HPV 16 from HPV 18 and/o r HPV 45. But canno t diffe renti ate betwe en 18 and 45. Not Available [facility] [address] [place], [address], 01/12/2025 14:10:06 01/05/20 25 01/05/2025 HPV HIGH [...] l cervi raman cytol ogy. Not Available [facility] [address] [place], [address], 01/12/2025 14:10:06 01/07/20 25 01/06/2025 CHROM OSOME [...] cs to deter mine the aneup loidy fabienne bynum t. Not Available [facility] [address], [place], [address], 01/12/2025 10:17:36 02/24/20 25 02/25/2025 MATER NAL SERUM AFP interpretati on: Scree n negat saeid for open NTD. Not Available [address] [address] [place], [address], 02/25/2025 15:16:27 02/24/20 25 02/25/2025 MATER NAL SERUM AFP risk for ontd 1 IN [address] Not Available [address] [place], [address], 02/25/2025 15:16:27 02/24/20 25 02/25/2025 MATER NAL SERUM AFP AFP, serum 42.4 NG/mL Not Available [facility] [address], [address], 02/25/2025 15:16:27 02/24/20 25 02/25/2025 MATER NAL SERUM AFP AFP MOM 1.35 Not Available [address], [address], 02/25/2025 15:16:27 02/24/20 25 02/25/2025 MATER NAL SERUM AFP comments: This patie nt's ELVIS (brandy mated date of shar whittaker) was used to calcu late the gesta dinorah l age. The AFP test resul t indic ates that this patie nt is scree n negat saeid for open NTD. It shoul d be noted that brody l test resul ts can never guara ntee the of a brody l baby and that 2-3% of [facility] rns have some type of physi raman or menta l defec t, many of which are undet ectab le throu gh any known prena tiffany diagn ostic techn ique. Not Available [facility] [address] [address] [place], [address], 02/25/2025 15:16:27 02/24/20 25 02/25/2025 MATER NAL [...] s dao ic couns elor or call [phone]( [phone]). Inter preti ve Cutof fs Scree n [...] infor jt servin e refer to http: //yanni chan.que stdia gnost ics.c om/fa q/FAQ 74v1 (This link is being provi ded for infor dalia kirk/ educa dinorah l purpo ses only. ) Not Available [facility] [address] [address] [place], [address], 02/25/2025 15:16:27 02/24/20 25 02/25/2025 MATER NAL SERUM AFP calc'd gestational age 18.0 weeks Not Available [facility] [address] [address] [place], [address], 02/25/2025 15:16:27 02/24/20 25 02/25/2025 MATER NAL SERUM AFP maternal weight 267 lbs Not Available [facility] [address] [place], [address], 02/25/2025 15:16:27 02/24/20 25 02/25/2025 MATER NAL SERUM AFP est'd date of delivery 2025 Not Available [address], [address], 02/25/2025 15:16:27 02/24/20 25 02/25/2025 MATER NAL SERUM AFP elvis determined by ULTRAS OUND Not Available [address], [address], 02/25/2025 15:16:27 02/24/20 25 02/25/2025 MATER NAL SERUM AFP mother's ethnic origin CAUCAS SNEHAL Not Available [address], [address], 02/25/2025 15:16:27 02/24/20 25 02/25/2025 MATER NAL SERUM AFP number of fetuses 1 Not Available [address], [address], 02/25/2025 15:16:27 02/24/20 25 02/25/2025 MATER NAL SERUM AFP insulin depend diabetic NO Not Available [address], [address], 02/25/2025 15:16:27 02/24/20 25 02/25/2025 MATER NAL SERUM AFP repeat specimen NO Not Available [address], [address], 02/25/2025 15:16:27 02/24/20 25 02/25/2025 MATER NAL SERUM AFP Hx of neural tube defects NO Not Available [address], [address], 02/25/2025 15:16:27 02/24/20 25 02/25/2025 MATER NAL SERUM AFP prev down synd NO Not Available [address], [address], 02/25/2025 15:16:27 02/24/20 25 02/25/2025 MATER NAL SERUM AFP donor egg NO Not Available [facility] [address] [place], [address], 02/25/2025 15:16:27 02/24/20 25 02/25/2025 MATER NAL SERUM AFP donor age: egg retrieval NOT GIVEN Not Available [facility] [address] [place], [address], 02/25/2025 15:16:27 05/10/20 25 05/11/2025 (50G) 1HR - GLUCO SE ANABELLE ANCE TEST, GESTA DINORAH L SCREE N glucose (50g) 1 hour 138 mg/dL <135 high Not Available [address], [address], 05/11/2025 11:29:09 05/10/20 25 05/11/2025 CBC (INCL UDES DIFF/ PLT) WBC 14.1 thous and/u L 4.0 - 10.0 high Not Available [address], [address], 05/11/2025 12:41:14 05/10/20 25 05/11/2025 CBC (INCL UDES DIFF/ PLT) RBC 4.1 emilee on/uL 3.9 - 4.9 normal Not Available [facility] [address], [address], 05/11/2025 12:41:14 05/10/20 25 05/11/2025 CBC (INCL UDES DIFF/ PLT) hemoglobin 12.2 g/dL 11.8 - 14.8 normal Not Available [facility] [address], [address], 05/11/2025 12:41:14 05/10/20 25 05/11/2025 CBC (INCL UDES DIFF/ PLT) hematocrit 37.5 % 35.5 - 44.0 normal Not Available [address], [address], 05/11/2025 12:41:14 05/10/2005/11/2025 CBC (INCL UDES DIFF/ PLT) MCV 91.2 fL 82.0 - 99.0 normal Not Available [address], [address], 05/11/2025 12:41:14 05/10/20 25 05/11/2025 CBC (INCL UDES DIFF/ PLT) MCH 29.7 pg 27.2 - 32.6 normal Not Available [address], [address], 05/11/2025 12:41:14 05/10/20 25 05/11/2025 CBC (INCL UDES DIFF/ PLT) MCHC 32.5 g/dL 31.5 - 35.5 normal Not Available [address], [address], 05/11/2025 12:41:14 05/10/2005/11/2025 CBC (INCL UDES DIFF/ PLT) RDW-CV 13.8 % 11.5 - 14.5 normal Not Available [address], [address], 05/11/2025 12:41:14 05/10/20 25 05/11/2025 CBC (INCL UDES DIFF/ PLT) platelet 286 thous and/u L 140 - 350 normal Not Available [address], [address], 05/11/2025 12:41:14 05/10/20 25 05/11/2025 CBC (INCL UDES DIFF/ PLT) MPV 11.6 fL 9.4 - 12.4 normal Not Available [address], [address], 05/11/2025 12:41:14 05/10/20 25 05/11/2025 CBC (INCL UDES DIFF/ PLT) absolute neutrophil 10.68 thous and/u L 1.90 - 7.00 high Not Available [address], [address], 05/11/2025 12:41:14 05/10/20 25 05/11/2025 CBC (INCL UDES DIFF/ PLT) absolute lymphocyte 2.23 thous and/u L 0.70 - 4.50 normal Not Available [address], [address], 05/11/2025 12:41:14 05/10/20 25 05/11/2025 CBC (INCL UDES DIFF/ PLT) absolute monocyte 0.92 thous and/u L 0.10 - 1.30 normal Not Available [address], [address], 05/11/2025 12:41:14 05/10/20 25 05/11/2025 CBC (INCL UDES DIFF/ PLT) absolute eosinophil 0.17 thous and/u L <0.70 normal Not Available [address], [address], 05/11/2025 12:41:14 05/10/20 25 05/11/2025 CBC (INCL UDES DIFF/ PLT) absolute basophil 0.09 thous and/u L <0.20 normal Not Available [address], [address], 05/11/2025 12:41:14 05/10/20 25 05/11/2025 CBC (INCL UDES DIFF/ PLT) absolute immature granulocyte 0.03 thous and/u L <0.03 normal Not Available [address], [address], 05/11/2025 12:41:14 05/10/20 25 05/11/2025 OB 28W (SYPH HIV 1/2 Ag/Ab Non-Re active non-re active normal Not Available [address], [address], 05/11/2025 12:46:24 05/10/20 25 05/11/2025 OB 28W (SYPH syphilis Ab Non-Re active non-re active normal Not Available [facility] [address] [facility], [place], [address], 05/11/2025 12:46:24 02/03/20 25 02/02/2025 US, obste tric, trans vagin al No observ ation record ed. [email or web address] Kimi [address], [place], [address], 02/02/2025 22:33:02 02/24/2002/23/2025 US, obste tric, trans vagin al No observ ation record ed. [email or web address] Kimi [address], [place], [address], 02/23/2025 15:13:37 03/08/20 US, obste tric, 2nd trime ster No observ ation record [facility]. [facility] [address] [place], [address], 03/09/2025 11:42:12 03/09/20 25 03/09/2025 US, obste tric, 2nd trime ster No observ ation record ed. [email or web address] [address]i [address], [place], [address], 03/12/2025 00:51:26 03/24/20 , obste tric, 2nd trime ster No observ ation record ed. [facility] [address] [place], [address], 03/24/2025 10:34:03 03/25/20 25 03/24/2025 US, obste tric, trans vagin al No observ ation record ed. [email or web address] [address], [place], [address], 03/25/2025 13:20:18 Result Notes None recorded. Problems [...] : NO ProblemS tatus: Resolve Not Available [facility] 2 15:52:14 Gestatio n period, 10 weeks [id number] Completed 201809/14/2019 10 weeks gestatio n of pregnanc y; Progress : Stable Added By: Diane Gutierrez Add to Current Problems : NO ProblemS tatus: Resolve Not Available [facility] 2 15:52:18 Gestatio n period, 13 weeks 22046960 Completed 201809/14/2019 13 weeks gestatio n of pregnanc y; Progress : Stable Added By: Alpa Nicole Add to Current Problems : NO ProblemS tatus: Resolve Not Available [facility] 2 15:52:13 Pregnanc y, childbir th and puerperi um finding Completed 201809/14/2019 Encounte r for supervis ion of normal first pregnanc y, second trimeste r; Progress : Stable Added By: Merle Friend Add to Current Problems : NO ProblemS tatus: Resolve Not Available [facility] 2 15:52:17 Gestatio n period, 17 weeks 33321267 Completed 201809/14/2019 17 weeks gestatio n of pregnanc y; Progress : Stable Added By: Marcy Noel Add to Current Problems : NO ProblemS tatus: [facility] 2 15:52:17 Gestatio n period, 20 weeks 86246307 Completed 201801/09/2021 20 weeks gestatio n of pregnanc y; Progress : Stable Added By: Mert Vazquez Add to Current Problems : NO ProblemS tatus: Resolve Not Available [facility] 2 15:52:12 Antenata l screenin g for malforma tion Completed 201801/24/2021 Encounte r for antenata l screenin g for malforma tions; Progress : Stable Added By: Ludmila Reynolds Add to Current Problems : NO ProblemS tatus: Resolve Not Available [facility] 2 15:52:18 Gestatio n period, 25 weeks 41259570 Completed 201809/14/2019 25 weeks gestatio n of pregnanc y; Progress : Stable Added By: Merle Friend Add to Current Problems : NO ProblemS tatus: Resolve Not Available [facility] 2 18:22:58 Gestatio n period, 29 weeks 37987583 Completed 201909/14/2019 29 weeks gestatio n of pregnanc y; Progress : Stable Added By: Diane Gutierrez Add to Current Problems : NO ProblemS tatus: Resolve Not Available [facility] 2 15:52:16 Pregnanc y, childbir th and puerperi um finding Completed 201909/14/2019 Encounte r for supervis ion of normal first pregnanc y, third trimeste r; Progress : Stable Added By: Ora Mantilla Add to Current Problems : NO ProblemS tatus: Resolve Not Available [facility] 2 15:52:14 Gestatio n period, 31 weeks 10065891 Active 2019 31 weeks gestatio n of pregnanc y; Severity : Moderate Progress : Stable Added By: Kimmie Gonzalez Add to Current Problems : YES ProblemS tatus: Current Not Available [facility] 1 08:17:53 Gestatio n period, 33 weeks 62394650 Completed 201909/14/2019 33 weeks gestatio n of pregnanc y; Severity : Moderate Progress : Stable Added By: Ora Mantilla Add to Current Problems : NO ProblemS tatus: Resolve Not Available [facility] 1 19:51:42 Contrace ptive sheath status 927161615 Completed 201911/29/2020 Encounte r for initial prescrip tion of other contrace ptives; Progress : Stable Added By: Marion Gutierrez Add to Current Problems : NO ProblemS tatus: Resolve Not Available [facility] 2 15:52:12 Lochia finding Completed 201911/29/2020 Encounte r for routine postpart um follow-u p; Progress : Stable Added By: Jelena Sequeira Add to Current Problems : NO ProblemS tatus: Resolve Not Available [facility] 2 15:52:16 Gestatio n period, 8 weeks 25833600 Completed 202011/29/2020 8 weeks gestatio n of pregnanc y; Progress : Stable Added By: Haroon Jason Add to Current Problems : NO ProblemS tatus: Resolve Not Available [facility] 2 18:22:57 Evaluati on finding Completed 202011/29/2020 Other specifie d abnormal findings of blood chemistr y; Progress : Stable Added By: Kyle Lam Add to Current Problems : NO ProblemS tatus: Resolve Not Available [facility] 2 15:52:13 Gestatio n period, 12 weeks 25298902 Completed 202011/29/2020 12 weeks gestatio n of pregnanc y; Progress : Stable Added By: Haroon Jason Add to Current Problems : NO ProblemS tatus: Resolve Not Available [facility] 2 15:52:13 Normal pregnanc y in multigra guerita 34198053200 4106 Active 2020 Encounte r for supervis [...] YES ProblemS tatus: Current Not Available [facility] 1 19:51:38 Gestatio n period, 16 weeks 34798261 Completed 202012/27/2020 16 weeks gestatio n of pregnanc y; Progress : Stable Added By: Mert Vazquez Add to Current Problems : NO ProblemS tatus: Resolve Not Available [facility] 2 15:52:19 Gestatio n period, 18 weeks 53857681 Completed 202012/27/2020 18 weeks gestatio n of pregnanc y; Progress : Stable Added By: Kimmie Gonzalez Add to Current Problems : NO ProblemS tatus: Resolve Not Available [facility] 2 15:52:18 Postoper ative hypothyr oidism 31726480 Completed 202001/24/2021 Postproc edural hypothyr oidism; Progress : Stable Added By: Mert Vazquez Add to Current Problems : NO ProblemS tatus: Resolve Not Available [facility] 2 15:52:[address] Concept Completed 202001/24/2021 Supervis ion of other high risk pregnanc ies, second trimeste r; Progress : Stable Added By: Ludmila Reynolds Add to Current Problems : NO ProblemS tatus: Resolve Not Available [facility] 2 15:52:15 Gestatio n period, 22 weeks 36813911 Completed 202001/24/2021 22 weeks gestatio n of pregnanc y; Progress : Stable Added By: Ludmila Reynolds Add to Current Problems : NO ProblemS tatus: Resolve Not Available [facility] 2 15:52:17 Gestatio n period, 24 weeks 932368119 Completed 202002/09/2021 24 weeks gestatio n of pregnanc y; Progress : Stable Added By: Mert Vazquez Add to Current Problems : NO ProblemS tatus: Resolve Not Available [facility] 2 15:52:15 High risk pregnanc y due to history of labor 504241050 Completed 202003/15/2021 Personal history of pre-term labor; Severity : Moderate Progress : Stable Added By: Mert Vazquez Add to Current Problems : NO ProblemS tatus: Resolve Not Available [facility] 08:17:51 Gestatio n period, 26 weeks 50751622 Completed 202002/23/2021 26 weeks gestatio n of pregnanc y; Progress : Stable Added By: Mert Vazquez Add to Current Problems : NO ProblemS tatus: Resolve Not Available [facility] 2 15:52:16 Past pregnanc y history of prematur e labor 568247540 Completed 202003/15/2021 Personal history of pre-term labor; Progress : Stable Added By: Mert Vazquez Add to Current Problems : NO ProblemS tatus: Resolve Not Available [facility] 2 15:52:[address] Concept Completed 202003/15/2021 Supervis ion of other high risk pregnanc ies, third trimeste r; Progress : Stable Added By: Ludmila Reynolds Add to Current Problems : NO ProblemS tatus: Resolve Not Available [facility] 2 18:22:58 Gestatio n period, 28 weeks 15002849 Completed 202003/15/2021 28 weeks gestatio n of pregnanc y; Progress : Stable Added By: Marcy Noel Add to Current Problems : NO ProblemS tatus: Resolve Not Available [facility] 2 15:52:13 Antenata l screenin g Active [...] : YES ProblemS tatus: Current Not Available [facility] 2 15:52:14 Gestatio n period, 33 weeks 59166663 Active 2020 33 weeks gestatio n of pregnanc y; Progress : Stable Added By: Layne Guaman Add to Current Problems : YES ProblemS tatus: Current Not Available [facility] 2 15:52:17 Depressi on screenin g Active 2020 Encounte r for screenin g for maternal depressi on; Progress : Stable Added By: Barbie Rsoa Add to Current Problems : YES ProblemS tatus: Current Not Available [facility] 2 15:52:14 Congenit al abnormal ity of uterus complica ting postpart um care - baby delivere d during previous episode of care 883294390 Active 2020 Complica tion of the puerperi um, unspecif ied; Progress : Stable Added By: Jacki Brown i Add to Current Problems : YES ProblemS tatus: Current Not Available [facility] 2 15:52:15 Pregnanc y 36737862 Active 2024 JORGE LUIS CRESPO [address] [place] [address], [address] , [facility] [employer] [facility] 5 15:44:46 Body mass index 40+ - severely obese 346918920 Active 2024 pre-preg BMI 44.7 Serial Growths at 28w, 32w, 36w Weekly BPP at 34w JORGE LUIS CRESPO [address] [place] [address], [phone] , [facility] [employer] [facility] 5 12:11:17 History of loop electros urgical excision procedur e 31452798400 102 Active 2024 Hx of Leep 09-05-19 23 MILADYS 3 Cervical Length at 18, 20, and 22 weeks JORGE LUIS CRESPO [address] [place] [address], [address] , [facility] [employer] [facility] 5 12:05:28 Tobacco user 100664729 Active 2024 pre-preg mariela smoking 1 ppd, has decrease d to 1/2 ppd at NOB. Discusse d smoking cessatio n. 03/09: has decrease d to 4 cig/day. Praised and continue efforts at reductio n/quitti ng Mariela Gutierrez MD [address] [place] [address], [phone] , [facility] [employer] [facility] 5 23:10:44 Past pregnanc y history of section 474735138 Active 2024 JORGE LUIS CRESPO [address] [place] [address], [address] , [facility] 5 15:26:26 History of thyroide ctomy 810546398 Active 2024 TSH and T4 drawn at [facility] LEONARD [place], [address], [address] , [facility] 5 17:42:19 Bacteriu rochelle 94331805 Active 2024 GBS positive urine culture at [facility] [place]ARD [place], [address], [address] , [facility] 5 18:40:03 Past pregnanc y history of prematur e rupture of membrane s 13997177497 9100 Active 2024 32-33 weeks with first pregnanc y LEONARD [place], [address], [address] , [facility] 5 20:08:45 Human papillom avirus deoxyrib onucleic acid detected , high risk on cervical specimen 714498424 Active 2024 Needs colposco py PP LEONARD [place], [address], [address] , [facility] 5 14:20:13 History of pneumoni a 824884684 Active 2024 Mariela Gutierrez MD [address] [place] [address], [address] , [facility] [employer] [facility] 5 23:09:29 Problem Notes None recorded. Procedures Surgical History Date Name Laterality Status Provider Name and Address Organization Details Recorded Time 025 Date of Last Pap Smear completed Jennie Hernandez [facility] 02/23/2025 10:22:59 023 Depo Provera Injection completed Jelena Sequeira [facility] 01/23/2023 14:27:10 023 Depo Provera Injection completed Jelena Sequeira [facility] [employer] [facility] 09/20/2022 11:49:20 023 loop electrosurgical excision procedure completed ELDER XAVIER, DO [address] [place], [address], [facility] 09/20/2022 07:41:26 023 Colposcopy - Cervix completed Ronna James [address], [address], [facility] - [facility] 07/23/2022 12:06:28 022 Depo Provera Injection completed Jelena Sequeira [facility] 05/31/2022 15:04:24 022 Mirena IUD Removal completed Anjum Freedman, [address], [address], [facility] 07/18/2021 10:32:23 021 IUD Insertion completed Ronna James, [address], [address], [facility] 06/19/2021 18:21:20 Dilation and curettage completed Funmilayo Washington [facility] 07/23/2022 11:36:53 C Section completed Leia Tariq [place] - [facility] 01/04/2025 11:42:41 thyroidectomy completed LEONARD [place] [address], [address], [facility] - [facility] 01/09/2025 19:57:11 procedure on upper arm completed Delisa Muller [facility] 06/13/2021 21:05:21 Imaging Results None recorded. Procedure Notes None recorded. Medical Equipment None Reported. Allergies Allergen ID Allergen Name Allergen Category Reaction Reaction Severity Criticality Documentation Date Start Date Code Code System Note Provider Name and Address Organization Details Recorded Time 013057 iodine medicatio n Not available Not available Not available 04/21/20212018 5933 RxNorm Sever ity: Moder ate; Not Available [facility] 01:05:17 851607 shellfish derived food,medi cation Not available Not available Not available 05/31/2022 Merry Icenogle null, [facility] 2 12:33:03 989380 iodine medicatio n Not available Not available Not available 01/04/2025 5933 RxNorm Leia Tariq [facility], [facility] 5 11:42:41 833810 Fish (substanc e) food,medi cation anaphylax is Not available high 02/23/20252020 45927 1005 SNOMED Jennie Hernandez [facility] 5 11:05:15 838910 hydrocodo ne Not available itching Not available low 02/23/20252021 5489 RxNorm Jennie Hernandez [facility], [facility] 5 11:05:18 605924 Shellfish (substanc e) food,medi cation anaphylax is Not available high 02/23/20252020 20108 9006 SNOMED Jennie Hernandez [facility] 5 11:05:26 Medications Name Sig Start Date [...] L 0.15-0.0 3 mg oral tablet RxNorm: 210019 Allow Substitu tion: True Refill Denied: No [...] cephALEX in 250 mg oral capsule RxNorm: 040584 Allow Substitu tion: True Refill Denied: No Edited by: soco hendrix([employer], [place] ) on 02/10/20 Stopped by: soco hendrix([employer], [place] ) on 02/10/20 Not Available Not Available Not Available promethaz ine 6.25 mg/5 mL oral syrup TAKE 10 ML BY MOUTH EVERY 6 HOURS NEEDED 05/17 completed Not Available Not Available Not Available pyridoxin e (vitamin B6) 25 mg tablet Take one tablet up to 4 times daily before meals 11/29 completed pyridoxi ne (vitamin B6) 25 mg oral tablet RxNorm: 2525583 Allow Substitu tion: True Refill Denied: No Edited by: soco hendrix([employer], [place]aryne ) on 11/30/19 Stopped by: soco hendrix([employer], [place]aryne ) on 11/30/19 Not Available [...] translin gual route as needed, for nausea. 05/10 completed Not Available Not Available Not Available Vitamin 27 mg iron-0.8 mg tablet [...] succinat e 25 mg oral tablet RxNorm: 5595888 Allow Substitu tion: True Refill Denied: No Edited by: Mert Larson ) on 11/30/19 Stopped by: soco hendrix(Mert Morales ) on 11/30/19 21 Not Available Not Available Not Available Ibuprofen IB 600mg as needed 03/22 completed Ibuprofe n IB Allow Substitu tion: False Refill Denied: No Refill DateOccu rred: 04/18/20 Edited by: stephanie schneider(Jacki Gilliland ) on 04/19/20 21 Stopped by: Jacki Kaye ) on Not Available Not Available Not Available 28 mg iron-800 mcg tablet Take 1 tablet every day by oral route. 03/09 completed Not Available Not Available Not Available Zofran (base) 02/23 completed Not Available Not Available Not Available Se-René 19 29 mg iron-1 mg tablet Take one tablet daily 11/29 completed PNV 119-iron fum-foli c acid 29 mg iron- 1 mg oral tablet Allow Substitu tion: True Refill Denied: No Edited by: Mert Larson ) on 11/30/19 Stopped by: soco hendrix(Mert Morales ) on 11/30/19 Not Available Not Available Not Available Vitals Date Recorded Body height Body mass index (BMI) Body weight Systolic And Diastolic Provider Name and Address Organization Details Last Updated DateTime 02/02/2025 162.56 cm 46 kg/m2 829410.76 g 116/70 mm[Hg] [facility] 02/02/2025 11:23:58 Date Recorded Body height Provider Name an d Address Organization Details Last Updated DateTime 02/23/2025 162.56 cm [facility] 02/23/2025 11:05:03 Date Recorded Body mass index (BMI) Body weight Systolic And Diastolic Provider Name and Address Organization Details Last Updated DateTime 02/23/2025 45.9 kg/m2 538808.88 g 114/70 mm[Hg] Jacki Isai [facility] [employer] [facility] 02/23/2025 11:23:15 Date Recorded Body height Body weight Systolic And Diastolic Provider Name and Address Organization Details Last Updated DateTime 03/09/2025 162.56 cm 032108.978 05 g 100/68 mm[Hg] [facility] 03/09/2025 12:41:54 Date Recorded Body height Body mass index (BMI) Body weight Systolic And Diastolic Provider Name and Address Organization Details Last Updated DateTime 03/24/2025 162.56 cm 46.5 kg/m2 892217.53 g 100/62 mm[Hg] Leia [facility] 03/24/2025 11:52:20 Date Recorded Body weight Body mass index (BMI) Body height Systolic And Diastolic Provider Name and Address Organization Details Last Updated DateTime 05/10/2025 207717.86 36 g 48.1 kg/m2 162.56 cm 118/82 mm[Hg] [facility] 05/10/2025 10:38:01 Social History Question Answer Notes LastModified by Organizat ion Details LastModified Time Tobacco Smoking Status Current Every Day Smoker Ronna James, JORGE LUIS [address] [facility], [place], [address], [facility] 06/18/2021 10:03:14 If You Are , What [...] Or The Highest Degree You Have Received? [id number] Information not available 01/04/2025 How Many Children [...] Time Maternal Grandfather Type 2 diabetes mellitus [facility] Not available 2024 11:42:41 Maternal Grandfather Hypertensive disorder [email or web address] Not available 2024 11:42:41 Maternal Grandfather Diabetes mellitus [facility] Not available 2024 11:42:41 Sister Hypertensive disorder [email or web address] Not available 2024 11:42:41 Father Hypercholest erolemia [email or web address] Not available 2024 11:42:41 Father Myocardial infarction [email or web address] Not available 01/04 11:42:41 Father Hypertensive disorder [email or web address] Not available 2024 11:42:41 Father Diabetes mellitus [facility] Not available 2024 11:42:41 Medical History Condition Response Other Cancer N High Blood Pressure N Colon Cancer N Cytomegalovirus N Hyperthyroidism N MRSA N Breast Cancer N Herpes (HSV) N Blood Transfusion N Lung Cancer N Depression N Hypothyroidism N Incontinence N Panic Attacks N Neurological Disorder N Deep Vein Thrombosis N Anxiety Disorder N Autoimmune disease N Arthritis N Tuberculosis/Positive PPD N Shingles N Polycystic Ovarian Syndrome N Cervical Cancer N Hematuria N Chlamydia N Stroke N Varicosities N Seasonal allergies N Crohn's Disease N Alzheimer's/Dementia N COPD/Emphysema N Endometriosis N HPV/Genital Warts N IBS (Irritable Bowel Syndrome) N History of Abnormal Pap N High Cholesterol N Liver Disease N Kidney Infection N Fibromyalgia N Ulcer N Kidney Disease N HIV N Gallbladder disease N Sickle Cell Disease/Trait N Von Willebrand disease N ADD/ADHD N Eating Disorder N Anemia N Diabetes Mellitus (non-insulin dependent ) N Multiple Sclerosis N Ovarian Problems N Gonorrhea N Frequent Urinary Tract infections N Osteopenia N Headaches/migraines N GERD (reflux) N Ovarian Cancer N Diabetes (insulin dependent) N Seizures/Epilepsy N Fibroids N Asthma N Heart Attack N Lupus N Endometrial Cancer N Rubella N Blood Clotting Disorder N [...] ICD10 Code Diagnosis IMO Codes Diagnosis Note [id number] Jacki Connell, [address] [address] 05/17/2021 10:11:15 05/30/2021 13:58:15 state 98759865 Z39.2 Desires Mirena. Last pap 03/13/19 [id number] Ronna James, [address] [address] 06/19/2021 13:17:39 07/04/2021 14:21:12 Insertion of intrauterine contraceptive device 16355053 Z30.430 Pt educated on risks Vs benefits of use, reviewed ACHES symptoms. Dosing schedule reviewed. Pt educated on bleeding profile of device, expulsion sx, and when to notify HCP/go to ER. Plan to F/U PRN or at next [employer]. [id number] Anjum Freedman, [address] [address] 07/17/2021 13:15:42 08/01/2021 12:07:42 Contraception care 185522248 Z30.09 control options reviewed. Carla is undecided as to what she wants to do. Cori salgado pamhlets on options provided. Surveillan ce of intrauterine device contraception done [id number] 78039 Z30.431 IUD removed per Carla's request. Explained that current bleeding pattern not unusual and that it may take several months before cessation of menses or reduced bleeding. Encouraged her to give it another 3 months at least and explained that we can give estrogen for now to help stop the bleeding-- she refuses. [id number] Sanjuana mayer, [address] [address] 03/22/2022 14:00:19 03/22/2022 14:55:19 test positive 188423685 Z32.01 Discussed bleeding precaution s, and concern for SAB will follow Hcg, states was 5000 in ER [id number] [facility] [address] [place] [address] 04/17/2022 11:02:47 04/18/2022 11:36:42 test positive 322490578 Z32.01 Incomplete miscarriage 693926205 O03.4 test remains positive today. Retained products today. Discussed options and would like to continue to wait. Repeat quant today. Stict precaution s reviewed. [id number] [facility] [address] [place] [address] 04/27/2022 09:54:35 04/27/2022 10:38:03 Missed miscarriage 27530001 O02.1 Postoperative visit 1836 17208 Z09 [id number] [facility] [address] [place] [address] 05/31/2022 12:14:30 06/01/2022 14:53:24 Gynecologic examination 85645058 Z01.419 Screening for malignant neoplasm of cervix 228179476 Z12.4 Contracept ion care education 145778754 Z30.09 Contracept saeid counseling : Discussed options including OCPs, NuvaRing, Nexplanon, hormonal and copper IUDs. Discussed risks, efficacy, noncontrac eptive benefits, and side effects of each option, including risk of VTE with hormonal contracept ion and uterine perforatio n, expulsion, infection with IUD. Depression screening 171 605532 Z13.31 Initiation of depot contraception done 5898495535 14087 Z30.261 [id number] [facility] [address] [place] [address] 05/31/2022 13:25:22 06/06/2022 14:55:[id number] [facility] [address] [place] [address] 07/23/2022 11:18:01 07/23/2022 12:33:19 High grade squamous intraepithelial lesion on cervical Papanicolaou smear 3475456530 9107 R87.613 UPT in office is negative. [...] consider smoking cessation and Gardasil administra tion. [id number] ELDER DRUMMONDDO Lizzy [address] [address] 08/15/2022 10:02:10 08/15/2022 12:36:11 Cervical intraepithelial neoplasia grade 2 444759932 N87.1 26 y.o. with colpo showing MILADYS [...] ACOG given-Plan for LEEP in OR @ [facility] [id number] ELDER XAVIER, [address] [address] 09/20/2022 10:37:27 09/20/2022 14:33:30 Postoperative visit 297166442 Z09 26 yo s/p LEEP for MILADYS 2,3 Post-op path: focal MILADYS 3 in endocervix w/ negative marginsRev iewed Surgical findings. Patient instructed that she may return to routine activities . All of her questions were answered. Resume routine [employer] care. Cervical intraepithelial neoplasia grade III with severe dysplasia 326809077 D06.9 Will need repeat pap w/ HPV in 6 months. Followed by yearly Pap w/ HPV for 3 normal paps in a row. Surveillan ce of depot contraception done 0221056601 9104 Z30.42 [id number] [facility]ESHA [facility]ES [facility] [address] [place] [address] 11/07/2022 14:09:21 11/08/2022 11:59:28 Infection of sebaceous cyst [id number] L72.3 [id number] SHAD MARCIAL, [facility] [address] [place] [address] 01/23/2023 13:30:57 01/25/2023 02:11:39 Surveillance of depot contraception done [id number] 9104 Z30.42 [id number] LEONARD BIRMING[place]AM [address] [place] [address] 11/20/2024 11:35:39 11/24/2024 15:06:41 test positive 855429219 Z32.01 040153 Quant HCG 95 in ER on 11/16, repeat Quant today in office, and repeat Quant Saturday or Saturday at [facility]. Pt denies pain or abnormal vaginal bleeding. SAB/Ectopi c precaution s reviewed with patient. Will return to office for TVUS based upon quant HCG results. [id number] Mariela Gutierrez MD [address] [place] [address] 12/08/2024 11:59:21 12/08/2024 19:37:45 Uncertain viability of 249040947 O36.80X0 [id number] - Routine antepartum care reviewed including visit [...] pap at next visit First trim bebeto 64024315 Z34.91 923645 [id number] [facility]IS CR[facility]PO [facility] [address] [place] [address] 01/04/2025 11:39:39 01/11/2025 12:57:47 screening 838264360 Z36.89 - Conduct genetic screening and other tests as scheduled. Cancer cer vix screening status 751845517 Z12.4 251696 -Pap and HPV collected today, history of abnormal pap with Leep procedure in 2022, has not had follow up pap since LEEP High risk 4720 0007 O09.91 40501221 - Continue routine visits to monitor progressio [...] weeks History of loop electrosurgical excision procedure [id number] 9102 Z98.890 34237183 - Monitor cervical length due to history of LEEP procedure, with ultrasound s scheduled at 18, 20, and 22 weeks. Body mass index 40+ - severely obese 336874175 Z68.41 222379 pre-preg BMI 44.7Serial Growths at 28w, 32w, 36wWeekly BPP at 34w Tobacco user 546838571 Z 72.0 046227 - Has reduced smoking significan tly from 1 ppd to 1/2 ppd. Encouraged smoking cessation to reduce risks. History of thyroidectomy 750178245 Z98.890 Z90.89 302945 [id number] Mariela Gutierrez MD [address] [address] 02/02/2025 11:06:12 02/03/2025 11:37:31 Gestation period, 15 weeks 8307286 Z3A.15 4665110 High risk 4720 0007 O09.212 19590357 Hx of delivery with SROM at 32-33 weeks and history of leep CL 3.68, occasional nausea zofran refilledro und ligament pain discussed comfort measuresRT C in 3 weeks, repeat CL at next visit Nausea and vomiting in 0136225427 O21.9 739791 [id number] Mariela Gutierrez MD [address] [address] 02/23/2025 10:46:28 02/23/2025 16:23:16 Gestation period, 18 weeks 54954613 Z3A.18 3374772 High risk 4720 0007 O09.892 57333751 Hx of delivery with SROM at 32-33 weeks and history of leep CL, following cervical lengths and today was 3.82cm. will repeat next visit with anatomy scan [id number] Mariela Gutierrez MD [address] [address] 03/09/2025 11:42:10 03/12/2025 09:56:59 screening for malformation 482110509 Z36.3 anatomy incomplete screening 2437 01236 Z36.86 High risk 4720 0007 O09.128 3493801 Hx of delivery with SROM at 32-33 weeks and history of leep CL, following cervical lengths will repeat next visit at 22 wks/p recent pneumonia, appears resolved. [id number] JORGE LUIS CRESPO [address] [address] 03/24/2025 10:33:13 03/24/2025 13:34:22 High risk 74230332 O09.892 76925557 Gestation period, 22 weeks 82082216 Z3A.22 9472306 anatomy study 2714 23210 Z36.2 3152397369 care status 24 0412722 Z34.82 68700889 Anatomy complete, CL WNLPTL precaution s reviewedDi scussed stretches for sciaticaRT C in 4 wks [id number] DRE IQBAL, FREELANCE COPYWRITER [facility] [address] [place] [address] 05/10/2025 10:29:55 05/13/2025 13:05:31 Depression screening 766552197 Z13.31 See Screening Section for EPDS Questionna laurie Result Gestation period, 28 weeks 72996772 Z3A.28 3919106 screening 2437 61281 Z36.89 High risk 4720 0007 O09.90 64583409 Pt is here for a [place] appointmen t. She is taking vitamins. She has no complaints or questions. Reports feeling movement. Denies vaginal bleeding, abdominal cramps, N/V, contractio ns, or LOF. Denies headache, vision changes, swelling of hands or face, and epigastric pain. Discussed PTL and precaution s given. There are no identifiab le risk factors for pre-term labor. IUP @ 28+ wks. No OB complaints . Labs, TDaP today. EPDS neg. RTO 2 wks, discussed rotating practition ers. Past pregn hoang history of premature delivery 652870096 O09.899 974709 Health Concerns Section Related Observation LastModified by Organization Detai ls LastModified Time None Recorded Concern Status LastModified by Organization Details LastModified Time None Recorded Advance Directives Directive None Recorded Payers Insurance Date Sequence Insurance Name Policy Number Policy Jimenez Covered Member ID Jimenez Member ID Guarantor Name 05/20/2025 1 [facility] - DOS ON OR AFTER 20 (MEDICAID REPLACEMENT - HMO) Carla Santos [id number] Carla Santos Notes Date Note Type Note Provider Name and Address Organization Details Recorded Time 02/02/2025 text/html ROS as noted in the HPI Carla is a 29 y/o at 15 weeks gestation who presents today for return ob visit She denies any complaints of the presence of vaginal bleed, leaking fluid, abdominal cramps, nausea, vomiting, headache or visual disturbances. 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 has no concerns. Mariela Gutierrez MD [address] [place] [address], [place], [address], [employer] IV 03/11/2025 23:17:16 03/24/2025 text/html ROS as noted in the HPI Patient is here today for a routine OB visit. She is currently at 22.1 weeks gestation. vitamins: yes She has felt movement.She denies any complaints of the presence of vaginal bleed, leaking fluid, abdominal cramps, nausea, vomiting, headache or visual disturbances. JORGE LUIS CRESPO [address] [place], [address], [facility] [employer] IV 03/24/2025 13:24:12 05/10/2025 text/html Patient is here today for a routine OB visit. She is currently at 28.6 weeks gestation. vitamins: yes She has felt movement.She denies any complaints of the presence of vaginal bleed, leaking fluid, abdominal cramps, nausea, vomiting, headache or visual disturbances. Pt. has no concerns. EPDS is 0, LEESA is 0. 1 Hr. Glucose stopped @ 9:42 am DRE IQBAL NP [address] [place], [address], [facility] [employer] IV 05/13/2025 11:44:40 OBGyn Episode Ob Episode Information Episode Created Date Number of Fetuses Patient Bloodtype Patient rh Status Prepregnancy Weight lbs Domestic Partner Domestic Partner Phone Father Name Rod Piler Status 07/17/19 22 1 CLOSED Fetus Data First Name Last Name Admitted to NICU Weight (g) Sex Living Outcome Pediatric Complications Fetus ID Race Codes Race Delivery Type 2494.75 6 F [place]atur [place] [address] Primary Elvis Calculation Initial Elvis Date Initial [...] Domestic Partner Domestic Partner Phone Father Name Rod Piler Status 09/15/19 22 1 CLOSED Fetus Data First Name Last Name Admitted to NICU Weight (g) Sex Living Outcome Pediatric Complications Fetus ID Race Codes Race Delivery Type 2267.96 M Prematur e [id number] Elvis Calculation Initial Elvis Date Initial Exam [...] Domestic Partner Domestic Partner Phone Father Name Rod Piler Status 01/02/20 25 1 A Positive OPEN Fetus Data First Name Last Name Admitted to NICU Weight (g) Sex Living Outcome Pediatric Complications Fetus ID Race Codes Race Delivery Type [id number] Problems Problem Notes Problem Name Start Date End Date Resolution Snomed Code Not e Past history of section 01/04/2025 823432385 Body mass index 40+ - severely obese 01/04/2025 561746027 pre-preg BMI 44.7Serial Growths at 28w, 32w, 36wWeekly BPP at 34w Human papillomavirus deoxyribonucleic acid detected, high risk on cervical specimen 02/02/2025 650800901 Needs colp oscopy PP Bacteriuria 01/06/2025 99814943 GBS pos itive urine culture at [facility] History of pneumonia 03/11/2025 89758200 4 History of thyroidectomy 01/04/2025 037125583 TSH and T4 pj wn at [facility] Tobacco user 01/04/2025 728630302 pre-pr egnancy smoking 1 ppd, has decreased to 1/2 ppd at [facility]. Discussed smoking cessation.03/09: has decreased to 4 cig/day. Praised and continue efforts at reduction/quitti ng History of loop electrosurgical excision procedure 01/04/2025 [id number] Hx of L eep 09-04-2022 MILADYS 3Cervical Length at 18, 20, and 22 weeks Past history of premature rupture of membranes 01/09/2025 169442394566895 32-3 3 weeks with first Elvis Calculation [...] Latest Days Gestation 0 07/27/19 26 0 Pre- Flowsheet Flowsheet Date 01/04/2025 Ball Score Blood Edema Fundus Height Fundus Units Glucose Ketones Leukocytes Nitrite Labor Signs Protein Cervic Dilation Cervic Effacement Cervic Station none none none neg Type Weight in lbs Pre/Post Dialysis Refused With clothes 265.515409767604 BP Diastolic BP Location Tested BP Systolic [...] in lbs Pre/Post Dialysis Refused With clothes 268.60971190810 BP Diastolic BP Location Tested BP Systolic [...] Weight in lbs Pre/Post Dialysis Refused Weight 267.939608344534 BP Diastolic BP Location Tested BP Systolic [...] dx with pneumonia last week, went to [facility], prescribed amoxil and improving. no hx of [...] Type Weight in lbs Pre/Post Dialysis Refused 265.047357188974 BP Diastolic BP Location Tested BP Systolic [...] in lbs Pre/Post Dialysis Refused With clothes 271.502064174522 BP Diastolic BP Location Tested BP Systolic BP Type 62 100 sitting Fetus Heart Rate Present A 147 Fetus Movement A Yes Comments Anatomy complete, CL WNLPTL precautions reviewedDiscussed stretches for sciaticaRTC in 4 wks Flowsheet Date 05/10/2025 Ball Score Blood Edema Fundus Height Fundus Units Glucose Ketones Leukocytes Nitrite Labor Signs Protein Cervic Dilation Cervic Effacement Cervic Station trace none neg Type Weight in lbs Pre/Post Dialysis Refused 280.50296412327 BP Diastolic BP Location Tested BP Systolic BP Type 82 118 sitting Fetus Heart Rate Present A 152 Present Fetus Movement A Yes Comments gtt and 3T labs today. TSH d ue to history of Thyroidectomy. c/o occasional edema. PTL precautions reviewed RTC in 2 wks. Discussedm growth US at 32 weeks. patient concerned with CL due to history of PTL . Menstrual History Last Menstrual Date Menses Monthly [...] Domestic Partner Domestic Partner Phone Father Name Rod Piler Status 12/09/19 25 1 DELETED Fetus Data First Name Last Name Admitted to NICU Weight (g) Sex Living Outcome Pediatric Complications Fetus ID Race Codes Race Delivery Type [id number] Elvis Calculation Initial Elvis Date Initial Exam [...]
--- OUTSIDE RECORDS SUMMARY | 2025-05-22 19:46 | XMS_ITS | Clinical Summary ---
Author Organization [facility] Address [address] [place] [address] Care Team Providers Care Exercise Physiologist Certified Name Role Phone No, Physician Primary Care Provider [phone] No, Physician Unavailable Allergies Active Allergy Reactions Criticality Noted Date Comments Fish Containing Products Anaphylaxis High 03/22/2021 Hydrocodone Itching Low 04/23/2022 Iodine Anaphylaxis High 03/22/2021 Shellfish Derived Anaphylaxis High 03/22/2021 Medications PNV no.[id number] acid-dha 35 mg iron-5 mg iron-1 mg capsule Take 1 tablet/capsule by mouth daily Active nitrofurantoin monohydrate (MACROBID) 100 mg capsuleIndications :Urinary Tract/Genitourinar y Infection Take 1 capsule (100 mg total) by mouth 2 (two) times a day 10 capsule 04/11/20 25 Active Additional Information Patient not taking.Reported on 05/05/2025 ondansetron ODT (ZOFRAN-ODT) 4 mg disintegrating tablet Take 1 tablet (4 mg total) by mouth every 8 (eight) hours as needed for nausea or vomiting 20 tablet 11/17/19 25 025 Discontin ued(Thera py completed ) Active Problems Problem Noted Date Diagnosed Date Retained products of conception after miscarriag e 04/26/2022 34 weeks gestation of 04/03/2021 Encounter for post surgical wound check 12/30/19 19 Dressing change or removal, surgical wound 12/29 Estimated Date of Delivery Comme nts Yes 07/26/2025 Date entered paras or to episode creation Encounters Date Type Department Care Team Description 05/13/2025 8:00 PM CLINICAL STAFF PHARMACIST - 05/13/2025 10:13 PM CLINICAL STAFF PHARMACIST Hospital Encounter [address] [address] Byron Franklin MD Discharge Disposition: Discharge to home or self care 05/05/2025 7:19 PM CLINICAL STAFF PHARMACIST - 05/06/2025 12:05 AM CLINICAL STAFF PHARMACIST Hospital Encounter [address] [address] Byron Franklin MD Discharge Disposition: Discharge to home or self care 04/11/2025 6:47 PM CDT - 04/11/2025 8:20 PM CDT Hospital Encounter [address] [address] Byron Franklin MD Discharge Disposition: Discharge to home or self care 02/19/2025 8:49 PM CDT - 02/19/2025 9:32 PM CDT Emergency [facility] Emergency Department [address] [place] [address] Naif Altman MD Discharge Disposition: Left without being seen from Last 3 Months Immunizations Immunization Administration [...] staff should administer the PHQ-9) 0 05/05/2025 Bejou Depression Scale Answer Date Recorded Bejou Depression Scale Total 0 04/05/2021 The thought [...] often do you attend chur ch or confucianism services? Never 05/05/2025 Do you belong to any clubs o r organizations such as mormon groups, unions, fraternal or athletic groups, or school groups? No 05/05/2025 How often do you attend meet ings of the clubs or organizations you belong to? Never 05/05/2025 Are you , , di vorced, , never , or living with a partner? Never 05/05/2025 AUDIT-C Answer Date Recorded Q1: How often do you have a drink containing alcohol? Never 05/13/2025 Q2: How many drinks containi ng alcohol do you have on a typical day when you are drinking? Patient does not drink Q3: How often do you have si x or more drinks on one occasion? Never 05/13/2025 Overall Financial Resource Strain (CARDIA) Answe r Date Recorded How hard is it for you to pa y for the very basics like food, housing, medical care, and heating? Not very hard 05/05/2025 [facility] Occupat ional [facility] - Occupational Stress Questionnaire Answer Date Recorded [...] any time in the past [address] [facility], were you homeless or living in a usp (including now)? No 05/05/2025 [facility] Utilities Answer Date Recorded In the past 12 months has th e electric, gas, oil, or water company threatened to shut off services in your home? No 05/05/2025 Personal Safety Answer Date Recorded Have you ever been in or are you currently in a harmful physical or emotional relationship or is someone making you feel afraid or unsafe? Denies 05/13/2025 Estimated Date of Delivery Comme nts Yes 07/26/2025 Date entered paras or to episode creation Sex and Gender Information Value Date Recorded Sex Assigned at Not on file Legal Sex Female 9:06 PM CLINICAL STAFF PHARMACIST Gender Identity Not on file Sexual Orientation [...] Vag-S pont None Y Livin g Delivery Location:[facility] 021 34w 3d 0h 03m 0h 03m 2.485 kg (5 lb 7.7 oz) F CS-LT ranv Epidu ral,S urban Y Livin g 8 8 MALON E,GIR LCIER Aruna Mckeon, DO Complications: Intolera nce,Rupture of Membranes > 18 hours,Premature Rupture of Membranes,Failure to Progress in First Stage Delivery Location:[facility] ([facility]HE L AND D PROCEDURE) Current Summary Episode Dates Number of Fetuses Estimated Date of Delivery 04/11/2025 - Present (05/22/2025) 07/26/2025 (based on Alternate TUYET Entry) Dating Summary Based On TUYET [place] Diff Last Menstrual Period on 10/21/2024 07/28/2025 -2d Alternate TUYET Entry 07/26/2025 Working Comment:Date entered prior t o episode creation Vitals Pregravid Weight Height TWG (As of 05/22/2025) Pregrav id BMI 162.6 cm (5' 4) Date GA Fund Present FHR Mvmt BP Weight Edema Alb Glu Ket Dil/ Eff/Sta 5 24w6d Inpatient data not displayed here. See encounter summary. 5 28w3d Inpatient data not displayed here. See encounter summary. 5 29w3d Inpatient data not displayed here. See encounter summary. Last Filed Vital Signs Vital Sign Reading Time Taken Comments Blood Pressure 138/63 05/13/2025 10:03 PM CLINICAL STAFF PHARMACIST Pulse 100 05/13/2025 10:03 PM CLINICAL STAFF PHARMACIST Temperature 36.5 C (97.7 F) 05/13/2025 8:09 PM CLINICAL STAFF PHARMACIST Respiratory Rate 22 05/13/2025 8:09 PM CLINICAL STAFF PHARMACIST Oxygen Saturation 99% 05/13/2025 10:03 PM CLINICAL STAFF PHARMACIST Inhaled Oxygen Concentration - - Weight 120.2 kg (265 lb) 04/11/2025 6:39 PM CDT Height 162.6 cm (5' 4) 04/11/2025 7:12 PM CDT Body Mass Index 45.49 04/11/2025 6:39 PM CDT Plan of Treatment Upcoming Encounters Date Type Department Care Team (Late st Contact Info) Description 07/26/2025 Hospital Encounter [facility] [address] [place] [address] Byron Franklin MD [address] [place] [address] [address] [place] [address] Health Maintenance Due Date Last Done Comments [...] 02/08/1994, 1993 Medical Devices Implanted Type Area Laborer Livestock Device Identifier Shelf Expiration Date Model / Serial / Lot Plate Plate Left: Wrist Description:2019 Procedures Procedure Name Priority Date/Time Associated Diagnosis Comments PAMG-1 PROTEIN MARKER (ROM) STAT 05/13/2025 8:34 PM CLINICAL STAFF PHARMACIST URINALYSIS AND REFLEX TO MICROSCOPIC AND CULTURE STAT 05/13/2025 8:34 PM CLINICAL STAFF PHARMACIST FIBRONECTIN Routine 05/05/2025 8:1 8 PM CLINICAL STAFF PHARMACIST URINALYSIS AND REFLEX TO MICROSCOPIC AND CULTURE Routine 05/05/2025 7:56 PM CLINICAL STAFF PHARMACIST URINALYSIS, MICROSCOPIC ONLY STAT 04/11/2025 7:03 PM CDT URINE CULTURE STAT 04/11/2025 7:03 PM CDT URINALYSIS AND REFLEX TO MICROSCOPIC AND CULTURE STAT 04/11/2025 7:03 PM CDT from Last 3 Months Results * ROM Plus (IGFBP-1/AFP) (05/13/2025 8:34 PM CLINICAL STAFF PHARMACIST) IFG Binding Protein-1 / AFP Negative Swab 05/13/2025 8:34 PM CLINICAL STAFF PHARMACIST 05/13/2025 8:40 PM CLINICAL STAFF PHARMACIST us Ravinder Méndez MD LAB BODY FLUIDS AND ST OOLS ORDERABLES Final Result [facility] [address] [facility] [place] [address] * (ABNORMAL) Urinalysis reflex to microscopic and culture Urine, clean voided (05/13/2025 8:34 PM CLINICAL STAFF PHARMACIST) Color, ur Yellow Yellow Clarity, ur Clear Clear [facility] ([place]) Specific gravity, ur 1.016 1.003 - 1.030 [facility] ([place]) pH, urine 6.5 [facility] ([place]) Comment: Interpretive Data U rine pH is affected by diet, medications, systemic acid-base disturbances, and renal tubular function. pH may affect urinary stone formation. For example, urine pH below 6.0 may help reduce the tendency for calcium phosphate stones and pH greater than 6.0 may reduce the tendency for uric acid stone formation. Source: [facility] Current Interpretive Data was last revised [...] met. [facility] ([place]) Urine, clean voided 05/13/2025 8:34 PM CLINICAL STAFF PHARMACIST 05/13/2025 8:40 PM CLINICAL STAFF PHARMACIST us Ravinder Méndez MD LAB MICROBIOLOGY - GEN ERAL ORDERABLES Final Result [facility] ([place]) 1 [facility] [place], [place] [id number] * fibronectin (05/05/2025 8:18 PM CLINICAL STAFF PHARMACIST) Fibronectin, Negative Negative Comment: NORMAL RANGE: Symptomatic [...] at less than or equal to 35 weeks.(D=4137; AM J OBSTET GYNECOL 1997;177:8) Testing performed by: [facility], [facility], [place]., [address] Cervical 05/05/2025 8:18 PM CLINICAL STAFF PHARMACIST 05/06/2025 1:55 AM CLINICAL STAFF PHARMACIST us Byron Franklin MD LAB BODY FLUIDS AND ST OOLS ORDERABLES Final Result [facility] ([place]) 1 [facility] [place] [address] * (ABNORMAL) Urinalysis reflex to microscopic and culture Urine, clean voided (05/05/2025 7:56 PM CLINICAL STAFF PHARMACIST) Color, ur Yellow Yellow Clarity, ur Clear Clear [facility] ([place]) Specific gravity, ur 1.016 1.003 - 1.030 [facility] ([place]) pH, urine 6.5 [facility] ([place]) Comment: Interpretive Data U rine pH is affected by diet, medications, systemic acid-base disturbances, and renal tubular function. pH may affect urinary stone formation. For example, urine pH below 6.0 may help reduce the tendency for calcium phosphate stones and pH greater than 6.0 may reduce the tendency for uric acid stone formation. Source: [facility] Current Interpretive Data was last revised [...] ([place]) Urine, clean voided 05/05/2025 7:56 PM CLINICAL STAFF PHARMACIST 05/05/2025 8:01 PM CLINICAL STAFF PHARMACIST us Byron Franklin MD LAB MICROBIOLOGY - GEN ERAL ORDERABLES Final Result [facility] ([place]) 1 [facility] [place] [address] * (ABNORMAL) Urinalysis reflex to microscopic and [...] tendency for uric acid stone formation. Source: [facility] Current Interpretive Data was last revised on [...] 7:03 PM CDT 04/11/2025 7:08 PM CDT us Byron Franklin MD LAB MICROBIOLOGY - GEN ERAL ORDERABLES Final Result [facility] ([place]) 1 [facility] [place] [address] * (ABNORMAL) Urinalysis, microscopic only (04/11/2025 7:03 PM CDT) WBC, ur 21-50(A) 0 - 5 /HPF RBC, ur 0-2 0 - 2 /HPF [facility] ([place]) Epithelial cells, squamous, ur 1-5 0 - 5 /HPF [facility] ([place]) Mucous, ur Present(A) [facility] ([place]) Culture Reflex Comment Reflex to urine culture will be performed. [facility] ([place]) Urine, clean voided 04/11/2025 7:03 PM CDT 04/11/2025 7:08 PM CDT us Byron Franklin MD LAB URINE ORDERABLES F inal Result [facility] [place] [address] * (ABNORMAL) Urine culture Urine, clean voided [...] allergic patients, please contact the laboratory at [phone] to request susceptibility testing * * * [...] periurethral kavitha. (.) Comment:Testing performed by : [facility], [address] [place] [address] Organism (CLINICALLY INSIGNIFICANT GROWTH [facility] ([place]) Organism STREPTOCOCCUS AGALACTIAE (GROUP B STREPTOCOCCI) [facility] ([place]) Urine, clean voided 04/11/2025 7:03 PM CDT 04/12/2025 1:36 AM CDT Narrative [facility] ([place]) - 04/13/2025 10:47 AM CDT Urine culture reflexed based upon urinalysis results. Testing performed by [facility] ([phone]) us Byron Franklin MD LAB MICROBIOLOGY - GEN ERAL ORDERABLES Final Result [facility] ([place]) 1 [facility] [place] [address] from Last [address] [facility] Advance Directives For more information, please contact: [phone] * Full Code (Latest Code Status on File) Date Activated Date Inactivated Comments 04/04/2021 6:16 AM 04/06/2021 3:50 PM * Full Code Date Activated Date Inactivated Comments 04/03/2021 7:35 AM 04/04/2021 6:16 AM Full CPR in case of cardiopulmonary arrest Care Teams Exercise Physiologist Certified Relationship Specialty Start Date End Date No, Physician PCP - General 02/19/25 No, Physician 02/19/25
--- OUTSIDE RECORDS SUMMARY | 2025-05-22 19:46 | XMS_ITS | Clinical Summary ---
Author Organization [facility] Address [address] [place] [id number] Care Team Providers Care Car Lot Attendant Name Role Phone None, Provider MD Primary [...] Sex Assigned at Female 08/06/2019 9:24 PM TRANSITION NURSE Legal Sex Female 10:39 PM CDT Gender Identity Female 08/06/2019 9:24 PM TRANSITION NURSE Sexual Orientation Straight 08/06/2019 9: 24 PM TRANSITION NURSE Last Filed Vital Signs Vital Sign Reading Time Taken Comments Blood Pressure 134/106 07/28/2024 10:19 PM TRANSITION NURSE Pulse 112 07/28/2024 10:19 PM TRANSITION NURSE Temperature 37.2 C (99 F) 07/28/2024 10:19 PM TRANSITION NURSE Respiratory Rate 18 07/29/2024 12:52 AM TRANSITION NURSE Oxygen Saturation 100% 07/28/2024 10:19 PM TRANSITION NURSE Inhaled Oxygen Concentration - - Weight 104.3 kg (230 lb) 07/28/2024 10:19 PM TRANSITION NURSE Height 162.6 cm (5' 4) 07/28/2024 10:19 PM TRANSITION NURSE Body Mass Index 39.48 07/28/2024 10:19 PM TRANSITION NURSE Plan of Treatment Health Maintenance Due Date [...] Every 5 Years 11/10/2023 Cervical Cancer Screening [facility] HPV 11/10/2023 COVID-19 Vaccine ( [...] this topic Medical Devices Implanted Type Area Civil Project Engineer Device Identifier Shelf Expiration Date Model / Serial / Lot Plate Synthes 2.4 Va-Lcp Vlr Dist Radius 6h Hd/2h Shaft Left - [id number] Implanted:Qty: 1 on 12/23/2018 by Jose Antonio Bhatt MD at [facility] Left: Radius SYNTHES [id number] / / Description:6 HOLE VA DISTAL RADIUS PLATE Screw Synthes 2.4 Cortical Self Tap 14mm - [id number] Implanted:Qty: 2 on 12/23/2018 by Jose Antonio Bhatt MD at [facility] Left: Radius SYNTHES [id number] / / Screw Synthes 2.4 Locking Stardrive 16mm - [id number] Implanted:Qty: 4 on 12/23/2018 by Jose Antonio Bhatt MD at [facility] Left: Radius SYNTHES 02.210.116 / / Screw Synthes 2.4 Locking Stardrive 18mm - [id number] Implanted:Qty: 1 on 12/23/2018 by Jose Antonio Bhatt MD at [facility] Left: Radius SYNTHES [id number] / / Explanted Type Area Civil Project Engineer Device Identifier Shelf Expiration Date Model / Serial / Lot Wire Synthes 1.25mm Wes W/Trocar Point 150mm - [id number] Explanted:Qty: 1 on 12/23/2018 by Jose Antonio Bhatt MD at [facility] Left: Radius SYNTHES 292.12 / / Insurance [employer] Advance Directives * Full Code (Latest Code Status on File) Date Activated Date Inactivated Comments 08/22/2019 12:41 PM 08/23/2019 8:39 AM Care Teams Car Lot Attendant Relationship Specialty Start Date End Date None, Provider, MD PCP - General UNKNOWN PHYSICIAN SPECIALTY 09/06/22
--- OUTSIDE RECORDS SUMMARY | 2025-05-22 19:46 | XMS_ITS | Clinical Summary ---
Author Organization [facility] Address [address] [place] [address] Care Team Providers Care Notched Blade Loader Name Role Phone Benjamin Rendon MD Primary Care Provider Source Comments [facility],non-owned Affiliates and Associated Physician Practices is amultiple site organization consisting of ambulatory clinics and hospital sitesin [place], [place]. This disclosure is being madepursuant to the Care Everywhere program and may not contain all information available regarding this patient. Last updated 18.[email or web address] Allergies Active Allergy Reactions Criticality Noted Date Comments Shellfish-Derived Products Anaphylaxis High 12/23/19 19 Shrimp/tilapia Medications * Be aware that medications may not be up to date on this document. Alwaysverify current medications with the patient. No known medications Active Problems Problem Noted Date Diagnosed Date Choledocholithiasis 02/05/2020 Bilirubinemia 02/05/2020 Transaminitis 02/05/2020 Encounter for ultrasound 02/18/2019 Estimated Date of Delivery Comme nts Yes 05/13/2021 Family History Medical History Relation Name Comments Diabetes - Type 2 Maternal Grandfather Relation Name Status Comments Maternal Grandfather Social History Tobacco Use Types Packs/Day Years Used Date Smoking Tobacco: Every Day Cigarettes 0.5 4.5 Smokeless Tobacco: Never Tobacco Cessation:Ready to Q uit: No; Counseling Given: Yes Alcohol Use Standard Drinks/Week Comments Not Currently 0 (1 standard drink = 0.6 oz pur e alcohol) Estimated Date of Delivery Comme nts Yes 05/13/2021 Sex and Gender Information Value Date Recorded Sex Assigned at Not on file 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 Gender Identity Not on file Sexual Orientation Not on file Last Filed Vital Signs Vital Sign Reading Time Taken Comments Blood Pressure 142/72 01/29/2021 8:26 AM CDT Pulse 92 01/29/2021 8:26 AM CDT Temperature 36.6 C (97.8 F) 01/29/2021 8:26 AM CDT Respiratory Rate 20 01/29/2021 8:26 AM CDT Oxygen Saturation 100% 01/29/2021 8:26 AM CDT Inhaled Oxygen Concentration - - Weight 106.6 kg (235 lb) 01/29/2021 8:26 AM CDT Height 162.6 cm (5' 4) 01/29/2021 8:26 AM CDT Body Mass Index 40.34 01/29/2021 8:26 AM CDT Plan of Treatment Health Maintenance Due Date Last Done Comments HEPATITIS C SCREENING 11/05/2011 DTAP/TDAP/TD VACCINES (1 - Tdap) 2012 HEPATITIS B VACCINE (1 of 3 - 19+ 3-dose series) 2012 PAP SMEAR 2014 HPV VACCINE (1 - 3-dose SCDM series) 2020 OB-ONE HOUR GLUCOSE 02/04/2021 OB-TDAP CURRENT 02/11/2021 OB-GROUP B STREP SCREEN 04/08/2021 Cervical Cancer Screening 11/10/2023 PAP with HPV 11/10/2023 DEPRESSION SCREENING 07/01/2024 COVID-19 VACCINE (1 - 2024-2 6 season) 2025 INFLUENZA VACCINE (#1) 2025 ZOSTER VACCINE (1 of 2) 11/10/2043 Respiratory Syncytial Virus (RSV) Vaccine Pt: or over 60 yrs (1 - 1-dose 75+ series) 2068 HIV SCREENING Completed 07/12/2019, 03/04/2019 HIB VACCINE Aged Out No longer eligi ble based on patient's age to complete this topic MENINGOCOCCAL (Group B) VACCINE SHARED DECISION-MAKING Aged Out No longer eligible based on patient's age to complete this topic MENINGOCOCCAL GROUPS A/C/Y/W VACCINE Aged Out No longer eligible b ased on patient's age to complete this topic PNEUMOCOCCAL VACCINE Aged Out No long er eligible based on patient's age to complete this topic Insurance Advance Directives * Full Code (Latest Code Status on File) Date Activated Date Inactivated Comments 02/06/2020 12:56 AM 02/06/2020 1:41 PM Care Teams Notched Blade Loader Relationship Specialty Start Date End Date Benjamin Rendon MD PCP - General 02/07/20
--- OUTSIDE RECORDS SUMMARY | 2025-05-22 19:46 | XMS_ITS | Data Portability ---
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 dislocation, bilaterally. Craniovertebral junction and upper cervical spine: No acute fracture or malalignment. Paranasal sinuses: Well aerated. Mastoid sinuses: Well aerated. IMPRESSION: No acute facial bone fracture is observed. A radiation dose lowering technique was used for this procedure, which may include, but is not limited to, dose reduction technique, automated exposure control, the use of iterative reconstruction, ALARA (As Low As Reasonably Achievable) techniques, and Image Gently techniques. Interpreted By: Mirtha Mendes MD, 03/07/2019 1:08 AM Benjamin Kellydonato [place], [place] - [facility] 03/09/2019 15:03:20 Problems Name Problem SNOMED Code Status Onset Date Resolution Date Notes Provider Name and Address Organization Details Recorded Time Chest pain 04293706 Completed 03/13/2016 Lan Del Torolars [place], [place] - [facility] 6 14:14:01 Standard chest X-ray abnormal 636236997 Completed 03/13/2016 Lan Zakfrancisca [place], [place] - [facility] 6 14:14:01 Thyroid nodule 380006737 Completed 03/13/2016 Lan Zakfrancisca [place], [place] - [facility] 6 14:14:01 Acute pharyngitis 557251259 Completed 09/03/2017 Ruby Vaughn MD Attn: Mireya eaton,[address] [facility], [place], [address], [place] - [facility] 8 11:40:38 History of thyroidecto my 665488320 Completed 201709/03/2017 Ruby Vaughn MD Attn: Mireya eaton,[address] [facility], [place], [address], [place] [facility] 8 11:41:18 History of subtotal thyroidecto my 904563978 Active 2017 Ruby Vaughn MD Attn: Mireya eaton,[address] [facility], [place], [address], [place] [facility] 8 11:41:14 Smoker 20438496 Active 2017 Ruby Vaughn MD Attn: Mireya eaton,[address] [facility], [place], [address], [place] [facility] 8 11:41:23 37422677 Completed 201806/03/2019 Radha [place], [place] - [facility] 9 16:45:07 Problem Notes None recorded. Medical Equipment None Reported. Allergies Allergen ID Allergen Name Allergen Category Reaction Reaction Severity Criticality Documentation Date Start Date Code Code System Note Provider Name and Address Organization Details Recorded Time 77272 iodine medicatio n respirato ry distress Not available Not available 03/22/2016 5933 RxNorm throa t itchi ng Lore Cintron MA null, [place] - [facility] 6 16:03:54 60148 shellfish derived food,medi cation Not available Not available Not available 03/22/2016 Lore Cintron MA null, [place] - [place] 6 16:03:54 Medications Name Sig Start Date [...] Se-René 19 29 mg iron-1 mg tablet TAKE 1 TABLET BY MOUTH DAILY active Not Available Not Available No t Available Vitals Date Recorded Body height Pain severity - 0-10 verbal numeric rating [Score] - Reported Provider Name and Address Organization Details Last Updated DateTime 08/01/2020 162.56 cm 0 Maggi Delgado LPN [facility] 08/01/2020 18:18:37 Date Recorded Body height Provider Name an d Address Organization Details Last Updated DateTime 02/06/2021 162.56 cm Rosanna Farias MA [facility] 021 10:34:33 Date Recorded Body weight Provider Name an d Address Organization Details Last Updated DateTime 02/27/2019 936501.482070 g Radha Castillo [facility] 02/27 16:54:57 Date Recorded Body height Body mass index (BMI) Body temperature Heart rate Oxygen saturation Systolic And Diastolic Provider Name and Address Organization Details Last Updated DateTime 9 162.56 cm 40.9 kg/m2 98 [degF] 103 /min 97 % 110/60 mm[Hg] Vamsi MedinaPONCHO [facility] 9 11:24:42 Date Recorded Body height Provider Name an d Address Organization Details Last Updated DateTime 04/20/2020 162.56 cm Molly rehman MA [facility] 04/20/2020 17:43:08 Date Recorded Body height Body mass index (BMI) Body weight Body temperature Heart rate Oxygen saturation Systolic And Diastolic Provider Name and Address Organization Details Last Updated DateTime 9 162.56 cm 40.9 kg/m2 624058. 38 g 97.8 [degF] 93 /min 99 % 108/64 mm[Hg] Beverley Lord MA [facility] 9 12:46:34 Date Recorded Body height Pain severity - 0-10 verbal numeric rating [Score] - Reported Provider Name and Address Organization Details Last Updated DateTime 06/20/2020 162.56 cm 0 Maggi Delgado LPN [facility] 06/20/2020 18:15:21 Social History Question Answer Notes LastModified by Organizat ion Details LastModified Time Tobacco Smoking Status Current Every Day Smoker Dax [place] [facility] 10/12/2015 11:50:40 Do You Have An Advance [...] 02/06/2021 Are you able to care for yourself independently? 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 None Information not available 02/06/2021 Mental Status Question Answer Note LastModified by Organization D etails LastModified Time Do you feel stressed (tense, restless, nervous, or anxious, or unable to sleep at night)? [id number] Information not available 02/06/2021 Family History Nothing Reported. Medical History Condition Response Coronary Artery Disease N Other N High Blood Pressure N Atrial Fibrillation N Thyroid Problems N Kidney or Bladder Problems N GI Problems N Depression N COPD N Blood Clots N Skin Problems N Eating Disorder N Anemia N Heart Attack (PA) N Anxiety Disorder N Diabetes N Muscle, Joint, or Bone Problems N Seizures/Epilepsy N Acid Reflux (GERD) N Cancer N Stroke N Asthma N Allergies N ADHD N Substance Abuse N High Cholesterol N Hepatitis N Liver Disease N Schizophrenia N Headaches N Heart Failure N Osteoporosis N Gynecological History Statement/Question Response Age at [...] ICD10 Code Diagnosis IMO Codes Diagnosis Note [id number] DO Jus Gonzalez [facility] ([address] [place] [address] 10/12/2015 11:34:10 10/13/2015 09:42:43 Chest pain 24495323 R07.9 19 yo F presents to establish care. Pt reports having intermitte nt episodes of cp that is associated with sob. Pt reports she went to the ER at [place] (August 2015) where she had blood work, [...] to have outpt stress test f/u 1-2mo [id number] MD Jus Christianson [facility] ([address]) [address] [place] [address] 12/02/2015 16:45:15 12/05/2015 04:07:12 Thyroid nodule 045394971 E04.1 20 yo F with abnormal Thyroid [...] after fine needle biopsy has been completed [id number] MD Jus Young [facility] ([address]) [address] [place] [address] 02/27/2016 10:47:58 02/27/2016 16:18:47 Otitis media 67798475 H66.92 [id number] Nilesh Correia DO [facility] FP ([address]) [address] [place] [address] 03/13/2016 10:45:09 03/14/2016 03:48:05 Pain in throat 192280614 R07.0 Acute pharyngitis 200444 003 J02.9 -pt is 7 days s/p [...] in condition -pt to f/u with PCM [id number] Geri Daley MD [facility] FP ([address] [place] [address] 03/22/2016 15:36:22 03/23/2016 09:57:11 Pharyngitis 293947711 J02.9 -Resolved- Normal exam-F/u prn [id number] Aida Woodruff MD [facility] [address] [facility] [address] [place] [address] 09/03/2017 10:59:11 09/06/2017 11:01:31 History of thyroidectomy 720556375 Z90.09 - H/o L sided thyroidect lauren in 01/2016. Currently following with surgery.- Denies any c/o palpitatio n, chest pain, constipati on, diarrhea.- TSh (10/2015 - pre op. 0.488).- Will order TSH with T4 reflex today Contraception care 35411 1130 Z30.40 - Counselled on using condoms to avoid unwanted and STDs as pt is currently sexually active with 1 male partner- Insurance paperwork filled out today for Nexplanon insertion- Care instructio ns provided for various forms of control Routine gy necologic examination done 9589274110 9101 Z01.419 - Pap done today and Nuswab for STDs - No h/o STD - Counselled on using condoms to avoid unwanted and STDs [id number] [facility] [address] [address] 02/27/2019 11:01:21 03/05/2019 08:59:03 64146181 Z33.1 23 yo with ELVIS of 10/03/2019 [...] trimester US showed ____ - Pap done 09/13/17: negative- G&C neg/pos - genetic screening: CF/sickle/ [...] done Y/N - RTC 4 wk(s) Smoker 57856360 F17.200 1ppd previously has cut down to 0.5ppd-dis cussed continual decrease in number of cigarettes with hopes to get to zero by end of 1st trimester [id number] MD Bailey Francis [address] [address] 06/09/2019 12:16:57 06/10/2019 09:40:00 Cellulitis and abscess of buttock 815170598 L02.31 Pt appears healthy, no systemic Sxs or local spread. She has not been treating abscess.Ap ply warm compresses 15 min four times per day.If abscess is not improving after 2 days or if it starts to worsen, pt should start Keflex 500mg 4x/daily.F TTy=911-68 0 [id number] Cristo Leonard MD [address] [address] 04/20/2020 17:34:00 04/21/2020 07:25:17 Upper respiratory infection 90506971 J06.9 [id number] Cristo Leonard MD [address] [address] 06/20/2020 17:47:11 06/21/2020 09:10:44 Upper respiratory infection 22246084 J06.9 [id number] Cristo Leonard MD [address] [address] 08/01/2020 17:47:00 08/03/2020 07:30:52 Upper respiratory infection 03381874 J06.9 Health Concerns Section Related Observation LastModified by Organization Detai ls LastModified Time None Recorded Concern Status LastModified by Organization Details LastModified Time None Recorded Advance Directives Directive Y: Payers Insurance Date Sequence Insurance Name Policy Number Policy Jimenez Covered Member ID Jimenez Member ID Guarantor Name 08/30/2023 2 [facility] PRIOR TO 12/29/2020 (MEDICAID REPLACEMENT - HMO) Carla Santos [id number] Cy [place] 08/30/2023 1 [place] Carla Santos [id number] Cy [place] 09/17/2023 1 [facility] PRIOR TO 12/29/2020 (MEDICAID REPLACEMENT - HMO) Carla Santos [id number] Cy [place] 08/30/2023 1 [facility] (MEDICAID HMO) Carla Santos [id number] Cy Ireland 09/17/2023 2 [facility] - DOS ON OR AFTER 20 (MEDICAID REPLACEMENT - HMO) Carla Santos [id number] Cy [place] Notes Date Note Type Note Provider Name and Address Organization Details Recorded Time 02/27/2019 text/html [id number] @9+4wga by LMP c/w 1st trimester U/S ELVIS 10/03/2019 presents for IPN. complicated by smoking and hx of subtotal thyroidectomy. Patient states that early in the she had spotting but that has since resolved. Denies any vaginal discharge, vaginal bleeding, dysuria, N/V, hematuria, VILLATORO, change in vision.Last pap was 09/03/2017 and was negative Vamsi Medina CMA null, [place] - [facility] 03/06/2019 12:44:49 06/09/2019 text/html ROS as noted in the HPI Pt presents for a spider bite that [...] what kind of spider it is. Vamsi Medina CMA null, [place] - [facility] 06/10/2019 09:22:19 04/20/2020 text/html ROS as noted in the HPI Phone visit: [facility]: c/o a cold x 3 days. She tested neg. for covid 19. No appetite. ? mild fever. Cristo Leonard MD Attn: Accounting, [address] [place], [address], [facility] 04/21/2020 00:50:24 06/20/2020 text/html ROS as noted in the HPI Phone visit: [facility]: In for a cold with cough & congestion x 2 1/2 days. No chills or fever. Cristo Leonard MD Attn: Accounting, [address] [place], [address], [facility] - [facility] 06/20/2020 23:34:34 08/01/2020 text/html ROS as noted in the HPI Phone visit: [facility]: In for a cold with cough & congestion x 5 days. she ask for stronger medicine this time. No chills or fever. Cristo Leonard MD Attn: Accounting,[address], [place], [address], [place] - [facility] 08/01/2020 23:37:05 OBGyn Episode Ob Episode Information Episode Created Date Number of Fetuses Patient Bloodtype Patient rh Status Prepregnancy Weight lbs Domestic Partner Domestic Partner Phone Father Name Cook Roast Status 02/28/20 19 1 A Positive CLOSED Fetus Data First Name Last Name Admitted to NICU Weight (g) Sex Living Outcome Pediatric Complications Fetus ID Race Codes Race Delivery Type [id number] Elvis Calculation Initial Elvis Date Initial Exam [...] Weight in lbs Pre/Post Dialysis Refused Weight 238.298132901705 BP Diastolic BP Location Tested BP Systolic BP Type 60 110 sitting Fetus Heart Rate Present Fetus Movement Comments Menstrual History Last Menstrual Date Menses Monthly On Bcp Conception Prior Menses Frequency Hcg Plus Date Menarche Onset Age 0612/22/2018 Genetic Screening And Infection History Question Response Note Patient's Age Will Be 35 Yea rs Or Older At Estimated Date of Delivery false Thalassemia (Croatian, Cook Islander, Mediterranean, Or Background): MCV < 80 false Neural Tube Defect (Meningom yelocele, Spina Bifida, Or Anencephaly) false Congenital Heart Defect false Down Syndrome false Mingo-Sachs (eg, Latter Day, Cajun, Beninese-Italian) f alse Luis E Disease false Sickle Cell Disease Or Trait () false Hemophilia Or Other Blood Disorders false Muscular Dystrophy false Cystic Fibrosis false Santee's Chorea false Mental Retardation/Autism false If Yes, [...]
[2025-05-22 19:50] LABS: Alanine Aminotransferase 13 U/L (6-35); Albumin Level 3.3 g/dL (3.5-5.1); Alkaline Phosphatase 165 U/L (38-126); Anion Gap 4 mmol/L (4-12); Aspartate Amino Transferase 21 U/L (14-36); Bilirubin,Total 0.3 mg/dL (0.2-1.3); Blood Urea Nitrogen 3 mg/dL (7-17); Calcium 8.9 mg/dL (8.4-10.2); Carbon Dioxide 23 mmol/L (22-30); Chloride 105 mmol/L (98-107); Estimated CRCL calculation 203 ml/min; Estimated Glomerular Filt Rate > 60; Glucose 90 mg/dL (65-110); Magnesium 1.8 mg/dL (1.6-2.3); Potassium 3.6 mmol/L (3.4-5.0); Sodium 132 mmol/L (137-145); Total Protein 6.6 g/dL (6.3-8.2); Uric Acid 3.1 mg/dL (2.5-7.5)
[2025-05-22 20:16] VITALS: BP 117/62; PULSE 104; RESP 26; O2SAT 99
== END 2025-05-22 21:09 | disposition home or self-care (01) ==
PROVIDERS: Emergency Provider Student in an Organized Health Care Education/Training Program
DX: O26.893 Other specified pregnancy related conditions, third trimester (principal); R51.9 Headache, unspecified; R22.43 Localized swelling, mass and lump, lower limb, bilateral; O99.353 Diseases of the nervous system complicating pregnancy, third trimester; G56.03 Carpal tunnel syndrome, bilateral upper limbs; O99.283 Endocrine, nutritional and metabolic diseases complicating pregnancy, third trimester; E89.0 Postprocedural hypothyroidism; O99.333 Smoking (tobacco) complicating pregnancy, third trimester; F17.210 Nicotine dependence, cigarettes, uncomplicated; Z3A.30 30 weeks gestation of pregnancy
CPT/HCPCS: 36415; 80053; 81003; 81050; 83615; 83735; 84156; 84550; 85025; 93005; 96361; 96374; 96375; 99284; J1200; J2765; J7120

== ENCOUNTER 2025-06-19 19:17 | Observation (INO) | payer OTHER, SELFPAY ==
--- OUTSIDE RECORDS SUMMARY | 2025-06-19 19:24 | XMS_ITS | Continuity of Care Document ---
Author Organization [facility] Address [address] [place] [address] Assessment Encounter Date Assessment Date Assessment LastModified by Organization Details LastModified Time 06/18/2025 06/18/2025 Patient is _34__weeks . Discussed plan. Not available 06/18/2025 15:08:26 Plan of Treatment Reminders Order Date Submit Date Provider Last Modified By Organization Details Last Modified Time Details Appointments NST 2024 11:30A M NST SCHEDULE Not available Not available Not available OB ROUTINE 2024 12:15P M Usman SHAH MD Not available Not available Not available NST 2025 02:00P M NST SCHEDULE Not available Not available Not available OB ROUTINE 2025 02:30P M Usman SHAH MD Not available Not available Not available NST 2025 02:00P M NST SCHEDULE Not available Not available Not available OB ROUTINE 2025 02:30P M Madiha Hernandez CNM Not available Not available Not available NST 2025 02:00P M NST SCHEDULE Not available Not available Not available OB ROUTINE 2025 02:30P M Madiha Hernandez CNM Not available Not available Not available Lab None recorded . Referral None recorded . Procedures None recorded . Surgeries None recorded . Imaging None recorded . Medication Orders None recorded . Patient TargetsNo targets recorded. Patient InstructionsNo instructions recorded. Reason for Referral None Reported. Results Created Date Observation Date Name Description Value Unit Range Abnormal Flag Note LastModifiedBy Organization Detail LastModifiedTime 05/21/20 25 05/21/2025 T4 FREE T4, free 0.52 NG/dL 0.54-1 .24 low This assay is susrachel ptibl e to rebecca palomino ce from high level s of bioti n which may false ly eleva te resul ts. Yanelis e corre late with clini raman findi ngs. Not Available [facility] (Lab) [address], [place], [address], 05/22/2025 05:43:58 05/21/20 25 05/21/2025 TSH, REFLE X FREE T4 TSH 0.23 uIU/m L 0.30-5 .33 low Not Available [facility] (Lab) [address], [place], [address], 05/22/2025 05:43:59 05/21/20 25 05/21/2025 CT/GC AND TRICH OMONA S VAGIN PHILLIP (RRNA ), URINE chlamydia trachomatis, PCR Negati ve negati ve Not Available [facility] (Lab) [address], [place], [address], 05/23/2025 13:31:28 05/21/20 25 05/21/2025 CT/GC AND TRICH OMONA S VAGIN PHILLIP (RRNA ), URINE neisseria gonorrhoeae, PCR Negati ve negati ve Not Available [facility] (Lab) [address] [place], [address], 05/23/2025 13:31:28 05/21/20 25 05/21/2025 CT/GC AND TRICH OMONA S VAGIN PHILLIP (RRNA ), URINE trichomonas vaginalis ribosomal RNA (rrna) Negati ve negati ve 49_CL _SOUR CETVG : Urine - Bladd er Not Available [facility] (Lab) [address], [place], [address], 05/23/2025 13:31:28 05/21/20 25 05/21/2025 CULTU RE: URINE result report SEE RESULT S BELOW Test: Cultu re: Urine Speci men Sourc e: Urine Voide d Speci men Type: Urine Speci men Date: 05/21 1051 Resul t Date: 05/23 1227 Resul t Statu s: Final resul t Abnor mal: No Resul ting Lab: [facility] [address] [facility] [address] Tel: CULTU RE ----- ----- ----- --- Organ ism(s ) consi stent with uroge nital or skin kavitha . Repea t cultu re if sympt oms indic ate. Not Available [facility] (Lab) [address], [place], [address], 05/23/2025 13:31:28 05/21/20 25 05/21/2025 drug scree n, urine Amphetamines : negati ve Not Available [place] [address], [place], [address], 05/21/2025 11:45:28 05/21/20 25 05/21/2025 drug scree n, urine Cannabinoids : negati ve Not Available [place] [address], [place], [address], 05/21/2025 11:45:28 05/21/20 25 05/21/2025 drug scree n, urine Cocaine: negati ve Not Available [place] [address], [place], [address], 05/21/2025 11:45:28 05/21/20 25 05/21/2025 drug scree n, urine Opiates: negati ve Not Available [place] [address], [place], [address], 05/21/2025 11:45:28 05/21/20 25 05/21/2025 drug scree n, urine Phenocyclidi ne: negati ve Not Available [place] [address], [place], [address], 05/21/2025 11:45:28 05/21/20 25 05/21/2025 drug scree n, urine Barbiturates : negati ve Not Available [place] [address], [place], [address], 05/21/2025 11:45:28 05/21/20 25 05/21/2025 drug scree n, urine Benzodiazepi tariq: negati ve Not Available [place] [address], [place], [address], 05/21/2025 11:45:28 05/24/20 25 05/24/2025 CBC W/DIF F WBC 14.8 10'3/ uL 3.5-10 .5 high Not Available [facility] (Lab) [address] , [place], [address], 05/25/2025 05:01:23 05/24/20 25 05/24/2025 CBC W/DIF F RBC 4.11 10'6/ uL (based on docume nted legal sex) 3.80-5 .20 Not Available [facility] (Lab) [address] , [place], [address], 05/25/2025 05:01:23 05/24/20 25 05/24/2025 CBC W/DIF F HGB 11.6 g/dL (based on docume nted legal sex) 11.6-1 5.4 Not Available [facility] (Lab) [address] , [place], [address], 05/25/2025 05:01:23 05/24/20 25 05/24/2025 CBC W/DIF F HCT 36.8 % (based on docume nted legal sex) 34.0-4 5.0 Not Available [facility] (Lab) [address] [place], [address], 05/25/2025 05:01:23 05/24/20 05/24/2025 CBC W/DIF F MCV 89.5 fL 80.0-9 9.0 Not Available [facility] (Lab) [address], [place], [address], 05/25/2025 05:01:23 05/24/20 25 05/24/2025 CBC W/DIF F MCH 28.2 pg 27.0-3 4.0 Not Available [facility] (Lab) [address], [place], [address], 05/25/2025 05:01:23 05/24/20 25 05/24/2025 CBC W/DIF F MCHC 31.5 g/dL 32.0-3 5.5 low Not Available [facility] (Lab) [address], [place], [address], 05/25/2025 05:01:23 05/24/20 25 05/24/2025 CBC W/DIF F RDW 14.6 % 11.0-1 5.0 Not Available [facility] (Lab) [address], [place], [address], 05/25/2025 05:01:23 05/24/20 25 05/24/2025 CBC W/DIF F plt 295 10'3/ uL 150-40 0 Not Available [facility] (Lab) [address], [place], [address], 05/25/2025 05:01:23 05/24/20 25 05/24/2025 CBC W/DIF F MPV 11.1 fL 8.8-12 .1 Not Available [facility] (Lab) [address], [place], [address], 05/25/2025 05:01:23 05/24/20 25 05/24/2025 CBC W/DIF F NRBC's 0.0 % 0.0 Not Available [facility] (Lab) [address], [place], [address], 05/25/2025 05:01:23 05/24/20 25 05/24/2025 CBC W/DIF F absolute NRBCs 0.0 10'3/ uL no refere nce range establ ished Not Available [facility] (Lab) [address], [place], [address], 05/25/2025 05:01:23 05/24/20 25 05/24/2025 CBC W/DIF F neutrophils 78.7 % 34.0-7 3.0 high Not Available [facility] (Lab) [address] [place], [address], 05/25/2025 05:01:23 05/24/20 25 05/24/2025 CBC W/DIF F lymphocytes 14.8 % 15.0-5 0.0 low Not Available [facility] (Lab) [address] [place], [address], 05/25/2025 05:01:23 05/24/20 25 05/24/2025 CBC W/DIF F monocytes 4.6 % 1.0-15 .0 Not Available [facility] (Lab) [address], [place], [address], 05/25/2025 05:01:23 05/24/20 25 05/24/2025 CBC W/DIF F eosinophils 1.2 % 0.0-8. 0 Not Available [facility] (Lab) [address] [place], [address], 05/25/2025 05:01:23 05/24/20 25 05/24/2025 CBC W/DIF F basophils 0.2 % 0.0-2. 0 Not Available [facility] (Lab) [address] [place], [address], 05/25/2025 05:01:23 05/24/20 25 05/24/2025 CBC W/DIF F immature granulocytes 0.5 % no define d refere nce range Immat ure Granu locyt es (IG) repre sents autom ated enume ratio n of Metam yeloc ytes, Myelo cytes and Promy elocy max when IG is < 5%. Blast s are not inclu ded in IG and repor shelia separ ately if prese nt. Not Available [facility] (Lab) [address] , [place], [address], 05/25/2025 05:01:23 05/24/20 25 05/24/2025 CBC W/DIF F absolute neutrophils 11.6 10'3/ uL 1.5-8. 0 high Not Available [facility] (Lab) [address], [place], [address], 05/25/2025 05:01:23 05/24/20 25 05/24/2025 CBC W/DIF F absolute lymphocytes 2.2 10'3/ uL 1.0-4. 0 Not Available [facility] (Lab) [address], [place], [address], 05/25/2025 05:01:23 05/24/20 25 05/24/2025 CBC W/DIF F absolute monocytes 0.7 10'3/ uL 0.2-1. 0 Not Available [facility] (Lab) [address], [place], [address], 05/25/2025 05:01:23 05/24/20 25 05/24/2025 CBC W/DIF F absolute eosinophils 0.2 10'3/ uL 0.0-0. 6 Not Available [facility] (Lab) [address] [place], [address], 05/25/2025 05:01:23 05/24/20 25 05/24/2025 CBC W/DIF F absolute basophils 0.0 10'3/ uL 0.0-0. 3 Not Available [facility] (Lab) [address] [place], [address], 05/25/2025 05:01:23 05/24/20 25 05/24/2025 CBC W/DIF F absolute immature granulocytes 0.1 10'3/ uL 0.00-0 .10 Refer ence range s for nonbi nary/ inter sex or unspe cifie d gende r patie nts have not been estab lishe d. Yanelis ann refer to the shaun alaniz table for range s estab lishe d for cisge nder patie nts and evalu ate in the clini raman zain xt of the indiv idual patie nt: https ://tyesha hui book. nm.or g/gen derx Not Available [facility] (Lab) [address], [place], [address], 05/25/2025 05:01:23 05/24/20 25 05/24/2025 GTT - GESTA DINORAH L, 3 HOUR, ACOG glucose, fasting acog 79 mg/dL 70-94 Not Available [facility] (Lab) [address] [place], [address], 05/25/2025 05:01:24 05/24/20 25 05/24/2025 GTT - GESTA DINORAH L, 3 HOUR, ACOG glucose, 1 hour acog 221 mg/dL 70-179 high Not Available [facility] (Lab) [address] [place], [address], 05/25/2025 05:01:24 05/24/20 25 05/24/2025 GTT - GESTA DINORAH L, 3 HOUR, ACOG glucose, 2 hour acog 165 mg/dL 70-154 high Not Available [facility] (Lab) [address] [place], [address], 05/25/2025 05:01:24 05/24/20 25 05/24/2025 GTT - GESTA DINORAH L, 3 HOUR, ACOG glucose, 3 hour acog 75 mg/dL 70-139 Not Available [facility] (Lab) [address] [place], [address], 05/25/2025 05:01:24 05/24/20 25 05/24/2025 CMP(C OMPRE HENSI VE METAB OLIC PANEL ) sodium 139 mmol/ L 133-14 6 Not Available [facility] (Lab) [address], [place], [address], 05/25/2025 05:01:25 05/24/20 25 05/24/2025 CMP(C OMPRE HENSI VE METAB OLIC PANEL ) potassium 4.1 mmol/ L 3.5-5. 1 Not Available [facility] (Lab) [address] [place], [address], 05/25/2025 05:01:25 05/24/20 25 05/24/2025 CMP(C OMPRE HENSI VE METAB OLIC PANEL ) chloride 103 mmol/ L 98-107 Not Available [facility] (Lab) [address] [place], [address], 05/25/2025 05:01:25 05/24/20 25 05/24/2025 CMP(C OMPRE HENSI VE METAB OLIC PANEL ) carbon dioxide 25 mmol/ L 21-31 Not Available [facility] (Lab) [address] [place], [address], 05/25/2025 05:01:25 05/24/20 25 05/24/2025 CMP(C OMPRE HENSI VE METAB OLIC PANEL ) anion gap 11 mmol/ L 4-13 Not Available [facility] (Lab) [address] [place], [address], 05/25/2025 05:01:25 05/24/20 25 05/24/2025 CMP(C OMPRE HENSI VE METAB OLIC PANEL ) blood urea nitrogen 3 mg/dL 7-25 low Not Available [facility] (Lab) [address] [place], [address], 05/25/2025 05:01:25 05/24/20 25 05/24/2025 CMP(C OMPRE HENSI VE METAB OLIC PANEL ) creatinine 0.49 mg/dL 0.60-1 .30 low Not Available [facility] (Lab) [address], [place], [address], 05/25/2025 05:01:25 05/24/20 25 05/24/2025 CMP(C OMPRE HENSI VE METAB OLIC PANEL ) egfrcr (CKD-epi 2020) >90 mL/mi n/1.7 3_m2 >=60 Not Available [facility] (Lab) [address], [place], [address], 05/25/2025 05:01:25 05/24/20 25 05/24/2025 CMP(C OMPRE HENSI VE METAB OLIC PANEL ) calcium 8.5 mg/dL 8.3-10 .5 Not Available [facility] (Lab) [address], [place], [address], 05/25/2025 05:01:25 05/24/20 25 05/24/2025 CMP(C OMPRE HENSI VE METAB OLIC PANEL ) glucose 219 mg/dL 70-100 high Not Available [facility] (Lab) [address] [place], [address], 05/25/2025 05:01:25 05/24/20 25 05/24/2025 CMP(C OMPRE HENSI VE METAB OLIC PANEL ) protein, total 5.6 g/dL 6.4-8. 3 low Not Available [facility] (Lab) [address] [place], [address], 05/25/2025 05:01:25 05/24/20 25 05/24/2025 CMP(C OMPRE HENSI VE METAB OLIC PANEL ) albumin 2.9 g/dL 3.5-5. 0 low Not Available [facility] (Lab) [address] [place], [address], 05/25/2025 05:01:25 05/24/20 25 05/24/2025 CMP(C OMPRE HENSI VE METAB OLIC PANEL ) ALT 9 units /L 9-43 Not Available [facility] (Lab) [address] [place], [address], 05/25/2025 05:01:25 05/24/20 25 05/24/2025 CMP(C OMPRE HENSI VE METAB OLIC PANEL ) alkaline phosphatase 158 units /L 34-104 high Not Available [facility] (Lab) [address] [place], [address], 05/25/2025 05:01:25 05/24/20 25 05/24/2025 CMP(C OMPRE HENSI VE METAB OLIC PANEL ) AST 9 units /L 13-39 low Not Available [facility] (Lab) [address] [place], [address], 05/25/2025 05:01:25 05/24/20 25 05/24/2025 CMP(C OMPRE HENSI VE METAB OLIC PANEL ) bilirubin, total 0.2 mg/dL 0.2-1. 2 Not Available [facility] (Lab) [address] [place], [address], 05/25/2025 05:01:25 05/24/20 25 05/24/2025 URIC ACID uric acid 2.7 mg/dL 2.3-6. 6 Not Available [facility] (Lab) [address] [place], [address], 05/25/2025 05:01:25 05/24/20 25 05/24/2025 T4 FREE T4, free 0.44 NG/dL 0.54-1 .24 low This assay is susce ptibl e to inter feren ce from high level s of bioti n which may false ly eleva te resul ts. Pleas e corre late with clini raman findi ngs. Not Available [facility] (Lab) [address] [place], [address], 05/25/2025 05:01:26 05/24/20 25 05/24/2025 TSH, REFLE X FREE T4 TSH 0.17 uIU/m L 0.30-5 .33 low Not Available [facility] (Lab) [address], [place], [address], 05/25/2025 05:01:26 05/24/20 25 05/24/2025 PROTE IN/CR EATIN INE RATIO , URINE creatinine, urine 19.5 mg/dL R-No refer ence range estab lishe d for this assay Not Available [facility] (Lab) [address], [place], [address], 05/25/2025 05:27:48 05/24/20 25 05/24/2025 PROTE IN/CR EATIN INE RATIO , URINE protein, urine <4 mg/dL R-No refer ence range estab lishe d for this assay Not Available [facility] (Lab) [address], [place], [address], 05/25/2025 05:27:48 05/24/20 25 05/24/2025 PROTE IN/CR EATIN INE RATIO , URINE protein/crea tinine ratio, urine . No Refer ence Range avail able for Rando m Urine s. Unabl e to perfo rm calcu latio n due to low rosalinda te stefano ntrat ion A prote in to creat inine ratio of >=0.1 9 is a good predi ctor of signi fican t prote inuri a. A level of <0.14 can rule out signi fican t prote inuri a. Not Available [facility] (Lab) [address], [place], [address], 05/25/2025 05:27:48 06/03/20 25 06/02/2025 US, obste tric, follo w-up No observ ation record ed. [email or web address] [place] [address] [facility] [address] [place] [address], [address], 06/04/2025 13:20:41 06/10/20 25 06/08/2025 US, obste tric, mater nal evalu ation + anato my No observ ation record ed. [email or web address] [facility] [address] [facility] [address], [place], [address], 06/11/2025 12:09:41 06/15/20 25 06/15/2025 non-s tress test No observ ation record ed. [email or web address] [place] [address], [place], [address], 06/16/2025 11:16:30 06/15/20 25 06/11/2025 non-s tress test No observ ation record ed. [email or web address] Not Available 2024 15:28:53 06/16/20 25 06/15/2025 US, obste tric, follo w-up No observ ation record ed. [email or web address] [facility] [address] [facility], [place], [address], 06/16/2025 12:26:43 06/18/20 25 06/18/2025 non-s tress test No observ ation record ed. [email or web address] [place] [address], [place], [address], 06/18/2025 17:45:42 06/18/20 non-s tress test No observ ation record ed. [email or web address] [place] [address], [place], [address], 06/18/2025 15:05:39 Result Notes None recorded. Problems Name Problem SNOMED Code Status Onset Date Resolution Date Notes Provider Name and Address Organization Details Recorded Time 90971227 Active [address] [facility] 10:03:53 Past history of premature delivery 638212831 Active 2024 x2 31 weeks PPROM 34 weeks PPROM plan MFM consult Madiha Hernandez CNM [address], [place], [address], [facility] 5 12:01:52 Obesity caused by energy imbalance 478670422 Active 2024 bmi 48 Madiha Hernandez CNM [address], [place], [address], [facility] 5 11:58:27 Past history of premature delivery 172814673 Active 2024 x2 31 weeks PPROM 34 weeks PPROM plan MFM consult Madiha Hernandez CNM [address], [place], [address], [facility] 5 12:01:52 Past history of section 180502282 Active 2024 due to distress desires TOLAC Madiha Hernandez CNM [address], [place], [address], [facility] 5 12:02:17 Tobacco user 977930887 Active 2024 1-2 packs/day Madiha Hernandez CNM [address], [place], [address], [facility] 5 12:02:31 History of subtotal thyroidec kyler 585320053 Active 2024 no meds currently , will rpt today Madiha Hernandez CNM [address], [place], [address], [facility] 5 12:02:49 Gestation al diabetes mellitus 32389008 Active 2024 Checking bs QID, serial growth us - Referral faxed to [facility] 05/26 06/02 - per MM, GDM and insulin to be managed by MFM. Pt prescribe d lactus 10units BID. Now 12units BID 06/15 Rebeca washington, [facility] 5 12:19:36 Hypertens ion AND/OR vomiting complicat ing childbirt h AND/OR puerperiu m 998139884 Active 2024 PC ratio >0.3 on 2 occasions Rebeca Weinstein [facility] 11:28:10 Hypothyro idism 75500056 Active 2024 50 mcg levothyro xine TSH q4 Rebeca Weinstein [facility] 11:31:02 Problem Notes None recorded. Procedures Surgical History Date Name Laterality Status Provider Name and Address Organization Details Recorded Time Caesarean Section completed [facility] 05/21/2025 09:42:35 Thyroid Surgery completed [facility] 05/21/2025 09:42:35 procedure on wrist completed [facility] 05/21/2025 10:35:26 Imaging Results None recorded. Procedure Notes None recorded. Medical Equipment None Reported. Allergies Allergen ID Allergen Name Allergen Category Reaction Reaction Severity Criticality Documentation Date Start Date Code Code System Note Provider Name and Address Organization Details Recorded Time 92042 hydrocodo ne Not available itching Not available Not available 05/21/20252022 5489 RxNorm Not Available joycelyn - External Data Service - prod 5 03:03:44 36903 iodine medicatio n Not available Not available Not available 05/21/20252016 5933 RxNorm unrec ogniz ed react ion (text : Iker briceno ing, code: 62574 000) (from exter nal sourc e) Not Available [facility] External Data Service - prod 5 03:03:44 04969 Fish (substanc e) food,medi cation other severe Not available 05/21/2025 20327 1005 SNOMED Annalee Domi [facility] 09:42:34 03299 Shellfish (substanc e) food,medi cation anaphylax is Not available high 05/21/20252020 97768 9006 SNOMED Not Available geneseo - External Data Service - prod 5 03:04:05 Medications Name Sig Start Date Stop Date Status Note LastModified by Organization Details LastModified Time amoxicillin 500 mg capsule TAKE 2 CAPSULES BY MOUTH THREE TIMES DAILY FOR 5 DAYS 05/18 completed Not Available Not Available Not Available metronidazo le 500 mg tablet TAKE 1 TABLET BY MOUTH TWICE DAILY FOR 7 DAYS 05/18 completed Not Available Not Available Not Available levothyroxi ne 50 mcg tablet TAKE 1 TABLET BY MOUTH DAILY active Not Available Not Available No t Available albuterol sulfate HFA 90 mcg/actuati on aerosol inhaler INHALE 2 PUFFS BY MOUTH EVERY 4 HOURS NEEDED FOR WHEEZING active Not Available Not Available No t Available Vitamin 27 mg iron-0.8 mg tablet TAKE 1 TABLET BY MOUTH EVERY DAY active Not Available Not Available No t Available Lantus Solostar U-100 Insulin 100 unit/mL (3 mL) subcutaneou s pen PRIME NEEDLE WITH 2 UNITS WASTE. INJECT 10 UNITS EVERY MORNING AND 10 UNITS AT BEDTIME INCREASE DIRECTED. MAX 50 UNITS DAILY active Not Available Not Available No t Available TRUEplus Pen Needle 31 gauge x 3/16 USE 1 PEN DIRECTED TWICE DAILY active Not Available Not Available No t Available Gvoke HypoPen 2-Pack 1 mg/0.2 mL subcutaneou s auto-inject or INJ1 MG UNDER THE SKIN NEEDED FOR SEVERE HYPGLYCER KEVEN active Not Available Not Available No t Available Vitals Date Recorded Body weight Body height Body mass index (BMI) Body weight Systolic And Diastolic Systolic And Diastolic Provider Name and Address Organization Details Last Updated DateTime 5 126438. 45108 g 162.56 cm 49.6 kg/m2 378087. 19 g 130/82 mm[Hg] 130/82 mm[Hg] Nilda Kenny [facility] 5 14:32:17 Social History Question Answer Notes LastModified by Organizat ion Details LastModified Time Do You Have An Advance Directive? No [email or web address] Information n ot available 05/21/2025 How Many Years Have You Consumed Alcohol? 10 Information not available 05/21/2025 Are You Blind Or Do You Have Difficulty Seeing? No Information not available 05/21/2025 What Is Your Level Of Caffeine Consumption? Heavy [email or web address] Information not available 05/21/2025 How Much Tobacco Do You Chew? None Information not available 05/21/2025 In The 14 Days Before Symptom Onset, Have You Had Close Contact With A Laboratory-confirme d COVID-19 While That Case Was Ill? No Information n ot available 05/21/2025 In The 14 Days Before Symptom Onset, Have You Had Close Contact With A Person Who Is Under Investigation For COVID-19 While That Person Was Ill? No [email or web address] Information not available 05/21/2025 Have You Been To An Area Known To Be High Risk For COVID-19? No Information not available 05/21/2025 Are You Deaf Or Do You Have Serious Difficulty Hearing? No [email or web address] Information not available 05/21/2025 What Type Of Diet Are You Following? REGULAR [email or web address] Information n ot available 05/21/2025 What Is The Highest Grade Or Level Of School You Have Completed Or The Highest Degree You Have Received? MG82203-7 [email or web address] Information not available 05/21/2025 Are There Any Guns Present In Your Home? No Information not available 05/21/2025 Do You Use Protection During Sex? Usually [email or web address] Information not available 05/21/2025 Do You Use Your Seat Belt Or Car Seat Routinely? Yes Information not available 05/21/2025 Do You Have Smoke And Carbon Monoxide Detectors In Your Home? Yes [email or web address] Information not available 05/21/2025 At What Age Did You Start Smoking Tobacco? 14 [email or web address] Information not available 05/21/2025 How Much Tobacco Do You Smoke? 1 PPD [email or web address] Information not available 05/21/2025 Do You Use Sunscreen Routinely? No [email or web address] Information not available 05/21/2025 How Many Years Have You Smoked Tobacco? 15 Information not available 05/21/2025 Have You Used IV Drugs? No [email or web address] Information not available 05/21/2025 Sex: Unknown Functional Status Question Answer Note LastModified by Organizat ion Details LastModified Time Do you use any illicit or recreational drugs? No [email or web address] Information not available 05/21/2025 What is your level of alcohol consumption? Occasional Information not available 05/21/2025 Are you able to walk independently without assistance or assistive devices? YESWOREST [email or web address] Information not available 05/21/2025 What is your occupation? Na Information not available 05/21/2025 What is your exercise level? Moderate Information not available 05/21/2025 Mental Status Question Answer Note LastModified by Organization D etails LastModified Time Do you feel stressed (tense, restless, nervous, or anxious, or unable to sleep at night)? [id number] [email or web address] Information not available 05/21/2025 Family History Relationship Description Onset Age of this Age Resolved Age Notes LastModified by Organization Details LastModified Time Paternal Grandmother Anxiety disorder [email or web address] Not available 2024 09:42:34 Paternal Grandmother Heart disease [email or web address] Not available 2024 09:42:34 Paternal Grandmother Mental disorder [email or web address] Not available 2024 09:42:34 Paternal Aunt Anxiety disorder [email or web address] Not available 2024 09:42:34 Paternal Aunt Substance abuse Not available 2024 09:42:34 Paternal Aunt Diabetes mellitus [email or web address] Not available 2024 09:42:34 Paternal Aunt Mental disorder [email or web address] Not available 2024 09:42:34 Paternal Uncle Anxiety disorder Not available 2024 09:42:34 Paternal Uncle Substance abuse [email or web address] Not available 2024 09:42:34 Paternal Uncle Diabetes mellitus [email or web address] Not available 2024 09:42:34 Paternal Uncle Mental disorder [email or web address] Not available 2024 09:42:34 Maternal Grandfather Diabetes mellitus [email or web address] Not available 2024 09:42:34 Paternal Grandfather Substance abuse Not available 2024 09:42:34 Paternal Grandfather Diabetes mellitus Not available 2024 09:42:34 Father Anxiety disorder Not available 2024 09:42:34 Father Substance abuse [email or web address] Not available 2024 09:42:34 Father Diabetes mellitus [email or web address] Not available 2024 09:42:34 Father Mental disorder [email or web address] Not available 2024 09:42:34 Medical History Condition [...] ICD10 Code Diagnosis IMO Codes Diagnosis Note [id number] Madiha Hernandez CNM [place] [address],[place] [address] 05/21/2025 09:27:14 05/21/2025 12:08:11 screening 728760562 Z36.85 Gestation period, 30 weeks 07376817 Z3A.30 [id number] Aneudy Shah MD [place] [address],[place] [address] 06/11/2025 15:05:01 06/16/2025 10:16:12 Gestational diabetes mellitus 52496097 O24.419 [id number] Aneudy Shah MD [place] [address],[place] [address] 06/12/2025 10:13:16 06/12/2025 10:59:23 care status 852116966 Z34.83 [id number] Madiha Hernandez CNM [place] [address],[place] [address] 06/18/2025 14:15:02 06/18/2025 15:03:16 Gestational diabetes mellitus 80951159 O24.[id number] [facility] [address] [address] 06/18/2025 14:15:27 06/18/2025 15:10:46 Gestation period, 34 weeks 26716293 Z3A.34 [id number] Pre-eclampsia 754192974 O14.93 [id number] Gestationa l diabetes mellitus 91177384 O24.419 [id number] Health Concerns Section Related Observation LastModified by Organization Detai ls LastModified Time None Recorded Concern Status LastModified by Organization Details LastModified Time None Recorded Payers Encounter Date Sequence Insurance Name Policy Number Policy Jimenez Covered Member ID Jimenez Member ID Guarantor Name 06/18/2025 1 [facility] ON OR AFTER 12/29/20 (MEDICAID REPLACEMENT - HMO) Carla Santos [id number] Carla Santos Notes Date Note Type Note Provider Name and Address Organization Details Recorded Time 06/18/2025 text/html Generic HPI TemplateReported by Patient Madiha Hernandez CNM [address], [place], [address], [facility] 06/18/2025 15:09:12 OBGyn Episode Ob Episode Information Episode Created Date Number of Fetuses Patient Bloodtype Patient rh Status Prepregnancy Weight lbs Domestic Partner Domestic Partner Phone Father Name Pre Sales Technical Engineer Status 05/21/20 25 1 OPEN Fetus Data First Name Last Name Admitted to NICU Weight (g) Sex Living Outcome Pediatric Complications Fetus ID Race Codes Race Delivery Type [id number] Problems Problem Notes 10 point testing on Tuesdays with MFM. Saturday NST with routine OB.AC 98% FM delivery rec 37 wks or sooner with severe features, preeclampsia Problem Name Start Date End Date Resolution Snomed Code Not e Hypertension AND/OR vomiting complicating childbirth AND/OR puerperium 06/09/2025 118992157 PC ratio > 0.3 on 2 occasions Past history of section 05/21/2025 [id number] due to di stress desires TOLAC Obesity caused by energy imbalance 05/21/2025 811032227 bmi 48 Tobacco user 05/21/2025 947598023 1-2 pa cks/day Hypothyroidism 06/09/2025 14110761 50 m cg levothyroxineTSH q4 History of subtotal thyroidectomy 05/21/2025 608750997 no meds mignon shah, will rpt today Gestational diabetes mellitus 05/26/2025 79398692 Checking bs QID , serial growth us - Referral faxed to [facility] Diet teaching 05/26 06/02 - per MM, GDM and insulin to be managed by MF. Pt prescribed lactus 10units BID. Now 12units BID 06/15 Past history of premature delivery 05/21/2025 [id number] x231 weeks PPRO M34 weeks PPROMplan MFM consult Elvis Calculation Initial Elvis Date Initial Exam Date Initial Exam Provider Initial Ultrasound Date Last Menstrual Period Date Ultra Sound Weeks Gestation 05/21/2025 0 Eighteen To Twenty Week Elvis Update [...] Weight in lbs Pre/Post Dialysis Refused Weight 281.047624753665 BP Diastolic BP Location Tested BP Systolic BP Type 84 L arm 140 sitting Fetus Heart Rate Present Fetus Movement A Yes Comments [facility], wants tolac at [place], has not been referred to [facility] will place order today, not currently [...] review with md plan next visit with Flowsheet Date 06/11/2025 Ball Score Blood Edema Fundus Height Fundus Units Glucose Ketones Leukocytes Nitrite Labor Signs Protein Cervic Dilation Cervic Effacement Cervic Station Type Weight in lbs Pre/Post Dialysis Refused BP Diastolic BP Location Tested BP Systolic BP Type Fetus Heart Rate Present Fetus Movement Comments Flowsheet Date 06/12/2025 Ball Score Blood Edema Fundus Height Fundus Units Glucose Ketones Leukocytes Nitrite Labor Signs Protein Cervic Dilation Cervic Effacement Cervic Station Type Weight in lbs Pre/Post Dialysis Refused Weight 285.775091623654 BP Diastolic BP Location Tested BP Systolic BP Type 76 R arm 142 sitting Fetus Heart Rate Present A 149 Fetus Movement A Yes Comments no complaints, no problems, routine care, no contractions, no vaginal bleeding, no loss of fluid, no cramping discussed risks, benefits, and alternatives to TOLAC. Discussed incidence of uterine rupture and . Flowsheet Date 06/18/2025 Ball Score Blood Edema Fundus Height Fundus Units Glucose Ketones Leukocytes Nitrite Labor Signs Protein Cervic Dilation Cervic Effacement Cervic Station Type Weight in lbs Pre/Post Dialysis Refused 289.073086288554 BP Diastolic BP Location Tested BP Systolic BP Type 82 L arm 130 sitting Fetus Heart Rate Present Fetus Movement A Yes Comments Flowsheet Date 06/18/2025 Ball Score Blood Edema Fundus Height Fundus Units Glucose Ketones Leukocytes Nitrite Labor Signs Protein Cervic Dilation Cervic Effacement Cervic Station Type Weight in lbs Pre/Post Dialysis Refused Weight 289.055619682041 BP Diastolic BP Location Tested BP Systolic BP Type 82 L arm 130 sitting Fetus Heart Rate Present Fetus Movement A Yes Comments NST R, plan 37 week delivery await us for growth, pt wants but understands may need c/s will discuss, +FM, education and precautions f/u one week Menstrual History Last Menstrual Date Menses Monthly On Bcp Conception Prior Menses Frequency Hcg Plus Date Menarche Onset Age Genetic Screening And Infection History Question Response Note Mental Retardation/Autism false Patient's Age Will Be 35 Years Or Older At Estim ated Date of Delivery false Thalassemia (Honduran, Occitan, Mediterranean, Or Background): MCV < 80 false Neural Tube Defect (Meningomyelocele, Spina Bifi da, Or Anencephaly) false Congenital Heart Defect false Down Syndrome false Mingo-Sachs (eg, Rastafari, Cajun, Kyrgyz-Ogden) f alse Luis E Disease false Sickle [...]
--- OUTSIDE RECORDS SUMMARY | 2025-06-19 19:24 | XMS_ITS | Encounter Summary ---
Author Organization [facility] Address [address] [place] [id number] Care Team Providers Care Solar Energy Installation Manager Name Role Phone None, Provider Primary Care Provider Ru ron Encounter Details Date Type Department Care Team (Late st Contact Info) Description 05/28/2025 Hospital Encounter [facility] ED Obstetrics [address] [place] [address] Social History Tobacco Use Types Packs/Day Years Used Date Smoking Tobacco: Every Day Cigarettes 0.5 6 Smokeless Tobacco: Never Alcohol Use Standard Drinks/Week Comments Never 0 (1 standard drink = 0.6 oz pur e alcohol) AUDIT-C Answer Date Recorded Frequency of Alcohol Consumption Never 06/05/2018 Average Number of Drinks Not on file 018 Frequency of Binge Drinking Not on file 11/2017 AUDIT-C Answer Date Recorded Q1: How often do you have a drink containing alcohol? Never 05/28/2025 Q2: How many drinks containi ng alcohol do you have on a typical day when you are drinking? Patient does not drink Frequency of Binge Drinking Not on file 05/02 Estimated Date of Delivery Comme nts Yes 07/27/2025 Based on Other B asis Sex and Gender Information Value Date Recorded Sex Assigned at Female 08/06/2019 9:24 PM DRAWING TRACER Legal Sex Female 10:39 PM CDT Gender Identity Female 08/06/2019 9:24 PM DRAWING TRACER Sexual Orientation Straight 08/06/2019 9: 24 PM DRAWING TRACER documented as of this encounter Functional Status * Question Answer Date of Assessment Author Status Q1: How often do you have a drink containing alcohol? Never 05/28/2025 6:20 PM Bri Michel RN Active Q2: How many drinks containing alcohol do you have on a typical day when you are drinking? Patient does not drink 05/28/2025 6:20 PM Bri Michel RN Active * RETIRED Are you deaf or do you have serious difficulty hearing Answer Date of Assessment Author Status No 08/22/2019 5:19 PM DRAWING TRACER Activ e * RETIRED Are you blind or do you have serious difficulty seeing, even when wearing glasses? Answer Date of Assessment Author Status No 08/22/2019 5:19 PM DRAWING TRACER Activ e * Do you have serious difficulty walking or climbing stairs? Answer Date of Assessment Author Status No 08/22/2019 5:19 PM DRAWING TRACER Baylee Farias R N Active * Do you have difficulty dressing or bathing? Answer Date of Assessment Author Status No 08/22/2019 5:19 PM DRAWING TRACER Baylee Farias R N Active * Because of a physical, mental, or emotional condition, do you have difficulty doing errands alone such as visiting a doctor's office or shopping? Answer Date of Assessment Author Status No 08/22/2019 5:19 PM DRAWING TRACER Baylee Farias R N Active * Calculated C-SSRS Risk Score (Lifetime/Recent) Answer Date of Assessment Author Status No Risk Indicated 06/04/2025 9:10 PM Ebony Corley RN Active * [place] Suicide Severity Rating Scale (Screener/Recent Self-Report) Question Answer Date of Assessment Author Status 1. Wish to be (Past 1 Month) No 06/04/2025 9:10 PM Nilda Corley RN A ctive 2. Non-Specific Active Suicidal Thoughts (Past 1 Month) No 06/04/2025 9:10 PM Nilda Corley RN A ctive 6. Suicidal Behavior (Lifetime) No 06/04/2025 9:10 PM Nilda Corley RN A ctive documented as of this encounter Mental Status * Because of a physical, mental, or emotional condition, do you have serious difficulty concentrating, remembering, or making decisions? Answer Entry Date Author Status No 08/22/2019 5:19 PM DRAWING TRACER Baylee Farias R N Active documented in this encounter Plan of Treatment Not on file documented as of this encounter Visit Diagnoses Not on filedocumented in this encounter Care Teams Solar Energy Installation Manager Relationship Specialty Start Date End Date None, Provider, PCP - General UNKNOWN PHYSICIAN SPECIALTY 09/06/22 documented as of this encounter
--- OUTSIDE RECORDS SUMMARY | 2025-06-19 19:24 | XMS_ITS | Clinical Summary ---
Author Organization [facility] Address [facility] [place] [address] Care Team Providers Care Hospital Superintendent Name Role Phone None, Provider MD Primary Care Provider Unavaila ble Allergies Active Allergy Reactions Criticality Noted Date Comments Fish Protein-Containing Drug Products Anaphylaxis High 12/19/2020 Hydrocodone Itching 10/24/2022 Iodine Throat swelling 05/04/2017 Shellfish Protein-Containing Drug Products Anaphylaxis High 12/22/2018 Shrimp/tilapia Medications vitamin, low iron, 27-0.8 mg tablet Take 1 tablet by mouth daily. Active medroxyPROGEST ERone (DEPO-PROVERA) injection INJECT 1 MILLILITER INTRAMUSCULARLY EVERY 3 MONTHS 05/31/20 22 025 Discontin ued(Stop Taking at Discharge ) lidocaine viscous (XYLOCAINE) 2 % solution Take 15 mLs by mouth every 4 (four) hours as needed for Pain. May dilute in 30 CC of water and swish, gargle, and spit. 200 mL 10/25/19 23 025 Discontin ued(Stop Taking at Discharge ) Active Problems Problem Noted Date Diagnosed Date High grade squamous intraepi thelial lesion (HGSIL), grade 3 HAN, on biopsy of cervix 09/06/2022 S/P LEEP 09/06/2022 Estimated Date of Delivery Comme nts Yes 07/27/2025 Based on Other B asis Resolved Problems Problem Noted Date Diagnosed Date Resolved Date uterine contractions , antepartum, third trimester 08/23/2019 08/23/2019 Other closed extra-articular fracture of distal end of left radius, initial encounter 12/23/2018 08/23/2019 Encounters Date Type Department Care Team Description 06/04/2025 8:35 PM CLINICAL SUPPORT ASSOCIATE - 06/04/2025 9:48 PM CLINICAL SUPPORT ASSOCIATE Emergency [facility] [place] [address] Mati Salas MD (Possible SROM and Ctx every 10 minutes) Discharge Disposition: Home or Self Care (Routine Discharge) 06/04/2025 Travel 05/28/2025 5:48 PM CLINICAL SUPPORT ASSOCIATE - 05/28/2025 9:25 PM CLINICAL SUPPORT ASSOCIATE Emergency [facility] [place] [address] Sofia Cannon DO (Abdominal pain) Discharge Disposition: Home or Self Care (Routine Discharge) 05/28/2025 Hospital Encounter [facility] [place] [address] 05/28/2025 Travel from Last 3 Months Family History Medical History Relation Comments Diabetes Maternal Grandmother Relation Status Comments Maternal Grandmother Mother Alive Social History Tobacco Use Types Packs/Day Years Used Date Smoking Tobacco: Every Day Cigarettes 0.5 6 Smokeless Tobacco: Never Tobacco Cessation:Ready to Q uit: No Alcohol Use Standard Drinks/Week Comments Never 0 [...] Sex Assigned at Female 08/06/2019 9:24 PM CLINICAL SUPPORT ASSOCIATE Legal Sex Female 10:39 PM CDT Gender Identity Female 08/06/2019 9:24 PM CLINICAL SUPPORT ASSOCIATE Sexual Orientation Straight 08/06/2019 9: 24 PM CLINICAL SUPPORT ASSOCIATE Last Filed Vital Signs Vital Sign Reading Time Taken Comments Blood Pressure 124/67 06/04/2025 9:05 PM CLINICAL SUPPORT ASSOCIATE Pulse 106 06/04/2025 9:40 PM CLINICAL SUPPORT ASSOCIATE Temperature 36.8 C (98.3 F) 06/04/2025 9:15 PM CLINICAL SUPPORT ASSOCIATE Respiratory Rate 20 06/04/2025 9:15 PM CLINICAL SUPPORT ASSOCIATE Oxygen Saturation 97% 06/04/2025 9:30 PM CLINICAL SUPPORT ASSOCIATE Inhaled Oxygen Concentration - - Weight 104.3 kg (230 lb) 07/28/2024 10:19 PM CLINICAL SUPPORT ASSOCIATE Height 162.6 cm (5' 4) 07/28/2024 10:19 PM CLINICAL SUPPORT ASSOCIATE Body Mass Index 39.48 07/28/2024 10:19 PM CLINICAL SUPPORT ASSOCIATE Plan of Treatment Health Maintenance Due Date Last Done Comments Annual Physical 1996 HPV Vaccines (2 - 2-dose series) 07/14/2008 01/12/2008 Hepatitis C 11/10/2011 Hepatitis B Vaccines (1 of 3 - 19+ 3-dose series) 2012 Pneumococcal Vaccine: Pediatrics (0 to 5 Years) and At-Risk Patients (6 to 49 Years) (1 of 2 - PCV) 2012 Cervical Cancer Screening Pa p with HPV Testing (Age 30 to 64) Every 5 Years 11/10/2023 COVID-19 Vaccine (1 - 2024-2 6 season) 2025 Influenza Adult (#1) 2025 RSV Immunization or 60+ Years (1 - Risk 1-dose series) 06/01/2025 Cervical Cancer Screening Pa p Smear (Age 30 to 64) Every 3 Years 05/21/2028 05/21/2025 Cervical Cancer Screening wi th HPV 05/21/2028 DTaP, Tdap and Td Vaccines ( 4 - Td or Tdap) 04/04/2031 04/04/2021, 01/19/1999, 05/04/1997 Meningococcal Vaccine Aged Out 01/12/2008 No mónica [...] this topic Medical Devices Implanted Type Area Wound Care Rn Device Identifier Shelf Expiration Date Model / Serial / Lot Plate Synthes 2.4 Va-Lcp Vlr Dist Radius 6h Hd/2h Shaft Left - [id number] Implanted:Qty: 1 on 12/23/2018 by Jose Antonio Bhatt MD at [facility] Left: Radius SYNTHES [id number] / / Description:6 HOLE VA DISTAL RADIUS PLATE Screw Synthes 2.4 Cortical Self Tap 14mm - [id number] Implanted:Qty: 2 on 12/23/2018 by Jose Antonio Bhatt MD at [facility] Left: Radius SYNTHES [id number] / / Screw Synthes 2.4 Locking Stardrive 16mm - [id number] Implanted:Qty: 4 on 12/23/2018 by Jose Antonio Bhatt MD at [facility] Left: Radius SYNTHES [id number] / / Screw Synthes 2.4 Locking Stardrive 18mm - [id number] Implanted:Qty: 1 on 12/23/2018 by Jose Antonio Bhatt MD at [facility] Left: Radius SYNTHES [id number] / / Explanted Type Area Wound Care Rn Device Identifier Shelf Expiration Date Model / Serial / Lot Wire Synthes 1.25mm Wes W/Trocar Point 150mm - [id number] Explanted:Qty: 1 on 12/23/2018 by Jose Antonio Bhatt MD at [facility] Left: Radius SYNTHES [id number] / / Procedures Procedure Name Priority Date/Time Associated Diagnosis Comments URINALYSIS STAT 06/04/2025 9:20 PM CLINICAL SUPPORT ASSOCIATE NONSTRESS TEST STAT 06/04/2025 9:11 PM CLINICAL SUPPORT ASSOCIATE PLACENTAL ALPHA MICROGLOBULIN-1 Routine 06/04/2025 8:50 PM CLINICAL SUPPORT ASSOCIATE COMPREHENSIVE METABOLIC PANEL STAT 05/28/2025 7:25 PM CLINICAL SUPPORT ASSOCIATE HC CBC W/O DIFF STAT 05/28/2025 7:25 PM CLINICAL SUPPORT ASSOCIATE PROTEIN CREAT RATIO URINE STAT 05/28/2025 6:15 PM CLINICAL SUPPORT ASSOCIATE from Last 3 Months Results * URINALYSIS (06/04/2025 9:20 PM CLINICAL SUPPORT ASSOCIATE) SPECIMEN TYPE URINE CLEAN CATCH 06/04/2025 9:20 PM CLINICAL SUPPORT ASSOCIATE [facility] COLOR (U) LIGHT YELLOW 06/04/2025 9:31 PM CLINICAL SUPPORT ASSOCIATE [facility] TRANSPARENCY TURBID 06/04/2025 9:31 PM [facility] SPECIFIC GRAVITY (U) 1.009 1.001 - 1.030 06/04/2025 9:31 PM CLINICAL SUPPORT ASSOCIATE [facility] U PH 7.0 5.0 - 9.0 06/04/2025 9:31 PM CLINICAL SUPPORT ASSOCIATE [facility] LEUKOCYTES (U) NEGATIVE NEGATIVE 06/04/2025 9:31 PM [facility] NITRITES NEGATIVE NEGATIVE 06/04/2025 9:31 PM [facility] PROTEIN RANDOM (U) NEGATIVE <30 MG/DL 06/04/2025 9:31 PM [facility] GLUCOSE (U) NORMAL NORMAL MG/DL 06/04/2025 9:31 PM [facility] KETONES MG/DL (U) NEGATIVE NEGATIVE MG/DL 06/04/2025 9:31 PM [facility] UROBILINOGEN NORMAL NORMAL MG/DL 06/04/2025 9:31 PM [facility] BILIRUBIN (U) NEGATIVE NEGATIVE MG/DL 06/04/2025 9:31 PM [facility] BLOOD (U) NEGATIVE NEGATIVE 06/04/2025 9:31 PM CLINICAL SUPPORT ASSOCIATE [facility] URINE URINE SPECIMEN OBTAINED BY CLEAN CATCH PROCEDURE / Unknown 06/04/2025 9:20 PM CLINICAL SUPPORT ASSOCIATE us Mati Salas MD URINE ORDERABLES Final Result [facility] [address] [place] [address], * PLACENTAL ALPHA MICROGLOBULIN-1 (06/04/2025 8:50 PM CLINICAL SUPPORT ASSOCIATE) lot number [id number] KIT EXPIRATION DATE 2027-10-15 Internal Control: VALID VALID RUPTURE OF MEMBRANES Negative NEGATIVE VAGINAL FLUID VAGINAL STRUCTURE / Unknown 06/04/2025 8:50 PM CLINICAL SUPPORT ASSOCIATE us Mati Salas MD BODY FLUIDS AND STOOLS ORDERABLE S Final Result * (ABNORMAL) COMPREHENSIVE METABOLIC PANEL (05/28/2025 7:25 PM CLINICAL SUPPORT ASSOCIATE) GLUCOSE 87 70 - 99 MG/DL 05/28/2025 8:10 PM CLINICAL SUPPORT ASSOCIATE [facility] BUN 3(L) 7 - 18 MG/DL 05/28/2025 8:10 PM [facility] CREATININE S/P/B 0.44(L) 0.55 - 1.02 MG/DL 05/28/2025 8:10 PM CLINICAL SUPPORT ASSOCIATE [facility] SODIUM S/P/B 139 136 - 145 MMOL/L 05/28/2025 8:10 PM CLINICAL SUPPORT ASSOCIATE [facility] POTASSIUM S/P/B 3.7 3.5 - 5.1 MMOL/L 05/28/2025 8:10 PM [facility] CHLORIDE S/P/B 109 97 - 115 MMOL/L 05/28/2025 8:10 PM [facility] CO2 22.8 21 - 32 MMOL/L 05/28/2025 8:10 PM [facility] CALCIUM S/P/B 9.0 8.5 - 10.1 MG/DL 05/28/2025 8:10 PM [facility] BILIRUBIN TOTAL S/P/B 0.2 0.2 - 1.2 MG/DL 05/28/2025 8:10 PM [facility] Comment: THIS ASSAY IS NOT RECOMMENDED FOR PATIENTS UNDERGOING TREATMENT WITH ELTROMBOPAG DUE TO THE POTENTIAL FOR FALSELY ELEVATED RESULTS. TOTAL PROTEIN S/P/B 6.8 6.4 - 8.2 G/DL 05/28/2025 8:10 PM [facility] ALBUMIN S/P/B 2.4(L) 3.4 - 5.0 G/DL 05/28/2025 8:10 PM [facility] AST 9(L) 15 - 37 U/L 05/28/2025 8:10 PM [facility] ALT 16 14 - 55 U/L 05/28/2025 8:10 PM [facility] ALKALINE PHOSPHATASE S/P/B 174(H) 50 - 136 U/L 05/28/2025 8:10 PM [facility] ANION GAP 7.2 2 - 10 MMOL/L 05/28/2025 8:10 PM [facility] BUN CREATININE RATIO 6.9 6 - 26 05/28/2025 8:10 PM [facility] A/G RATIO 0.5(L) 1.0 - 2.0 RATIO 05/28/2025 8:10 PM [facility] GFR ESTIMATE >90 >90 ML/MIN/1.7 3 M2 05/28/2025 8:10 PM [facility] Comment: NOTE: eGFR is not calculated for patients <18 years of age or gender unknown. This is an estimated GFR calculation using the new CKD EPI creatinine equation without race and so does not require a correction factor for race. This estimated GFR should not be used for calculating drug doses. BLOOD VENOUS BLOOD SPECIMEN / Unknown 05/28/2025 7:25 PM CLINICAL SUPPORT ASSOCIATE us Sofia Sudeep Davis DO LABORATORY Final Resu lt [facility] [address] [place] [address], * (ABNORMAL) CBC, AUTO, NO DIFF (05/28/2025 7:25 PM CLINICAL SUPPORT ASSOCIATE) WBC 14.84(H) 4.5 - 11.0 x10'3/uL 05/28/2025 7:48 PM CLINICAL SUPPORT ASSOCIATE [facility] RBC 4.37 4.20 - 5.40 x10'6/uL 05/28/2025 7:48 PM CLINICAL SUPPORT ASSOCIATE [facility] HGB 12.7 12.0 - 16.0 G/DL 05/28/2025 7:48 PM CLINICAL SUPPORT ASSOCIATE [facility] HCT 37.5(L) 38.0 - 48.0 % 05/28/2025 7:48 PM CLINICAL SUPPORT ASSOCIATE [facility] MCV 85.8 81.0 - 99.0 FL 05/28/2025 7:48 PM CLINICAL SUPPORT ASSOCIATE [facility] MCH 29.1 27.0 - 31.0 PG 05/28/2025 7:48 PM CLINICAL SUPPORT ASSOCIATE [facility] MCHC 33.9 32.0 - 36.0 G/DL 05/28/2025 7:48 PM CLINICAL SUPPORT ASSOCIATE [facility] RDW 13.9 11.5 - 14.5 % 05/28/2025 7:48 PM CLINICAL SUPPORT ASSOCIATE [facility] PLT 278 130 - 400 x10'3/uL 05/28/2025 7:48 PM CLINICAL SUPPORT ASSOCIATE [facility] MPV 11.0 9.3 - 12.2 FL 05/28/2025 7:48 PM [facility] BLOOD VENOUS BLOOD SPECIMEN / Unknown 05/28/2025 7:25 PM CLINICAL SUPPORT ASSOCIATE Sofia E Portale DO LABORATORY Final Resu lt Performing Organization Address City/[facility]/ZIP Co de Phone Number [facility] [address] [place] [address], [place] [phone] * (ABNORMAL) PROTEIN CREAT RATIO URINE (05/28/2025 6:15 PM CLINICAL SUPPORT ASSOCIATE) PROTEIN URINE TOTAL RANDOM 6.6 <10 MG/DL 05/28/2025 8:00 PM [facility] CREATININE (U) 14.5(L) 28 - 217 MG/DL 05/28/2025 8:00 PM [facility] PROTEIN/CREATIN INE RATIO 0.5 05/28/2025 8:00 PM [facility] URINE URINE SPECIMEN OBTAINED BY CLEAN CATCH PROCEDURE / Unknown 05/28/2025 6:15 PM CLINICAL SUPPORT ASSOCIATE Sofia E Portale DO URINE ORDERABLES Final Res ult Performing Organization Address City/[facility] Co de Phone Number [facility] [address] [place] [address], [place] [phone] from Last [address] [place] [address] [place] Advance Directives * Full Code (Latest Code Status on File) Date Activated Date Inactivated Comments 08/22/2019 12:41 PM 08/23/2019 8:39 AM Care Teams Hospital Superintendent Relationship Specialty Start Date End Date None, Provider, PCP - General UNKNOWN PHYSICIAN SPECIALTY 09/06/22
--- OUTSIDE RECORDS SUMMARY | 2025-06-19 19:24 | XMS_ITS | Continuity of Care Document ---
Author Organization [facility] Address [address] [place] [address] Assessment Encounter Date Assessment Date Assessment LastModified by Organization Details LastModified Time 06/12/2025 06/12/2025 Patient is ___weeks . Discussed plan. [email or web address] Not available 06/12/2025 10:14:21 Plan of Treatment Reminders Order Date Submit [...] with clini raman findi ngs. Not Available [facility] (Lab) [address], [place], [address], 05/22/2025 05:43:58 05/21/20 25 05/21/2025 TSH, REFLE X FREE T4 TSH 0.23 uIU/m L 0.30-5 [address] [facility] (Lab) [address], [place], [address], 05/22/2025 05:43:59 05/21/20 25 05/21/2025 CT/GC AND TRICH OMONA S VAGIN PHILLIP (RRNA ), URINE chlamydia trachomatis, PCR Negati ve negati ve Not Available [facility] (Lab) [address], [place], [address], 05/23/2025 13:31:28 05/21/20 25 05/21/2025 CT/GC AND TRICH OMONA S VAGIN PHILLIP (RRNA ), URINE neisseria gonorrhoeae, PCR Negati ve negati ve Not Available [facility] (Lab) [address] [place], [address], 05/23/2025 13:31:28 05/21/20 25 05/21/2025 CT/GC AND TRICH OMONA S VAGIN PHILLIP (RRNA ), URINE trichomonas vaginalis ribosomal RNA (rrna) Negati ve negati ve 49_CL _SOUR CETVG : Urine - Bladd er Not Available [facility] (Lab) [address], [place], [address], 05/23/2025 13:31:28 05/21/20 25 05/21/2025 CULTU RE: URINE result report SEE RESULT S BELOW Test: Cultu re: Urine Speci men Sourc e: Urine Voide d Speci men Type: Urine Speci men Date: 05/21 1051 Resul t Date: 05/23 1227 Resul t Statu s: Final resul t Abnor mal: No Resul ting Lab: [facility] [address] [facility] [address] Tel: CULTU RE ----- ----- ----- --- Organ ism(s ) consi stent with uroge nital or skin kavitha . Repea t cultu re if sympt oms indic ate. Not Available [facility] (Lab) [address], [place], [address], 05/23/2025 13:31:28 05/21/20 25 05/21/2025 drug scree n, urine Amphetamines : negati ve Not Available [facility] [address], [place], [address], 05/21/2025 11:45:28 05/21/20 25 05/21/2025 drug scree n, urine Cannabinoids : negati ve Not Available [facility] [address], [place], [address], 05/21/2025 11:45:28 05/21/20 25 05/21/2025 drug scree n, urine Cocaine: negati ve Not Available [facility] [address], [place], [address], 05/21/2025 11:45:28 05/21/20 25 05/21/2025 drug scree n, urine Opiates: negati ve Not Available [facility] [address], [place], [address], 05/21/2025 11:45:28 05/21/20 25 05/21/2025 drug scree n, urine Phenocyclidi ne: negati ve Not Available [facility] [address], [place], [address], 05/21/2025 11:45:28 05/21/20 25 05/21/2025 drug scree n, urine Barbiturates : negati ve Not Available [facility] [address], [place], [address], 05/21/2025 11:45:28 05/21/20 25 05/21/2025 drug scree n, urine Benzodiazepi tariq: negati ve Not Available [facility] [address], [place], [address], 05/21/2025 11:45:28 05/24/20 25 05/24/2025 CBC W/DIF F WBC 14.8 10'3/ uL 3.5-10 [address] [facility] (Lab) [address] , [place], [address], 05/25/2025 05:01:23 05/24/20 25 05/24/2025 CBC W/DIF F RBC 4.11 10'6/ uL (based on docume nted legal sex) 3.80-[address] [facility] (Lab) [address] , [place], [address], 05/25/2025 05:01:23 05/24/20 25 05/24/2025 CBC W/DIF F HGB 11.6 g/dL (based on docume nted legal sex) 11.6-[address] [facility] (Lab) [address] , [place], [address], 05/25/2025 05:01:23 05/24/20 25 05/24/2025 CBC W/DIF F HCT 36.8 % (based on docume nted legal sex) 34.0-[address] [facility] (Lab) [address] [place], [address], 05/25/2025 05:01:23 05/24/20 05/24/2025 CBC W/DIF F MCV 89.5 fL 80.0-[address] [facility] (Lab) [address], [place], [address], 05/25/2025 05:01:23 05/24/20 25 05/24/2025 CBC W/DIF F MCH 28.2 pg 27.0-[address] [facility] (Lab) [address], [place], [address], 05/25/2025 05:01:23 05/24/20 25 05/24/2025 CBC W/DIF F MCHC 31.5 g/dL 32.0-3 [address] [facility] (Lab) [address], [place], [address], 05/25/2025 05:01:23 05/24/20 25 05/24/2025 CBC W/DIF F RDW 14.6 % 11.0-[address] [facility] (Lab) [address], [place], [address], 05/25/2025 05:01:23 05/24/20 25 05/24/2025 CBC W/DIF F plt 295 10'3/ uL 150-[address] [facility] (Lab) [address], [place], [address], 05/25/2025 05:01:23 05/24/20 25 05/24/2025 CBC W/DIF F MPV 11.1 fL 8.8-[address] [facility] (Lab) [address], [place], [address], 05/25/2025 05:01:23 05/24/20 25 05/24/2025 CBC W/DIF F NRBC's 0.0 % 0.[address] [facility] (Lab) [address], [place], [address], 05/25/2025 05:01:23 05/24/20 25 05/24/2025 CBC W/DIF F absolute NRBCs 0.0 10'3/ uL no refere nce range establ ished Not Available [facility] (Lab) [address], [place], [address], 05/25/2025 05:01:23 05/24/20 25 05/24/2025 CBC W/DIF F neutrophils 78.7 % 34.0-7 3[address] [facility] (Lab) [address] [place], [address], 05/25/2025 05:01:23 05/24/20 25 05/24/2025 CBC W/DIF F lymphocytes 14.8 % 15.0-5 0[address] [facility] (Lab) [address] [place], [address], 05/25/2025 05:01:23 05/24/20 25 05/24/2025 CBC W/DIF F monocytes 4.6 % 1.0-[address] [facility] (Lab) [address], [place], [address], 05/25/2025 05:01:23 05/24/20 25 05/24/2025 CBC W/DIF F eosinophils 1.2 % 0.0-8. [address] [facility] (Lab) [address] [place], [address], 05/25/2025 05:01:23 05/24/20 25 05/24/2025 CBC W/DIF F basophils 0.2 % 0.0-2. [address] [facility] (Lab) [address] [place], [address], 05/25/2025 05:01:23 05/24/20 25 05/24/2025 CBC W/DIF [...] separ ately if prese nt. Not Available [facility] (Lab) [address] , [place], [address], 05/25/2025 05:01:23 05/24/20 25 05/24/2025 CBC W/DIF F absolute neutrophils 11.6 10'3/ uL 1.5-8. [address] [facility] (Lab) [address], [place], [address], 05/25/2025 05:01:23 05/24/20 25 05/24/2025 CBC W/DIF F absolute lymphocytes 2.2 10'3/ uL 1.0-4. [address] [facility] (Lab) [address], [place], [address], 05/25/2025 05:01:23 05/24/20 25 05/24/2025 CBC W/DIF F absolute monocytes 0.7 10'3/ uL 0.2-1. [address] [facility] (Lab) [address], [place], [address], 05/25/2025 05:01:23 05/24/20 25 05/24/2025 CBC W/DIF F absolute eosinophils 0.2 10'3/ uL 0.0-0. [address] [facility] (Lab) [address] [place], [address], 05/25/2025 05:01:23 05/24/20 25 05/24/2025 CBC W/DIF F absolute basophils 0.0 10'3/ uL 0.0-0. [address] [facility] (Lab) [address] [place], [address], 05/25/2025 05:01:23 05/24/20 25 05/24/2025 CBC W/DIF [...] hui book. nm.or g/gen derx Not Available [facility] (Lab) [address], [place], [address], 05/25/2025 05:01:23 05/24/20 25 05/24/2025 GTT - GESTA DINORAH L, 3 HOUR, ACOG glucose, fasting acog 79 mg/dL 70-94 Not Available [facility] (Lab) [address] [place], [address], 05/25/2025 05:01:24 05/24/20 25 05/24/2025 GTT - GESTA DINORAH L, 3 HOUR, ACOG glucose, 1 hour acog 221 mg/dL 70-179 high Not Available [facility] (Lab) [address] [place], [address], 05/25/2025 05:01:24 05/24/20 25 05/24/2025 GTT - GESTA DINORAH L, 3 HOUR, ACOG glucose, 2 hour acog 165 mg/dL 70-154 high Not Available [facility] (Lab) [address] [place], [address], 05/25/2025 05:01:24 05/24/20 25 05/24/2025 GTT - GESTA DINORAH L, 3 HOUR, ACOG glucose, 3 hour acog 75 mg/dL 70-139 Not Available [facility] (Lab) [address] [place], [address], 05/25/2025 05:01:24 05/24/20 25 05/24/2025 CMP(C OMPRE HENSI VE METAB OLIC PANEL ) sodium 139 mmol/ L 133-[address] [facility] (Lab) [address], [place], [address], 05/25/2025 05:01:25 05/24/20 25 05/24/2025 CMP(C OMPRE HENSI VE METAB OLIC PANEL ) potassium 4.1 mmol/ L 3.5-5. [address] [facility] (Lab) [address] [place], [address], 05/25/2025 05:01:25 05/24/20 25 05/24/2025 CMP(C OMPRE HENSI VE METAB OLIC PANEL ) chloride 103 mmol/ L 98-[address] [facility] (Lab) [address] [place], [address], 05/25/2025 05:01:25 05/24/20 25 05/24/2025 CMP(C OMPRE HENSI VE METAB OLIC PANEL ) carbon dioxide 25 mmol/ L 21-[address] [facility] (Lab) [address] [place], [address], 05/25/2025 05:01:25 05/24/20 25 05/24/2025 CMP(C OMPRE HENSI VE METAB OLIC PANEL ) anion gap 11 mmol/ L 4-[address] [facility] (Lab) [address] [place], [address], 05/25/2025 05:01:25 05/24/20 25 05/24/2025 CMP(C OMPRE HENSI VE METAB OLIC PANEL ) blood urea nitrogen 3 mg/dL 7-25 low Not Available [facility] (Lab) [address] [place], [address], 05/25/2025 05:01:25 05/24/20 25 05/24/2025 CMP(C OMPRE HENSI VE METAB OLIC PANEL ) creatinine 0.49 mg/dL 0.60-1 [address] [facility] (Lab) [address], [place], [address], 05/25/2025 05:01:25 05/24/20 25 05/24/2025 CMP(C OMPRE HENSI VE METAB OLIC PANEL ) egfrcr (CKD-epi 2020) >90 mL/mi n/1.7 3_m2 >=[address] [facility] (Lab) [address], [place], [address], 05/25/2025 05:01:25 05/24/20 25 05/24/2025 CMP(C OMPRE HENSI VE METAB OLIC PANEL ) calcium 8.5 mg/dL 8.3-[address] [facility] (Lab) [address], [place], [address], 05/25/2025 05:01:25 05/24/20 25 05/24/2025 CMP(C OMPRE HENSI VE METAB OLIC PANEL ) glucose 219 mg/dL 70-[address] [facility] (Lab) [address] [place], [address], 05/25/2025 05:01:25 05/24/20 25 05/24/2025 CMP(C OMPRE HENSI VE METAB OLIC PANEL ) protein, total 5.6 g/dL 6.4-8. [address] [facility] (Lab) [address] [place], [address], 05/25/2025 05:01:25 05/24/20 25 05/24/2025 CMP(C OMPRE HENSI VE METAB OLIC PANEL ) albumin 2.9 g/dL 3.5-5. [address] [facility] (Lab) [address] [place], [address], 05/25/2025 05:01:25 05/24/20 25 05/24/2025 CMP(C OMPRE HENSI VE METAB OLIC PANEL ) ALT 9 units /L 9-[address] [facility] (Lab) [address] [place], [address], 05/25/2025 05:01:25 05/24/20 25 05/24/2025 CMP(C OMPRE HENSI VE METAB OLIC PANEL ) alkaline phosphatase 158 units /L 34-[address] [facility] (Lab) [address] [place], [address], 05/25/2025 05:01:25 05/24/20 25 05/24/2025 CMP(C OMPRE HENSI VE METAB OLIC PANEL ) AST 9 units /L 13-[address] [facility] (Lab) [address] [place], [address], 05/25/2025 05:01:25 05/24/20 25 05/24/2025 CMP(C OMPRE HENSI VE METAB OLIC PANEL ) bilirubin, total 0.2 mg/dL 0.2-1. [address] [facility] (Lab) [address] [place], [address], 05/25/2025 05:01:25 05/24/20 25 05/24/2025 URIC ACID uric acid 2.7 mg/dL 2.3-6. [address] [facility] (Lab) [address] [place], [address], 05/25/2025 05:01:25 05/24/20 25 05/24/2025 T4 FREE T4, free 0.44 NG/dL 0.54-1 .24 low This assay is susce ptibl e to inter feren ce from high level s of bioti n which may false ly eleva te resul ts. Pleas e corre late with clini raman findi ngs. Not Available [facility] (Lab) [address] [place], [address], 05/25/2025 05:01:26 05/24/20 25 05/24/2025 TSH, REFLE X FREE T4 TSH 0.17 uIU/m L 0.30-5 .[address] [facility] (Lab) [address] [facility] [address], [place], [address], 05/25/2025 05:01:26 05/24/20 25 05/24/2025 PROTE IN/CR EATIN INE RATIO , URINE creatinine, urine 19.5 mg/dL R-No refer ence range estab lishe d for this assay Not Available [facility] (Lab) [address] [facility] [address], [place], [address], 05/25/2025 05:27:48 05/24/20 25 05/24/2025 PROTE IN/CR EATIN INE RATIO , URINE protein, urine <4 mg/dL R-No refer ence range estab lishe d for this assay Not Available [facility] (Lab) [address], [place], [address], 05/25/2025 05:27:48 05/24/20 25 05/24/2025 PROTE IN/CR [...] fican t prote inuri a. Not Available [facility] (Lab) [address] [facility] [address], [place], [address], 05/25/2025 05:27:48 06/03/20 25 06/02/2025 US, obste tric, follo w-up No observ ation record ed. [email or web address] [place] [address] [facility] [address] [place] [address], [address], 06/04/2025 13:20:41 06/10/20 25 06/08/2025 US, obste tric, mater nal evalu ation + anato my No observ ation record ed. [email or web address] [facility] [address] [facility] [address], [place], [address], 06/11/2025 12:09:41 06/15/20 25 06/15/2025 non-s tress test No observ ation record ed. [email or web address] [facility] [address], [place], [address], 06/16/2025 11:16:30 06/15/20 25 06/11/2025 non-s tress test No observ ation record ed. [email or web address] Not Available 2024 15:28:53 06/16/20 25 06/15/2025 US, obste tric, follo w-up No observ ation record ed. [email or web address] [facility] [address] [facility], [place], [address], 06/16/2025 12:26:43 06/18/20 25 06/18/2025 non-s tress test No observ ation record ed. [email or web address] [facility] [address], [place], [address], 06/18/2025 17:45:42 06/18/20 non-s tress test No observ ation record ed. [email or web address] [place] [address], [place], [address], 06/18/2025 15:05:39 Result Notes None recorded. Problems Name Problem SNOMED Code Status Onset Date Resolution Date Notes Provider Name and Address Organization Details Recorded Time 39642711 Active 2024 Annalee washington [facility] 10:03:53 Past history of premature delivery 742760743 Active 2024 x2 31 weeks PPROM 34 weeks PPROM plan MFM consult Madiha Hernandez CNM [address], [place], [address], [facility] 5 12:01:52 Obesity caused by energy imbalance 262431018 Active 2024 bmi 48 Madiha Hernandez CNM [address], [place], [address], [facility] 5 11:58:27 Past history of premature delivery 273223738 Active 2024 x2 31 weeks PPROM 34 weeks PPROM plan MFM consult Madiha Hernandez CNM [address], [place], [address], [facility] 5 12:01:52 Past history of section 730054791 Active 2024 due to distress desires TOLAC Madiha Hernandez CNM [address], [place], [address], [facility] 5 12:02:17 Tobacco user 281913223 Active 2024 1-2 packs/day Madiha Hernandez CNM [address], [place], [address], [facility] 5 12:02:31 History of subtotal thyroidec kyler 388027508 Active 2024 no meds currently , will rpt today Madiha Hernandez CNM [address], [place], [address], [facility] 5 12:02:49 Gestation al diabetes mellitus 92503938 Active 2024 Checking bs QID, serial growth us - Referral faxed to [facility] Diet teaching 05/26 06/02 - per MM, GDM and insulin to be managed by MFM. Pt prescribe d lactus 10units BID. Now 12units BID 06/15 Rebeca washington, [facility] 5 12:19:36 Hypertens ion AND/OR vomiting complicat ing childbirt h AND/OR puerperiu m 845513882 Active 2024 PC ratio >0.3 on 2 occasions Rebeca Weinstein [facility] 11:28:10 Hypothyro idism 56487899 Active 2024 50 mcg levothyro xine TSH q4 Rebeca Weinstein [facility] 11:31:02 Problem Notes None recorded. Procedures Surgical History Date Name Laterality Status Provider Name and Address Organization Details Recorded Time Caesarean Section completed [facility] 05/21/2025 09:42:35 Thyroid Surgery completed [facility] 05/21/2025 09:42:35 procedure on wrist completed [facility] 05/21/2025 10:35:26 Imaging Results None recorded. Procedure Notes None recorded. Medical Equipment None Reported. Allergies Allergen ID Allergen Name Allergen Category Reaction Reaction Severity Criticality Documentation Date Start Date Code Code System Note Provider Name and Address Organization Details Recorded Time 63931 hydrocodo ne Not available itching Not available Not available 05/21/20252022 5489 RxNorm Not Available joycelyn - External Data Service - prod 5 03:03:44 07830 iodine medicatio n Not available Not available Not available 05/21/20252016 5933 RxNorm unrec ogniz ed react ion (text : Iker briceno ing, code: 25258 000) (from exter nal sourc e) Not Available [employer] External Data Service - prod 5 03:03:44 20572 Fish (substanc e) food,medi cation other severe Not available 05/21/2025 06009 100[address] Domi [facility] 09:42:34 38005 Shellfish (substanc e) food,medi cation anaphylax is Not available high 05/21/20252020 15652 9006 SNOMED Not Available [facility] - External Data Service - prod 03:04:05 Medications Name [...] and Address Organization Details Last Updated DateTime 06/12/2025 162.56 cm 49 kg/m2 962798.54 g 142/76 mm[Hg] Manisha Warren [facility] 06/12/2025 10:17:52 Social History Question Answer Notes LastModified by Organizat ion Details LastModified Time Do You Have An Advance Directive? No Information n ot available 05/21/2025 How Many Years Have You Consumed Alcohol? 10 [email or web address] Information not available 05/21/2025 Are You Blind Or Do You Have Difficulty Seeing? No Information not available 05/21/2025 What Is Your Level Of Caffeine Consumption? Heavy [email or web address] Information not available 05/21/2025 How Much Tobacco Do You Chew? None Information not available 05/21/2025 In The 14 Days Before Symptom Onset, Have You Had Close Contact With A Laboratory-confirme d COVID-19 While That Case Was Ill? No [email or web address] Information n ot available 05/21/2025 In The 14 Days Before Symptom Onset, Have You Had Close Contact With A Person Who Is Under Investigation For COVID-19 While That Person Was Ill? No [email or web address] Information not available 05/21/2025 Have You Been To An Area Known To Be High Risk For COVID-19? No Information not available 05/21/2025 Are You Deaf Or Do You Have Serious Difficulty Hearing? No [email or web address] Information not available 05/21/2025 What Type Of Diet Are You Following? REGULAR Information n ot available 05/21/2025 What Is The Highest Grade Or Level Of School You Have Completed Or The Highest Degree You Have Received? AV17786-7 [email or web address] Information not available 05/21/2025 Are There Any Guns Present In Your Home? No [email or web address] Information not available 05/21/2025 Do You Use Protection During Sex? Usually [email or web address] Information not available 05/21/2025 Do You Use Your Seat Belt Or Car Seat Routinely? Yes Information not available 05/21/2025 Do You Have Smoke And Carbon Monoxide Detectors In Your Home? Yes [email or web address] Information not available 05/21/2025 At What Age Did You Start Smoking Tobacco? 14 [email or web address] Information not available 05/21/2025 How Much Tobacco Do You Smoke? 1 PPD [email or web address] Information not available 05/21/2025 Do You Use Sunscreen Routinely? No [email or web address] Information not available 05/21/2025 How Many Years Have You Smoked Tobacco? 15 [email or web address] Information not available 05/21/2025 Have You Used IV Drugs? No [email or web address] Information not available 05/21/2025 Sex: Unknown Functional Status Question Answer Note LastModified by Organizat ion Details LastModified Time Do you use any illicit or recreational drugs? No [email or web address] Information not available 05/21/2025 What is your level of alcohol consumption? Occasional [email or web address] Information not available 05/21/2025 Are you able to walk independently without assistance or assistive devices? [email or web address] Information not available 05/21/2025 What is your occupation? Na [email or web address] Information not available 05/21/2025 What is your exercise level? Moderate Information not available 05/21/2025 Mental Status Question Answer Note LastModified by Organization D etails LastModified Time Do you feel stressed (tense, restless, nervous, or anxious, or unable to sleep at night)? [id number] [email or web address] Information not available 05/21/2025 Family History Relationship Description Onset Age of this Age Resolved Age Notes LastModified by Organization Details LastModified Time Paternal Grandmother Anxiety disorder [email or web address] Not available 2024 09:42:34 Paternal Grandmother Heart disease [email or web address] Not available 2024 09:42:34 Paternal Grandmother Mental disorder Not available 2024 09:42:34 Paternal Aunt Anxiety disorder [email or web address] Not available 2024 09:42:34 Paternal Aunt Substance abuse Not available 2024 09:42:34 Paternal Aunt Diabetes mellitus [email or web address] Not available 2024 09:42:34 Paternal Aunt Mental disorder [email or web address] Not available 2024 09:42:34 Paternal Uncle Anxiety disorder [email or web address] Not available 2024 09:42:34 Paternal Uncle Substance abuse [email or web address] Not available 2024 09:42:34 Paternal Uncle Diabetes mellitus [email or web address] Not available 2024 09:42:34 Paternal Uncle Mental disorder [email or web address] Not available 2024 09:42:34 Maternal Grandfather Diabetes mellitus [email or web address] Not available 2024 09:42:34 Paternal Grandfather Substance abuse Not available 2024 09:42:34 Paternal Grandfather Diabetes mellitus Not available 2024 09:42:34 Father Anxiety disorder [email or web address] Not available 2024 09:42:34 Father Substance abuse [email or web address] Not available 2024 09:42:34 Father Diabetes mellitus [email or web address] Not available 2024 09:42:34 Father Mental disorder [email or web address] Not available 2024 09:42:34 Medical History Condition [...] ICD10 Code Diagnosis IMO Codes Diagnosis Note [id number] Madiha Hernandez CNM [facility] [address],[place] [address] 05/21/2025 09:27:14 05/21/2025 12:08:11 screening 134594635 Z36.85 Gestation period, 30 weeks 23715944 Z3A.30 [id number] Aneudy Shah MD [facility] [address],[place] [address] 06/11/2025 15:05:01 06/16/2025 10:16:12 Gestational diabetes mellitus 99110609 O24.419 [id number] Aneudy Shah MD [facility] [address],[place] [address] 06/12/2025 10:13:16 06/12/2025 10:59:23 care status 341956844 Z34.83 [id number] Health Concerns Section Related Observation LastModified by Organization Detai ls LastModified Time None Recorded Concern Status LastModified by Organization Details LastModified Time None Recorded Payers Encounter Date Sequence Insurance Name Policy Number Policy Jimenez Covered Member ID Jimenez Member ID Guarantor Name 06/12/2025 1 [facility] ON OR AFTER 12/29/20 (MEDICAID REPLACEMENT - HMO) Carla Santos [id number] Carla Santos Notes Date Note Type Note Provider Name and Address Organization Details Recorded Time 06/12/2025 text/html Generic HPI TemplateReported by Patient Aneudy Shah MD [address], [place], [address], [facility] [facility] 06/12/2025 10:57:20 OBGyn Episode Ob Episode Information Episode Created Date Number of Fetuses Patient Bloodtype Patient rh Status Prepregnancy Weight lbs Domestic Partner Domestic Partner Phone Father Name Avionics Mechanic Status 05/21/20 25 1 OPEN Fetus Data First Name Last Name Admitted to NICU Weight (g) Sex Living Outcome Pediatric Complications Fetus ID Race Codes Race Delivery Type [id number] Problems Problem Notes 10 point testing on Tuesdays with MFM. Saturday NST with routine OB.AC 98% FM delivery rec 37 wks or sooner with severe features, preeclampsia Problem Name Start Date End Date Resolution Snomed Code Not e Hypertension AND/OR vomiting complicating childbirth AND/OR puerperium 06/09/2025 [id number] PC ratio > 0.3 on 2 occasions Past history of section 05/21/2025 [id number] due to di stress desires TOLAC Obesity caused by energy imbalance 05/21/2025 [id number] bmi 48 Tobacco user 05/21/2025 [id number] 1-2 pa cks/day Hypothyroidism 06/09/2025 [id number] 50 m cg levothyroxineTSH q4 History of subtotal thyroidectomy 05/21/2025 [id number] no meds curren tly, will rpt today Gestational diabetes mellitus 05/26/2025 [id number] Checking bs QID , serial growth us - Referral faxed to [facility] Diet teaching 05/26 06/02 - per MM, GDM and insulin to be managed by MFM. Pt prescribed lactus 10units BID. Now 12units BID 06/15 Past history of premature delivery 05/21/2025 [id number] x231 weeks PPRO M34 weeks PPROMplan MFM consult Elvis Calculation Initial Elvis Date Initial Exam Date Initial Exam Provider Initial Ultrasound Date Last Menstrual Period Date Ultra Sound Weeks Gestation 05/21/2025 [id number] 0 Eighteen To Twenty Week Elvis Update [...] Weight in lbs Pre/Post Dialysis Refused Weight 281.716280167242 BP Diastolic BP Location Tested BP Systolic BP Type 84 L arm 140 sitting Fetus Heart Rate Present Fetus Movement A Yes Comments transfer from [facility] to home, wants [facility] at [facility], has not been referred to [facility] will place order today, not currently [...] rupture and maternal . education and precautions +, will review with md plan next visit with md Flowsheet Date 06/11/2025 Ball Score Blood Edema [...] Weight in lbs Pre/Post Dialysis Refused Weight 285.177048147566 BP Diastolic BP Location Tested BP Systolic [...] Type Weight in lbs Pre/Post Dialysis Refused 289.794579496698 BP Diastolic BP Location Tested BP Systolic BP Type 82 L arm 130 sitting Fetus Heart Rate Present Fetus Movement A Yes Comments Flowsheet Date 06/18/2025 Ball Score Blood Edema Fundus Height Fundus Units Glucose Ketones Leukocytes Nitrite Labor Signs Protein Cervic Dilation Cervic Effacement Cervic Station Type Weight in lbs Pre/Post Dialysis Refused Weight 289.965211876909 BP Diastolic BP Location Tested BP Systolic [...] Estim ated Date of Delivery false Thalassemia (Bengali, Mongolian, Mediterranean, Or Background): MCV < 80 false Neural Tube Defect (Meningomyelocele, Spina Bifi da, Or Anencephaly) false Congenital Heart Defect false Down Syndrome false Mingo-Sachs (eg, Yarsanism, Cajun, [place]ic-[place]) f alse Luis E Disease false Sickle Cell Disease Or Trait () false Hemophilia Or Other Blood Disorders false Muscular Dystrophy false Cystic Fibrosis false [place] false Intellectual Disability/Autism false If Yes, [...]
--- OUTSIDE RECORDS SUMMARY | 2025-06-19 19:24 | XMS_ITS | Data Portability ---
Author Organization [email or web address] , [facility] Address [address] [place] [address] Assessment Encounter Date Assessment Date Assessment LastModified [...] Modified Time Details Appointments None recorded. Lab glucose tolerance test, post-50G, 1-hour 2024 025 [facility], [address] [place], [address], 11:29:09 CBC w/ auto diff 2024 025 [facility], [address] [place], [address], 12:41:14 obstetric screen, serum or blood 2024 025 [facility], [address] [place], [address], 5 12:46:24 TSH + free T4, serum 2024 025 [email or web address], [address] [facility], [place], [address], 12:50:06 afp (alpha-fet oprotein) panel, maternal screen, serum 2024 025 [email or web address], [address] [facility], [place], [address], 15:16:27 Referral None recorded. Procedures None recorded. Surgeries None recorded. Imaging US, obstetric, transvagin al 2024 025 [facility], [address], [place], [address], 07:11:27 US, obstetric, 2nd trimester 2024 025 [facility], [address], [place], [address], 14:04:58 US, obstetric, 2nd trimester 2024 025 [facility], [address], [place], [address], 23:17:53 US, obstetric, transvagin al 2024 025 ATHE[facility]FAX [facility], [address], [place], [address], 23:17:07 US, obstetric, transvagin al 2024 025 [email or web address], [address], [place], [address], 13:58:31 US, obstetric, transvagin al - cervical length baseline 2024 025 [facility], [address], [place], [address], 14:16:01 Medication Orders ondansetro n 4 mg disintegra ting tablet 2024 025 SELENA [id number], [address] [place], [place], [id number], 10:37:04 Patient TargetsNo targets recorded. Patient Instructions Encounter Date Encounter Id Patient Instructions Last Modified By Organization Details Last Modified Time 05/10/2025 [id number] learning about depression during Not available 05/10/2025 [...] Third trime ster 0.43- 2.91 Not Available [facility] [address] [place], [address], 05/11/2025 12:50:06 05/11/20 25 05/11/2025 TSH+F REE T4 T4, free 0.9 NG/dL 0.8-1. 8 normal NO COLLE CTION DATE RECEI MICHAEL. WE HAVE USED THE DATE THE SPECI MEN WAS RECEI MICHAEL BY THIS LABOR ATORY THE COLLE CTION DATE. IF THIS IS INCOR RECT, PLEAS E CONTA CT CLIEN T SERVI NEO. PHONE NUMBE R: [phone] Not Available [facility] [address] [place], [address], 05/11/2025 12:50:06 01/05/20 25 01/05/2025 HEMOG LOBIN [...] absen ce of diabe max Not Available [facility] [address] [place], [address], 01/05/2025 12:52:25 01/05/20 25 01/05/2025 DRUG ABUSE PANEL 7 W/CON FIRM amphetamines Negati ve negati ve normal Not Available [facility] [address] [place], [address], 01/05/2025 12:52:32 01/05/20 25 01/05/2025 DRUG ABUSE PANEL 7 W/CON FIRM barbiturates Negati ve negati ve normal Not Available [place] [address] [place], [address], 01/05/2025 12:52:32 01/05/20 25 01/05/2025 DRUG ABUSE PANEL 7 W/CON FIRM benzodiazepi tariq Negati ve negati ve normal Not Available [place] [address] [place], [address], 01/05/2025 12:52:32 01/05/20 25 01/05/2025 DRUG ABUSE PANEL 7 W/CON FIRM cocaine metabolites Negati ve negati ve normal Not Available [place] [address] [place], [address], 01/05/2025 12:52:32 01/05/20 25 01/05/2025 DRUG ABUSE PANEL 7 W/CON FIRM cannabinoids Negati ve negati ve normal Not Available [place] [address] [place], [address], 01/05/2025 12:52:32 01/05/20 25 01/05/2025 DRUG ABUSE PANEL 7 W/CON FIRM methadone Negati ve negati ve normal Not Available [place] [address] [place], [address], 01/05/2025 12:52:32 01/05/20 25 01/05/2025 DRUG ABUSE PANEL 7 W/CON FIRM opiates Negati ve negati ve normal Not Available [address], [address], 01/05/2025 12:52:32 01/05/20 25 01/05/2025 DRUG ABUSE PANEL 7 W/CON FIRM creatinine, urine 163 mg/dL 20 - 275 normal Not Available [address], [address], 01/05/2025 12:52:32 01/05/20 25 01/05/2025 OB PANEL - STD BLOOD WORK hep BS Ag Non-Re active non-re active normal Not Available [address], [address], 01/05/2025 13:48:44 01/05/20 25 01/05/2025 OB PANEL - STD BLOOD WORK hep C Ab Non-Re active non-re active normal Not Available [address], [address], 01/05/2025 13:48:44 01/05/20 25 01/05/2025 OB PANEL - STD BLOOD WORK HIV 1/2 Ag/Ab Non-Re active non-re active normal Not Available [address], [address], 01/05/2025 13:48:44 01/05/20 25 01/05/2025 OB PANEL - STD BLOOD WORK syphilis Ab Non-Re active non-re active normal Not Available [address], [address], 01/05/2025 13:48:44 01/05/20 25 01/05/2025 OB PANEL [...] the Rubel la virus . Not Available [facility] [address] [place], [address], 01/05/2025 13:48:44 01/05/20 25 01/05/2025 CT/NG chlamydia trachomatis CT neg negati ve normal This repor t is inten ded for us in clini raman monit oring and manag ement of patie nts. It is not inten ded for use in medic al-le gal appli catio n. Not Available [facility] [address] [place] [address], [address], 01/05/2025 14:55:42 01/05/20 25 01/05/2025 CT/NG neisseria gonorrhoeae GC neg negati ve normal This repor t is inten ded for us in clini raman monit oring and manag ement of patie nts. It is not inten ded for use in medic al-le gal appli catio n. Not Available [place], [address], 01/05/2025 14:55:42 01/05/20 25 01/05/2025 CBC (INCL UDES DIFF/ PLT) WBC 11.5 thous and/u L 4.0 - 9.8 high Not Available [place], [address], 01/05/2025 15:06:20 01/05/20 25 01/05/2025 CBC (INCL UDES DIFF/ PLT) RBC 4.8 emilee on/uL 3.9 - 4.9 normal Not Available [facility] [address] [place] [address], [address], 01/05/2025 15:06:20 01/05/20 25 01/05/2025 CBC (INCL UDES DIFF/ PLT) hemoglobin 13.9 g/dL 11.8 - 14.8 normal Not Available [address], [address], 01/05/2025 15:06:20 01/05/20 25 01/05/2025 CBC (INCL UDES DIFF/ PLT) hematocrit 42.8 % 35.5 - 44.0 normal Not Available [address], [address], 01/05/2025 15:06:20 01/05/20 25 01/05/2025 CBC (INCL UDES DIFF/ PLT) MCV 89.9 fL 82.0 - 99.0 normal Not Available [address], [address], 01/05/2025 15:06:20 01/05/20 25 01/05/2025 CBC (INCL UDES DIFF/ PLT) MCH 29.2 pg 27.2 - 32.6 normal Not Available [address], [address], 01/05/2025 15:06:20 01/05/20 25 01/05/2025 CBC (INCL UDES DIFF/ PLT) MCHC 32.5 g/dL 31.5 - 35.5 normal Not Available [address], [address], 01/05/2025 15:06:20 01/05/20 25 01/05/2025 CBC (INCL UDES DIFF/ PLT) RDW-CV 13.4 % 11.5 - 14.5 normal Not Available [address], [address], 01/05/2025 15:06:20 01/05/20 25 01/05/2025 CBC (INCL UDES DIFF/ PLT) platelet 221 thous and/u L 140 - 350 normal Not Available [address], [address], 01/05/2025 15:06:20 01/05/20 25 01/05/2025 CBC (INCL UDES DIFF/ PLT) MPV 12.1 fL 9.3 - 12.4 normal Not Available [address], [address], 01/05/2025 15:06:20 01/05/20 25 01/05/2025 CBC (INCL UDES DIFF/ PLT) absolute neutrophil 7.97 thous and/u L 1.90 - 7.00 high Not Available [address], [address], 01/05/2025 15:06:20 01/05/20 25 01/05/2025 CBC (INCL UDES DIFF/ PLT) absolute lymphocyte 2.48 thous and/u L 0.70 - 4.50 normal Not Available [address], [address], 01/05/2025 15:06:20 01/05/20 25 01/05/2025 CBC (INCL UDES DIFF/ PLT) absolute monocyte 0.67 thous and/u L 0.10 - 1.30 normal Not Available [address], [address], 01/05/2025 15:06:20 01/05/20 25 01/05/2025 CBC (INCL UDES DIFF/ PLT) absolute eosinophil 0.22 thous and/u L <0.70 normal Not Available [address], [address], 01/05/2025 15:06:20 01/05/20 25 01/05/2025 CBC (INCL UDES DIFF/ PLT) absolute basophil 0.07 thous and/u L <0.20 normal Not Available [address], [address], 01/05/2025 15:06:20 01/05/20 25 01/05/2025 CBC (INCL UDES DIFF/ PLT) absolute immature granulocyte 0.06 thous and/u L <0.03 high Not Available [place] [address] [place], [address], 01/05/2025 15:06:20 01/05/2001/05/2025 THINP REP TIS PAP report status: Not Available [address] [address] [place], [address], 01/05/2025 23:41:58 01/05/20 25 01/05/2025 THINP REP TIS PAP clinical information: Not Available [address] [address] [place], [address], 01/05/2025 23:41:58 01/05/20 25 01/05/2025 THINP REP TIS PAP LMP: Not Available [address] [address] [place], [address], 01/05/2025 23:41:58 01/05/20 25 01/05/2025 THINP REP TIS PAP prev. Pap: Not Available [address], [address], 01/05/2025 23:41:58 01/05/20 25 01/05/2025 THINP REP TIS PAP prev. BX: Not Available [address] [place], [address], 01/05/2025 23:41:58 01/05/20 25 01/05/2025 THINP REP TIS PAP source: Not Available [address] [address] [place], [address], 01/05/2025 23:41:58 01/05/20 25 01/05/2025 THINP REP TIS PAP statement of adequacy: Not Available [address] [address] [place], [address], 01/05/2025 23:41:58 01/05/20 25 01/05/2025 THINP REP TIS PAP general categorizati on: Not Available [address], [address], 01/05/2025 23:41:58 01/05/20 25 01/05/2025 THINP REP TIS PAP interpretati on/result: Not Available [address], [address], 01/05/2025 23:41:58 01/05/20 25 01/05/2025 THINP REP TIS PAP infection: Not Available [address], [address], 01/05/2025 23:41:58 01/05/20 25 01/05/2025 THINP REP TIS PAP comment: Not Available [address], [address], 01/05/2025 23:41:58 01/05/20 25 01/05/2025 THINP REP TIS PAP cytotechnolo gist: Not Available [address], [address], 01/05/2025 23:41:58 01/05/20 25 01/05/2025 THINP REP TIS PAP review cytotechnolo gist: Not Available [address], [address], 01/05/2025 23:41:58 01/05/20 25 01/05/2025 THINP REP TIS PAP pathologist: Not Available [address], [address], 01/05/2025 23:41:58 01/05/20 25 01/05/2025 VARIC CORA DIAMOND R VIRUS ANTIB CT (IGG) varicella zoster [...] Immun ity Scree n, ACIF. Not Available [facility] [address] [place], [address], 01/05/2025 23:41:59 01/05/20 25 01/05/2025 MEASL ES [...] measl es virus . For addit ional infor jt servin e refer to http: //yanni Olvera stDia gnost ics.c om/fa q/FAQ 162 (This link is being provi ded for infor matio nal/ educa tonya l purpo ses only. ) Not Available [facility] [address] [address] [place], [address], 01/05/2025 23:41:59 01/05/2001/08/[address] SCREE N, [...] alloi mmuni zed pregn hoang. Not Available [facility] [address] [address] [place], [address], 01/08/2025 10:50:18 01/05/2001/08/2025 ABO GROUP AND RH TYPE ABO group A Not Available [facility] [address] [address] [place], [address], 01/08/2025 10:50:19 01/05/2001/08/2025 ABO GROUP AND RH TYPE Rh type RH(D) POSITI VE For addit ional infor jt servin e refer to http: //[facility] Olvera stDia gnost ics.c om/fa q/FAQ 111 (This link is being provi ded for infor matio nal/ educa tonya l purpo ses only. ) Not Available [facility] [address] [address] [place], [address], 01/08/2025 10:50:19 01/05/2001/08/2025 CULTU RE, URINE , ROUTI NE culture, urine, routine SEE NOTE abnormal CULTU RE, URINE , ROUTI NE Micro Numbe r: [id number] Test Statu s: Final Speci men [...] See Thera py Comme nts Not Available [facility] [address] [address], [place], [address], 01/08/2025 10:50:19 01/05/20 25 01/06/2025 TSH W/ T4, FREE TSH 0.22 mIU/L 0.55 - 4.78 low COMME NT: Erika te teste d with TSH Gener ation II reage nt. Refer ence Range Femal e aged 18-Ad ult: 0.55- 4.78 Pregn hoang Refer ence Range s First Trime ster 0.26- 2.66 Secon d Trime ster 0.55- 2.73 Third Trime ster 0.43- 2.91 Not Available [address], [address], 01/06/2025 14:41:42 01/05/20 25 01/06/2025 TSH W/ T4, FREE T4, free 0.92 NG/dL 0.89 - 1.76 normal Not Available [address], [address], 01/06/2025 14:41:42 01/05/20 25 01/08/2025 THINP REP TIS PAP clinical information: normal None given Not Available [address] [place], [address], 01/08/2025 12:43:15 01/05/20 25 01/08/2025 THINP REP TIS PAP LMP: normal NONE GIVEN Not Available [facility] [address], [address], 01/08/2025 12:43:15 01/05/20 25 01/08/2025 THINP REP TIS PAP prev. Pap: normal NONE GIVEN Not Available [address], [address], 01/08/2025 12:43:15 01/05/20 25 01/08/2025 THINP REP TIS PAP prev. BX: normal NONE GIVEN Not Available [address] [place], [address], 01/08/2025 12:43:15 01/05/20 25 01/08/2025 THINP REP TIS PAP source: normal Cervi x Not Available [address] [place], [address], 01/08/2025 12:43:15 01/05/20 25 01/08/2025 THINP REP TIS PAP statement of adequacy: normal Satis facto ry for evalu ation . Endoc ervic al/tr ansfo rmati on zone compo nent prese nt. Age and/o r menst rual statu s not provi ded Not Available [address], [address], 01/08/2025 12:43:15 01/05/20 25 01/08/2025 THINP REP TIS PAP interpretati on/result: normal Cytol ogy Resul ts: Negat saeid for intra epith elial lesio n or malig mariela . Not Available [address] [place], [address], 01/08/2025 12:43:15 01/05/20 25 01/08/2025 THINP REP TIS PAP infection: normal Shift in vagin al kavitha sugge stive of bacte rial vagin osis. Not Available [address] [place], [address], 01/08/2025 12:43:15 01/05/20 25 01/08/2025 THINP REP TIS PAP comment: normal This Pap test has been evalu ated with compu ter grace bass techn ology . Not Available [address], [address], 01/08/2025 12:43:15 01/05/20 25 01/08/2025 THINP REP TIS PAP cytotechnolo gist: normal LMT, CT( CP) CT scree mahad locat ion: [address] [address] [place] [address] Not Available [address], [address], 01/08/2025 12:43:15 01/05/20 25 01/08/2025 THINP REP TIS PAP review cytotechnolo gist: normal MARINA, CT( CP) CT scree mahad locat ion: [address] [address] [place] [address] [facility] [address] [place], [address], 01/08/2025 12:43:15 01/05/2001/08/2025 THINP REP TIS PAP comment EXPLA NATOR [...] clini raman infor matio n. Not Available [facility] [address] [address], [place], [address], 01/08/2025 12:43:15 01/05/20 25 01/11/2025 T3, FREE T3, free 3.9 pg/mL 2.3 - 4.2 normal Not Available [facility] [place], [address], 01/11/2025 14:10:39 01/05/20 25 01/12/2025 HPV GENOT YPE HPV 16 Negati ve negati ve normal Not Available [facility], [address], 01/12/2025 14:10:06 01/05/20 25 01/12/2025 HPV GENOT YPE HPV 18/45 Negati ve negati ve normal Assay can diffe renti ate HPV 16 from HPV 18 and/o r HPV 45. But canno t diffe renti ate betwe en 18 and 45. Not Available [facility] [place], [address], 01/12/2025 14:10:06 01/05/20 25 01/05/2025 HPV HIGH [...] l cervi raman cytol ogy. Not Available [facility] [address] [place], [address], 01/12/2025 14:10:06 01/07/20 25 01/06/2025 CHROM OSOME [...] loidy scree mahad resul t. Not Available [facility] [address], [place], [address], 01/12/2025 10:17:36 02/24/20 25 02/25/2025 MATER NAL SERUM AFP interpretati on: Scree n negat saeid for open NTD. Not Available [facility] [address] [address], [place], [address], 02/25/2025 15:16:27 08/26/20 25 02/25/2025 MATER NAL SERUM AFP risk for ontd 1 IN 4150 Not Available [facility] [address], [address], 02/25/2025 15:16:27 02/24/20 25 02/25/2025 MATER NAL SERUM AFP AFP, serum 42.4 NG/mL Not Available [facility] [address], [address], 02/25/2025 15:16:27 02/24/20 25 02/25/2025 MATER NAL SERUM AFP AFP MOM 1.35 Not Available [facility] [address], [address], 02/25/2025 15:16:27 02/24/20 25 02/25/2025 MATER NAL [...] brody l baby and that 2-3% of [facility] rns have some type of physi raman or menta l defec t, many of which are undet ectab le throu gh any known prena tiffany diagn ostic techn ique. Not Available [facility] [address], [address], 02/25/2025 15:16:27 02/24/20 25 02/25/2025 MATER NAL [...] For grace tance with recal culat ions, plenayan e call your local [facility] . For grace tance with inter preta tion of these resul ts, pleas e conta ct your Local [facility] dao ic couns elor or call [phone] INFO( [phone]). Inter preti ve Cutof fs Scree n [...] infor jt servin e refer to http: //[facility] vincentque stdia gnost ics.c om/fa q/FAQ 74v1 (This link is being provi ded for infor dalia kirk/ educa tonya l purpo ses only. ) Not Available [facility] [address] [place], [address], 02/25/2025 15:16:27 02/24/20 25 02/25/2025 MATER NAL SERUM AFP calc'd gestational age 18.0 weeks Not Available [facility] [address] [place], [address], 02/25/2025 15:16:27 02/24/20 25 02/25/2025 MATER NAL SERUM AFP maternal weight 267 lbs Not Available [facility] [address] [place], [address], 02/25/2025 15:16:27 02/24/20 25 02/25/2025 MATER NAL SERUM AFP est'd date of delivery 2025 Not Available [facility] [address], [address], 02/25/2025 15:16:27 02/24/20 25 02/25/2025 MATER NAL SERUM AFP elvis determined by ULTRAS OUND Not Available [facility] [address], [address], 02/25/2025 15:16:27 02/24/20 25 02/25/2025 MATER NAL SERUM AFP mother's ethnic origin CAUCAS SNEHAL Not Available [address], [address], 02/25/2025 15:16:27 02/24/20 25 02/25/2025 MATER NAL SERUM AFP number of fetuses 1 Not Available [address], [address], 02/25/2025 15:16:27 02/24/20 25 02/25/2025 MATER NAL SERUM AFP insulin depend diabetic NO Not Available [address], [address], 02/25/2025 15:16:27 02/24/20 25 02/25/2025 MATER NAL SERUM AFP repeat specimen NO Not Available [address], [address], 02/25/2025 15:16:27 02/24/20 25 02/25/2025 MATER NAL SERUM AFP Hx of neural tube defects NO Not Available [address], [address], 02/25/2025 15:16:27 02/24/20 25 02/25/2025 MATER NAL SERUM AFP prev down synd NO Not Available [address], [address], 02/25/2025 15:16:27 02/24/20 25 02/25/2025 MATER NAL SERUM AFP donor egg NO Not Available [address], [address], 02/25/2025 15:16:27 02/24/20 25 02/25/2025 MATER NAL SERUM AFP donor age: egg retrieval NOT GIVEN Not Available [address] [place], [address], 02/25/2025 15:16:27 05/10/2005/11/2025 (50G) 1HR - GLUCO SE ANABELLE ANCE TEST, SONIA Gaston glucose (50g) 1 hour 138 mg/dL <135 high Not Available [facility] [address], [address], 05/11/2025 11:29:09 05/10/20 25 05/11/2025 CBC (INCL UDES DIFF/ PLT) WBC 14.1 thous and/u L 4.0 - 10.0 high Not Available [address], [address], 05/11/2025 12:41:14 05/10/20 25 05/11/2025 CBC (INCL UDES DIFF/ PLT) RBC 4.1 emilee on/uL 3.9 - 4.9 normal Not Available [address], [address], 05/11/2025 12:41:14 05/10/20 25 05/11/2025 CBC (INCL UDES DIFF/ PLT) hemoglobin 12.2 g/dL 11.8 - 14.8 normal Not Available [address], [address], 05/11/2025 12:41:14 05/10/20 25 05/11/2025 CBC (INCL UDES DIFF/ PLT) hematocrit 37.5 % 35.5 - 44.0 normal Not Available [address], [address], 05/11/2025 12:41:14 05/10/20 25 05/11/2025 CBC (INCL UDES DIFF/ PLT) MCV 91.2 fL 82.0 - 99.0 normal Not Available [address], [address], 05/11/2025 12:41:14 05/10/20 25 05/11/2025 CBC (INCL UDES DIFF/ PLT) MCH 29.7 pg 27.2 - 32.6 normal Not Available [address], [address], 05/11/2025 12:41:14 05/10/20 25 05/11/2025 CBC (INCL UDES DIFF/ PLT) MCHC 32.5 g/dL 31.5 - 35.5 normal Not Available [address], [address], 05/11/2025 12:41:14 05/10/20 25 05/11/2025 CBC (INCL UDES DIFF/ PLT) RDW-CV 13.8 % 11.5 - 14.5 normal Not Available [address], [address], 05/11/2025 12:41:14 05/10/20 25 05/11/2025 CBC (INCL UDES DIFF/ PLT) platelet 286 thous and/u L 140 - 350 normal Not Available [address], [address], 05/11/2025 12:41:14 05/10/20 25 05/11/2025 CBC (INCL UDES DIFF/ PLT) MPV 11.6 fL 9.4 - 12.4 normal Not Available [address], [address], 05/11/2025 12:41:14 05/10/20 25 05/11/2025 CBC (INCL UDES DIFF/ PLT) absolute neutrophil 10.68 thous and/u L 1.90 - 7.00 high Not Available [address], [address], 05/11/2025 12:41:14 05/10/20 25 05/11/2025 CBC (INCL UDES DIFF/ PLT) absolute lymphocyte 2.23 thous and/u L 0.70 - 4.50 normal Not Available [address], [address], 05/11/2025 12:41:14 05/10/20 25 05/11/2025 CBC (INCL UDES DIFF/ PLT) absolute monocyte 0.92 thous and/u L 0.10 - 1.30 normal Not Available [address], [address], 05/11/2025 12:41:14 05/10/20 25 05/11/2025 CBC (INCL UDES DIFF/ PLT) absolute eosinophil 0.17 thous and/u L <0.70 normal Not Available [address], [address], 05/11/2025 12:41:14 05/10/20 25 05/11/2025 CBC (INCL UDES DIFF/ PLT) absolute basophil 0.09 thous and/u L <0.20 normal Not Available [address], [address], 05/11/2025 12:41:14 05/10/20 25 05/11/2025 CBC (INCL UDES DIFF/ PLT) absolute immature granulocyte 0.03 thous and/u L <0.03 normal Not Available [address], [address], 05/11/2025 12:41:14 05/10/20 25 05/11/2025 OB 28W (SYPH HIV 1/2 Ag/Ab Non-Re active non-re active normal Not Available [address], [address], 05/11/2025 12:46:24 05/10/20 25 05/11/2025 OB 28W (SYPH syphilis Ab Non-Re active non-re active normal Not Available [address], [address], 05/11/2025 12:46:24 02/03/20 25 02/02/2025 US, obste tric, trans vagin al No observ ation record ed. [email or web address] Kimi [address], [place], [address], 02/02/2025 22:33:02 02/24/2002/23/2025 US, obste tric, trans vagin al No observ ation record ed. [email or web address] Kimi [address], [place], [address], 02/23/2025 15:13:37 03/08/20 US, obste tric, 2nd trime ster No observ ation record [facility] [address] [place] [address], [phone], 03/09/2025 11:42:12 03/09/2003/09/2025 US, obste tric, 2nd trime ster No observ ation record ed. [email or web address] [address], [place], [address], 03/12/2025 00:51:26 03/24/20 , obste tric, 2nd trime ster No observ ation record ed. [facility] [address] [place] [address], [phone], 03/24/2025 10:34:03 03/25/2003/24/2025 , obste tric, trans vagin al No observ ation record ed. [email or web address] [address], [place], [address], 03/25/2025 13:20:18 Result Notes None recorded. Problems [...] : NO ProblemS tatus: Resolve Not Available [facility]14 Gestatio n period, 10 weeks [id number] Completed 201809/14/2019 10 weeks gestatio n of pregnanc y; Progress : Stable Added By: Diane Gutierrez Add to Current Problems : NO ProblemS tatus: Resolve Not Available Counts include 234 beds at the [facility] 2 15:52:18 Gestatio n period, 13 weeks [id number] Completed 201809/14/2019 13 weeks gestatio n of pregnanc y; Progress : Stable Added By: Alpa Nicole Add to Current Problems : NO ProblemS tatus: Resolve Not Available Counts include 234 beds at the [facility] 2 15:52:13 Pregnanc y, childbir th and puerperi um finding Completed 201809/14/2019 Encounte r for supervis ion of normal first pregnanc y, second trimeste r; Progress : Stable Added By: Merle Friend Add to Current Problems : NO ProblemS tatus: Resolve Not Available Counts include 234 beds at the [facility] 2 15:52:17 Gestatio n period, 17 weeks [id number] Completed 201809/14/2019 17 weeks gestatio n of pregnanc y; Progress : Stable Added By: Marcy Noel Add to Current Problems : NO ProblemS tatus: Resolve Not Available Counts include 234 beds at the [facility] 2 15:52:17 Gestatio n period, 20 weeks [id number] Completed 201801/09/2021 20 weeks gestatio n of pregnanc y; Progress : Stable Added By: Mert Vazquez Add to Current Problems : NO ProblemS tatus: Resolve Not Available Counts include 234 beds at the [facility] 2 15:52:12 Antenata l screenin g for malforma tion Completed 201801/24/2021 Encounte r for antenata l screenin g for malforma tions; Progress : Stable Added By: Ludmila Reynolds Add to Current Problems : NO ProblemS tatus: Resolve Not Available Counts include 234 beds at the [facility] 2 15:52:18 Gestatio n period, 25 weeks 69017589 Completed 201809/14/2019 25 weeks gestatio n of pregnanc y; Progress : Stable Added By: Merle Friend Add to Current Problems : NO ProblemS tatus: Resolve Not Available [facility] 2 18:22:58 Gestatio n period, 29 weeks 66241359 Completed 201909/14/2019 29 weeks gestatio n of pregnanc y; Progress : Stable Added By: Diane Gutierrez Add to Current Problems : NO ProblemS tatus: Resolve Not Available [facility] 2 15:52:16 Pregnanc y, childbir th and puerperi um finding Completed 201909/14/2019 Encounte r for supervis ion of normal first pregnanc y, third trimeste r; Progress : Stable Added By: Ora Mantilla Add to Current Problems : NO ProblemS tatus: Resolve Not Available [facility] 2 15:52:14 Gestatio n period, 31 weeks 04520522 Active 2019 31 weeks gestatio n of pregnanc y; Severity : Moderate Progress : Stable Added By: Kimmie Gonzalez Add to Current Problems : YES ProblemS tatus: Current Not Available [facility] 1 08:17:53 Gestatio n period, 33 weeks 44023221 Completed 201909/14/2019 33 weeks gestatio n of pregnanc y; Severity : Moderate Progress : Stable Added By: Ora Mantilla Add to Current Problems : NO ProblemS tatus: Resolve Not Available [facility] 1 19:51:42 Contrace ptive sheath status 905179791 Completed 201911/29/2020 Encounte r for initial prescrip tion of other contrace ptives; Progress : Stable Added By: Marion Gutierrez Add to Current Problems : NO ProblemS tatus: Resolve Not Available [facility] 2 15:52:12 Lochia finding Completed 201911/29/2020 Encounte r for routine postpart um follow-u p; Progress : Stable Added By: Jelena Sequeira Add to Current Problems : NO ProblemS tatus: Resolve Not Available [facility] 2 15:52:16 Gestatio n period, 8 weeks 33995926 Completed 202011/29/2020 8 weeks gestatio n of pregnanc y; Progress : Stable Added By: Haroon Jason Add to Current Problems : NO ProblemS tatus: Resolve Not Available [facility] 2 18:22:57 Evaluati on finding Completed 202011/29/2020 Other specifie d abnormal findings of blood chemistr y; Progress : Stable Added By: Kyle Lam Add to Current Problems : NO ProblemS tatus: Resolve Not Available Counts include 234 beds at the [facility] 2 15:52:13 Gestatio n period, 12 weeks 33839526 Completed 202011/29/2020 12 weeks gestatio n of pregnanc y; Progress : Stable Added By: Haroon Jason Add to Current Problems : NO ProblemS tatus: Resolve Not Available Counts include 234 beds at the [facility] 2 15:52:13 [facility] 5365[facility] 4106 Active 2020 Encounte r for supervis [...] : YES ProblemS tatus: Current Not Available Counts include 234 beds at the [facility] 1 19:51:38 Gestatio n period, 16 weeks 45505318 Completed 202012/27/2020 16 weeks gestatio n of pregnanc y; Progress : Stable Added By: Mert Vazquez Add to Current Problems : NO ProblemS tatus: Resolve Not Available Counts include 234 beds at the [facility] 2 15:52:19 Gestatio n period, 18 weeks 30857749 Completed 202012/27/2020 18 weeks gestatio n of pregnanc y; Progress : Stable Added By: Kimmie Gonzalez Add to Current Problems : NO ProblemS tatus: Resolve Not Available Counts include 234 beds at the [facility] 2 15:52:18 Postoper ative hypothyr oidism 08794439 Completed 202001/24/2021 Postproc edural hypothyr oidism; Progress : Stable Added By: Mert Vazquez Add to Current Problems : NO ProblemS tatus: Resolve Not Available [facility] 2 15:52:[address] Concept Completed 202001/24/2021 Supervis ion of other high risk pregnanc ies, second trimeste r; Progress : Stable Added By: Ludmila Reynolds Add to Current Problems : NO ProblemS tatus: Resolve Not Available Counts include 234 beds at the [facility] 2 15:52:15 Gestatio n period, 22 weeks 39368752 Completed 202001/24/2021 22 weeks gestatio n of pregnanc y; Progress : Stable Added By: Ludmila Reynolds Add to Current Problems : NO ProblemS tatus: Resolve Not Available Counts include 234 beds at the [facility] 2 15:52:17 Gestatio n period, 24 weeks 314625570 Completed 202002/09/2021 24 weeks gestatio n of pregnanc y; Progress : Stable Added By: Mert Vazquez Add to Current Problems : NO ProblemS tatus: Resolve Not Available Counts include 234 beds at the [facility] 2 15:52:15 High risk pregnanc y due to history of labor 217282088 Completed 202003/15/2021 Personal history of pre-term labor; Severity : Moderate Progress : Stable Added By: Mert Vazquez Add to Current Problems : NO ProblemS tatus: Resolve Not Available Counts include 234 beds at the [facility] 08:17:51 Gestatio n period, 26 weeks 84924719 Completed 202002/23/2021 26 weeks gestatio n of pregnanc y; Progress : Stable Added By: Mert Vazquez Add to Current Problems : NO ProblemS tatus: Resolve Not Available Counts include 234 beds at the [facility] 2 15:52:16 Past pregnanc y history of prematur e labor 416055569 Completed 202003/15/2021 Personal history of pre-term labor; Progress : Stable Added By: Mert Vazquez Add to Current Problems : NO ProblemS tatus: Resolve Not Available Counts include 234 beds at the [facility] 2 15:52:[address] Concept Completed 202003/15/2021 Supervis ion of other high risk pregnanc ies, third trimeste r; Progress : Stable Added By: Ludmila Reynolds Add to Current Problems : NO ProblemS tatus: Resolve Not Available [facility] 2 18:22:58 Gestatio n period, 28 weeks 81224692 Completed 202003/15/2021 28 weeks gestatio n of pregnanc y; Progress : Stable Added By: Marcy Noel Add to Current Problems : NO ProblemS tatus: Resolve Not Available [facility] 2 15:52:13 Antenata l screenin g Active 2020 Encounte r for antenata l screenin g for cervical length; Progress : Stable Added By: Mert Vazquez Add to Current Problems : NO ProblemS tatus: Resolve; Start Date : 12/14/19 21 Encou nter for other specifie d antenata l screenin g; Progress : Stable Added By: Layne Guaman Add to Current Problems : YES ProblemS tatus: Current Not Available [facility] 2 15:52:14 Gestatio n period, 33 weeks 74305950 Active 2020 33 weeks gestatio n of pregnanc y; Progress : Stable Added By: Layne Guaman Add to Current Problems : YES ProblemS tatus: Current Not Available [facility] 2 15:52:17 Depressi on screenin g Active 2020 Encounte r for screenin g for maternal depressi on; Progress : Stable Added By: Barbie Rosa Add to Current Problems : YES ProblemS tatus: Current Not Available [facility] 2 15:52:14 Congenit al abnormal ity of uterus complica ting postpart um care - baby delivere d during previous episode of care 630906006 Active 2020 Complica tion of the puerperi um, unspecif ied; Progress : Stable Added By: Jacki Brown i Add to Current Problems : YES ProblemS tatus: Current Not Available [facility] 2 15:52:15 Pregnanc y 14751461 Active 2024 JORGE LUIS CRESPO [address] [place] [address], [address] , [facility] 5 15:44:46 Body mass index 40+ - severely obese 455515024 Active 2024 pre-preg BMI 44.7 Serial Growths at 28w, 32w, 36w Weekly BPP at 34w LEONARD BIRMINGHAM MILDRED [address] [place] [address], [address] , [facility] 5 12:11:17 History of loop electros urgical excision procedur e 47753402324 102 Active 2024 Hx of Leep 09-05-19 23 MILADYS 3 Cervical Length at 18, 20, and 22 weeks LEONARD BIRMINGHAM [place]ED [address] [place] [address], [address] , [facility] 5 12:05:28 Tobacco user 728558192 Active 2024 pre-preg mariela smoking 1 ppd, has decrease d to 1/2 ppd at [facility]. Discusse d smoking cessatio n. 03/09: has decrease d to 4 cig/day. Praised and continue efforts at reductio n/quitti ng Mariela Gutierrez MD [address] [place] [address], [address] , [facility] 5 23:10:44 Past pregnanc y history of section 674873765 Active 2024 LEONARD BIRMINGHAM [place]ED [address] [place] [address], [address] , [facility] 5 15:26:26 History of thyroide ctomy 057903995 Active 2024 TSH and T4 drawn at [facility] LEONARD BIRMINGHAM [place]ED [address] [place] [address], [address] , [facility] 5 17:42:19 Bacteriu rochelle 65236725 Active 2024 GBS positive urine culture at [facility] LEONARD BIRMINGHAM [place]ED [address] [place] [address], [address] , [facility] 5 18:40:03 Past pregnanc y history of prematur e rupture of membrane s 05491923115 9100 Active 2024 32-33 weeks with first pregnanc y JORGE LUIS CRESPO [address] [place], [address] , [facility] 5 20:08:45 Human papillom avirus deoxyrib onucleic acid detected , high risk on cervical specimen 433788785 Active 2024 Needs colposco py PP LEONARD BIRMINGHAM, [place] [address] [place], [address] , [facility] 5 14:20:13 History of pneumoni a 183901953 Active 2024 Mariela Gutierrez MD [address] [place], [address] , [facility] 5 23:09:29 Problem Notes None recorded. Procedures Surgical History Date Name Laterality Status Provider Name and Address Organization Details Recorded Time 025 Date of Last Pap Smear completed Jennie Hernandez [facility] 02/23/2025 10:22:59 023 Depo Provera Injection completed Jelena Sequeira [facility] 01/23/2023 14:27:10 023 Depo Provera Injection completed Jelena Sequeira [facility] 09/20/2022 11:49:20 023 loop electrosurgical excision procedure completed ELDER XAVIER DO [address] [place], [address], [facility] 09/20/2022 07:41:26 023 Colposcopy - Cervix completed JORGE LUIS Delaney [address] [place], [address], [facility] 07/23/2022 12:06:28 022 Depo Provera Injection completed Jelena Sequeira [facility] 05/31/2022 15:04:24 022 Mirena IUD Removal completed Anjum Freedman, [address] [place], [address], [facility] 07/18/2021 10:32:23 021 IUD Insertion completed Ronna James, [address], [address], [facility] 06/19/2021 18:21:20 Dilation and curettage completed Funmilayo [place] [facility] 07/23/2022 11:36:53 C Section completed Leia Tariq [facility] 01/04/2025 11:42:41 thyroidectomy completed LEONARD BIRMING[place]AM, [address] [place], [address], [facility] 01/09/2025 19:57:11 procedure on upper arm completed Delisa Muller [facility] 06/13/2021 21:05:21 Imaging Results None recorded. Procedure Notes None recorded. Medical Equipment None Reported. Allergies Allergen ID Allergen Name Allergen Category Reaction Reaction Severity Criticality Documentation Date Start Date Code Code System Note Provider Name and Address Organization Details Recorded Time 257428 iodine medicatio n Not available Not available Not available 04/21/20212018 5933 RxNorm Sever ity: Moder ate; Not Available [facility] 01:05:17 867862 shellfish derived food,medi cation Not available Not available Not available 05/31/2022 Merry Icenogle [facility], [facility] 12:33:03 032561 iodine medicatio n Not available Not available Not available 01/04/2025 5933 RxNorm Leia Tariq null, [facility] 5 11:42:41 107350 Fish (substanc e) food,medi cation anaphylax is Not available [facility] 02/23/20252020 51156 1005 SNOMED Jennie Hernandez null, [facility] 5 11:05:15 007585 hydrocodo ne Not available itching Not available low 02/23/20252021 5489 RxNorm Jennie [place], [facility] 5 11:05:18 534247 Shellfish (substanc e) food,medi cation anaphylax is Not available high 02/23/20252020 92576 9006 SNOMED Jennie [place], [facility] 5 11:05:26 Medications Name Sig Start [...] L 0.15-0.0 3 mg oral tablet RxNorm: 804148 Allow Substitu tion: True Refill Denied: No [...] cephALEX in 250 mg oral capsule RxNorm: 141824 Allow Substitu tion: True Refill Denied: No Edited by: [facility]nd[facility] on 02/10/20 Stopped by: [facility] hendrix[facility] ) on 02/10/20 Not Available Not Available Not Available promethaz ine 6.25 mg/5 mL oral syrup TAKE 10 ML BY MOUTH EVERY 6 HOURS NEEDED 05/17 completed Not Available Not Available Not Available pyridoxin e (vitamin B6) 25 mg tablet Take one tablet up to 4 times daily before meals 11/29 completed pyridoxi ne (vitamin B6) 25 mg oral tablet RxNorm: 3534310 Allow Substitu tion: True Refill Denied: No Edited by: soco hendrix([facility] ) on 11/30/19 Stopped by: soco hendrix([facility] ) on 11/30/19 Not Available Not Available [...] completed Not Available Not Available Not Available levothyro xine 50 mcg tablet TAKE 1 TABLET BY MOUTH DAILY active Not Available Not Available No t Available ibuprofen 600 mg tablet TAKE 1 [...] succinat e 25 mg oral tablet RxNorm: 1175794 Allow Substitu tion: True Refill Denied: No Edited by: Mert Larson ) on 11/30/19 Stopped by: Mert Larson ) on 11/30/19 21 Not Available Not Available Not Available Ibuprofen IB 600mg as needed 03/22 completed Ibuprofe n IB Allow Substitu tion: False Refill Denied: No Refill DateOccu rred: 04/18/20 Edited by: Jacki Kaye ) on 04/19/20 21 Stopped by: stephanie schneider(Jacki Gilliland ) on Not Available Not Available Not Available Lantus Solostar U-100 Insulin 100 unit/mL (3 mL) subcutane ous pen PRIME NEEDLE WITH 2 UNITS WASTE. INJECT 10 UNITS EVERY MORNING AND 10 UNITS AT BEDTIME INCREASE DIRECTED . MAX 50 UNITS DAILY active Not Available Not Available No t Available 28 mg iron-800 mcg tablet Take 1 tablet every day by oral route. 03/09 completed Not Available Not Available Not Available Zofran (base) 02/23 completed Not Available Not Available Not Available TRUEplus Pen Needle 31 gauge x 3/16 USE 1 PEN DIRECTED TWICE DAILY active Not Available Not Available No t Available Se- 19 29 mg iron-1 mg tablet Take one tablet daily 11/29 completed PNV 119-iron fum-foli c acid 29 mg iron- 1 mg oral tablet Allow Substitu tion: True Refill Denied: No Edited by: Mert Larson ) on 11/30/19 21 Stopped by: soco hendrix(Mert Morales ) on 11/30/19 21 Not Available Not Available Not Available Gvoke HypoPen 2-Pack 1 mg/0.2 mL subcutane ous auto-inje ctor INJ1 MG UNDER THE SKIN NEEDED FOR SEVERE HYPGLYCE RNIA active Not Available Not Available No t Available Vitals Date Recorded Body height Body mass index (BMI) Body weight Systolic And Diastolic Provider Name and Address Organization Details Last Updated DateTime 02/02/2025 162.56 cm 46 kg/m2 161344.76 g 116/70 mm[Hg] [facility] 02/02/2025 11:23:58 Date Recorded Body height Provider Name an d Address Organization Details Last Updated DateTime 02/23/2025 162.56 cm [facility] 02/23/2025 11:05:03 Date Recorded Body mass index (BMI) Body weight Systolic And Diastolic Provider Name and Address Organization Details Last Updated DateTime 02/23/2025 45.9 kg/m2 202825.88 g 114/70 mm[Hg] Jacki Alex [facility] 02/23/2025 11:23:15 Date Recorded Body height Body weight Systolic And Diastolic Provider Name and Address Organization Details Last Updated DateTime 03/09/2025 162.56 cm 109803.978 05 g 100/68 mm[Hg] [facility] 03/09/2025 12:41:54 Date Recorded Body height Body mass index (BMI) Body weight Systolic And Diastolic Provider Name and Address Organization Details Last Updated DateTime 03/24/2025 162.56 cm 46.5 kg/m2 702871.53 g 100/62 mm[Hg] [facility] 03/24/2025 11:52:20 Date Recorded Body weight Body mass index (BMI) Body height Systolic And Diastolic Provider Name and Address Organization Details Last Updated DateTime 05/10/2025 524727.86 36 g 48.1 kg/m2 162.56 cm 118/82 mm[Hg] [facility] 05/10/2025 10:38:01 Social History Question Answer Notes LastModified by Organizat ion Details LastModified Time Tobacco Smoking Status Current Every Day Smoker JORGE LUIS Delaney [address] [facility], [place], [address], [facility] 06/18/2021 10:03:14 If You Are , What [...] Or The Highest Degree You Have Received? [id number] Information not available 01/04/2025 How Many Children [...] Time Maternal Grandfather Type 2 diabetes mellitus [facility] Not available 2024 11:42:41 Maternal Grandfather Hypertensive disorder [facility] Not available 2024 11:42:41 Maternal Grandfather Diabetes mellitus [facility] Not available 2024 11:42:41 Sister [facility] Not available 2024 11:42:41 Father Hypercholest erolemia [facility] Not available 2024 11:42:41 Father Myocardial infarction [facility] Not available 01/04 11:42:41 Father Hypertensive disorder [facility] Not available 2024 11:42:41 Father Diabetes mellitus [facility] Not available 2024 11:42:41 Medical History Condition Response Other Cancer N High Blood Pressure N Colon Cancer N Cytomegalovirus N Hyperthyroidism N Breast Cancer N Herpes (HSV) N MRSA N Blood Transfusion N Lung Cancer N Hypothyroidism N Depression N Incontinence N Panic Attacks N Neurological Disorder N Deep Vein Thrombosis N Anxiety Disorder N Autoimmune disease N Arthritis N Shingles N Tuberculosis/Positive PPD N Polycystic Ovarian Syndrome N Cervical Cancer N Chlamydia N Hematuria N Varicosities N Stroke N Crohn's Disease N Seasonal allergies N Alzheimer's/Dementia N COPD/Emphysema N Endometriosis N HPV/Genital Warts N IBS (Irritable Bowel Syndrome) N History of Abnormal Pap N High Cholesterol N Liver Disease N Fibromyalgia N Kidney Infection N Ulcer N Kidney Disease N HIV [...] ICD10 Code Diagnosis IMO Codes Diagnosis Note [id number] Jacki oCnnell, [facility] [place] [address] [place] [address] 05/17/2021 10:11:15 05/30/2021 13:58:15 state 99368814 Z39.2 Desires Mirena. Last pap 03/13/19 [id number] Ronna James [facility] [address] [place] [address] 06/19/2021 13:17:39 07/04/2021 14:21:12 Insertion of intrauterine contraceptive device 67047794 Z30.430 Pt educated on risks Vs benefits of use, reviewed ACHES symptoms. Dosing schedule reviewed. Pt educated on bleeding profile of device, expulsion sx, and when to notify HCP/go to ER. Plan to F/U PRN or at next [employer]. [id number] Anjum Freedman [facility] [address] [place] [address] 07/17/2021 13:15:42 08/01/2021 12:07:42 Contraception care 372454538 Z30.09 control options reviewed. Carla is undecided as to what she wants to do. Cori salgado pamhlets on options provided. Surveillan ce of intrauterine device contraception done 0735216046 71165 Z30.431 IUD removed per Carla's request. Explained that current bleeding pattern not unusual and that it may take several months before cessation of menses or reduced bleeding. Encouraged her to give it another 3 months at least and explained that we can give estrogen for now to help stop the bleeding-- she refuses. [id number] Sanjuana BalEdisonAnkit mayer, [facility] [address] [facility] [place] [address] 03/22/2022 14:00:19 03/22/2022 14:55:19 test positive 074751013 Z32.01 Discussed bleeding precaution s, and concern for SAB will follow Hcg, states was 5000 in ER [id number] Jacki Nely Connell, [facility] [place] [address] [place] [address] 04/17/2022 11:02:47 04/18/2022 11:36:42 test positive 352173615 Z32.01 Incomplete miscarriage 050880994 O03.4 test remains positive today. Retained products today. Discussed options and would like to continue to wait. Repeat quant today. Stict precaution s reviewed. [id number] NESHA CERVANTES [facility] [address] [place] [address] 04/27/2022 09:54:35 04/27/2022 10:38:03 Missed miscarriage 20279638 O02.1 Postoperative visit 1836 95834 Z09 [id number] [facility] [address] [place] [address] 05/31/2022 12:14:30 06/01/2022 14:53:24 Gynecologic examination 15557041 Z01.419 Screening for malignant neoplasm of cervix 007998617 Z12.4 Contracept ion care education 188393641 Z30.09 Contracept saeid counseling : Discussed options including OCPs, NuvaRing, Nexplanon, hormonal and copper IUDs. Discussed risks, efficacy, noncontrac eptive benefits, and side effects of each option, including risk of VTE with hormonal contracept ion and uterine perforatio n, expulsion, infection with IUD. Depression screening 171 502374 Z13.31 Initiation of depot contraception done 7297643392 63026 Z30.832 [id number] Ludmila Reynolds, [facility] [place] [address] [facility] [place] [address] 05/31/2022 13:25:22 06/06/2022 14:55:44 [id number] JORGE LUIS Delaney [facility] [address] [place] [address] 07/23/2022 11:18:01 07/23/2022 12:33:19 High grade squamous intraepithelial lesion on cervical Papanicolaou smear 8285145176 9107 R87.613 UPT in office is negative. [...] consider smoking cessation and Gardasil administra tion. [id number] ELDER XAVIER DO [facility] [address] [place] [address] 08/15/2022 10:02:10 08/15/2022 12:36:11 Cervical intraepithelial neoplasia grade 2 437350900 N87.1 26 y.o. with colpo showing MILADYS [...] given-Plan for LEEP in OR @ . E's [id number] ELDER XAVIER DO [facility] [address] [place] [address] 09/20/2022 10:37:27 09/20/2022 14:33:30 Postoperative visit 954948724 Z09 26 yo s/p LEEP for MILADYS 2,3 Post-op path: focal MILADYS 3 in endocervix w/ negative marginsRev iewed Surgical findings. Patient instructed that she may return to routine activities . All of her questions were answered. Resume routine [employer] care. Cervical intraepithelial neoplasia grade III with severe dysplasia 922811184 D06.9 Will need repeat pap w/ HPV in 6 months. Followed by yearly Pap w/ HPV for 3 normal paps in a row. Surveillan ce of depot contraception done 8766363909 9104 Z30.42 [id number] NESHA CERVANTES [facility] [address] [place] [address] 11/07/2022 14:09:21 11/08/2022 11:59:28 Infection of sebaceous cyst 571309145 L72.3 [id number] SHAD MARCIAL, [address] [address] 01/23/2023 13:30:57 01/25/2023 02:11:39 Surveillance of depot contraception done 1144004420 9104 Z30.42 [id number] LEONARD B[place] [address] [place] [address] 11/20/2024 11:35:39 11/24/2024 15:06:41 test positive 342102804 Z32.01 [id number] Quant HCG 95 in ER on 11/16, repeat Quant today in office, and repeat Quant Saturday or Saturday at [facility]. Pt denies pain or abnormal vaginal bleeding. SAB/Ectopi c precaution s reviewed with patient. Will return to office for TVUS based upon quant HCG results. [id number] Mariela Gutierrez MD [facility] [address] [place] [address] 12/08/2024 11:59:21 12/08/2024 19:37:45 Uncertain viability of [id number] O36.80X0 88623615 - Routine antepartum care reviewed including visit [...] pap at next visit First trim bebeto 84682733 Z34.91 068702 [id number] LEONARD BIRMINGHAMJORGE LUIS [facility] [address] [place] [address] 01/04/2025 11:39:39 01/11/2025 12:57:47 screening 566890999 Z36.89 - Conduct genetic screening and other tests as scheduled. Cancer cer vix screening status 145113825 Z12.4 858891 -Pap and HPV collected today, history of abnormal pap with Leep procedure in 2022, has not had follow up pap since LEEP High risk 4720 0007 O09.91 79375256 - Continue routine visits to monitor progressio [...] weeks History of loop electrosurgical excision procedure [id number] 9102 Z98.890 86701310 - Monitor cervical length due to history of LEEP procedure, with ultrasound s scheduled at 18, 20, and 22 weeks. Body mass index 40+ - severely obese 276904977 Z68.41 858810 pre-preg BMI 44.7Serial Growths at 28w, 32w, 36wWeekly BPP at 34w Tobacco user 458355445 Z 72.0 137052 - Has reduced smoking significan tly from 1 ppd to 1/2 ppd. Encouraged smoking cessation to reduce risks. History of thyroidectomy 672796336 Z98.890 Z90.89 084825 [id number] Mariela Gutierrez MD [facility] [address] [place] [address] 02/02/2025 11:06:12 02/03/2025 11:37:31 Gestation period, 15 weeks 7708763 Z3A.15 5817730 High risk 4720 0007 O09.212 82027750 Hx of delivery with SROM at 32-33 weeks and history of leep CL 3.68, occasional nausea zofran refilledro und ligament pain discussed comfort measuresRT C in 3 weeks, repeat CL at next visit Nausea and vomiting in 8141105049 O21.9 008208 [id number] Mariela Gutierrez MD [address] [address] 02/23/2025 10:46:28 02/23/2025 16:23:16 Gestation period, 18 weeks 51062012 Z3A.18 4451442 High risk 4720 0007 O09.892 68161014 Hx of delivery with SROM at 32-33 weeks and history of leep CL, following cervical lengths and today was 3.82cm. will repeat next visit with anatomy scan [id number] Mariela Gutierrez MD [address] [address] 03/09/2025 11:42:10 03/12/2025 09:56:59 screening for malformation 167256546 Z36.3 anatomy incomplete screening 2437 71595 Z36.86 High risk 4720 0007 O09.200 6592705 Hx of delivery with SROM at 32-33 weeks and history of leep CL, following cervical lengths will repeat next visit at 22 wks/p recent pneumonia, appears resolved. [id number] JORGE LUIS CRESPO [address] [address] 03/24/2025 10:33:13 03/24/2025 13:34:22 High risk 64712245 O09.892 58882837 Gestation period, 22 weeks 84985658 Z3A.22 2316984 anatomy study 2714 92816 Z36.2 5720254448 care status 24 6146623 Z34.82 77019969 Anatomy complete, CL WNLPTL precaution s reviewedDi scussed stretches for sciaticaRT C in 4 wks [id number] DRE IQBAL, EMAIL MARKETING ASSISTANT [facility] [address] [place] [address] 05/10/2025 10:29:55 05/13/2025 13:05:31 Depression screening 750475112 Z13.31 See Screening Section for EPDS Questionna laurie Result Gestation period, 28 weeks 38178116 Z3A.28 5097170 screening 2437 98144 Z36.89 High risk 4720 0007 O09.90 73984591 Pt is here for a [place] appointmen [...] Past pregn hoang history of premature delivery 369021572 O09.899 448584 Health Concerns Section Related Observation LastModified by Organization Detai ls LastModified Time None Recorded Concern Status LastModified by Organization Details LastModified Time None Recorded Advance Directives Directive None Recorded Payers Insurance Date Sequence Insurance Name Policy Number Policy Jimenez Covered Member ID Jimenez Member ID Guarantor Name 06/05/2025 1 [facility] - DOS ON OR AFTER 20 (MEDICAID REPLACEMENT - HMO) Carla Santos [id number] Carla Tom Notes Date Note Type Note Provider Name and Address Organization Details Recorded Time 02/02/2025 text/html ROS as noted in the HPI Carla is a 29 y/o at 15 weeks gestation who presents today for return ob visit She denies any complaints of the presence of vaginal bleed, leaking fluid, abdominal cramps, nausea, vomiting, headache or visual disturbances. 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 has no concerns. Mariela Gutierrez MD [address] [place] [address], [place], [address], [facility] [employer] 03/11/2025 23:17:16 03/24/2025 text/html ROS as noted in the HPI Patient is here today for a routine OB visit. She is currently at 22.1 weeks gestation. vitamins: yes She has felt movement.She denies any complaints of the presence of vaginal bleed, leaking fluid, abdominal cramps, nausea, vomiting, headache or visual disturbances. JORGE LUIS CRESPO [address] [place], [address], [facility] [employer] 03/24/2025 13:24:12 05/10/2025 text/html Patient is [...] @ 9:42 am DRE IQBAL NP [address] [place], [address], [facility] [employer] 05/13/2025 11:44:40 OBGyn Episode Ob Episode Information Episode Created Date Number of Fetuses Patient Bloodtype Patient rh Status Prepregnancy Weight lbs Domestic Partner Domestic Partner Phone Father Name Landscape Nurseryman Status 07/17/19 22 1 CLOSED Fetus Data First Name Last Name Admitted to NICU Weight (g) Sex Living Outcome Pediatric Complications Fetus ID Race Codes Race Delivery Type 2494.75 6 F Prematur e 77182 Primary Elvis Calculation Initial Elvis Date Initial [...] Domestic Partner Domestic Partner Phone Father Name Landscape Nurseryman Status 09/15/19 22 1 CLOSED Fetus Data First Name Last Name Admitted to NICU Weight (g) Sex Living Outcome Pediatric Complications Fetus ID Race Codes Race Delivery Type 2267.96 M Prematur e [id number] Elvis Calculation Initial Elvis Date Initial Exam [...] Domestic Partner Domestic Partner Phone Father Name Landscape Nurseryman Status 01/02/20 25 1 A Positive OPEN Fetus Data First Name Last Name Admitted to NICU Weight (g) Sex Living Outcome Pediatric Complications Fetus ID Race Codes Race Delivery Type [id number] Problems Problem Notes Problem Name Start Date End Date Resolution Snomed Code Not e Past history of section 01/04/2025 112302941 Body mass index 40+ - severely obese 01/04/2025 028075269 pre-preg BMI 44.7Serial Growths at 28w, 32w, 36wWeekly BPP at 34w Human papillomavirus deoxyribonucleic acid detected, high risk on cervical specimen 02/02/2025 745824097 Needs colp oscopy PP Bacteriuria 01/06/2025 03580849 GBS pos itive urine culture at [facility] History of pneumonia 03/11/2025 00516323 4 History of thyroidectomy 01/04/2025 281400790 TSH and T4 pj wn at [facility] Tobacco user 01/04/2025 669626966 pre-pr egnancy smoking 1 ppd, has decreased to 1/2 ppd at [facility]. Discussed smoking cessation.03/09: has decreased to 4 cig/day. Praised and continue efforts at reduction/quitti ng History of loop electrosurgical excision procedure 01/04/2025 45068901383654 Hx of L eep 09-04-2022 MILADYS 3Cervical Length at 18, 20, and 22 weeks Past history of premature rupture of membranes 01/09/2025 375941569285805 32-3 3 weeks with first Elvis Calculation [...] in lbs Pre/Post Dialysis Refused With clothes 265.015766959754 BP Diastolic BP Location Tested BP Systolic [...] in lbs Pre/Post Dialysis Refused With clothes 268.44878389879 BP Diastolic BP Location Tested BP Systolic [...] Weight in lbs Pre/Post Dialysis Refused Weight 267.686922477598 BP Diastolic BP Location Tested BP Systolic [...] dx with pneumonia last week, went to [facility], prescribed amoxil and improving. no hx [...] Type Weight in lbs Pre/Post Dialysis Refused 265.303169498239 BP Diastolic BP Location Tested BP Systolic [...] in lbs Pre/Post Dialysis Refused With clothes 271.000028925287 BP Diastolic BP Location Tested BP Systolic [...] Type Weight in lbs Pre/Post Dialysis Refused 280.37430420452 BP Diastolic BP Location Tested BP Systolic [...] Domestic Partner Domestic Partner Phone Father Name Landscape Nurseryman Status 12/09/19 25 1 DELETED Fetus Data First Name Last Name Admitted to NICU Weight (g) Sex Living Outcome Pediatric Complications Fetus ID Race Codes Race Delivery Type [id number] Elvis Calculation Initial Elvis Date Initial Exam [...]
--- OUTSIDE RECORDS SUMMARY | 2025-06-19 19:24 | XMS_ITS | Continuity of Care Document ---
Author Organization [facility] Address [address] [place] [place] [address] Assessment No assessment recorded. Plan of Treatment [...] Not available OB ROUTINE 2025 02:30P M BRICE PatriciaM Not available Not available Not available NST 2025 02:00P M NST SCHEDULE Not available Not available Not available OB ROUTINE 2025 02:30P M Madiha Hernandez CNM Not available Not available Not available Lab None recorded . Referral None recorded . Procedures None recorded . Surgeries None recorded . Imaging non-stre ss test 06/11/ 025 [facility], [address], [address], [place], [address], 06/16/2025 10:16:12 Medication Orders None recorded . Patient TargetsNo targets recorded. Patient InstructionsNo instructions recorded. Reason for Referral None Reported. Results Created Date Observation Date Name Description Value Unit Range Abnormal Flag Note LastModifiedBy Organization Detail LastModifiedTime 05/21/20 25 05/21/2025 T4 FREE T4, free 0.52 NG/dL 0.54-1 .24 low This assay is devin ptibl e to rebecca palomino ce from high level s of bioti n which may false ly eleva te resul ts. Yanelis toussaint late with clini raman findi ngs. Not Available [facility] (Lab) [address], [place], [address], 05/22/2025 05:43:58 05/21/20 25 05/21/2025 TSH, REFLE X FREE T4 TSH 0.23 uIU/m L 0.30-5 .33 low Not Available [facility] (Lab) [address], [place], [address], 05/22/2025 05:43:59 05/21/20 25 05/21/2025 CT/GC AND TRICH OMONA S VAGIN PHILLIP (RRNA ), URINE chlamydia trachomatis, PCR Negati ve negati ve Not Available [facility] (Lab) [address], [place], [address], 05/23/2025 13:31:28 05/21/20 25 05/21/2025 CT/GC AND TRICH OMONA S VAGIN PHILLIP (RRNA ), URINE neisseria gonorrhoeae, PCR Negati ve negati ve Not Available [facility] (Lab) [address], [place], [address], 05/23/2025 13:31:28 05/21/20 25 05/21/2025 CT/GC AND TRICH OMONA S VAGIN PHILLIP (RRNA ), URINE trichomonas vaginalis ribosomal RNA (rrna) Negati ve negati ve 49_CL _SOUR CETVG : Urine - Bladd er Not Available [facility] (Lab) [address], [place], [address], 05/23/2025 13:31:28 05/21/20 25 05/21/2025 CULTU RE: URINE result report SEE RESULT S BELOW Test: Cultu re: Urine Speci men Sourc e: Urine Voide d Speci men Type: Urine Speci men Date: 05/21 1051 Resul t Date: 05/23 1227 Resul t Statu s: Final resul t Abnor mal: No Resul ting Lab: [facility] [address] [facility] [address] Tel: CULTU RE ----- ----- ----- --- Organ ism(s ) consi stent with uroge nital or skin kavitha . Repea t cultu re if sympt oms indic ate. Not Available [facility] (Lab) [address], [place], [address], 05/23/2025 13:31:28 05/21/20 25 05/21/2025 drug scree n, urine Amphetamines : negati ve Not Available [facility] [address], [place], [address], 05/21/2025 11:45:28 05/21/20 25 05/21/2025 drug scree n, urine Cannabinoids : negati ve Not Available [facility] [address], [place], [address], 05/21/2025 11:45:28 05/21/20 25 05/21/2025 drug scree n, urine Cocaine: negati ve Not Available [facility] [address], [place], [address], 05/21/2025 11:45:28 05/21/20 25 05/21/2025 drug scree n, urine Opiates: negati ve Not Available [facility] [address], [place], [address], 05/21/2025 11:45:28 05/21/20 25 05/21/2025 drug scree n, urine Phenocyclidi ne: negati ve Not Available [facility] [address], [place], [address], 05/21/2025 11:45:28 05/21/20 25 05/21/2025 drug scree n, urine Barbiturates : negati ve Not Available [facility] [address], [place], [address], 05/21/2025 11:45:28 05/21/20 25 05/21/2025 drug scree n, urine Benzodiazepi tariq: negati ve Not Available [facility] [address], [place], [address], 05/21/2025 11:45:28 05/24/20 25 05/24/2025 CBC W/DIF F WBC 14.8 10'3/ uL 3.5-10 .5 high Not Available [facility] (Lab) [address], [place], [address], 05/25/2025 05:01:23 05/24/20 25 05/24/2025 CBC W/DIF F RBC 4.11 10'6/ uL (based on docume nted legal sex) 3.80-5 .20 Not Available [facility] (Lab) [address], [place], [address], 05/25/2025 05:01:23 05/24/20 25 05/24/2025 CBC W/DIF F HGB 11.6 g/dL (based on docume nted legal sex) 11.6-1 5.4 Not Available [facility] (Lab) [address], [place], [address], 05/25/2025 05:01:23 05/24/20 25 05/24/2025 CBC W/DIF F HCT 36.8 % (based on docume nted legal sex) 34.0-4 5.0 Not Available [facility] (Lab) [address], [place], [address], 05/25/2025 05:01:23 05/24/2005/24/2025 CBC W/DIF F MCV 89.5 fL 80.0-9 9.0 Not Available [facility] (Lab) [address], [place], [address], 05/25/2025 05:01:23 05/24/20 25 05/24/2025 CBC W/DIF F MCH 28.2 pg 27.0-3 4.0 Not Available [facility] (Lab) [address], [place], [address], 05/25/2025 05:01:23 05/24/20 25 05/24/2025 CBC W/DIF F MCHC 31.5 g/dL 32.0-3 5.5 low Not Available [facility] (Lab) [address], [place], [address], 05/25/2025 05:01:23 05/24/20 25 05/24/2025 CBC W/DIF F RDW 14.6 % 11.0-1 5.0 Not Available [facility] (Lab) [address], [place], [address], 05/25/2025 05:01:23 05/24/20 25 05/24/2025 CBC W/DIF F plt 295 10'3/ uL 150-40 0 Not Available [facility] (Lab) [address], [place], [address], 05/25/2025 05:01:23 05/24/20 25 05/24/2025 CBC W/DIF F MPV 11.1 fL 8.8-12 .1 Not Available [facility] (Lab) [address], [place], [address], 05/25/2025 05:01:23 05/24/20 25 05/24/2025 CBC W/DIF F NRBC's 0.0 % 0.0 Not Available [facility] (Lab) [address], [place], [address], 05/25/2025 05:01:23 05/24/20 25 05/24/2025 CBC W/DIF F absolute NRBCs 0.0 10'3/ uL no refere nce range establ ished Not Available [facility] (Lab) [address], [place], [address], 05/25/2025 05:01:23 05/24/20 25 05/24/2025 CBC W/DIF F neutrophils 78.7 % 34.0-7 3.0 high Not Available [facility] (Lab) [address] [place], [address], 05/25/2025 05:01:23 05/24/20 25 05/24/2025 CBC W/DIF F lymphocytes 14.8 % 15.0-5 0.0 low Not Available [facility] (Lab) [address], [place], [address], 05/25/2025 05:01:23 05/24/20 25 05/24/2025 CBC W/DIF F monocytes 4.6 % 1.0-15 .0 Not Available [facility] (Lab) [address] [place], [address], 05/25/2025 05:01:23 05/24/20 25 05/24/2025 CBC W/DIF F eosinophils 1.2 % 0.0-8. 0 Not Available [facility] (Lab) [address] [place], [address], 05/25/2025 05:01:23 05/24/20 25 05/24/2025 CBC W/DIF F basophils 0.2 % 0.0-2. 0 Not Available [facility] (Lab) [address] [place], [address], 05/25/2025 05:01:23 05/24/20 25 05/24/2025 CBC W/DIF [...] separ ately if prese nt. Not Available [facility] (Lab) [address], [place], [address], 05/25/2025 05:01:23 05/24/20 25 05/24/2025 CBC W/DIF F absolute neutrophils 11.6 10'3/ uL 1.5-8. 0 high Not Available [facility] (Lab) [address], [place], [address], 05/25/2025 05:01:23 05/24/20 25 05/24/2025 CBC W/DIF F absolute lymphocytes 2.2 10'3/ uL 1.0-4. 0 Not Available [facility] (Lab) [address], [place], [address], 05/25/2025 05:01:23 05/24/20 25 05/24/2025 CBC W/DIF F absolute monocytes 0.7 10'3/ uL 0.2-1. 0 Not Available [facility] (Lab) [address], [place], [address], 05/25/2025 05:01:23 05/24/20 25 05/24/2025 CBC W/DIF F absolute eosinophils 0.2 10'3/ uL 0.0-0. 6 Not Available [facility] (Lab) [address] [place], [address], 05/25/2025 05:01:23 05/24/20 25 05/24/2025 CBC W/DIF F absolute basophils 0.0 10'3/ uL 0.0-0. 3 Not Available [facility] (Lab) [address] [place], [address], 05/25/2025 05:01:23 05/24/20 25 05/24/2025 CBC W/DIF F absolute immature granulocytes 0.1 10'3/ uL 0.00-0 .10 Refer ence range s for nonbi nary/ inter sex or unspe cifie d gende r patie nts have not been estab lishe d. Yanelis e [facility] for range s estab lishe d for cisge nder patie nts and evalu ate in the clini raman zain xt of the indiv idual patie nt: https :[email or web address] hui book. nm.or g/gen derx Not Available [facility] (Lab) [address] [place], [address], 05/25/2025 05:01:23 05/24/20 25 05/24/2025 GTT - GESTA DINORAH L, 3 HOUR, ACOG glucose, fasting acog 79 mg/dL 70-94 Not Available [facility] (Lab) [address] [place], [address], 05/25/2025 05:01:24 05/24/20 25 05/24/2025 GTT - GESTA DINORAH L, 3 HOUR, ACOG glucose, 1 hour acog 221 mg/dL 70-179 high Not Available [facility] (Lab) [address] [place], [address], 05/25/2025 05:01:24 05/24/20 25 05/24/2025 GTT - GESTA DINORAH L, 3 HOUR, ACOG glucose, 2 hour acog 165 mg/dL 70-154 high Not Available [facility] (Lab) [address] [place], [address], 05/25/2025 05:01:24 05/24/20 25 05/24/2025 GTT - GESTA DINORAH L, 3 HOUR, ACOG glucose, 3 hour acog 75 mg/dL 70-139 Not Available [facility] (Lab) [address] [place], [address], 05/25/2025 05:01:24 05/24/20 25 05/24/2025 CMP(C OMPRE HENSI VE METAB OLIC PANEL ) sodium 139 mmol/ L 133-14 6 Not Available [facility] (Lab) [address], [place], [address], 05/25/2025 05:01:25 05/24/20 25 05/24/2025 CMP(C OMPRE HENSI VE METAB OLIC PANEL ) potassium 4.1 mmol/ L 3.5-5. 1 Not Available [facility] (Lab) [address], [place], [address], 05/25/2025 05:01:25 05/24/20 25 05/24/2025 CMP(C OMPRE HENSI VE METAB OLIC PANEL ) chloride 103 mmol/ L 98-107 Not Available [facility] (Lab) [address], [place], [address], 05/25/2025 05:01:25 05/24/20 25 05/24/2025 CMP(C OMPRE HENSI VE METAB OLIC PANEL ) carbon dioxide 25 mmol/ L 21-31 Not Available [facility] (Lab) [address] [place], [address], 05/25/2025 05:01:25 05/24/20 25 05/24/2025 CMP(C OMPRE HENSI VE METAB OLIC PANEL ) anion gap 11 mmol/ L 4-13 Not Available [facility] (Lab) [address] [place], [address], 05/25/2025 05:01:25 05/24/20 25 05/24/2025 CMP(C OMPRE HENSI VE METAB OLIC PANEL ) blood urea nitrogen 3 mg/dL 7-25 low Not Available [facility] (Lab) [address] [place], [address], 05/25/2025 05:01:25 05/24/20 25 05/24/2025 CMP(C OMPRE HENSI VE METAB OLIC PANEL ) creatinine 0.49 mg/dL 0.60-1 .30 low Not Available [facility] (Lab) [address], [place], [address], 05/25/2025 05:01:25 05/24/20 25 05/24/2025 CMP(C OMPRE HENSI VE METAB OLIC PANEL ) egfrcr (CKD-epi 2020) >90 mL/mi n/1.7 3_m2 >=60 Not Available [facility] (Lab) [address] [place], [address], 05/25/2025 05:01:25 05/24/20 25 05/24/2025 CMP(C OMPRE HENSI VE METAB OLIC PANEL ) calcium 8.5 mg/dL 8.3-10 .5 Not Available [facility] (Lab) [address], [place], [address], 05/25/2025 05:01:25 05/24/20 25 05/24/2025 CMP(C OMPRE HENSI VE METAB OLIC PANEL ) glucose 219 mg/dL 70-100 high Not Available [facility] (Lab) [address] [place], [address], 05/25/2025 05:01:25 05/24/20 25 05/24/2025 CMP(C OMPRE HENSI VE METAB OLIC PANEL ) protein, total 5.6 g/dL 6.4-8. 3 low Not Available [facility] (Lab) [address] [place], [address], 05/25/2025 05:01:25 05/24/20 25 05/24/2025 CMP(C OMPRE HENSI VE METAB OLIC PANEL ) albumin 2.9 g/dL 3.5-5. 0 low Not Available [facility] (Lab) [address] [place], [address], 05/25/2025 05:01:25 05/24/20 25 05/24/2025 CMP(C OMPRE HENSI VE METAB OLIC PANEL ) ALT 9 units /L 9-43 Not Available [facility] (Lab) [address] [place], [address], 05/25/2025 05:01:25 05/24/20 25 05/24/2025 CMP(C OMPRE HENSI VE METAB OLIC PANEL ) alkaline phosphatase 158 units /L 34-104 high Not Available [facility] (Lab) [address] [place], [address], 05/25/2025 05:01:25 05/24/20 25 05/24/2025 CMP(C OMPRE HENSI VE METAB OLIC PANEL ) AST 9 units /L 13-39 low Not Available [facility] (Lab) [address] [place], [address], 05/25/2025 05:01:25 05/24/20 25 05/24/2025 CMP(C OMPRE HENSI VE METAB OLIC PANEL ) bilirubin, total 0.2 mg/dL 0.2-1. 2 Not Available [facility] (Lab) [address] [place], [address], 05/25/2025 05:01:25 05/24/20 25 05/24/2025 URIC ACID uric acid 2.7 mg/dL 2.3-6. 6 Not Available [facility] (Lab) [address] [place], [address], 05/25/2025 05:01:25 05/24/20 25 05/24/2025 T4 FREE T4, free 0.44 NG/dL 0.54-1 .24 low This assay is susce ptibl e to inter feren ce from high level s of bioti n which may false ly eleva te resul ts. Pleas e corre late with clini raman findi ngs. Not Available [facility] (Lab) [address] [place], [address], 05/25/2025 05:01:26 05/24/20 25 05/24/2025 TSH, REFLE X FREE T4 TSH 0.17 uIU/m L 0.30-5 .33 low Not Available [facility] (Lab) [address] [place], [address], 05/25/2025 05:01:26 05/24/20 25 05/24/2025 PROTE IN/CR EATIN INE RATIO , URINE creatinine, urine 19.5 mg/dL R-No refer ence range estab lishe d for this assay Not Available [facility] (Lab) [address] [place], [address], 05/25/2025 05:27:48 05/24/20 25 05/24/2025 PROTE IN/CR EATIN INE RATIO , URINE protein, urine <4 mg/dL R-No refer ence range estab lishe d for this assay Not Available [facility] (Lab) [address] [place], [address], 05/25/2025 05:27:48 05/24/20 25 05/24/2025 PROTE IN/CR [...] fican t prote inuri a. Not Available [facility] (Lab) [address] [place], [address], 05/25/2025 05:27:48 06/03/20 25 06/02/2025 US, obste tric, follo w-up No observ ation record ed. [email or web address] [facility] [address] [place] [address], [address], 06/04/2025 13:20:41 06/10/20 25 06/08/2025 US, obste tric, mater nal evalu ation + anato my No observ ation record ed. [email or web address] [facility] [address], [place], [address], 06/11/2025 12:09:41 06/15/20 25 06/15/2025 non-s tress test No observ ation record ed. [email or web address] [facility] [address], [place], [address], 06/16/2025 11:16:30 06/15/20 25 06/11/2025 non-s tress test No observ ation record ed. [email or web address] Not Available 2024 15:28:53 06/16/20 25 06/15/2025 US, obste tric, follo w-up No observ ation record ed. [email or web address] [facility] [address], [place], [address], 06/16/2025 12:26:43 06/18/20 25 06/18/2025 non-s tress test No observ ation record ed. [email or web address] [facility] [address], [place], [address], 06/18/2025 17:45:42 06/18/20 non-s tress test No observ ation record ed. [email or web address] [facility] [address], [place], [address], 06/18/2025 15:05:39 Result Notes None recorded. Problems Name Problem SNOMED Code Status Onset Date Resolution Date Notes Provider Name and Address Organization Details Recorded Time 51905605 Active 2024 Annalee washington [facility] 10:03:53 Past history of premature delivery 350134705 Active 2024 x2 31 weeks PPROM 34 weeks PPROM plan MFM consult Madiha Hernandez, MARC [address], [place], [address], [facility] 5 12:01:52 Obesity caused by energy imbalance 887277692 Active 2024 bmi 48 Madiha Hernandez CNM [address], [place], [address], [facility] 5 11:58:27 Past history of premature delivery 302308382 Active 2024 x2 31 weeks PPROM 34 weeks PPROM plan MFM consult Madiha Hernandez CNM [address], [place], [address], [facility] 5 12:01:52 Past history of section 237595135 Active 2024 due to distress desires TOLAC Madiha Hernandez CNM [address], [place], [address], [facility] 5 12:02:17 Tobacco user 339802924 Active 2024 1-2 packs/day Madiha Hernandez CNM [address], [place], [address], [facility] 5 12:02:31 History of subtotal thyroidec kyler 395499275 Active 2024 no meds currently , will rpt today Madiha Hernandez CNM [address], [place], [address], [facility] 5 12:02:49 Gestation al diabetes mellitus 79112568 Active 2024 Checking bs QID, serial growth us - Referral faxed to [facility] Diet teaching 05/26 06/02 - per MM, GDM and insulin to be managed by MFM. Pt prescribe d lactus 10units BID. Now 12units BID 06/15 Rebeca washington, [facility] 12:19:36 Hypertens ion AND/OR vomiting complicat ing childbirt h AND/OR puerperiu m 244430382 Active 2024 PC ratio >0.3 on 2 occasions Rebeca Weinstein padmini [facility] 11:28:10 Hypothyro idism 65680446 Active 2024 50 mcg levothyro xine TSH q4 Rebeca Weinstein [facility] 11:31:02 Problem Notes None recorded. Procedures Surgical History Date Name Laterality Status Provider Name and Address Organization Details Recorded Time 1 Caesarean Section completed [facility] 05/21/2025 09:42:35 Thyroid Surgery completed [facility] 05/21/2025 09:42:35 procedure on wrist completed [facility] 05/21/2025 10:35:26 Imaging Results None recorded. Procedure Notes None recorded. Medical Equipment None Reported. Allergies Allergen ID Allergen Name Allergen Category Reaction Reaction Severity Criticality Documentation Date Start Date Code Code System Note Provider Name and Address Organization Details Recorded Time 60196 hydrocodo ne Not available itching Not available Not available 05/21/20252022 5489 RxNorm Not Available [employer] Data Service - prod 03:03:44 84608 iodine medicatio n Not available Not available Not available 05/21/20252016 5933 RxNorm unrec ogniz ed react ion (text : Iker briceno ing, code: 75972 000) (from exter nal sourc e) Not Available [employer] External Data Service - prod 03:03:44 60084 Fish (substanc e) food,medi cation other severe Not available 05/21/2025 38547 1005 [facility] 09:42:34 44456 Shellfish (substanc e) food,medi cation anaphylax is Not available high 05/21/20252020 25845 9006 SNOMED Not Available [employer] - External Data Service - prod 03:04:05 [...] Updated DateTime 06/12/2025 162.56 cm 49 kg/m2 022908.54 g 142/76 mm[Hg] Manisha Warren [facility] [...] Is Your Level Of Caffeine Consumption? Heavy [email or web address] Information not available 05/21/2025 How Much Tobacco Do You Chew? None [email or web address] Information not available 05/21/2025 In The 14 Days Before Symptom Onset, Have You Had Close Contact With A Laboratory-confirme d COVID-19 While That Case Was Ill? No [email or web address] Information n ot available 05/21/2025 In The 14 Days Before Symptom Onset, Have You Had Close Contact With A Person Who Is Under Investigation For COVID-19 While That Person Was Ill? No [email or web address] Information not available 05/21/2025 Have You Been To An Area Known To Be High Risk For COVID-19? No [email or web address] Information not available 05/21/2025 Are You Deaf Or Do You Have Serious Difficulty Hearing? No [email or web address] Information not available 05/21/2025 What Type Of Diet Are You Following? REGULAR [email or web address] Information n ot available 05/21/2025 What Is The Highest Grade Or Level Of School You Have Completed Or The Highest Degree You Have Received? HV53082-3 [email or web address] Information not available 05/21/2025 Are There Any Guns Present In Your Home? No [email or web address] Information not available 05/21/2025 Do You Use Protection During Sex? Usually [email or web address] Information not available 05/21/2025 Do You Use Your Seat Belt Or Car Seat Routinely? Yes [email or web address] Information not available 05/21/2025 Do You Have Smoke And Carbon Monoxide Detectors In Your Home? Yes [email or web address] Information not available 05/21/2025 At What Age Did You Start Smoking Tobacco? 14 [email or web address] Information not available 05/21/2025 How Much Tobacco Do You Smoke? 1 PPD [email or web address] Information not available 05/21/2025 Do You Use Sunscreen Routinely? No [email or web address] Information not available 05/21/2025 How Many Years Have You Smoked Tobacco? 15 [email or web address] Information not available 05/21/2025 Have You Used IV Drugs? No [email or web address] Information not available 05/21/2025 Sex: Unknown Functional Status Question Answer Note LastModified by Organizat ion Details LastModified Time Do you use any illicit or recreational drugs? No [email or web address] Information not available 05/21/2025 What is your level of alcohol consumption? Occasional [email or web address] Information not available 05/21/2025 Are you able to walk independently without assistance or assistive devices? YESWOREST [email or web address] Information not available 05/21/2025 What is your occupation? Na Information not available 05/21/2025 What is your exercise level? Moderate [email or web address] Information not available 05/21/2025 Mental Status Question Answer Note LastModified by Organization D etails LastModified Time Do you feel stressed (tense, restless, nervous, or anxious, or unable to sleep at night)? DQ8283-0 [email or web address] Information not available 05/21/2025 Family History Relationship Description Onset Age of this Age Resolved Age Notes LastModified by Organization Details LastModified Time Paternal Grandmother Anxiety disorder [email or web address] Not available 2024 09:42:34 Paternal Grandmother Heart disease [email or web address] Not available 2024 09:42:34 Paternal Grandmother Mental disorder [email or web address] Not available 2024 09:42:34 Paternal Aunt Anxiety disorder [email or web address] Not available 2024 09:42:34 Paternal Aunt Substance abuse [email or web address] Not available 2024 09:42:34 Paternal Aunt Diabetes mellitus [email or web address] Not available 2024 09:42:34 Paternal Aunt Mental disorder [email or web address] Not available 2024 09:42:34 Paternal Uncle Anxiety disorder [email or web address] Not available 2024 09:42:34 Paternal Uncle Substance abuse [email or web address] Not available 2024 09:42:34 Paternal Uncle Diabetes mellitus [email or web address] Not available 2024 09:42:34 Paternal Uncle Mental disorder [email or web address] Not available 2024 09:42:34 Maternal Grandfather Diabetes mellitus [email or web address] Not available 2024 09:42:34 Paternal Grandfather Substance abuse [email or web address] Not available 2024 09:42:34 Paternal Grandfather Diabetes mellitus [email or web address] Not available 2024 09:42:34 Father Anxiety disorder [email or web address] Not available 2024 09:42:34 Father Substance abuse [email or web address] Not available 2024 09:42:34 Father Diabetes mellitus Not available 2024 09:42:34 Father Mental disorder [email or web address] Not available 2024 09:42:34 Medical History Condition [...] ICD10 Code Diagnosis IMO Codes Diagnosis Note [id number] Madiha Hernandez CNM [facility] [address] [address] 05/21/2025 09:27:14 05/21/2025 12:08:11 screening [id number] Z36.85 Gestation period, 30 weeks 24631321 Z3A.30 [id number] Aneudy Shah MD [facility] [address] [address] 06/11/2025 15:05:01 06/16/2025 10:16:12 Gestational diabetes mellitus 14266390 O24.419 [id number] Health Concerns Section Related Observation LastModified by Organization Detai ls LastModified Time None Recorded Concern Status LastModified by Organization Details LastModified Time None Recorded Payers Encounter Date Sequence Insurance Name Policy Number Policy Jimenez Covered Member ID Jimenez Member ID Guarantor Name 06/11/2025 1 [facility] - DOS ON OR AFTER 20 (MEDICAID REPLACEMENT - HMO) Carla Santos [id number] Carla [place] Notes Date Note Type Note Provider Name and Address Organization Details Recorded Time 06/12/2025 text/html Generic HPI TemplateReported by Patient Aneudy Shah MD [address], [place], [address], [facility] 06/12/2025 10:57:20 OBGyn Episode Ob Episode Information Episode Created Date Number of Fetuses Patient Bloodtype Patient rh Status Prepregnancy Weight lbs Domestic Partner Domestic Partner Phone Father Name Nut Roaster Helper Status 05/21/20 25 1 OPEN Fetus Data First Name Last Name Admitted to NICU Weight (g) Sex Living Outcome Pediatric Complications Fetus ID Race Codes Race Delivery Type [id number] Problems Problem Notes 10 point testing on Tuesdays with MFM. Saturday NST with routine OB.AC 98% 06/03MFM delivery rec 37 wks or sooner with severe features, preeclampsia Problem Name Start Date End Date Resolution Snomed Code Not e Hypertension AND/OR vomiting complicating childbirth AND/OR puerperium 06/09/2025 [id number] PC ratio > 0.3 on 2 occasions Past history of section 05/21/2025 [id number] due to di stress desires TOLAC Obesity caused by energy imbalance 05/21/2025 [id number] bmi 48 Tobacco user 05/21/2025 [id number] 1-2 pa cks/day Hypothyroidism 06/09/2025 [id number] 50 m cg levothyroxineTSH q4 History of subtotal thyroidectomy 05/21/2025 [id number] no meds mignon tly, will rpt today Gestational diabetes mellitus 05/26/2025 [id number] Checking bs QID , serial growth us - Referral faxed to [facility] Diet teaching 05/26 06/02 - per MM, GDM and insulin to be managed by MFM. Pt prescribed lactus 10units BID. Now 12units BID 06/15 Past history of premature delivery 05/21/2025 [id number] x231 weeks PPRO M34 weeks PPROMplan MFM consult Elvis Calculation Initial Elvis Date Initial Exam Date Initial Exam Provider Initial Ultrasound Date Last Menstrual Period Date Ultra Sound Weeks Gestation 05/21/2025 [id number] 0 Eighteen To Twenty Week Elvis Update Ultra Sound Date Fundal Height At Umbil Quickening Date Ultra Sound Latest Weeks Gestation Final Elvis Confirmed By Final Elvis Confirmed Date Final Elvis Date Ultra Sound Latest Days Gestation 0 07/27/19 26 0 Pre- Flowsheet Flowsheet Date 05/21/2025 Ball Score Blood Edema Fundus Height Fundus Units Glucose Ketones Leukocytes Nitrite Labor Signs Protein Cervic Dilation Cervic Effacement Cervic Station Type Weight in lbs Pre/Post Dialysis Refused Weight 281.590509978396 BP Diastolic BP Location Tested BP Systolic BP Type 84 L arm 140 sitting Fetus Heart Rate Present Fetus Movement A Yes Comments transfer from [facility] to home, wants [facility] at [place], has not been referred to m will place order today, not currently taking [...] Weight in lbs Pre/Post Dialysis Refused Weight 285.444299377839 BP Diastolic BP Location Tested BP Systolic [...] Type Weight in lbs Pre/Post Dialysis Refused 289.084755648037 BP Diastolic BP Location Tested BP Systolic BP Type 82 L arm 130 sitting Fetus Heart Rate Present Fetus Movement A Yes Comments Flowsheet Date 06/18/2025 Ball Score Blood Edema Fundus Height Fundus Units Glucose Ketones Leukocytes Nitrite Labor Signs Protein Cervic Dilation Cervic Effacement Cervic Station Type Weight in lbs Pre/Post Dialysis Refused Weight 289.820825031626 BP Diastolic BP Location Tested BP Systolic [...] Estim ated Date of Delivery false Thalassemia (Portuguese, Spanish, Mediterranean, Or Background): MCV < 80 false Neural Tube Defect (Meningomyelocele, Spina Bifi da, Or Anencephaly) false Congenital Heart Defect false Down Syndrome false Mingo-Sachs (eg, Christian, Cajun, Syriac[place]) f alse Luis E Disease false Sickle [...]
--- OUTSIDE RECORDS SUMMARY | 2025-06-19 19:25 | XMS_ITS | Continuity of Care Document ---
Author Organization [facility], [facility] Address [address] [place] [address] Assessment No assessment recorded. Plan of Treatment Reminders Order Date Submit Date Provider Last Modified By Organization Details Last Modified Time Details Appointments None recorded. Lab None recorded. Referral None recorded. Procedures None recorded. Surgeries None recorded. Imaging US, obstetric, transvagina l 2024 025 SELENA [facility], [address] [place], [address], 5 07:11:27 US, obstetric, 2nd trimester 2024 025 [id number] [facility], [address] [place], [address], 5 14:04:58 Medication Orders None recorded. Patient TargetsNo targets recorded. Patient InstructionsNo instructions recorded. Reason for Referral None Reported. Results Created Date Observation Date Name Description Value Unit Range Abnormal Flag Note LastModifiedBy Organization Detail LastModifiedTime 01/05/2001/05/2025 HEMOG LOBIN A1C hemoglobin A1C 5.4 % <5.7 normal The refer ence range for HbA1c is indic ated in the table below . Sugge sted Diagn osis =6.5% Consi stent with diabe max 5.7 6.4% Consi stent with incre ased risk for diabe max (pred iabet ic) <5.7% Consi stent with the absen ce of diabe max Not Available [facility] [address] [place], [address], 01/05/2025 12:52:25 01/05/20 25 01/05/2025 DRUG ABUSE PANEL 7 W/CON FIRM amphetamines Negati ve negati ve normal Not Available [facility] [address] [place], [address], 01/05/2025 12:52:32 01/05/20 25 01/05/2025 DRUG ABUSE PANEL 7 W/CON FIRM barbiturates Negati ve negati ve normal Not Available [facility] [address] [place], [address], 01/05/2025 12:52:32 01/05/20 25 01/05/2025 DRUG ABUSE PANEL 7 W/CON FIRM benzodiazepi tariq Negati ve negati ve normal Not Available [facility] [address] [place], [address], 01/05/2025 12:52:32 01/05/20 25 01/05/2025 DRUG ABUSE PANEL 7 W/CON FIRM cocaine metabolites Negati ve negati ve normal Not Available [facility] [address] [place], [address], 01/05/2025 12:52:32 01/05/20 25 01/05/2025 DRUG ABUSE PANEL 7 W/CON FIRM cannabinoids Negati ve negati ve normal Not Available [facility] [address] [place], [address], 01/05/2025 12:52:32 01/05/20 25 01/05/2025 DRUG ABUSE PANEL 7 W/CON FIRM methadone Negati ve negati ve normal Not Available [facility] [address] [place], [address], 01/05/2025 12:52:32 01/05/20 25 01/05/2025 DRUG ABUSE PANEL 7 W/CON FIRM opiates Negati ve negati ve normal Not Available [facility] [address] [place], [address], 01/05/2025 12:52:32 01/05/20 25 01/05/2025 DRUG ABUSE PANEL 7 W/CON FIRM creatinine, urine 163 mg/dL 20 - 275 normal Not Available [address], [address], 01/05/2025 12:52:32 01/05/20 25 01/05/2025 OB PANEL - STD BLOOD WORK hep BS Ag Non-Re active non-re active normal Not Available [address], [address], 01/05/2025 13:48:44 01/05/20 25 01/05/2025 OB PANEL - STD BLOOD WORK hep C Ab Non-Re active non-re active normal Not Available [address], [address], 01/05/2025 13:48:44 01/05/20 25 01/05/2025 OB PANEL - STD BLOOD WORK HIV 1/2 Ag/Ab Non-Re active non-re active normal Not Available [address], [address], 01/05/2025 13:48:44 01/05/20 25 01/05/2025 OB PANEL - STD BLOOD WORK syphilis Ab Non-Re active non-re active normal Not Available [address], [address], 01/05/2025 13:48:44 01/05/20 25 01/05/2025 OB PANEL [...] the Rubel la virus . Not Available [facility] [address] [place], [address], 01/05/2025 13:48:44 01/05/20 25 01/05/2025 CT/NG chlamydia trachomatis CT neg negati ve normal This repor t is inten ded for us in clini raman monit oring and manag ement of patie nts. It is not inten ded for use in medic al-le gal appli catio n. Not Available [facility] [address] [place] [address], [place], [address], 01/05/2025 14:55:42 01/05/20 25 01/05/2025 CT/NG neisseria gonorrhoeae GC neg negati ve normal This repor t is inten ded for us in clini raman monit oring and manag ement of patie nts. It is not inten ded for use in medic al-le gal appli catio n. Not Available [facility] [address] [place] [address], [address], 01/05/2025 14:55:42 01/05/20 25 01/05/2025 CBC (INCL UDES DIFF/ PLT) WBC 11.5 thous and/u L 4.0 - 9.8 high Not Available [facility] [address] [place] [address], [address], 01/05/2025 15:06:20 01/05/20 25 01/05/2025 CBC (INCL UDES DIFF/ PLT) RBC 4.8 emilee on/uL 3.9 - 4.9 normal Not Available [place], [address], 01/05/2025 15:06:20 01/05/20 25 01/05/2025 CBC (INCL UDES DIFF/ PLT) hemoglobin 13.9 g/dL 11.8 - 14.8 normal Not Available [facility] [address] [place] [address], [address], 01/05/2025 15:06:20 01/05/20 25 01/05/2025 CBC (INCL UDES DIFF/ PLT) hematocrit 42.8 % 35.5 - 44.0 normal Not Available [address], [address], 01/05/2025 15:06:20 01/05/20 25 01/05/2025 CBC (INCL UDES DIFF/ PLT) MCV 89.9 fL 82.0 - 99.0 normal Not Available [address], [address], 01/05/2025 15:06:20 01/05/20 25 01/05/2025 CBC (INCL UDES DIFF/ PLT) MCH 29.2 pg 27.2 - 32.6 normal Not Available [address], [address], 01/05/2025 15:06:20 01/05/20 25 01/05/2025 CBC (INCL UDES DIFF/ PLT) MCHC 32.5 g/dL 31.5 - 35.5 normal Not Available [address], [address], 01/05/2025 15:06:20 01/05/20 25 01/05/2025 CBC (INCL UDES DIFF/ PLT) RDW-CV 13.4 % 11.5 - 14.5 normal Not Available [address], [address], 01/05/2025 15:06:20 01/05/20 25 01/05/2025 CBC (INCL UDES DIFF/ PLT) platelet 221 thous and/u L 140 - 350 normal Not Available [address], [address], 01/05/2025 15:06:20 01/05/20 25 01/05/2025 CBC (INCL UDES DIFF/ PLT) MPV 12.1 fL 9.3 - 12.4 normal Not Available [address], [address], 01/05/2025 15:06:20 01/05/20 25 01/05/2025 CBC (INCL UDES DIFF/ PLT) absolute neutrophil 7.97 thous and/u L 1.90 - 7.00 high Not Available [address], [address], 01/05/2025 15:06:20 01/05/20 25 01/05/2025 CBC (INCL UDES DIFF/ PLT) absolute lymphocyte 2.48 thous and/u L 0.70 - 4.50 normal Not Available [address], [address], 01/05/2025 15:06:20 01/05/20 25 01/05/2025 CBC (INCL UDES DIFF/ PLT) absolute monocyte 0.67 thous and/u L 0.10 - 1.30 normal Not Available [address], [address], 01/05/2025 15:06:20 01/05/20 25 01/05/2025 CBC (INCL UDES DIFF/ PLT) absolute eosinophil 0.22 thous and/u L <0.70 normal Not Available [address], [address], 01/05/2025 15:06:20 01/05/20 25 01/05/2025 CBC (INCL UDES DIFF/ PLT) absolute basophil 0.07 thous and/u L <0.20 normal Not Available [address], [address], 01/05/2025 15:06:20 01/05/20 25 01/05/2025 CBC (INCL UDES DIFF/ PLT) absolute immature granulocyte 0.06 thous and/u L <0.03 high Not Available [address], [address], 01/05/2025 15:06:20 01/05/2001/05/2025 THINP REP TIS PAP report status: Not Available [address] [place], [address], 01/05/2025 23:41:58 01/05/2001/05/2025 THINP REP TIS PAP clinical information: Not Available [address] [address] [place], [address], 01/05/2025 23:41:58 01/05/2001/05/2025 THINP REP TIS PAP LMP: Not Available [address] [place], [address], 01/05/2025 23:41:58 01/05/2001/05/2025 THINP REP TIS PAP prev. Pap: Not Available [address], [address], 01/05/2025 23:41:58 01/05/2001/05/2025 THINP REP TIS PAP prev. BX: Not Available [address], [address], 01/05/2025 23:41:58 01/05/2001/05/2025 THINP REP TIS PAP source: Not Available [address] [address] [place], [address], 01/05/2025 23:41:58 01/05/2001/05/2025 THINP REP TIS PAP statement of adequacy: Not Available [address] [place], [address], 01/05/2025 23:41:58 01/05/2001/05/2025 THINP REP TIS PAP general categorizati on: Not Available [address] [place], [address], 01/05/2025 23:41:58 01/05/20 25 01/05/2025 THINP REP TIS PAP interpretati on/result: Not Available [address], [address], 01/05/2025 23:41:58 01/05/20 25 01/05/2025 THINP REP TIS PAP infection: Not Available [address], [address], 01/05/2025 23:41:58 01/05/20 25 01/05/2025 THINP REP TIS PAP comment: Not Available [address], [address], 01/05/2025 23:41:58 01/05/20 25 01/05/2025 THINP REP TIS PAP cytotechnolo gist: Not Available [address], [address], 01/05/2025 23:41:58 01/05/20 25 01/05/2025 THINP REP TIS PAP review cytotechnolo gist: Not Available [address], [address], 01/05/2025 23:41:58 01/05/20 25 01/05/2025 THINP REP TIS PAP pathologist: Not Available [address], [address], 01/05/2025 23:41:58 01/05/20 25 01/05/2025 VARIC CORA [...] Immun ity Scree n, ACIF. Not Available [facility] [address] [address] [place], [address], 01/05/2025 23:41:59 01/05/20 25 01/05/2025 MEASL ES [...] jt servin e refer to http: //yanni Salazar stDia gnost ics.c om/fa q/FAQ 162 (This link is being provi ded for infor dalia kirk/ educa tonya l purpo ses only. ) Not Available [facility] [employer] [facility] [address] [place], [address], 01/05/2025 23:41:59 01/05/20 25 01/08/[address] [...] alloi mmuni zed pregn hoang. Not Available [address] [address] [place], [address], 01/08/2025 10:50:18 01/05/2001/08/2025 ABO GROUP AND RH TYPE ABO group A Not Available [address] [address] [place], [address], 01/08/2025 10:50:19 01/05/2001/08/2025 ABO GROUP AND RH TYPE Rh type RH(D) POSITI VE For addit ional infor jt servin e refer to http: //[facility] asia Salazar stDia gnost ics.c om/fa q/FAQ 111 (This link is being provi ded for infor dalia kirk/ pete salgado purpo ses only. ) Not Available [employer] [address] [address] [place], [address], 01/08/2025 10:50:19 01/05/2001/08/2025 CULTU RE, URINE , ROUTI NE culture, urine, routine SEE NOTE abnormal CULTU RE, URINE , ROUTI NE Micro Numbe r: [id number] Test Statu s: Final Speci men [...] See Thera py Comme nts Not Available [employer] [facility] [address] [place], [address], 01/08/2025 10:50:19 01/05/20 25 01/06/2025 TSH W/ T4, FREE TSH 0.22 mIU/L 0.55 - 4.78 low COMME NT: Erika te teste d with TSH Gener ation II reage nt. Refer ence Range Femal e aged 18-Ad ult: 0.55- 4.78 Pregn hoang Refer ence Range s First Trime ster 0.26- 2.66 Secon d Trime ster 0.55- 2.73 Third Trime ster 0.43- 2.91 Not Available [address], [address], 01/06/2025 14:41:42 01/05/20 25 01/06/2025 TSH W/ T4, FREE T4, free 0.92 NG/dL 0.89 - 1.76 normal Not Available [address], [address], 01/06/2025 14:41:42 01/05/20 25 01/08/2025 THINP REP TIS PAP clinical information: normal None given Not Available [address] [address] [place], [address], 01/08/2025 12:43:15 01/05/20 25 01/08/2025 THINP REP TIS PAP LMP: normal NONE GIVEN Not Available [address] [place], [address], 01/08/2025 12:43:15 01/05/20 25 01/08/2025 THINP REP TIS PAP prev. Pap: normal NONE GIVEN Not Available [address] [place], [address], 01/08/2025 12:43:15 01/05/20 25 01/08/2025 THINP REP TIS PAP prev. BX: normal NONE GIVEN Not Available [address] [place], [address], 01/08/2025 12:43:15 01/05/20 25 01/08/2025 THINP REP TIS PAP source: normal Cervi x Not Available [address] [place], [address], 01/08/2025 12:43:15 01/05/20 25 01/08/2025 THINP REP TIS PAP statement of adequacy: normal Satis facto ry for evalu ation . Endoc ervic al/tr ansfo rmati on zone compo nent prese nt. Age and/o r menst rual statu s not provi ded Not Available [address] [address] [place], [address], 01/08/2025 12:43:15 01/05/20 25 01/08/2025 THINP REP TIS PAP interpretati on/result: normal Cytol ogy Resul ts: Negat saeid for intra epith elial lesio n or malig mariela . Not Available [address] [address] [place], [address], 01/08/2025 12:43:15 01/05/20 25 01/08/2025 THINP REP TIS PAP infection: normal Shift in vagin al kavitha sugge stive of bacte rial vagin osis. Not Available [address] [address] [place], [address], 01/08/2025 12:43:15 01/05/20 25 01/08/2025 THINP REP TIS PAP comment: normal This Pap test has been evalu ated with compu ter grace shelia techn ology . Not Available [address] [address] [place], [address], 01/08/2025 12:43:15 01/05/20 25 01/08/2025 THINP REP TIS PAP cytotechnolo gist: normal LMT, CT( CP) CT scree mahad locat ion: [address] [address] [place] [address] Not Available [address] [address] [place], [address], 01/08/2025 12:43:15 01/05/20 25 01/08/2025 THINP REP TIS PAP review cytotechnolo gist: normal MARINA, CT( CP) CT scree mahad locat ion: [address] [address] [place] [address] Not Available [address] [address] [place], [address], 01/08/2025 12:43:15 01/05/20 25 01/08/2025 THINP REP [...] clini raman infor matio n. Not Available [employer] [facility] [address] [place], [address], 01/08/2025 12:43:15 01/05/20 25 01/11/2025 T3, FREE T3, free 3.9 pg/mL 2.3 - 4.2 normal Not Available [facility] [address] [place] [address], [address], 01/11/2025 14:10:39 01/05/20 25 01/12/2025 HPV GENOT YPE HPV 16 Negati ve negati ve normal Not Available [facility] [address] [place] [address], [address], 01/12/2025 14:10:06 01/05/20 25 01/12/2025 HPV GENOT YPE HPV 18/45 Negati ve negati ve normal Assay can diffe renti ate HPV 16 from HPV 18 and/o r HPV 45. But canno t diffe renti ate betwe en 18 and 45. [place], [address], 01/12/2025 14:10:06 01/05/20 25 01/05/2025 HPV HIGH [...] l cervi raman cytol ogy. Not Available [employer], [place], [address], 01/12/2025 14:10:06 01/07/20 25 01/06/2025 CHROM OSOME [...] provi ded repre sent the remai [facility] that the pregn hoang is affec [...] loidy scree mahad resul t. Not Available [facility] [address], [place], [address], 01/12/2025 10:17:36 02/24/20 25 02/25/2025 MATER NAL SERUM AFP interpretati on: Scree n negat saeid for open NTD. Not Available [facility] [facility] [address] [place], [address], 02/25/2025 15:16:27 02/24/20 25 02/25/2025 MATER NAL SERUM AFP risk for ontd 1 IN 4150 Not Available [facility] [facility] [address] [place], [address], 02/25/2025 15:16:27 02/24/20 25 02/25/2025 MATER NAL SERUM AFP AFP, serum 42.4 NG/mL Not Available [address], [address], 02/25/2025 15:16:27 02/24/20 25 02/25/2025 MATER NAL SERUM AFP AFP MOM 1.35 Not Available [address], [address], 02/25/2025 15:16:27 02/24/20 25 02/25/2025 MATER NAL [...] brody l baby and that 2-3% of [facility] rns have some type of physi raman or menta l defec t, many of which are undet ectab le throu gh any known prena tiffany diagn ostic techn ique. Not Available [address], [address], 02/25/2025 15:16:27 02/24/20 25 02/25/2025 MATER NAL [...] s dao ic couns elor or call [phone] INFO( [phone]). Inter preti ve Cutof fs Scree n [...] infor jt servin e refer to http: //[facility] salazar stdia gnost ics.c om/fa q/FAQ 74v1 (This link is being provi ded for infor dalia kirk/ educangelica salgado purpo ses only. ) Not Available [address], [address], 02/25/2025 15:16:27 02/24/20 25 02/25/2025 MATER NAL SERUM AFP calc'd gestational age 18.0 weeks Not Available [address], [address], 02/25/2025 15:16:27 02/24/20 25 02/25/2025 MATER NAL SERUM AFP maternal weight 267 lbs Not Available [address], [address], 02/25/2025 15:16:27 02/24/20 25 02/25/2025 MATER NAL SERUM AFP est'd date of delivery 2025 Not Available [address], [address], 02/25/2025 15:16:27 02/24/20 25 02/25/2025 MATER NAL SERUM AFP elvis determined by ULTRAS OUND Not Available [address], [address], 02/25/2025 15:16:27 02/24/20 25 02/25/2025 MATER NAL SERUM AFP mother's ethnic origin CAUCAS SNEHAL Not Available [address], [address], 02/25/2025 15:16:27 02/24/20 25 02/25/2025 MATER NAL SERUM AFP number of fetuses 1 Not Available [address], [address], 02/25/2025 15:16:27 02/24/20 25 02/25/2025 MATER NAL SERUM AFP insulin depend diabetic NO Not Available [address], [address], 02/25/2025 15:16:27 02/24/20 25 02/25/2025 MATER NAL SERUM AFP repeat specimen NO Not Available [address], [address], 02/25/2025 15:16:27 02/24/20 25 02/25/2025 MATER NAL SERUM AFP Hx of neural tube defects NO Not Available [address], [address], 02/25/2025 15:16:27 02/24/20 25 02/25/2025 MATER NAL SERUM AFP prev down synd NO Not Available [address], [address], 02/25/2025 15:16:27 02/24/20 25 02/25/2025 MATER NAL SERUM AFP donor egg NO Not Available [address], [address], 02/25/2025 15:16:27 02/24/20 25 02/25/2025 MATER NAL SERUM AFP donor age: egg retrieval NOT GIVEN Not Available [address], [address], 02/25/2025 15:16:27 02/03/20 25 02/02/2025 US, obste tric, trans vagin al No observ ation record ed. [email or web address] [address], [place], [address], 02/02/2025 22:33:02 02/24/2002/23/2025 US, obste tric, trans vagin al No observ ation record ed. [email or web address] [address], [place], [address], 02/23/2025 15:13:37 03/08/20 US, obste tric, 2nd trime ster No observ [facility] [address] [place] [address], [id number], 03/09/2025 11:42:12 03/09/2003/09/2025 US, obste tric, 2nd trime ster No observ ation record ed. [email or web address] [address], [place], [address], 03/12/2025 00:51:26 03/24/20 , obste tric, 2nd trime ster No observ ation record ed. [facility] [address] [place] [address], [id number], 03/24/2025 10:34:03 03/25/2003/24/2025 , obste tric, trans vagin al No observ ation record ed. [email or web address] [address], [place], [address], 03/25/2025 13:20:18 Result Notes None recorded. Problems [...] NO ProblemS tatus: Resolve Not Available [facility] 03/16/202 2 15:52:14 Gestatio n period, 10 weeks [id number] Completed 201809/14/2019 10 weeks gestatio n of pregnanc y; Progress : Stable Added By: Diane Gutierrez Add to Current Problems : NO ProblemS tatus: Resolve Not Available [facility] 2 15:52:18 Gestatio n period, 13 weeks [id number] Completed 201809/14/2019 13 weeks gestatio n of pregnanc y; Progress : Stable Added By: Alpa Nicole Add to Current Problems : NO ProblemS tatus: Resolve Not Available [facility] 2 15:52:13 Pregnanc y, childbir th and puerperi um finding Completed 201809/14/2019 Encounte r for supervis ion of normal first pregnanc y, second trimeste r; Progress : Stable Added By: Merle Friend Add to Current Problems : NO ProblemS tatus: Resolve Not Available [facility] 2 15:52:17 Gestatio n period, 17 weeks [id number] Completed 201809/14/2019 17 weeks gestatio n of pregnanc y; Progress : Stable Added By: Marcy Noel Add to Current Problems : NO ProblemS tatus: Resolve Not Available [facility] 2 15:52:17 Gestatio n period, 20 weeks [id number] Completed 201801/09/2021 20 weeks gestatio n of pregnanc y; Progress : Stable Added By: Mert Vazquez Add to Current Problems : NO ProblemS tatus: Resolve Not Available [facility] 2 15:52:12 Antenata l screenin g for malforma tion Completed 201801/24/2021 Encounte r for antenata l screenin g for malforma tions; Progress : Stable Added By: Ludmila Reynolds Add to Current Problems : NO ProblemS tatus: Resolve Not Available [facility] 2 15:52:18 Gestatio n period, 25 weeks [id number] Completed 201809/14/2019 25 weeks gestatio n of pregnanc y; Progress : Stable Added By: Merle Friend Add to Current Problems : NO ProblemS tatus: Resolve Not Available [facility] 2 18:22:58 Gestatio n period, 29 weeks [id number] Completed 201909/14/2019 29 weeks gestatio n of pregnanc y; Progress : Stable Added By: Diane Gutierrez Add to Current Problems : NO ProblemS tatus: Resolve Not Available [facility] 2 15:52:16 Pregnanc y, childbir th and puerperi um finding Completed 201909/14/2019 Encounte r for supervis ion of normal first pregnanc y, third trimeste r; Progress : Stable Added By: Ora Mantilla Add to Current Problems : NO ProblemS tatus: Resolve Not Available [facility] 2 15:52:14 Gestatio n period, 31 weeks [id number] Active 2019 31 weeks gestatio n of pregnanc y; Severity : Moderate Progress : Stable Added By: Kimmie Gonzalez Add to Current Problems : YES ProblemS tatus: Current Not Available [facility] 1 08:17:53 Gestatio n period, 33 weeks [id number] Completed 201909/14/2019 33 weeks gestatio n of pregnanc y; Severity : Moderate Progress : Stable Added By: Ora Mantilla Add to Current Problems : NO ProblemS tatus: Resolve Not Available [facility] 1 19:51:42 Contrace ptive sheath status [id number] Completed 201911/29/2020 Encounte r for initial prescrip tion of other contrace ptives; Progress : Stable Added By: Marion Gutierrez Add to Current Problems : NO ProblemS tatus: Resolve Not Available [facility] 2 15:52:12 Lochia finding Completed 201911/29/2020 Encounte r for routine postpart um follow-u p; Progress : Stable Added By: Jelena Sequeira Add to Current Problems : NO ProblemS tatus: Resolve Not Available [facility] 2 15:52:16 Gestatio n period, 8 weeks [id number] Completed 202011/29/2020 8 weeks gestatio n of pregnanc y; Progress : Stable Added By: Haroon Jason Add to Current Problems : NO ProblemS tatus: Resolve Not Available [facility] 2 18:22:57 Evaluati on finding Completed 202011/29/2020 Other specifie d abnormal findings of blood chemistr y; Progress : Stable Added By: Kyle Lam Add to Current Problems : NO ProblemS tatus: Resolve Not Available [facility] 2 15:52:13 Gestatio n period, 12 weeks [id number] Completed 202011/29/2020 12 weeks gestatio n of pregnanc y; Progress : Stable Added By: Haroon Jason Add to Current Problems : NO ProblemS tatus: Resolve Not Available [facility] 2 15:52:13 [id number] 4106 Active 2020 Encounte r for supervis [...] : YES ProblemS tatus: Current Not Available [facility] 1 19:51:38 Gestatio n period, 16 weeks [id number] Completed 202012/27/2020 16 weeks gestatio n of pregnanc y; Progress : Stable Added By: Mert Vazquez Add to Current Problems : NO ProblemS tatus: Resolve Not Available [facility] 2 15:52:19 Gestatio n period, 18 weeks [id number] Completed 202012/27/2020 18 weeks gestatio n of pregnanc y; Progress : Stable Added By: Kimmie Gonzalez Add to Current Problems : NO ProblemS tatus: Resolve Not Available [facility] 2 15:52:18 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 Completed 202001/24/2021 Postproc edural hypothyr oidism; Progress : Stable Added By: Mert Vazquez Add to Current Problems : NO ProblemS tatus: Resolve Not Available [facility] 2 15:52:[address] Concept Completed 202001/24/2021 Supervis ion of other high risk pregnanc ies, second trimeste r; Progress : Stable Added By: Ludmila Reynolds Add to Current Problems : NO ProblemS tatus: Resolve Not Available [facility] 2 15:52:15 Gestatio n period, 22 weeks [id number] Completed 202001/24/2021 22 weeks gestatio n of pregnanc y; Progress : Stable Added By: Ludmila Reynolds Add to Current Problems : NO ProblemS tatus: Resolve Not Available [facility] 2 15:52:17 Gestatio n period, 24 weeks [id number] Completed 202002/09/2021 24 weeks gestatio n of pregnanc y; Progress : Stable Added By: Mert Vazquez Add to Current Problems : NO ProblemS tatus: Resolve Not Available [facility] 2 15:52:15 High risk pregnanc y due to history of labor [id number] Completed 202003/15/2021 Personal history of pre-term labor; Severity : Moderate Progress : Stable Added By: Mert Vazquez Add to Current Problems : NO ProblemS tatus: Resolve Not Available [facility] 08:17:51 Gestatio n period, 26 weeks [id number] Completed 202002/23/2021 26 weeks gestatio n of pregnanc y; Progress : Stable Added By: Mert Vazquez Add to Current Problems : NO ProblemS tatus: Resolve Not Available [facility] [facility] 2 15:52:16 Past pregnanc y history of prematur e labor 625999778 Completed 202003/15/2021 Personal history of pre-term labor; Progress : Stable Added By: Mert Vazquez Add to Current Problems : NO ProblemS tatus: Resolve Not Available [facility] 2 15:52:[address] Concept Completed 202003/15/2021 Supervis ion of other high risk pregnanc ies, third trimeste r; Progress : Stable Added By: Ludmila Reynolds Add to Current Problems : NO ProblemS tatus: Resolve Not Available [facility] 2 18:22:58 Gestatio n period, 28 weeks 05846473 Completed 202003/15/2021 28 weeks gestatio n of pregnanc y; Progress : Stable Added By: Marcy Noel Add to Current Problems : NO ProblemS tatus: Resolve Not Available [facility] 2 15:52:13 Antenata l screenin g [...] YES ProblemS tatus: Current Not Available [facility] 2 15:52:14 Gestatio n period, 33 weeks 44595923 Active 2020 33 weeks gestatio n of pregnanc y; Progress : Stable Added By: Layne Guaman Add to Current Problems : YES ProblemS tatus: Current Not Available [facility] 2 15:52:17 Depressi on screenin g Active 2020 Encounte r for screenin g for maternal depressi on; Progress : Stable Added By: Barbie Rosa Add to Current Problems : YES ProblemS tatus: Current Not Available [facility] 2 15:52:14 Congenit al abnormal ity of uterus complica ting postpart um care - baby delivere d during previous episode of care 097897376 Active 2020 Complica tion of the puerperi um, unspecif ied; Progress : Stable Added By: Jacki Brown i Add to Current Problems : YES ProblemS tatus: Current Not Available [facility] 2 15:52:15 Pregnanc y 12559465 Active 2024 JORGE LUIS CRESPO [address] [place] [address], [address] , [facility] 5 15:44:46 Body mass index 40+ - severely obese 428524586 Active 2024 pre-preg BMI 44.7 Serial Growths at 28w, 32w, 36w Weekly BPP at 34w LEONARD BIRMINGHAM [facility] [address] [place] [address], [address] , [facility] 5 12:11:17 History of loop electros urgical excision procedur e 39571813751 102 Active 2024 Hx of Leep 09-05-19 23 MIALDYS 3 Cervical Length at 18, 20, and 22 weeks LEONARD BIRMINGHAM [facility] [address] [place] [address], [address] , [facility] 5 12:05:28 Tobacco user 416675460 Active 2024 pre-preg mariela smoking 1 ppd, has decrease d to 1/2 ppd at [facility]. Discusse d smoking cessatio n. 03/09: has decrease d to 4 cig/day. Praised and continue efforts at reductio n/quitti ng Mariela Gutierrez MD [address] [place] [address], [address] , [facility] 5 23:10:44 Past pregnanc y history of section 425351017 Active 2024 LEONARD BIRMINGHAM [facility] [address] [place] [address], [address] , [facility] 5 15:26:26 History of thyroide ctomy 772994073 Active 2024 TSH and T4 drawn at [facility] LEONARD BIRMINGHAM [facility] [address] [place] [address], [address] , [facility] 5 17:42:19 Bacteriu rochelle 20518932 Active 2024 GBS positive urine culture at [facility] LEONARD BIRMINGHAM [facility] [address] [place] [address], [address] , [facility] 5 18:40:03 Past pregnanc y history of prematur e rupture of membrane s 62913942998 9100 Active 2024 32-33 weeks with first pregnanc y JORGE LUIS CRESPO [address] [place], [address] , [facility] 5 20:08:45 Human papillom avirus deoxyrib onucleic acid detected , high risk on cervical specimen 931381173 Active 2024 Needs colposco py PP LEONARD BIRMINGHAM, [facility] [address] [place], [address] , [facility] 5 14:20:13 History of pneumoni a 318905598 Active 2024 Mariela Gutierrez MD [address] [place], [address] , [facility] 5 23:09:29 Problem Notes None recorded. Procedures Surgical History Date Name Laterality Status Provider Name and Address Organization Details Recorded Time 025 Date of Last Pap Smear completed Jennie Hernandez [facility] 02/23/2025 10:22:59 023 Depo Provera Injection completed Jelena Sequeira [facility] 01/23/2023 14:27:10 023 Depo Provera Injection completed Jelena Sequeira [facility] 09/20/2022 11:49:20 023 loop electrosurgical excision procedure completed ELDER XAVIER DO [address] [place], [address], [facility] 09/20/2022 07:41:26 023 Colposcopy - Cervix completed JORGE LUIS Delaney [address] [place], [address], [facility] 07/23/2022 12:06:28 022 Depo Provera Injection completed Jelena Sequeira [facility] 05/31/2022 15:04:24 022 Mirena IUD Removal completed Anjum Freedman, [address] [place], [address], [facility] 07/18/2021 10:32:23 021 IUD Insertion completed Ronna James, [address], [address], [facility] 06/19/2021 18:21:20 Dilation and curettage completed Funmilayo Washington [facility] 07/23/2022 11:36:53 C Section completed Leia Tariq [facility] 01/04/2025 11:42:41 thyroidectomy completed LEONARD BIRMINGHAM, [address] [place], [address], [facility] 01/09/2025 19:57:11 procedure on upper arm completed Delisa Muller [facility] 06/13/2021 21:05:21 Imaging Results None recorded. Procedure Notes None recorded. Medical Equipment None Reported. Allergies Allergen ID Allergen Name Allergen Category Reaction Reaction Severity Criticality Documentation Date Start Date Code Code System Note Provider Name and Address Organization Details Recorded Time 965238 iodine medicatio n Not available Not available Not available 04/21/20212018 5933 RxNorm Sever ity: Moder ate; Not Available [facility] 01:05:17 882905 shellfish derived food,medi cation Not available Not available Not available 05/31/2022 Merry Icenogle [facility], [facility] 12:33:03 343557 iodine medicatio n Not available Not available Not available 01/04/2025 5933 RxNorm Leia Tariq null, [facility] 5 11:42:41 883361 Fish (substanc e) food,medi cation anaphylax is Not available [facility] 02/23/20252020 79032 1005 SNOMED Jennie Hernandez null, [facility] 5 11:05:15 786358 hydrocodo ne Not available itching Not available low 02/23/20252021 5489 RxNorm Jennie [place], [facility] 5 11:05:18 406976 Shellfish (substanc e) food,medi cation anaphylax is Not available high 02/23/20252020 07692 9006 SNOMED Jennie [place], [facility] 5 11:05:26 Medications Name Sig Start [...] L 0.15-0.0 3 mg oral tablet RxNorm: [id number] Allow Substitu tion: True Refill Denied: No [...] cephALEX in 250 mg oral capsule RxNorm: 415164 Allow Substitu tion: True Refill Denied: No Edited by: soco hendrix([facility] on 02/10/20 Stopped by: soco hendrix[facility] ) on 02/10/20 Not Available Not Available Not Available promethaz ine 6.25 mg/5 mL oral syrup TAKE 10 ML BY MOUTH EVERY 6 HOURS NEEDED 05/17 completed Not Available Not Available Not Available pyridoxin e (vitamin B6) 25 mg tablet Take one tablet up to 4 times daily before meals 11/29 completed pyridoxi ne (vitamin B6) 25 mg oral tablet RxNorm: 0603720 Allow Substitu tion: True Refill Denied: No Edited by: soco hendrix([facility] ) on 11/30/19 Stopped by: soco hendrix([facility] ) on 11/30/19 Not Available Not Available [...] succinat e 25 mg oral tablet RxNorm: [id number] Allow Substitu tion: True Refill Denied: No [...] True Refill Denied: No Edited by: soco hendrix(Mret Morales ) on 11/30/19 21 Stopped by: soco [...] Updated DateTime 03/24/2025 162.56 cm 46.5 kg/m2 745808.53 g 100/62 mm[Hg] Leia Tariq [facility] 03/24/2025 11:52:20 Social History Question Answer Notes LastModified by Organizat ion Details LastModified Time Tobacco Smoking Status Current Every Day Smoker Ronna James, [facility] [address] [place], [address], [facility] 06/18/2021 10:03:14 If You Are , [...] Or The Highest Degree You Have Received? [id number] Information not available 01/04/2025 How Many Children [...] Cytomegalovirus N Hyperthyroidism N Breast Cancer N MRSA N Herpes (HSV) N Blood Transfusion N [...] ICD10 Code Diagnosis IMO Codes Diagnosis Note [id number] Mariela Gutierrez MD [address] [place] [address] 02/23/2025 10:46:28 02/23/2025 16:23:16 Gestation period, 18 weeks 49814653 Z3A.18 8775958 High risk 4720 0007 O09.892 23755243 Hx of delivery with SROM at 32-33 weeks and history of leep CL, following cervical lengths and today was 3.82cm. will repeat next visit with anatomy scan [id number] Mariela Gutierrez MD [address] [address] 03/09/2025 11:42:10 03/12/2025 09:56:59 screening for malformation 384151197 Z36.3 anatomy incomplete screening 2437 49005 Z36.86 High risk 4720 0007 O09.583 1046975 Hx of delivery with SROM at 32-33 weeks and history of leep CL, following cervical lengths will repeat next visit at 22 wks/p recent pneumonia, appears resolved. [id number] JORGE LUIS CRESPO [facility] [address] [place] [address] 03/24/2025 10:33:13 03/24/2025 13:34:22 High risk 55298320 O09.892 05005099 Gestation period, 22 weeks 42515883 Z3A.22 6412696 anatomy study 2714 89175 Z36.2 6736340581 care status 24 0576720 Z34.82 54552333 Anatomy complete, CL WNLPTL precaution s reviewedDi scussed stretches for sciaticaRT C in 4 wks Health Concerns Section Related Observation LastModified by Organization Detai ls LastModified Time None Recorded Concern Status LastModified by Organization Details LastModified Time None Recorded Payers Encounter Date Sequence Insurance Name Policy Number Policy Jimenez Covered Member ID Jimenez Member ID Guarantor Name 03/24/2025 1 [facility] ON OR AFTER 12/29/20 (MEDICAID REPLACEMENT - HMO) Carla Santos [id number] Carla Santos Notes Date Note Type Note Provider Name and Address Organization Details Recorded Time 03/24/2025 text/html ROS as noted in the HPI Patient is here today for a routine OB visit. She is currently at 22.1 weeks gestation. vitamins: yes She has felt movement.She denies any complaints of the presence of vaginal bleed, leaking fluid, abdominal cramps, nausea, vomiting, headache or visual disturbances. JORGE LUIS CRESPO [address] [facility], [place], [address], [facility] 03/24/2025 13:24:12 OBGyn Episode Ob Episode Information Episode Created Date Number of Fetuses Patient Bloodtype Patient rh Status Prepregnancy Weight lbs Domestic Partner Domestic Partner Phone Father Name Manager Of Clinical Status 01/02/20 25 1 A Positive OPEN Fetus Data First Name Last Name Admitted to NICU Weight (g) Sex Living Outcome Pediatric Complications Fetus ID Race Codes Race Delivery Type [id number] Problems Problem Notes Problem Name Start Date End Date Resolution Snomed Code Not e Past history of section 01/04/2025 911964227 Body mass index 40+ - severely obese 01/04/2025 244600659 pre-preg BMI 44.7Serial Growths at 28w, 32w, 36wWeekly BPP at 34w Human papillomavirus deoxyribonucleic acid detected, high risk on cervical specimen 02/02/2025 290565885 Needs colp oscopy PP Bacteriuria 01/06/2025 37649620 GBS pos itive urine culture at [facility] History of pneumonia 03/11/2025 78967962 4 History of thyroidectomy 01/04/2025 980238756 TSH and T4 pj wn at [facility] Tobacco user 01/04/2025 735981276 pre-pr egnancy smoking 1 ppd, has decreased to 1/2 ppd at [facility]. Discussed smoking cessation.03/09: has decreased to 4 cig/day. Praised and continue efforts at reduction/quitti ng History of loop electrosurgical excision procedure 01/04/2025 73514907647227 Hx of L eep 09-04-2022 [facility] 3Cervical Length at 18, 20, and 22 weeks Past history of premature rupture of membranes 01/09/2025 [id number] 32-3 3 weeks with first Elvis Calculation [...] in lbs Pre/Post Dialysis Refused With clothes 265.164777905166 BP Diastolic BP Location Tested BP Systolic [...] in lbs Pre/Post Dialysis Refused With clothes 268.83611825239 BP Diastolic BP Location Tested BP Systolic [...] Weight in lbs Pre/Post Dialysis Refused Weight 267.575718821851 BP Diastolic BP Location Tested BP Systolic [...] with pneumonia last week, went to [facility], prescribed amoxil and improving. no hx of [...] Type Weight in lbs Pre/Post Dialysis Refused 265.187802017822 BP Diastolic BP Location Tested BP Systolic [...] in lbs Pre/Post Dialysis Refused With clothes 271.405750051702 BP Diastolic BP Location Tested BP Systolic [...] Type Weight in lbs Pre/Post Dialysis Refused 280.46830303226 BP Diastolic BP Location Tested BP Systolic [...]
--- OUTSIDE RECORDS SUMMARY | 2025-06-19 19:25 | XMS_ITS | Continuity of Care Document ---
Author Organization [email or web address] , [facility] Address [address] [place] [address] Assessment No assessment recorded. Plan of Treatment Reminders Order Date Submit Date Provider Last Modified By Organization Details Last Modified Time Details Appointments None recorded. Lab glucose tolerance test, post-50G, 1-hour 2024 025 [facility], [address] [place], [address], 11:29:09 CBC w/ auto diff 2024 025 [facility], [address] [place], [address], 12:41:14 obstetric screen, serum or blood 2024 025 [facility], [address] [place], [address], 12:46:24 TSH + free T4, serum 2024 025 [employer] [facility], [address] [facility], [place], [address], 12:50:06 Referral None recorded. Procedures None recorded. Surgeries None recorded. Imaging None recorded. Medication Orders None recorded. Patient TargetsNo targets recorded. Patient Instructions Encounter Date Encounter Id Patient Instructions Last Modified By Organization Details Last Modified Time 05/10/2025 [id number] learning about depression during Not available 05/10/2025 [...] Third trime ster 0.43- 2.91 Not Available [employer] [facility] [address] [place], [address], 05/11/2025 12:50:06 05/11/20 25 05/11/2025 TSH+F REE T4 T4, free 0.9 NG/dL 0.8-1. 8 normal NO COLLE CTION DATE RECEI MICHAEL. WE HAVE USED THE DATE THE SPECI MEN WAS RECEI MICHAEL BY THIS LABOR ATORY THE COLLE CTION DATE. IF THIS IS INCOR RECT, PLEAS E CONTA CT CLIEN T SERVI NEO. PHONE NUMBE R: [phone] Not Available [employer] [facility] [address] [place], [address], 05/11/2025 12:50:06 01/05/20 25 01/05/2025 HEMOG LOBIN [...] absen ce of diabe max Not Available [employer] [address] [place], [address], 01/05/2025 12:52:25 01/05/20 25 01/05/2025 DRUG ABUSE PANEL 7 W/CON FIRM amphetamines Negati ve negati ve normal Not Available [employer] [address] [place], [address], 01/05/2025 12:52:32 01/05/20 25 01/05/2025 DRUG ABUSE PANEL 7 W/CON FIRM barbiturates Negati ve negati ve normal Not Available [facility] [address] [place], [address], 01/05/2025 12:52:32 01/05/20 25 01/05/2025 DRUG ABUSE PANEL 7 W/CON FIRM benzodiazepi tariq Negati ve negati ve normal Not Available [facility] [address] [place], [address], 01/05/2025 12:52:32 01/05/20 25 01/05/2025 DRUG ABUSE PANEL 7 W/CON FIRM cocaine metabolites Negati ve negati ve normal Not Available [facility] [address] [place], [address], 01/05/2025 12:52:32 01/05/20 25 01/05/2025 DRUG ABUSE PANEL 7 W/CON FIRM cannabinoids Negati ve negati ve normal Not Available [facility] [address] [place], [address], 01/05/2025 12:52:32 01/05/20 25 01/05/2025 DRUG ABUSE PANEL 7 W/CON FIRM methadone Negati ve negati ve normal Not Available [facility] [address] [place], [address], 01/05/2025 12:52:32 01/05/20 25 01/05/2025 DRUG ABUSE PANEL 7 W/CON FIRM opiates Negati ve negati ve normal Not Available [facility] [address] [place], [address], 01/05/2025 12:52:32 01/05/20 25 01/05/2025 DRUG ABUSE PANEL 7 W/CON FIRM creatinine, urine 163 mg/dL 20 - 275 normal Not Available [facility] [address] [place], [address], 01/05/2025 12:52:32 01/05/20 25 01/05/2025 OB PANEL - STD BLOOD WORK hep BS Ag Non-Re active non-re active normal Not Available [address], [address], 01/05/2025 13:48:44 01/05/20 25 01/05/2025 OB PANEL - STD BLOOD WORK hep C Ab Non-Re active non-re active normal Not Available [address], [address], 01/05/2025 13:48:44 01/05/20 25 01/05/2025 OB PANEL - STD BLOOD WORK HIV 1/2 Ag/Ab Non-Re active non-re active normal Not Available [address], [address], 01/05/2025 13:48:44 01/05/20 25 01/05/2025 OB PANEL - STD BLOOD WORK syphilis Ab Non-Re active non-re active normal Not Available [address], [address], 01/05/2025 13:48:44 01/05/20 25 01/05/2025 OB PANEL [...] the Rubel la virus . Not Available [address], [address], 01/05/2025 13:48:44 01/05/20 25 01/05/2025 CT/NG chlamydia trachomatis CT neg negati ve normal This repor t is inten ded for us in clini raman monit oring and manag ement of patie nts. It is not inten ded for use in medic al-le gal appli catio n. [place], [address], 01/05/2025 14:55:42 01/05/20 25 01/05/2025 CT/NG neisseria gonorrhoeae GC neg negati ve normal This repor t is inten ded for us in clini raman monit oring and manag ement of patie nts. It is not inten ded for use in medic al-le gal appli catio n. [place], [address], 01/05/2025 14:55:42 01/05/20 25 01/05/2025 CBC (INCL UDES DIFF/ PLT) WBC 11.5 thous and/u L 4.0 - 9.8 high [place], [address], 01/05/2025 15:06:20 01/05/20 25 01/05/2025 CBC (INCL UDES DIFF/ PLT) RBC 4.8 emilee on/uL 3.9 - 4.9 normal [place], [address], 01/05/2025 15:06:20 01/05/20 25 01/05/2025 CBC (INCL UDES DIFF/ PLT) hemoglobin 13.9 g/dL 11.8 - 14.8 normal [place], [address], 01/05/2025 15:06:20 01/05/20 25 01/05/2025 CBC (INCL UDES DIFF/ PLT) hematocrit 42.8 % 35.5 - 44.0 normal Not Available [facility] [address] [place] [address], [address], 01/05/2025 15:06:20 01/05/20 25 01/05/2025 CBC (INCL UDES DIFF/ PLT) MCV 89.9 fL 82.0 - 99.0 normal Not Available [address], [address], 01/05/2025 15:06:20 01/05/20 25 01/05/2025 CBC (INCL UDES DIFF/ PLT) MCH 29.2 pg 27.2 - 32.6 normal Not Available [address], [address], 01/05/2025 15:06:20 01/05/20 25 01/05/2025 CBC (INCL UDES DIFF/ PLT) MCHC 32.5 g/dL 31.5 - 35.5 normal Not Available [address], [address], 01/05/2025 15:06:20 01/05/20 25 01/05/2025 CBC (INCL UDES DIFF/ PLT) RDW-CV 13.4 % 11.5 - 14.5 normal Not Available [address], [address], 01/05/2025 15:06:20 01/05/20 25 01/05/2025 CBC (INCL UDES DIFF/ PLT) platelet 221 thous and/u L 140 - 350 normal Not Available [address], [address], 01/05/2025 15:06:20 01/05/20 25 01/05/2025 CBC (INCL UDES DIFF/ PLT) MPV 12.1 fL 9.3 - 12.4 normal Not Available [address], [address], 01/05/2025 15:06:20 01/05/20 25 01/05/2025 CBC (INCL UDES DIFF/ PLT) absolute neutrophil 7.97 thous and/u L 1.90 - 7.00 high Not Available [address], [address], 01/05/2025 15:06:20 01/05/20 25 01/05/2025 CBC (INCL UDES DIFF/ PLT) absolute lymphocyte 2.48 thous and/u L 0.70 - 4.50 normal Not Available [address], [address], 01/05/2025 15:06:20 01/05/20 25 01/05/2025 CBC (INCL UDES DIFF/ PLT) absolute monocyte 0.67 thous and/u L 0.10 - 1.30 normal Not Available [address], [address], 01/05/2025 15:06:20 01/05/20 25 01/05/2025 CBC (INCL UDES DIFF/ PLT) absolute eosinophil 0.22 thous and/u L <0.70 normal Not Available [address], [address], 01/05/2025 15:06:20 01/05/20 25 01/05/2025 CBC (INCL UDES DIFF/ PLT) absolute basophil 0.07 thous and/u L <0.20 normal Not Available [address], [address], 01/05/2025 15:06:20 01/05/20 25 01/05/2025 CBC (INCL UDES DIFF/ PLT) absolute immature granulocyte 0.06 thous and/u L <0.03 high Not Available [address], [address], 01/05/2025 15:06:20 01/05/20 25 01/05/2025 THINP REP TIS PAP report status: Not Available [employer] [facility] [address] [place], [address], 01/05/2025 23:41:58 01/05/20 25 01/05/2025 THINP REP TIS PAP clinical information: Not Available [place] [address] [address] [place], [address], 01/05/2025 23:41:58 01/05/20 25 01/05/2025 THINP REP TIS PAP LMP: Not Available [address] [place], [address], 01/05/2025 23:41:58 01/05/20 25 01/05/2025 THINP REP TIS PAP prev. Pap: Not Available [address] [place], [address], 01/05/2025 23:41:58 01/05/20 25 01/05/2025 THINP REP TIS PAP prev. BX: Not Available [address] [place], [address], 01/05/2025 23:41:58 01/05/20 25 01/05/2025 THINP REP TIS PAP source: Not Available [address] [place], [address], 01/05/2025 23:41:58 01/05/20 25 01/05/2025 THINP REP TIS PAP statement of adequacy: Not Available [address] [place], [address], 01/05/2025 23:41:58 01/05/20 25 01/05/2025 THINP REP TIS PAP general categorizati on: Not Available [address] [place], [address], 01/05/2025 23:41:58 01/05/20 25 01/05/2025 THINP REP TIS PAP interpretati on/result: Not Available [address] [place], [address], 01/05/2025 23:41:58 01/05/20 25 01/05/2025 THINP REP TIS PAP infection: Not Available [address] [address] [place], [address], 01/05/2025 23:41:58 01/05/20 25 01/05/2025 THINP REP TIS PAP comment: Not Available [address] [place], [address], 01/05/2025 23:41:58 01/05/20 25 01/05/2025 THINP REP TIS PAP cytotechnolo gist: Not Available [address] [place], [address], 01/05/2025 23:41:58 01/05/2001/05/2025 THINP REP TIS PAP review cytotechnolo gist: Not Available [address] [place], [address], 01/05/2025 23:41:58 01/05/2001/05/2025 THINP REP TIS PAP pathologist: Not Available [address], [address], 01/05/2025 23:41:58 01/05/2001/05/2025 BACILIO DIAMOND R VIRUS ANTIB CT (IGG) varicella [...] Immun ity Scree n, ACIF. Not Available [employer] [facility] [address] [place], [address], 01/05/2025 23:41:59 01/05/20 25 01/05/2025 MEASL ES [...] jt servin e refer to http: //[facility].Que stDia gnost ics.c om/fa q/FAQ 162 (This link is being provi ded for infor dalia kirk/ educa dinorah l purpo ses only. ) Not Available [employer] [facility] [address] [place], [address], 01/05/2025 23:41:59 01/05/20 25 01/08/[address] [...] alloi mmuni zed pregn hoang. Not Available [facility] [address] [place], [address], 01/08/2025 10:50:18 01/05/2001/08/2025 ABO GROUP AND RH TYPE ABO group A Not Available [facility] [address] [place], [address], 01/08/2025 10:50:19 01/05/2001/08/2025 ABO GROUP AND RH TYPE Rh type RH(D) POSITI VE For addit ional infor jt servin e refer to http: //[facility].Edilson stDia gnost ics.c om/fa q/FAQ 111 (This link is being provi ded for infor dalia kirk/ educa dinorah l purpo ses only. ) Not Available [facility] [address] [place], [address], 01/08/2025 10:50:19 01/05/2001/08/2025 CULTU RE, URINE , ROUTI NE culture, urine, routine SEE NOTE abnormal CULTU RE, URINE , ROUTI NE Micro Numbe r: [id number] Test Statu s: Final Speci men [...] See Thera py Comme nts Not Available [facility] [address] [address], [place], [address], 01/08/2025 10:50:19 01/05/2001/06/2025 TSH W/ T4, FREE TSH 0.22 mIU/L 0.55 - 4.78 low COMME NT: Erika te teste d with TSH Gener ation II reage nt. Refer ence Range Femal e aged 18-Ad ult: 0.55- 4.78 Pregn hoang Refer ence Range s First Trime ster 0.26- 2.66 Secon d Trime ster 0.55- 2.73 Third Trime ster 0.43- 2.91 Not Available [place], [address], 01/06/2025 14:41:42 01/05/2001/06/2025 TSH W/ T4, FREE T4, free 0.92 NG/dL 0.89 - 1.76 normal Not Available [place], [address], 01/06/2025 14:41:42 01/05/20 25 01/08/2025 THINP REP TIS PAP clinical information: normal None given Not Available [address], [address], 01/08/2025 12:43:15 01/05/20 25 01/08/2025 THINP REP TIS PAP LMP: normal NONE GIVEN Not Available [address], [address], 01/08/2025 12:43:15 01/05/20 25 01/08/2025 THINP REP TIS PAP prev. Pap: normal NONE GIVEN Not Available [address], [address], 01/08/2025 12:43:15 01/05/20 25 01/08/2025 THINP REP TIS PAP prev. BX: normal NONE GIVEN Not Available [address], [address], 01/08/2025 12:43:15 01/05/20 25 01/08/2025 THINP REP TIS PAP source: normal Cervi x Not Available [address], [address], 01/08/2025 12:43:15 01/05/20 25 01/08/2025 THINP REP TIS PAP statement of adequacy: normal Satis facto ry for evalu ation . Endoc ervic al/tr ansfo rmati on zone compo nent prese nt. Age and/o r menst rual statu s not provi ded Not Available [address], [address], 01/08/2025 12:43:15 01/05/20 25 01/08/2025 THINP REP TIS PAP interpretati on/result: normal Cytol ogy Resul ts: Negat saeid for intra epith elial lesio n or malmaddie sierra . Not Available [place] [address] [address] [place], [address], 01/08/2025 12:43:15 01/05/2001/08/2025 THINP REP TIS PAP infection: normal Shift in vagin al kavitha sugge stive of bacte rial vagin osis. Not Available [address] [place], [address], 01/08/2025 12:43:15 01/05/20 25 01/08/2025 THINP REP TIS PAP comment: normal This Pap test has been evalu ated with esha [employer]uchanan [employer] o[employer] . Not Available [address], [address], 01/08/2025 12:43:15 01/05/20 25 01/08/2025 THINP REP TIS PAP cytotechnolo gist: normal LMT, CT( CP) CT scree mahad locat ion: [place] [address] [address] [place] [address] Not Available [place] [address] [address] [place], [address], 01/08/2025 12:43:15 01/05/20 25 01/08/2025 THINP REP TIS PAP review cytotechnolo gist: normal MARINA, CT( CP) CT scree mahad locat ion: [place] [address] [address] [place] [address] Not Available [address] [place], [address], 01/08/2025 12:43:15 01/05/20 25 01/08/2025 THINP REP TIS PAP comment EXPLA NATOR Y NOTE: The Pap is a scree mahad test for cervi raman cance r. It is not a diagn ostic test and is subje ct to false negat saeid and false posit saeid resul ts. It is most relia ble when a satis facto ry sampl e, regul mireille obtai sturat, is submi tted with relev ant clini raman findi ngs and histo ry, and when the Pap resul t is evalu ated along with histo alethea and curre nt clini raman infor dalia n. Not Available [facility] [address] [address], [place], [address], 01/08/2025 12:43:15 01/05/20 25 01/11/2025 T3, FREE T3, free 3.9 pg/mL 2.3 - 4.2 normal Not Available [address], [address], 01/11/2025 14:10:39 01/05/20 25 01/12/2025 HPV GENOT YPE HPV 16 Negati ve negati ve normal Not Available [address], [address], 01/12/2025 14:10:06 01/05/20 25 01/12/2025 HPV GENOT YPE HPV 18/45 Negati ve negati ve normal Assay can diffe renti ate HPV 16 from HPV 18 and/o r HPV 45. But canno t diffe renti ate betwe en 18 and 45. Not Available [address], [address], 01/12/2025 14:10:06 01/05/20 25 01/05/2025 HPV HIGH [...] l cervi raman cytol ogy. Not Available [address], [address], 01/12/2025 14:10:06 01/07/20 25 01/06/2025 CHROM OSOME [...] loidy scree mahad resul t. Not Available [facility] [address], [place], [address], 01/12/2025 10:17:36 02/24/20 25 02/25/2025 MATER NAL SERUM AFP interpretati on: Scree n negat saeid for open NTD. Not Available [employer] [facility] [address] [place], [address], 02/25/2025 15:16:27 02/24/20 25 02/25/2025 MATER NAL SERUM AFP risk for ontd 1 IN 4[address] Not Available [facility] [address] [place], [address], 02/25/2025 15:16:27 02/24/20 25 02/25/2025 MATER NAL SERUM AFP AFP, serum 42.4 NG/mL Not Available [employer] [facility] [address] [place], [address], 02/25/2025 15:16:27 02/24/20 25 02/25/2025 MATER NAL SERUM AFP AFP MOM 1.35 Not Available [facility] [address] [place], [address], 02/25/2025 15:16:27 02/24/20 25 02/25/2025 MATER NAL [...] brody l baby and that 2-3% of [facility] rns have some type of physi raman or menta l defec t, many of which are undet ectab le throu gh any known prena tiffany diagn ostic techn ique. Not Available [facility] [address] [address] , [place], [address], 02/25/2025 15:16:27 02/24/20 25 02/25/2025 MATER NAL [...] s dao ic couns elor or call [phone]( [phone]). Inter preti ve Cutof fs Scree n [...] jt servin e refer to http: //yanni barton ics.c om/fa q/FAQ 74v1 (This link is being provi ded for infor dalia kirk/ pete salgado purpo ses only. ) Not Available [address], [address], 02/25/2025 15:16:27 02/24/20 25 02/25/2025 MATER NAL SERUM AFP calc'd gestational age 18.0 weeks Not Available [address], [address], 02/25/2025 15:16:27 02/24/20 25 02/25/2025 MATER NAL SERUM AFP maternal weight 267 lbs Not Available [address], [address], 02/25/2025 15:16:27 02/24/20 25 02/25/2025 MATER NAL SERUM AFP est'd date of delivery 2025 Not Available [address], [address], 02/25/2025 15:16:27 02/24/20 25 02/25/2025 MATER NAL SERUM AFP elvis determined by ULTRAS OUND Not Available [address], [address], 02/25/2025 15:16:27 02/24/20 25 02/25/2025 MATER NAL SERUM AFP mother's ethnic origin CAUCAS SNEHAL Not Available [address], [address], 02/25/2025 15:16:27 02/24/20 25 02/25/2025 MATER NAL SERUM AFP number of fetuses 1 Not Available [address], [address], 02/25/2025 15:16:27 02/24/20 25 02/25/2025 MATER NAL SERUM AFP insulin depend diabetic NO Not Available [address], [address], 02/25/2025 15:16:27 02/24/20 25 02/25/2025 MATER NAL SERUM AFP repeat specimen NO Not Available [address], [address], 02/25/2025 15:16:27 02/24/20 25 02/25/2025 MATER NAL SERUM AFP Hx of neural tube defects NO Not Available [address], [address], 02/25/2025 15:16:27 02/24/20 25 02/25/2025 MATER NAL SERUM AFP prev down synd NO Not Available [address], [address], 02/25/2025 15:16:27 02/24/20 25 02/25/2025 MATER NAL SERUM AFP donor egg NO Not Available [address], [address], 02/25/2025 15:16:27 02/24/20 25 02/25/2025 MATER NAL SERUM AFP donor age: egg retrieval NOT GIVEN Not Available [address], [address], 02/25/2025 15:16:27 05/10/20 25 05/11/2025 (50G) 1HR - GLUCO SE ANABELLE ANCE TEST, GESTA DINORAH L SCREE N glucose (50g) 1 hour 138 mg/dL <135 high Not Available [facility] [address] [place], [address], 05/11/2025 11:29:09 05/10/20 25 05/11/2025 CBC (INCL UDES DIFF/ PLT) WBC 14.1 thous and/u L 4.0 - 10.0 high Not Available [address], [address], 05/11/2025 12:41:14 05/10/20 25 05/11/2025 CBC (INCL UDES DIFF/ PLT) RBC 4.1 emilee on/uL 3.9 - 4.9 normal Not Available [address], [address], 05/11/2025 12:41:14 05/10/20 25 05/11/2025 CBC (INCL UDES DIFF/ PLT) hemoglobin 12.2 g/dL 11.8 - 14.8 normal Not Available [address], [address], 05/11/2025 12:41:14 05/10/20 25 05/11/2025 CBC (INCL UDES DIFF/ PLT) hematocrit 37.5 % 35.5 - 44.0 normal Not Available [address], [address], 05/11/2025 12:41:14 05/10/20 25 05/11/2025 CBC (INCL UDES DIFF/ PLT) MCV 91.2 fL 82.0 - 99.0 normal Not Available [address], [address], 05/11/2025 12:41:14 05/10/20 25 05/11/2025 CBC (INCL UDES DIFF/ PLT) MCH 29.7 pg 27.2 - 32.6 normal Not Available [address], [address], 05/11/2025 12:41:14 05/10/20 25 05/11/2025 CBC (INCL UDES DIFF/ PLT) MCHC 32.5 g/dL 31.5 - 35.5 normal Not Available [facility] [address] [place] [address], [address], 05/11/2025 12:41:14 05/10/20 25 05/11/2025 CBC (INCL UDES DIFF/ PLT) RDW-CV 13.8 % 11.5 - 14.5 normal Not Available [address], [address], 05/11/2025 12:41:14 05/10/20 25 05/11/2025 CBC (INCL UDES DIFF/ PLT) platelet 286 thous and/u L 140 - 350 normal Not Available [address], [address], 05/11/2025 12:41:14 05/10/20 25 05/11/2025 CBC (INCL UDES DIFF/ PLT) MPV 11.6 fL 9.4 - 12.4 normal Not Available [address], [address], 05/11/2025 12:41:14 05/10/20 25 05/11/2025 CBC (INCL UDES DIFF/ PLT) absolute neutrophil 10.68 thous and/u L 1.90 - 7.00 high Not Available [address], [address], 05/11/2025 12:41:14 05/10/20 25 05/11/2025 CBC (INCL UDES DIFF/ PLT) absolute lymphocyte 2.23 thous and/u L 0.70 - 4.50 normal Not Available [address], [address], 05/11/2025 12:41:14 05/10/20 25 05/11/2025 CBC (INCL UDES DIFF/ PLT) absolute monocyte 0.92 thous and/u L 0.10 - 1.30 normal Not Available [address], [address], 05/11/2025 12:41:14 05/10/20 25 05/11/2025 CBC (INCL UDES DIFF/ PLT) absolute eosinophil 0.17 thous and/u L <0.70 normal Not Available [address], [address], 05/11/2025 12:41:14 05/10/20 25 05/11/2025 CBC (INCL UDES DIFF/ PLT) absolute basophil 0.09 thous and/u L <0.20 normal Not Available [address], [address], 05/11/2025 12:41:14 05/10/20 25 05/11/2025 CBC (INCL UDES DIFF/ PLT) absolute immature granulocyte 0.03 thous and/u L <0.03 normal Not Available [address], [address], 05/11/2025 12:41:14 05/10/20 25 05/11/2025 OB 28W (SYPH HIV 1/2 Ag/Ab Non-Re active non-re active normal Not Available [address], [address], 05/11/2025 12:46:24 05/10/20 25 05/11/2025 OB 28W (SYPH syphilis Ab Non-Re active non-re active normal Not Available [address], [address], 05/11/2025 12:46:24 02/03/20 25 02/02/2025 US, shereen tric, trans vagin al No observ ation record ed. [email or web address] Kimi [address], [place], [address], 02/02/2025 22:33:02 02/24/20 25 02/23/2025 US, shereen tric, trans vagin al No observ ation record ed. [email or web address] Kimi [address], [place], [address], 02/23/2025 15:13:37 03/08/20 US, shereen singh, 2nd trime ster No observ ation record ed. SELENA [facility] [address], [place], [address], 03/09/2025 11:42:12 03/09/2003/09/2025 US, obste tric, 2nd trime ster No observ ation record ed. [email or web address] Kimi [address], [place], [address], 03/12/2025 00:51:26 03/24/20 US, obste tric, 2nd trime ster No observ ation record ed. [facility] [address] [place], [address], 03/24/2025 10:34:03 03/25/2003/24/2025 US, obste tric, trans vagin al No observ ation record ed. [email or web address] Kimi [address], [place], [address], 03/25/2025 13:20:18 Result Notes None recorded. Problems [...] : NO ProblemS tatus: Resolve Not Available [facility] 2 15:52:14 Gestatio n period, 10 weeks [id number] Completed 201809/14/2019 10 weeks gestatio n of pregnanc y; Progress : Stable Added By: Diane Gutierrez Add to Current Problems : NO ProblemS tatus: Resolve Not Available [facility] 2 15:52:18 Gestatio n period, 13 weeks [id number] Completed 201809/14/2019 13 weeks gestatio n of pregnanc y; Progress : Stable Added By: Alpa Nicole Add to Current Problems : NO ProblemS tatus: Resolve Not Available [facility] 2 15:52:13 Pregnanc y, childbir th and puerperi um finding Completed 201809/14/2019 Encounte r for supervis ion of normal first pregnanc y, second trimeste r; Progress : Stable Added By: Merle Friend Add to Current Problems : NO ProblemS tatus: Resolve Not Available [facility] 2 15:52:17 Gestatio n period, 17 weeks [id number] Completed 201809/14/2019 17 weeks gestatio n of pregnanc y; Progress : Stable Added By: Marcy Noel Add to Current Problems : NO ProblemS tatus: [facility] 15:52:17 Gestatio n period, 20 weeks [id number] Completed 201801/09/2021 20 weeks gestatio n of pregnanc y; Progress : Stable Added By: Mert Vazquez Add to Current Problems : NO ProblemS tatus: Resolve Not Available [facility] 2 15:52:12 Antenata l screenin g for malforma tion Completed 201801/24/2021 Encounte r for antenata l screenin g for malforma tions; Progress : Stable Added By: Ludmila Reynolds Add to Current Problems : NO ProblemS tatus: Resolve Not Available [facility] 2 15:52:18 Gestatio n period, 25 weeks [id number] Completed 201809/14/2019 25 weeks gestatio n of pregnanc y; Progress : Stable Added By: Merle Friend Add to Current Problems : NO ProblemS tatus: [facility]olve [facility] 2 18:22:58 Gestatio n period, 29 weeks [id number] Completed 201909/14/2019 29 weeks gestatio n of pregnanc y; Progress : Stable Added By: Diane Gutierrez Add to Current Problems : NO ProblemS tatus: [facility] 2 15:52:16 Pregnanc y, childbir th and puerperi um finding Completed 201909/14/2019 Encounte r for supervis ion of normal first pregnanc y, third trimeste r; Progress : Stable Added By: Ora Mantilla Add to Current Problems : NO ProblemS tatus: Resolve Not Available [facility] 2 15:52:14 Gestatio n period, 31 weeks 42747623 Active 2019 31 weeks gestatio n of pregnanc y; Severity : Moderate Progress : Stable Added By: Kimmie Gonzalez Add to Current Problems : YES ProblemS tatus: Current Not Available [facility] 1 08:17:53 Gestatio n period, 33 weeks 42498400 Completed 201909/14/2019 33 weeks gestatio n of pregnanc y; Severity : Moderate Progress : Stable Added By: Ora Mantilla Add to Current Problems : NO ProblemS tatus: Resolve Not Available [facility] 1 19:51:42 Contrace ptive sheath status 158922418 Completed 201911/29/2020 Encounte r for initial prescrip tion of other contrace ptives; Progress : Stable Added By: Marion Gutierrez Add to Current Problems : NO ProblemS tatus: Resolve Not Available [facility] 2 15:52:12 Lochia finding Completed 201911/29/2020 Encounte r for routine postpart um follow-u p; Progress : Stable Added By: Jelena Sequeira Add to Current Problems : NO ProblemS tatus: Resolve Not Available [facility] 2 15:52:16 Gestatio n period, 8 weeks 47732563 Completed 202011/29/2020 8 weeks gestatio n of pregnanc y; Progress : Stable Added By: Haroon Jason Add to Current Problems : NO ProblemS tatus: Resolve Not Available [facility] 2 18:22:57 Evaluati on finding Completed 202011/29/2020 Other specifie d abnormal findings of blood chemistr y; Progress : Stable Added By: Kyle Lam Add to Current Problems : NO ProblemS tatus: Resolve Not Available [facility] 2 15:52:13 Gestatio n period, 12 weeks 02861650 Completed 202011/29/2020 12 weeks gestatio n of pregnanc y; Progress : Stable Added By: Haroon Jason Add to Current Problems : NO ProblemS tatus: Resolve Not Available [facility] 2 15:52:13 Normal pregnanc y in multigra guerita 97597373640 4106 Active 2020 Encounte r for supervis [...] : YES ProblemS tatus: Current Not Available [facility] 1 19:51:38 Gestatio n period, 16 weeks 41504055 Completed 202012/27/2020 16 weeks gestatio n of pregnanc y; Progress : Stable Added By: Mert Vazquez Add to Current Problems : NO ProblemS tatus: Resolve Not Available [facility] 2 15:52:19 Gestatio n period, 18 weeks 13236024 Completed 202012/27/2020 18 weeks gestatio n of pregnanc y; Progress : Stable Added By: Kimmie Gonzalez Add to Current Problems : NO ProblemS tatus: Resolve Not Available [facility] 2 15:52:18 Postoper ative hypothyr oidism 88444451 Completed 202001/24/2021 Postproc edural hypothyr oidism; Progress : Stable Added By: Mert Vazquez Add to Current Problems : NO ProblemS tatus: Resolve Not Available [facility] 2 15:52:[address] Concept Completed 202001/24/2021 Supervis ion of other high risk pregnanc ies, second trimeste r; Progress : Stable Added By: Ludmila Reynolds Add to Current Problems : NO ProblemS tatus: Resolve Not Available [facility] 2 15:52:15 Gestatio n period, 22 weeks 92456234 Completed 202001/24/2021 22 weeks gestatio n of pregnanc y; Progress : Stable Added By: Ludmila Reynolds Add to Current Problems : NO ProblemS tatus: Resolve Not Available [facility] 2 15:52:17 Gestatio n period, 24 weeks 849650687 Completed 202002/09/2021 24 weeks gestatio n of pregnanc y; Progress : Stable Added By: Mert Vazquez Add to Current Problems : NO ProblemS tatus: Resolve Not Available [facility] 2 15:52:15 High risk pregnanc y due to history of labor 553243072 Completed 202003/15/2021 Personal history of pre-term labor; Severity : Moderate Progress : Stable Added By: Mert Vazquez Add to Current Problems : NO ProblemS tatus: Resolve Not Available [facility] 08:17:51 Gestatio n period, 26 weeks 10384455 Completed 202002/23/2021 26 weeks gestatio n of pregnanc y; Progress : Stable Added By: Mert Vazquez Add to Current Problems : NO ProblemS tatus: Resolve Not Available [facility] 2 15:52:16 Past pregnanc y history of prematur e labor 273907400 Completed 202003/15/2021 Personal history of pre-term labor; Progress : Stable Added By: Mert Vazquez Add to Current Problems : NO ProblemS tatus: Resolve Not Available [facility] 2 15:52:[address] Concept Completed 202003/15/2021 Supervis ion of other high risk pregnanc ies, third trimeste r; Progress : Stable Added By: Ludmila Reynolds Add to Current Problems : NO ProblemS tatus: Resolve Not Available [facility] 2 18:22:58 Gestatio n period, 28 weeks 95640431 Completed 202003/15/2021 28 weeks gestatio n of pregnanc y; Progress : Stable Added By: Marcy Noel Add to Current Problems : NO ProblemS tatus: Resolve Not Available [facility] 2 15:52:13 Antenata l screenin [...] : YES ProblemS tatus: Current Not Available [facility] 2 15:52:14 Gestatio n period, 33 weeks 32149158 Active 2020 33 weeks gestatio n of pregnanc y; Progress : Stable Added By: Layne Guaman Add to Current Problems : YES ProblemS tatus: Current Not Available [facility] 2 15:52:17 Depressi on screenin g Active 2020 Encounte r for screenin g for maternal depressi on; Progress : Stable Added By: Barbie Rosa Add to Current Problems : YES ProblemS tatus: Current Not Available [facility] 2 15:52:14 Congenit al abnormal ity of uterus complica ting postpart um care - baby delivere d during previous episode of care 182414143 Active 2020 Complica tion of the puerperi um, unspecif ied; Progress : Stable Added By: Jacki Brown i Add to Current Problems : YES ProblemS tatus: Current Not Available [facility] 2 15:52:15 Pregnanc y 14454420 Active 2024 JORGE LUIS CRESPO [address] [place] [address], [address] , [facility] [employer] [facility] 5 15:44:46 Body mass index 40+ - severely obese 513328104 Active 2024 pre-preg BMI 44.7 Serial Growths at 28w, 32w, 36w Weekly BPP at 34w JORGE LUIS CRESPO [facility] [place], [address] , [facility] [employer] [facility] 5 12:11:17 History of loop electros urgical excision procedur e 14485488305 102 Active 2024 Hx of Leep 09-05-19 23 MILADYS 3 Cervical Length at 18, 20, and 22 weeks JORGE LUIS CRESPO [address] [place] [address], [address] [place] [address] , [facility] [employer] [facility] 5 12:05:28 Tobacco user 483383684 Active 2024 pre-preg mariela smoking 1 ppd, has decrease d to 1/2 ppd at [facility]. Discusse d smoking cessatio n. 03/09: has decrease d to 4 cig/day. Praised and continue efforts at reductio n/quitti ng Mariela Gutierrez MD [address] [place] [address], [address] [place] [address] , [facility] [employer] [facility] 5 23:10:44 Past pregnanc y history of section 909662058 Active 2024 LEONARD B[place] [facility] [address] [place] [address], [address] [place] [address] , [facility] [employer] [facility] 5 15:26:26 History of thyroide ctomy 204143871 Active 2024 TSH and T4 drawn at [facility] LEONARDISIDRA BIRMINGHAM [address], [address] [place] [address] , [facility] [employer] [facility] 5 17:42:19 Bacteriu rochelle 11505743 Active 2024 GBS positive urine culture at [facility] LEONARD B[place] [facility] [address] [place] [address], [address] [place] [address] , [facility] [employer] [facility] 5 18:40:03 Past pregnanc y history of prematur e rupture of membrane s 71547390824 9100 Active 2024 32-33 weeks with first pregnanc y LEONARDISIDRA BIRMINGHAM [facility] [address] [place] [address], [address] [place] [address] , [facility] [employer] [facility] 5 20:08:45 Human papillom avirus deoxyrib onucleic acid detected , high risk on cervical specimen 726351212 Active 2024 Needs colposco py PP LEONARD [place], [facility] [address] [place], [address] , [facility] [employer] 14:20:13 History of pneumoni a 499900376 Active 2024 Mariela Gutierrez MD [address] [place], [address] , [facility] 23:09:29 Problem Notes None recorded. Procedures Surgical History Date Name Laterality Status Provider Name and Address Organization Details Recorded Time 025 Date of Last Pap Smear completed Jennie Hernandez [facility] 02/23/2025 10:22:59 023 Depo Provera Injection completed Jelena Sequeira [facility] [employer] [facility] 01/23/2023 14:27:10 023 Depo Provera Injection completed Jelena Sequeira [facility] 09/20/2022 11:49:20 023 loop electrosurgical excision procedure completed ELDER XAVIER DO [address] [place], [address], [facility] 09/20/2022 07:41:26 023 Colposcopy - Cervix completed Ronna James [facility] [address] [place], [address], [facility] 07/23/2022 12:06:28 022 Depo Provera Injection completed Jelena Sequeira [facility] 05/31/2022 15:04:24 022 Mirena IUD Removal completed Anjum Freedman [facility] [address] [place], [address], [facility] 07/18/2021 10:32:23 021 IUD Insertion completed Ronna James [facility] [address] [place], [address], [facility] 06/19/2021 18:21:20 Dilation and curettage completed Funmilayo Washington [facility] [employer] [facility] 07/23/2022 11:36:53 C Section completed Leia Tariq [facility] 01/04/2025 11:42:41 thyroidectomy completed JORGE LUIS CRESPO [address] [place], [address], [facility] [employer] [facility] 01/09/2025 19:57:11 procedure on upper arm completed Delisa Muller [facility] [employer] [facility] 06/13/2021 21:05:21 Imaging Results None recorded. Procedure Notes None recorded. Medical Equipment None Reported. Allergies Allergen ID Allergen Name Allergen Category Reaction Reaction Severity Criticality Documentation Date Start Date Code Code System Note Provider Name and Address Organization Details Recorded Time 213176 iodine medicatio n Not available Not available Not available 04/21/20212018 5933 RxNorm Sever ity: Moder ate; Not Available [facility] 1 01:05:17 083883 shellfish derived food,medi cation Not available Not available Not available 05/31/2022 Merry Icenogle [place] [employer] [facility] 2 12:33:03 605674 iodine medicatio n Not available Not available Not available 01/04/2025 5933 RxNorm Leia Tariq [place] [employer] [facility] 5 11:42:41 227605 Fish (substanc e) food,medi cation anaphylax is Not available high 02/23/20252020 36430 1005 SNOMED Jennie David [place] [employer] [facility] 5 11:05:15 202122 hydrocodo ne Not available itching Not available low 02/23/20252021 5489 RxNorm Jennie [place] [facility] [facility] 5 11:05:18 783936 Shellfish (substanc e) food,medi cation anaphylax is Not available high 02/23/20252020 93736 9006 SNOMED Jenniekenton Hernandez [place] [facility] [facility] 5 11:05:26 Medications Name Sig Start [...] L 0.15-0.0 3 mg oral tablet RxNorm: 255599 Allow Substitu tion: True Refill Denied: No Edited by: ranjana(Haroon Choi ) on 10/05/19 Stopped by: ranjana(Haroon Choi ) on 10/05/19 Not Available Not Available Not Available azithromy [...] cephALEX in 250 mg oral capsule RxNorm: 975637 Allow Substitu tion: True Refill Denied: No Edited by: soco hendrix(Mert Morales ) on 02/10/20 Stopped by: soco hendrix(Mert Morales ) on 02/10/20 Not Available Not Available Not Available promethaz ine 6.25 mg/5 mL oral syrup TAKE 10 ML BY MOUTH EVERY 6 HOURS NEEDED 05/17 completed Not Available Not Available Not Available pyridoxin e (vitamin B6) 25 mg tablet Take one tablet up to 4 times daily before meals 11/29 completed pyridoxi ne (vitamin B6) 25 mg oral tablet RxNorm: 8502022 Allow Substitu tion: True Refill Denied: No Edited by: soco hendrix(Mert Morales ) on 11/30/19 Stopped by: soco hendrix(Mert Morales ) on 11/30/19 21 Not Available Not Available Not Available prednison [...] succinat e 25 mg oral tablet RxNorm: 6085733 Allow Substitu tion: True Refill Denied: No Edited by: soco hendrix(Mert Morales ) on 11/30/19 Stopped by: soco hendrix(Mert Morales ) on 11/30/19 Not Available Not Available Not Available Ibuprofen IB 600mg as needed 03/22 completed Ibuprofe n IB Allow Substitu tion: False Refill Denied: No Refill DateOccu rred: 04/18/20 Edited by: Jacki Kaye ) on 04/19/20 Stopped by: stephanie schneider(Jacki Gilliland ) on [...] True Refill Denied: No Edited by: soco hendrix(Mert Morales ) on 11/30/19 Stopped by: soco hendrix(Mert Morales ) on 11/30/19 Not Available Not Available Not Available Gvoke HypoPen 2-Pack 1 mg/0.2 mL subcutane ous auto-inje ctor INJ1 MG UNDER THE SKIN NEEDED FOR SEVERE HYPGLYCE RNIA active Not Available Not Available No t Available Vitals Date Recorded Body weight Body mass index (BMI) Body height Systolic And Diastolic Provider Name and Address Organization Details Last Updated DateTime 05/10/2025 373170.86 36 g 48.1 kg/m2 162.56 cm 118/82 mm[Hg] Jennie Hernandez [employer] [facility] 05/10/2025 10:38:01 Social History Question Answer Notes LastModified by Organizat ion Details LastModified Time Tobacco Smoking Status Current Every Day Smoker Ronna James, [facility] [address] [facility], [place], [address], [facility] [employer] [facility] 06/18/2021 10:03:14 If You Are , [...] Or The Highest Degree You Have Received? [id number] Information not available 01/04/2025 How Many Children [...] e-cigarettes or vape? Never used electronic cigarettes [facility] Information not available 01/04/2025 What is your exercise level? None Information not available 07/17/2021 Mental Status None recorded. Family History Relationship Description Onset Age of this Age Resolved Age Notes LastModified by Organization Details LastModified Time Maternal Grandfather Type 2 diabetes [facility] Not available 2024 11:42:41 Maternal Grandfather Hypertensive disorder Not available 2024 11:42:41 Maternal Grandfather Diabetes mellitus [facility] Not available 2024 11:42:41 Sister Hypertensive disorder Not available 2024 11:42:41 Father Hypercholest erolemia [facility] Not available 2024 11:42:41 Father Myocardial infarction [facility] Not available 01/04 11:42:41 Father Hypertensive disorder [facility] Not available 2024 11:42:41 Father Diabetes mellitus [facility] Not available 2024 11:42:41 Medical History Condition [...] ICD10 Code Diagnosis IMO Codes Diagnosis Note [id number] DRE IQBAL NP [facility] [address] [address] 05/10/2025 10:29:55 05/13/2025 13:05:31 Depression screening 883787194 Z13.31 See Screening Section for EPDS Questionna laurie Result Gestation period, 28 weeks 99602484 Z3A.28 1602027 screening 2437 62995 Z36.89 High risk 4720 0007 O09.90 59102275 Pt is here for a [place] appointmen [...] Past pregn hoang history of premature delivery 623881752 O09.899 937560 Health Concerns Section Related Observation LastModified by Organization Detai ls LastModified Time None Recorded Concern Status LastModified by Organization Details LastModified Time None Recorded Payers Encounter Date Sequence Insurance Name Policy Number Policy Jimenez Covered Member ID Jimenez Member ID Guarantor Name 05/10/2025 1 [facility] - DOS ON OR AFTER 20 (MEDICAID REPLACEMENT - HMO) Carla Santos [id number] Carla Santos Notes Date Note Type Note Provider Name and Address Organization Details Recorded Time 05/10/2025 text/html Patient is here today for a routine OB visit. She is currently at 28.6 weeks gestation. vitamins: yes She has felt movement.She denies any complaints of the presence of vaginal bleed, leaking fluid, abdominal cramps, nausea, vomiting, headache or visual disturbances. Pt. has no concerns. EPDS is 0, LEESA is 0. 1 Hr. Glucose stopped @ 9:42 am DRE IQBAL NP [address] [place], [address], [facility] [employer] 05/13/2025 11:44:40 OBGyn Episode Ob Episode Information Episode Created Date Number of Fetuses Patient Bloodtype Patient rh Status Prepregnancy Weight lbs Domestic Partner Domestic Partner Phone Father Name Network Systems Analyst Status 01/02/20 25 1 A Positive OPEN Fetus Data First Name Last Name Admitted to NICU Weight (g) Sex Living Outcome Pediatric Complications Fetus ID Race Codes Race Delivery Type [id number] Problems Problem Notes Problem Name Start Date End Date Resolution Snomed Code Not e Past history of section 01/04/2025 396268701 Body mass index 40+ - severely obese 01/04/2025 660051987 pre-preg BMI 44.7Serial Growths at 28w, 32w, 36wWeekly BPP at 34w Human papillomavirus deoxyribonucleic acid detected, high risk on cervical specimen 02/02/2025 364310936 Needs colp oscopy PP Bacteriuria 01/06/2025 85299698 GBS pos itive urine culture at [facility] History of pneumonia 03/11/2025 02897733 4 History of thyroidectomy 01/04/2025 265084053 TSH and T4 pj wn at [facility] Tobacco user 01/04/2025 289678484 pre-pr egnancy smoking 1 ppd, has decreased to 1/2 ppd at [facility]. Discussed smoking cessation.03/09: has decreased to 4 cig/day. Praised and continue efforts at reduction/quitti ng History of loop electrosurgical excision procedure 01/04/2025 [id number] Hx of L eep 09-04-2022 MILADYS 3Cervical Length at 18, 20, and 22 weeks Past history of premature rupture of membranes 01/09/2025 [id number] 32-3 3 weeks with first Elvis Calculation [...] in lbs Pre/Post Dialysis Refused With clothes 265.531297934375 BP Diastolic BP Location Tested BP Systolic [...] in lbs Pre/Post Dialysis Refused With clothes 268.24440379334 BP Diastolic BP Location Tested BP Systolic [...] Weight in lbs Pre/Post Dialysis Refused Weight 267.147760969964 BP Diastolic BP Location Tested BP Systolic [...] dx with pneumonia last week, went to [facility], prescribed amoxil and improving. no hx of [...] Type Weight in lbs Pre/Post Dialysis Refused 265.798831331988 BP Diastolic BP Location Tested BP Systolic [...] in lbs Pre/Post Dialysis Refused With clothes 271.590634692663 BP Diastolic BP Location Tested BP Systolic [...] Type Weight in lbs Pre/Post Dialysis Refused 280.05554643990 BP Diastolic BP Location Tested BP Systolic [...]
--- OUTSIDE RECORDS SUMMARY | 2025-06-19 19:25 | XMS_ITS | Continuity of Care Document ---
Author Organization [facility] Address [address] [place] [address] Assessment No assessment recorded. Plan of Treatment Reminders Order Date Submit Date Provider Last Modified By Organization Details Last Modified Time Details Appointments NST 2024 11:30A M NST SCHEDULE Not available Not available Not available OB ROUTINE 2024 12:15P M Usman NUNES MD Not available Not available Not available NST 2025 02:00P M NST SCHEDULE Not available Not available Not available OB ROUTINE 2025 02:30P M Usman NUNES MD Not available Not available Not available NST 2025 02:00P M NST SCHEDULE Not available Not available Not available OB ROUTINE 2025 02:30P M Madiha Hernandez CNM Not available Not available Not available NST 2025 02:00P M NST SCHEDULE Not available Not available Not available OB ROUTINE 2025 02:30P M BRICE PatriciaM Not available Not available Not available Lab drug screen, urine 2024 025 [address], [address], [place], [address], 05/21/2025 11:46:46 CT + NG + TV, RNA, unspecifi ed specimen 2024 025 [facility] (Lab), [address], [place], [address], 05/23/2025 13:31:28 culture, urine 2024 025 SELENA [facility] (Lab), [address], [place], [address], 05/23/2025 13:31:28 Referral None recorded. Procedures None recorded. Surgeries None recorded. Imaging None recorded. Medication Orders None recorded. Patient TargetsNo targets recorded. Patient InstructionsNo instructions recorded. Reason for Referral None Reported. Results Created Date Observation Date Name Description Value Unit Range Abnormal Flag Note LastModifiedBy Organization Detail LastModifiedTime 05/21/2005/21/2025 T4 FREE T4, free 0.52 NG/dL 0.54-1 .24 low This assay is susrachel ptibl e to rebecca palomino ce from high level s of bioti n which may false ly eleva te resul ts. Pleas e corre late with clini raman findi ngs. Not Available [facility] (Lab) [address], [place], [address], 05/22/2025 05:43:58 05/21/20 25 05/21/2025 TSH, REFLE X FREE T4 TSH 0.23 uIU/m L 0.30-5 .33 low Not Available [facility] (Lab) [address], [place], [address], 05/22/2025 05:43:59 05/21/20 25 05/21/2025 CT/GC AND TRICH OMONA S VAGIN PHILLIP (RRNA ), URINE chlamydia trachomatis, PCR Negati ve negati ve Not Available [facility] (Lab) [address], [place], [address], 05/23/2025 13:31:28 05/21/20 25 05/21/2025 CT/GC AND TRICH OMONA S VAGIN PHILLIP (RRNA ), URINE neisseria gonorrhoeae, PCR Negati ve negati ve Not Available [facility] (Lab) [address] [place], [address], 05/23/2025 13:31:28 05/21/20 25 05/21/2025 CT/GC AND TRICH OMONA S VAGIN PHILLIP (RRNA ), URINE trichomonas vaginalis ribosomal RNA (rrna) Negati ve negati ve 49_CL _SOUR CETVG : Urine - Bladd er Not Available [facility] (Lab) [address], [place], [address], 05/23/2025 13:31:28 05/21/20 25 05/21/2025 CULTU RE: URINE result report SEE RESULT S BELOW Test: Cultu re: Urine Speci men Sourc e: Urine Voide d Speci men Type: Urine Speci men Date: 05/21 1051 Resul t Date: 05/23 1227 Resul t Statu s: Final resul t Abnor mal: No Resul ting Lab: [facility] [address] [address] Tel: CULTU RE ----- ----- ----- --- Organ ism(s ) consi stent with uroge nital or skin kavitha . Repea t cultu re if sympt oms indic ate. Not Available [facility] (Lab) [address], [place], [address], 05/23/2025 13:31:28 05/21/20 25 05/21/2025 drug scree n, urine Amphetamines : negati ve Not Available [address], [place], [address], 05/21/2025 11:45:28 05/21/20 25 05/21/2025 drug scree n, urine Cannabinoids : negati ve Not Available [address], [place], [address], 05/21/2025 11:45:28 05/21/20 25 05/21/2025 drug scree n, urine Cocaine: negati ve Not Available [address], [place], [address], 05/21/2025 11:45:28 05/21/20 25 05/21/2025 drug scree n, urine Opiates: negati ve Not Available [address], [place], [address], 05/21/2025 11:45:28 05/21/20 25 05/21/2025 drug scree n, urine Phenocyclidi ne: negati ve Not Available [address], [place], [address], 05/21/2025 11:45:28 05/21/20 25 05/21/2025 drug scree n, urine Barbiturates : negati ve Not Available [address], [place], [address], 05/21/2025 11:45:28 05/21/20 25 05/21/2025 drug scree n, urine Benzodiazepi tariq: negati ve Not Available [address], [place], [address], 05/21/2025 11:45:28 06/03/20 25 06/02/2025 US, obste tric, follo w-up No observ ation record ed. [address] [facility], [place], [address], 06/04/2025 13:20:41 06/10/20 25 06/08/2025 US, obste tric, mater nal evalu ation + anato my No observ ation record ed. [address] [facility] [address] [address], [place], [address], 06/11/2025 12:09:41 06/15/20 25 06/15/2025 non-s tress test No observ ation record ed. [email or web address] [address], [place], [address], 06/16/2025 11:16:30 06/15/20 25 06/11/2025 non-s tress test No observ ation record ed. [email or web address] Not Available 2024 15:28:53 06/16/20 25 06/15/2025 US, obste tric, follo w-up No observ ation record ed. [email or web address] [facility] [address] [place], [address], 06/16/2025 12:26:43 06/18/20 25 06/18/2025 non-s tress test No observ ation record ed. [email or web address] [address], [place], [address], 06/18/2025 17:45:42 06/18/20 non-s tress test No observ ation record ed. [address], [place], [address], 06/18/2025 15:05:39 Result Notes None recorded. Problems Name Problem SNOMED Code Status Onset Date Resolution Date Notes Provider Name and Address Organization Details Recorded Time 62863554 Active 2024 Annalee washington, [facility] 10:03:53 Past history of premature delivery 136416180 Active 2024 x2 31 weeks PPROM 34 weeks PPROM plan MFM consult Madiha Hernandez CNM [address], [place], [address], [facility] 5 12:01:52 Obesity caused by energy imbalance 174150516 Active 2024 bmi 48 Madiha Hernandez CNM [address], [place], [address], [facility] 5 11:58:27 Past history of premature delivery 664511502 Active 2024 x2 31 weeks PPROM 34 weeks PPROM plan MFM consult Madiha Hernandez CNM [address], [place], [address], [facility] 5 12:01:52 Past history of section 911897427 Active 2024 due to distress desires TOLAC Madiha Hernandez CNM [address], [place], [address], [facility] 5 12:02:17 Tobacco user 093559924 Active 2024 1-2 packs/day Madiha Hernandez CNM [address], [place], [address], [facility] 5 12:02:31 History of subtotal thyroidec kyler 550873078 Active 2024 no meds currently , will rpt today Madiha Hernandez CNM [address], [place], [address], [facility] 5 12:02:49 Gestation al diabetes mellitus 55396164 Active 2024 Checking bs QID, serial growth us - Referral faxed to [facility] Diet teaching 05/26 06/02 - per MM, GDM and insulin to be managed by MFM. Pt prescribe d lactus 10units BID. Now 12units BID 06/15 Rebeca washington, [facility] 5 12:19:36 Hypertens ion AND/OR vomiting complicat ing childbirt h AND/OR puerperiu m 842369318 Active 2024 PC ratio >0.3 on 2 occasions Rebeca washington, [facility] 5 11:28:10 Hypothyro idism 41482465 Active 2024 50 mcg levothyro xine TSH q4 Rebeca Weinstein [facility] 5 11:31:02 Problem Notes None recorded. Procedures Surgical History Date Name Laterality Status Provider Name and Address Organization Details Recorded Time 1 Caesarean Section completed [facility] 05/21/2025 09:42:35 Thyroid Surgery completed [facility] 05/21/2025 09:42:35 procedure on wrist completed [facility] 05/21/2025 10:35:26 Imaging Results None recorded. Procedure Notes None recorded. Medical Equipment None Reported. Allergies Allergen ID Allergen Name Allergen Category Reaction Reaction Severity Criticality Documentation Date Start Date Code Code System Note Provider Name and Address Organization Details Recorded Time 71162 hydrocodo ne Not available itching Not available Not available 05/21/20252022 5489 RxNorm Not Available [employer] - prod 03:03:44 75693 iodine medicatio n Not available Not available Not available 05/21/20252016 5933 RxNorm unrec ogniz ed react ion (text : Iker briceno ing, code: 69871 000) (from exter nal sourc e) Not Available [employer] - prod 5 03:03:44 49007 Fish (substanc e) food,medi cation other severe Not available 05/21/2025 94445 1005 SNOMED [facility] 5 09:42:34 54750 Shellfish (substanc e) food,medi cation anaphylax is Not available [facility] 05/21/20252020 60408 9006 SNOMED Not Available [employer] - prod 5 03:04:05 Medications Name Sig Start Date Stop Date Status Note LastModified by Organization Details LastModified Time amoxicillin 500 mg capsule TAKE 2 CAPSULES BY MOUTH THREE TIMES DAILY FOR 5 DAYS 11/18 /2025 completed Not Available Not Available Not Available [...] Updated DateTime 05/21/2025 162.56 cm 48.2 kg/m2 035438.46 g 140/84 mm[Hg] Annaleedemetria Washingtonney [facility] 05/21/2025 09:42:07 Social History Question Answer Notes LastModified by Organizat ion Details LastModified Time Do You Have An Advance Directive? No [email or web address] Information n ot available 05/21/2025 How Many Years Have You Consumed Alcohol? 10 [email or web address] Information not available 05/21/2025 Are You Blind Or Do You Have Difficulty Seeing? No [email or web address] Information not available 05/21/2025 What Is Your Level Of Caffeine Consumption? Heavy [email or web address] Information not available 05/21/2025 How Much Tobacco Do You Chew? None [email or web address] Information not available 05/21/2025 In The 14 Days Before Symptom Onset, Have You Had Close Contact With A Laboratory-confirme d COVID-19 While That Case Was Ill? No [email or web address] Information n ot available 05/21/2025 In The 14 Days Before Symptom Onset, Have You Had Close Contact With A Person Who Is Under Investigation For COVID-19 While That Person Was Ill? No [email or web address] Information not available 05/21/2025 Have You Been To An Area Known To Be High Risk For COVID-19? No [email or web address] Information not available 05/21/2025 Are You Deaf Or Do You Have Serious Difficulty Hearing? No [email or web address] Information not available 05/21/2025 What Type Of Diet Are You Following? REGULAR Information n ot available 05/21/2025 What Is The Highest Grade Or Level Of School You Have Completed Or The Highest Degree You Have Received? CI87166-4 [email or web address] Information not available 05/21/2025 Are There Any Guns Present In Your Home? No [email or web address] Information not available 05/21/2025 Do You Use Protection During Sex? Usually Information not available 05/21/2025 Do You Use Your Seat Belt Or Car Seat Routinely? Yes [email or web address] Information not available 05/21/2025 Do You Have Smoke And Carbon Monoxide Detectors In Your Home? Yes [email or web address] Information not available 05/21/2025 At What Age Did You Start Smoking Tobacco? 14 [email or web address] Information not available 05/21/2025 How Much Tobacco Do You Smoke? 1 PPD [email or web address] Information not available 05/21/2025 Do You Use Sunscreen Routinely? No [email or web address] Information not available 05/21/2025 How Many Years Have You Smoked Tobacco? 15 [email or web address] Information not available 05/21/2025 Have You Used IV Drugs? No [email or web address] Information not available 05/21/2025 Sex: Unknown Functional Status Question Answer Note LastModified by Organizat ion Details LastModified Time Do you use any illicit or recreational drugs? No [email or web address] Information not available 05/21/2025 What is your level of alcohol consumption? Occasional [email or web address] Information not available 05/21/2025 Are you able to walk independently without assistance or assistive devices? YESWOREST [email or web address] Information not available 05/21/2025 What is your occupation? Na [email or web address] Information not available 05/21/2025 What is your exercise level? Moderate [email or web address] Information not available 05/21/2025 Mental Status Question Answer Note LastModified by Organization D etails LastModified Time Do you feel stressed (tense, restless, nervous, or anxious, or unable to sleep at night)? [id number] Information not available 05/21/2025 Family History Relationship Description Onset Age of this Age Resolved Age Notes LastModified by Organization Details LastModified Time Paternal Grandmother Anxiety disorder [email or web address] Not available 2024 09:42:34 Paternal Grandmother Heart disease [email or web address] Not available 2024 09:42:34 Paternal Grandmother Mental disorder [email or web address] Not available 2024 09:42:34 Paternal Aunt Anxiety disorder [email or web address] Not available 2024 09:42:34 Paternal Aunt Substance abuse [email or web address] Not available 2024 09:42:34 Paternal Aunt Diabetes mellitus [email or web address] Not available 2024 09:42:34 Paternal Aunt Mental disorder [email or web address] Not available 2024 09:42:34 Paternal Uncle Anxiety disorder [email or web address] Not available 2024 09:42:34 Paternal Uncle Substance abuse [email or web address] Not available 2024 09:42:34 Paternal Uncle Diabetes mellitus [email or web address] Not available 2024 09:42:34 Paternal Uncle Mental disorder [email or web address] Not available 2024 09:42:34 Maternal Grandfather Diabetes mellitus [email or web address] Not available 2024 09:42:34 Paternal Grandfather Substance abuse [email or web address] Not available 2024 09:42:34 Paternal Grandfather Diabetes mellitus [email or web address] Not available 2024 09:42:34 Father Anxiety disorder [email or web address] Not available 2024 09:42:34 Father Substance abuse [email or web address] Not available 2024 09:42:34 Father Diabetes mellitus [email or web address] Not available 2024 09:42:34 Father Mental disorder [email or web address] Not available 2024 09:42:34 Medical History Condition [...] ICD10 Code Diagnosis IMO Codes Diagnosis Note [id number] Madiha Hernandez, MARC [facility] [address] [address] 05/21/2025 09:27:14 05/21/2025 12:08:11 screening 393764187 Z36.85 Gestation period, 30 weeks 15670685 Z3A.30 [id number] Health Concerns Section Related Observation LastModified by Organization Detai ls LastModified Time None Recorded Concern Status LastModified by Organization Details LastModified Time None Recorded Payers Encounter Date Sequence Insurance Name Policy Number Policy Jimenez Covered Member ID Jimenez Member ID Guarantor Name 05/21/2025 1 [facility] ON OR AFTER 12/29/20 (MEDICAID REPLACEMENT - HMO) Carla Santos [id number] Carla Santos OBGyn Episode Ob Episode Information Episode Created Date Number of Fetuses Patient Bloodtype Patient rh Status Prepregnancy Weight lbs Domestic Partner Domestic Partner Phone Father Name Colon And Rectal Surgeon Status 05/21/20 25 1 OPEN Fetus Data First Name Last Name Admitted to NICU Weight (g) Sex Living Outcome Pediatric Complications Fetus ID Race Codes Race Delivery Type [id number] Problems Problem Notes 10 point testing on Tuesdays with MFM. Saturday NST with routine OB.AC 98% FM delivery rec 37 wks or sooner with severe features, preeclampsia Problem Name Start Date End Date Resolution Snomed Code Not e Hypertension AND/OR vomiting complicating childbirth AND/OR puerperium 06/09/2025 554465360 PC ratio > 0.3 on 2 occasions Past history of section 05/21/2025 576567459 due to di stress desires TOLAC Obesity caused by energy imbalance 05/21/2025 243425148 bmi 48 Tobacco user 05/21/2025 362841805 1-2 pa cks/day Hypothyroidism 06/09/2025 68674599 50 m cg levothyroxineTSH q4 History of subtotal thyroidectomy 05/21/2025 172353416 no meds mignon shah, will rpt today Gestational diabetes mellitus 05/26/2025 77193889 Checking bs QID , serial growth us - Referral faxed to [facility] Diet teaching 05/26 06/02 - per MM, GDM and insulin to be managed by MFM. Pt prescribed lactus 10units BID. Now 12units BID 06/15 Past history of premature delivery 05/21/2025 772535311 x231 weeks PPRO M34 weeks PPROMplan MFM consult Elvis Calculation Initial Elvis Date Initial Exam Date Initial Exam Provider Initial Ultrasound Date Last Menstrual Period Date Ultra Sound Weeks Gestation 05/21/2025 [email or web address] 0 Eighteen To Twenty Week Elvis Update [...] Weight in lbs Pre/Post Dialysis Refused Weight 281.368568022494 BP Diastolic BP Location Tested BP Systolic BP Type 84 L arm 140 sitting Fetus Heart Rate Present Fetus Movement A Yes Comments transfer from [facility] home, [facility], has not been referred to [facility] will place order today, not currently [...] Weight in lbs Pre/Post Dialysis Refused Weight 285.483643513353 BP Diastolic BP Location Tested BP Systolic [...] Type Weight in lbs Pre/Post Dialysis Refused 289.344589703530 BP Diastolic BP Location Tested BP Systolic BP Type 82 L arm 130 sitting Fetus Heart Rate Present Fetus Movement A Yes Comments Flowsheet Date 06/18/2025 Ball Score Blood Edema Fundus Height Fundus Units Glucose Ketones Leukocytes Nitrite Labor Signs Protein Cervic Dilation Cervic Effacement Cervic Station Type Weight in lbs Pre/Post Dialysis Refused Weight 289.558862952090 BP Diastolic BP Location Tested BP Systolic [...] Estim ated Date of Delivery false Thalassemia (Sinhala, Cook Islander, Mediterranean, Or Background): MCV < 80 false Neural Tube Defect (Meningomyelocele, Spina Bifi da, Or Anencephaly) false Congenital Heart Defect false Down Syndrome false Mingo-Sachs (eg, Hinduism, Cajun, Welsh-[place]) f alse Luis E Disease false Sickle Cell Disease Or Trait () false Hemophilia Or Other Blood Disorders false Muscular Dystrophy false Cystic Fibrosis false Berkeley's Chorea false Intellectual Disability/Autism false If Yes, [...]
--- OUTSIDE RECORDS SUMMARY | 2025-06-19 19:25 | XMS_ITS | Clinical Summary ---
Author Organization [facility] Address [address] [place] [address] Care Team Providers Care Scrap Iron Loader Name Role Phone Benjamin Rendon MD Primary Care Provider Source Comments [facility],non-owned Affiliates and Associated Physician Practices is amultiple site organization consisting of ambulatory clinics and hospital sitesin [place], [place], [place] and [place]. This disclosure is being madepursuant to the Care Everywhere program and may not contain all information available regarding this patient. Last updated 18.[facility] Allergies Active Allergy Reactions Criticality Noted Date Comments Iodine Anaphylaxis,Shortnes s of Breath,Swelling High 05/04/2017 Shellfish-Derived Products Anaphylaxis High 12/22/2018 Shrimp/tilapia Medications * Be aware that medications may not be up to date on this document. Alwaysverify current medications with the patient. OneTouch Ultra test strip 5 Active Blood Glucose Monitoring Suppl (ONE TOUCH ULTRA 2) w/Device KIT 5 Active Lancets (ONETOUCH DELICA PLUS 33G EXTRA FINE LANCET) 5 Active Zvgrbh-PoYhe-K jHmrRk-MN-Autm a (OB Complete Petite) 35-5-1-200 MG CAPS Take by mouth once daily Active levothyroxine (Synthroid) 50 MCG tablet Take 1 (one) tablet by mouth once daily 30 tablet 3 5 Active insulin glargine (Lantus/Semgle e) 100 units/mL penIndications :Gestational diabetes requiring insulin (HCC) Prime needle with 2 units waste, then inject 10 units every morning and 10 units every night. Increase dose as directed due to increasing insulin requirements during . Max total daily dose of 50 units. 15 mL 5 5 Active insulin pen needle (Novofine 31) 31G X 5 MM needleIndicati ons:Gestationa l diabetes requiring insulin (HCC) Use 1 (one) Each as instructed twice daily, before breakfast & at bedtime. 100 Each 5 5 Active Glucagon (Gvoke HypoPen 2-Pack) 1 MG/0.2ML SOAJIndication s:Gestational diabetes requiring insulin (HCC) Inject 1 mg subcutaneously as needed Inject 1 mg subcutaneously as needed for severe hypoglycemia 0.4 mL 3 5 Active Active Problems Problem Noted Date Diagnosed Date Previous delivery affecting 1 08/03/2024 Overview (06/02/2025): The primary risk with TOLAC is risk of uterine rupture. Current literature estimates this risk ~ 0.5-1.0% for one LTCS, and roughly double that for 2 prior LTCS. Discussed the seriousness of this emergency due to increased morbidity for both mother and baby, particularly if blood supply to the placenta is compromised. Discussed outcomes comparing scheduled repeat CD vs repeat CD after unsuccessful TOLAC vs , including higher blood loss, increased need for blood transfusion, and higher infection rates. Based upon non-recurring indications and data on heller after one , the success rate is stated at 60-80%. The [facility] Network calculator for this patient estimates her success rate at 57%. Discussed this decision is never set in stone and she could change her mind regarding mode of delivery at any point in her . Recommend: Discussion with patient if TOLAC can be offered at your institution. If TOLAC is not offered at your institution, we would be happy to facilitate a transfer of care later in for TOLAC planning purposes at [place]. Gestational hypertension vs. preeclampsia 2024 Overview (06/02/2025): Diagnosed with referring provider two visits this with SBP >140. Recently had two P:C ratios of 0.45-0.5. Recommend 24 hour urine collection for definitive diagnosis of preeclampsia vs. GHTN. Denies headaches, vision changes, RUQ pain. Discussed treatment for hypertensive disorders of is typically via delivery, but in cases without severe features, expectant management can be pursued with caution. Discussed weekly to twice weekly visits depending on BP readings and assessments. Recommendations: Recommend 24 hour urine protein due to recent high P:C ratios to definitively diagnose GHTN vs. Preeclampsia Recommend weekly visits with BP monitoring and hypertensive labs. Recommend twice weekly testing Delivery at 37 weeks unless indicated sooner by severe features (blood pressure, labs, or symptoms) Insulin controlled gestation al diabetes mellitus (GDM) during , antepartum 06/02/2025 Overview (06/02/2025): We discussed the implications of uncontrolled diabetes mellitus including (but not limited to) stillbirth, growth disorders, shoulder dystocia, delivery, and NICU admission. The value of antepartum surveillance and glycemic control was stressed. Post prandial exercise, dietary intervention and the need for glucose lowering agents was discussed. Goals of treatment were reviewed (targets: 60-95 mg/dl fasting and <140 mg/dl 1 hour postprandial). All questions were answered satisfactorily and patient is in agreement with the plan. Fasting BG diffusely elevated on home logs, will plan to start Lantus after virtual diabetes education tomorrow. Recommendations: Start Lantus 10 units BID after diabetes education Send blood glucose weekly to [facility] Mobile Device Engineer weekly Start twice weekly testing Growth ultrasounds in our office every 4 weeks Deliver at 38-39 weeks depending on glycemic control. If estimated weight is anticipated to be >4500 grams delivery should be offered due to risk of shoulder dystocia. During labor capillary blood glucose should generally be checked every 1-2 hours and maintained at less than 110 mg/dl. If there are problems with glucose control in labor Maternal- Medicine may be contacted for assistance. Check 2 hour 75-gram glucose tolerance test around 6 weeks post- to screen for type 2 diabetes. With a history of gestational diabetes, she should then be screened for type 2 diabetes by PCP at least every 3 years as her lifetime risk of type 2 diabetes is 50%. Hypothyroidism complicating 06/02/2025 Overview (06/02/2025): Patient reports hemithyroidectomy due to a 6cm nodule. Reports she has a cyst on the R side as well, but it was biopsied and normal. Does not report a history of hypothyroidism, but recent labs showed low TSH and low fT4. The patient was counseled that untreated hypothyroidism is associated with an increased risk of preeclampsia, placental abruption, nonreassuring heart rate tracings, delivery, delivery, post- hemorrhage and childhood cognitive impairment. Neuropsychological impairment has also been observed in the children of women with subclinical hypothyroidism. I reviewed the need for continued monitoring of TSH 4-6 weeks after each change in thyroxine dose and at least once each trimester. The goal of treatment is normalization of the TSH level with freeT4 in the upper normal range. Plan: Start 50mcg of levothyroxine Check TSH 4 weeks after dose adjustements Check TSH every trimester if dose is stable Goal of therapy is a normal TSH value Maternal morbid obesity, antepartum 06/02/2025 Overview (06/02/2025): Obesity in is associated with increased risk of several adverse maternal and / outcomes. Fetuses exposed to obesity in are at increased risk of loss (both early miscarriage and stillbirth risks are increased), congenital anomalies (particularly cardiac and neural tube defects), , postterm , growth disorders (most commonly LGA/macrosomia), gestational diabetes, and gestational hypertension/preeclampsia. Mothers are at increased risk of anemia, GDM, hypertensive disorders, and maternal morbidity/mortality. Obese patients are more likely to have adverse events surrounding delivery including need for section, anesthesia complications, failed TOLAC, hemorrhage, infections, and VTE. Obese patients are also more likely to have failed cfDNA screening and detection of congenital anomalies can be limited. Recommendations: Limit weight gain to 11-20 pounds Recommend serial growth assessments in the 2nd and 3rd trimester Recommend anesthesia consultation at delivering hospital If patient requires section, a higher dose of preoperative antibiotics may be needed. (3g Ancef for weight >120kg) Recommend prophylactic anticoagulation while inpatient and for up to 6 weeks in highest risk individuals ( section, BMI >40, immobility, infection, etc.) Tobacco use during , antepartum 025 Overview (06/02/2025): Cigarette smoking has been associated with numerous adverse outcomes, including (but not limited to) placental abruption, premature rupture of membranes (PPROM), placenta previa, labor and delivery, growth restriction (FGR)/low weight (LBW), and stillbirth. There are also several risks including increased stress and excitability, increased irritability and hypertonicity, and potentially changes in LOW VISION THERAPIST development. There is also an increased risk of Sudden Infant Syndrome. Any reduction in tobacco use has beneficial effects for the fetus and , but full cessation, especially in early , mitigates these effects the most. Plan: Assess patient willingness for cessation at each visit When patient is ready for cessation, provide assistance arranging visits with relevant providers, [id number], and pharmacotherapy if needed (nicotine replacement and wellbutrin have been used and are effective. History of premature rupture of membranes (PROM) in previous , currently , unspecified trimester 06/02/2025 Overview (06/02/2025): History of 30w PPROM and delivery with G1 followed by 34w PPROM and delivery with G2. Reports cervical length screening with [place] prior to [facility]. No further follow up needed. Given PTL/PPROM precautions. Choledocholithiasis 02/05/2020 Bilirubinemia 02/05/2020 Transaminitis 02/05/2020 Encounter for ultrasound 02/18/2019 Encounters Date Type Department Care Team Description 06/17/2025 Telephone [facility] [address] [place] [address] Marcy Reese, PLODDING OPERATOR-ALCOHOL RUBBER LABS ONLY 06/15/2025 10:14 AM DANCE ENTERTAINER - 06/15/2025 11:59 PM DANCE ENTERTAINER Hospital Encounter [facility] [address] [place] [address] Kyle Mckeon MD Discharge Disposition: Home or Self Care 06/15/2025 10:13 AM DANCE ENTERTAINER Hospital Encounter [facility] [address] [place] [address] Kyle Mckeon MD Discharge Disposition: Home or Self Care 06/15/2025 10:13 AM DANCE ENTERTAINER Hospital Encounter [facility] [address] [place] [phone] Kyle Mckeon MD Discharge Disposition: Home or Self Care 06/15/2025 10:13 AM DANCE ENTERTAINER Hospital Encounter [facility] [address] [place] [phone] Kyle Mckeon MD Discharge Disposition: Home or Self Care 06/09/2025 Telephone [facility] [address] [place] [phone] Maru Guillen RN Diabetes 06/09/2025 Telephone [facility] [address] [place] [phone] Maru Guillen RN Diabetes 06/09/2025 Orders Only [facility] [address] [place] [phone] Maru Guillen RN 06/09/2025 Telephone [facility] [address] [place] [phone] Mariela Husain RN Blood Sugar Problem 06/08/2025 10:19 AM DANCE ENTERTAINER - 06/08/2025 11:59 PM DANCE ENTERTAINER Hospital Encounter [facility] [address] [place] [phone] Keo Jackson MD Discharge Disposition: Home or Self Care 06/08/2025 10:19 AM DANCE ENTERTAINER - 06/08/2025 11:59 PM DANCE ENTERTAINER Hospital Encounter [facility] [address] [place] [phone] Keo Jackson MD Discharge Disposition: Home or Self Care 06/08/2025 10:19 AM DANCE ENTERTAINER - 06/08/2025 11:59 PM DANCE ENTERTAINER Hospital Encounter [facility] [address] [place] [address] Keo Jackson MD Discharge Disposition: Home or Self Care 06/08/2025 9:45 AM DANCE ENTERTAINER - 06/08/2025 10:18 AM DANCE ENTERTAINER Hospital Encounter [facility] [address] [place] [phone] Keo Jackson MD Discharge Disposition: Home or Self Care 06/03/2025 8:58 AM DANCE ENTERTAINER - 06/03/2025 11:59 PM DANCE ENTERTAINER Hospital Encounter [facility] [address] [place] [phone] Kathy Pride MD Discharge Disposition: Home or Self Care 06/02/2025 1:59 PM DANCE ENTERTAINER - 06/02/2025 11:59 PM DANCE ENTERTAINER Hospital Encounter [facility] [address] [place] [phone] Kyle Mckeon MD Discharge Disposition: Home or Self Care 06/02/2025 1:45 PM DANCE ENTERTAINER - 06/02/2025 1:58 PM DANCE ENTERTAINER Hospital Encounter [facility] [address] [place] [address] Kyle Mckeon MD Discharge Disposition: Home or Self Care from Last 3 Months Family History Medical History Relation Name Comments [...] drink = 0.6 oz pur e alcohol) Comments Unknown Sex and Gender Information Value Date Recorded Sex Assigned at Not on file Legal Sex Female 5:51 PM DANCE ENTERTAINER Gender Identity Not on file Sexual Orientation Not on file Last Filed Vital Signs Vital Sign Reading Time Taken Comments Blood Pressure 136/58 06/15/2025 10:25 AM DANCE ENTERTAINER Pulse 100 06/15/2025 10:25 AM DANCE ENTERTAINER Temperature 36.6 C (97.8 F) 01/29/2021 8:26 AM CDT Respiratory Rate 20 01/29/2021 8:26 AM CDT Oxygen Saturation 100% 01/29/2021 8:26 AM CDT Inhaled Oxygen Concentration - - Weight 129 kg (284 lb 8 oz) 06/15/2025 10:25 AM DANCE ENTERTAINER Height 162.6 cm (5' 4) 06/02/2025 2:38 PM DANCE ENTERTAINER Body Mass Index 48.83 06/02/2025 2:38 PM DANCE ENTERTAINER Plan of Treatment Upcoming Encounters Date Type Department Care Team (Late st Contact Info) Description 06/22/2025 9:00 AM DANCE ENTERTAINER Hospital Encounter [facility] [address] [place] [phone] Kathy Pride MD [address] [place] [phone] 06/22/2025 9:45 AM DANCE ENTERTAINER Hospital Encounter [facility] [address] [place] [phone] Kathy Pride MD [address] [place] [phone] 06/22/2025 9:45 AM DANCE ENTERTAINER Hospital Encounter [facility] [address] [place] [address] [place] [address] [place] [phone] 06/22/2025 9:45 AM DANCE ENTERTAINER Hospital Encounter [facility] [address] [place] [phone] Kathy Pride MD [address] [place] [phone] 06/28/2025 7:30 AM DANCE ENTERTAINER Appointment [facility] [address] [place] [address] 06/28/2025 8:15 AM DANCE ENTERTAINER Appointment [facility] [address] [place] [address] 06/28/2025 9:00 AM DANCE ENTERTAINER Appointment [facility] [address] [place] [address] 06/28/2025 9:15 AM DANCE ENTERTAINER Appointment [facility] [address] [place] [address] Health Maintenance Due Date Last Done Comments HEPATITIS C SCREENING 11/05/2011 DTAP/TDAP/TD VACCINES (1 - Tdap) 2012 HEPATITIS B VACCINE (1 of 3 - 19+ 3-dose series) 2012 PNEUMOCOCCAL VACCINE (1 of 2 - PCV) 2012 PAP SMEAR 2014 HPV VACCINE (1 - 3-dose SCDM series) 2020 DEPRESSION SCREENING 07/01/2024 COVID-19 VACCINE (1 - 2024-2 6 season) 2025 INFLUENZA VACCINE (#1) 2025 ZOSTER VACCINE (1 of 2) 11/10/2043 HIV SCREENING Completed 07/12/2019, 03/04/2019 HIB VACCINE Aged Out No longer eligi ble based on patient's age to complete this topic MENINGOCOCCAL (Group B) VACCINE SHARED DECISION-MAKING Aged Out No longer eligible based on patient's age to complete this topic MENINGOCOCCAL GROUPS A/C/Y/W VACCINE Aged Out No longer eligible b ased on patient's age to complete this topic Procedures Procedure Name Priority Date/Time Associated Diagnosis Comments BIOPHYSICAL PROFILE W NST Routine 06/15/2025 11:33 AM DANCE ENTERTAINER Previous delivery affecting (HCC) Gestational hypertension vs. preeclampsia (HCC) Insulin controlled gestational diabetes mellitus (GDM) during , antepartum (HCC) Hypothyroidism affecting in third trimester (HCC) Maternal morbid obesity, antepartum ([facility]) Supervision of high risk , antepartum ([facility]) BIOPHYSICAL PROFILE W NST Routine 06/08/2025 11:40 AM DANCE ENTERTAINER Previous delivery affecting (HCC) Gestational hypertension vs. preeclampsia (HCC) Insulin controlled gestational diabetes mellitus (GDM) during , antepartum (HCC) Hypothyroidism affecting in third trimester (HCC) Maternal morbid obesity, antepartum (HCC) Supervision of high risk , antepartum ([facility]) SONOGRAM - COMPLETE Routine 06/02/2025 2 :22 PM DANCE ENTERTAINER 32 weeks gestation of (HCC) Hypothyroid in , antepartum, unspecified trimester (HCC) History of delivery, currently , unspecified trimester (HCC) with history of section, antepartum ([facility]) Supervision of high risk , antepartum (HCC) Gestational diabetes mellitus (GDM) in third trimester, gestational diabetes method of control unspecified (HCC) Gestational hypertension, third trimester (HCC) from Last 3 Months Results * Biophysical Profile w NST (06/15/2025 11:33 AM DANCE ENTERTAINER) Only the most recent of2 resultswithin the time period is included. Linked Results Indication ======== Obesity complicating , Class 3 - BMI of 40.0 or greater Gestational hypertension Gestational diabetes mellitus in , unspecified control with history of labor (PTL) Hypothyroidism complicating History ====== OB History 4. Para 2 [id number] 1. live 2019. Gest. age 33 w + 6 d. Details: Vaginal delivery, 5 lbs 8 oz, PPROM 2. live 2020. Gest. age 34 w + 0 d. Details: delivery, 5 lbs 7 oz, PPROM, nuchal cord/ intolerance 3. miscarriage 2021. Gest. age 6 w + 0 d. Details: D and C Lab Tests Test Date Result NIPT Low risk, Male Maternal Assessment Physical Exam Height 163 cm, 5 ft 4 in. Weight 129 kg, 284 lb. Initial weight 118 kg, 261 lb. BMI 48.75 kg/m . Initial BMI 44.80 kg/m . Weight gain 10 kg, 23 lb Method ====== Transabdominal ultrasound examination. View: limited secondary to challenging acoustic properties ========= Heller . Number of fetuses: 1 Dating ====== Date Details Gest. age TUYET LMP 10/20/2024 34 w + 0 d 07/27/2025 Stated TUYET 34 w + 0 d 07/27/2025 Assigned dating based on the LMP, selected on 06/02/2025 34 w + 0 d 07/27/2025 General Evaluation Cardiac activity present. FHR 134 bpm. Presentation: cephalic Placenta: Placental site: anterior Amniotic Fluid Assessment ==== Amount of AF: normal MVP 7.2 cm. TARYN 16.2 cm. Q1 7.2 cm, Q2 5.2 cm, Q3 1.8 cm, Q4 2.0 cm Biophysical Profile 2: breathing movements 2: Gross body movements 2: tone 2: Amniotic fluid volume NST: reactive 04/09 Biophysical profile score Non Stress Test NST interpretation: reactive. Baseline FHR 135 bpm. Baseline variability: moderate. Accelerations: present. Decelerations: absent Growth Overview Exam date GA BPD (mm) HC (mm) AC (mm) FL (mm) HL (mm) EFW (g) 06/02/2025 32w 1d 86.1 96% 305 62% 308.3 98% 60 16% 54.4 38% 2259 85% Anatomy The following structures appear normal: Abdomen Stomach. Kidneys. Bladder. sex: male. Impression ========= Single, live, intrauterine at 34w 0d The amniotic fluid volume is normal. The biophysical profile is 1010. Comment ======== ultrasound alone cannot detect all structural, genetic, or functional , placental, or maternal abnormalities Follow-up ======== Continue weekly BPP with 2x weekly NST Repeat growth in 1 week Coding ====== Diagnoses O99.283, E03.9: Other endocrine, nutritional and metabolic diseases complicating , Hypothyroidism O09.213: Supervision of with history of pre-term labor O24.419: Gestational diabetes mellitus in , unspecified control O13.3: Gestational [-induce d' hypertension without significant proteinuria O99.213, E66.813: Obesity complicating , Class 3 - BMI of 40.0 or greater Procedures 32997: [place] Uterus Limited 93752: Biophysical Profile W NST [email or web address] PACS Anatomical Region Laterality Modality Other 06/15/2025 11:3 3 AM DANCE ENTERTAINER Madiha Hernandez PLODDING OPERATOR-[facility] ORDERABLES Edited Result - Final * Sonogram - Complete (06/02/2025 2:22 PM DANCE ENTERTAINER) Linked Results Indication ======== Obesity complicating , Class 3 - BMI of 40.0 or greater Gestational hypertension Gestational diabetes mellitus in , unspecified control with history of labor (PTL) x 2 Hypothyroidism complicating Thyroidectomy History ====== OB History 4. Para 2 [id number] 1. live 2019. Gest. age 33 w + 6 d. Details: Vaginal delivery, 5 lbs 8 oz, PPROM 2. live 2020. Gest. age 34 w + 0 d. Details: delivery, 5 lbs 7 oz, PPROM, nuchal cord/ intolerance 3. miscarriage 2021. Gest. age 6 w + 0 d. Details: D and C Lab Tests Test Date Result NIPT Low risk, Male Maternal Assessment Physical Exam Height 163 cm, 5 ft 4 in. Weight 127 kg, 281 lb. Initial weight 118 kg, 261 lb. BMI 48.23 kg/m . Initial BMI 44.80 kg/m . Weight gain 9 kg, 20 lb Method ====== Transabdominal and transvaginal ultrasound examination. View: Suboptimal view: limited by maternal body habitus. Suboptimal view: limited by position. Suboptimal view: limited by late gestational age ========= Heller . Number of fetuses: 1 Dating ====== Date Details Gest. age TUYET LMP 10/20/2024 32 w + 1 d 07/27/2025 U/S 06/02/2025 based upon AC, BPD, Femur, HC 33 w + 5 d 07/16/2025 Assigned dating based on the LMP, selected on 06/02/2025 32 w + 1 d 07/27/2025 General Evaluation Cardiac activity present. FHR 142 bpm. Presentation: cephalic Placenta: Placental site: anterior Umbilical cord: Cord vessels: 3 vessel cord. Insertion site: normal insertion Amniotic fluid: Amount of AF: normal. MVP 7.0 cm. TARYN 15.1 cm. Q1 4.9 cm, Q2 7.0 cm, Q3 1.5 cm, Q4 1.8 cm Biometry BPD 86.1 mm 34w 5d 96% Hadlock HC 305.0 mm 34w 0d 62% Hadlock AC 308.3 mm 34w 5d 98% Hadlock Femur 60.0 mm 31w 2d 16% Hadlock Humerus 54.4 mm 31w 5d 38% Niko HC / AC 0.99 -/- Hadlock Weight Calculation: EFW 2,259 g 85% Hadlock EFW (lb,oz) 5 lb 0 oz EFW by Hadlock ([id number]) overall normal range, but the AC is >90% Growth Overview Exam date GA BPD (mm) HC (mm) AC (mm) FL (mm) HL (mm) EFW (g) 06/02/2025 32w 1d 86.1 96% 305 62% 308.3 98% 60 16% 54.4 38% 2259 85% Anatomy The following structures appear normal: Head / Neck Cranium. Lateral ventricles. Midline falx. Cerebellum. Thalami. Heart / Thorax 4-chamber view. LVOT view. Situs. Great vessels. Abdomen Stomach. Kidneys. Bladder. Bowel. Genitals. Extremities / Skeleton Arms. Hands. Legs. Feet. The following structures could not be adequately visualized: Head / Neck Choroid plexus. Cavum septi pellucidi. Cisterna magna. Nuchal fold. Face Lips. Profile. Nose. Nasal bone. Orbits. Heart / Thorax RVOT view. 3-vessel view. 1-iftyat-qmtdarm view. Aortic arch view. Bicaval view. Ductal arch view. Right lung. Left lung. Diaphragm. Abdomen Cord insertion. Spine Cervical spine. Thoracic spine. Lumbar spine. Sacral spine. sex: male. Non Stress Test NST interpretation: non-reactive. Baseline FHR 140 bpm. Baseline variability: moderate. Accelerations: present. Decelerations: absent Biophysical Profile 2: breathing movements 2: Gross body movements 2: tone 2: Amniotic fluid volume NST: non-reactive 02/07 Biophysical profile score Maternal Structures Right Ovary Not visualized Appearance: Adnexa appears normal Left Ovary Not visualized Appearance: Adnexa appears normal Impression ========= Single live intrauterine at 32w 1d in cephalic presentation The TUYET is 07/27/2025 by LMP and outside US. Fetus measures 33w 5d which is overall normal range, but the AC is >90% for established gestational age (EFW 85%, AC 98%) The amniotic fluid volume appears normal No major malformations were seen within the limitations of ultrasound. However, the anatomic survey is incomplete. BPP 02/07 Comment ======== ultrasound alone cannot detect all structural, genetic, or functional , placental, or maternal abnormalities Follow-up ======== Follow up in 4 weeks to complete anatomy and reassess growth Continue twice weekly testing with weekly BPP and twice weekly NST Coding ====== Procedures [id number]: [place] Preg Uterus Detailed [id number]: Biophysical Profile W NST [facility] PACS Anatomical Region Laterality Modality Other 06/02/2025 2:22 PM DANCE ENTERTAINER Madiha Hernandez PLODDING OPERATOR-ALCOHOL RUBBER M ORDERABLES Edited Result - Final from Last [address] [place] [address] [address] [place] [id number] Advance Directives * Full Code (Latest Code Status on File) Date Activated Date Inactivated Comments 02/06/2020 12:56 AM 02/06/2020 1:41 PM Care Teams Scrap Iron Loader Relationship Specialty Start Date End Date Benjamin Rendon MD PCP - General 02/07/20
--- OUTSIDE RECORDS SUMMARY | 2025-06-19 19:25 | XMS_ITS | Continuity of Care Document ---
Author Organization [facility] Address [address] [place] [address] [place] [address] Assessment No assessment recorded. Plan of Treatment [...] None recorded . Imaging non-stre ss test 2024 025 [email or web address] [address], [address], [place], [address], 06/18/2025 15:03:16 Medication Orders None recorded . Patient TargetsNo [...] with clini raman findi ngs. Not Available [facility] (Lab) [address], [place], [address], 05/22/2025 05:43:58 05/21/20 25 05/21/2025 TSH, REFLE X FREE T4 TSH 0.23 uIU/m L 0.30-5 .33 low Not Available [facility] (Lab) [address], [place], [address], 05/22/2025 05:43:59 05/21/20 25 05/21/2025 CT/GC AND TRICH OMONA S VAGIN PHILLIP (RRNA ), URINE chlamydia trachomatis, PCR Negati ve negati ve Not Available [facility] (Lab) [address], [place], [address], 05/23/2025 13:31:28 05/21/20 25 05/21/2025 CT/GC AND TRICH OMONA S VAGIN PHILLIP (RRNA ), URINE neisseria gonorrhoeae, PCR Negati ve negati ve Not Available [facility] (Lab) [address], [place], [address], 05/23/2025 13:31:28 05/21/20 25 05/21/2025 CT/GC AND TRICH OMONA S VAGIN PHILLIP (RRNA ), URINE trichomonas vaginalis ribosomal RNA (rrna) Negati ve negati ve 49_CL _SOUR CETVG : Urine - Bladd er Not Available [facility] (Lab) [address], [place], [address], 05/23/2025 13:31:28 05/21/20 25 05/21/2025 CULTU RE: URINE result report SEE RESULT S BELOW Test: Cultu re: Urine Speci men Sourc e: Urine Voide d Speci men Type: Urine Speci men Date: 05/21 1051 Resul t Date: 05/23 1227 Resul t Statu s: Final resul t Abnor mal: No Resul ting Lab: [facility] [address] [facility] [address] Tel: CULTU RE ----- ----- ----- --- Organ ism(s ) consi stent with uroge nital or skin kavitha . Repea t cultu re if sympt oms indic ate. Not Available [facility] (Lab) [address], [place], [address], 05/23/2025 13:31:28 05/21/20 25 05/21/2025 drug scree n, urine Amphetamines : negati ve Not Available [facility] [address], [place], [address], 05/21/2025 11:45:28 05/21/20 25 05/21/2025 drug scree n, urine Cannabinoids : negati ve Not Available [facility] [address], [place], [address], 05/21/2025 11:45:28 05/21/20 25 05/21/2025 drug scree n, urine Cocaine: negati ve Not Available [facility] [address], [place], [address], 05/21/2025 11:45:28 05/21/20 25 05/21/2025 drug scree n, urine Opiates: negati ve Not Available [facility] [address], [place], [address], 05/21/2025 11:45:28 05/21/20 25 05/21/2025 drug scree n, urine Phenocyclidi ne: negati ve Not Available [facility] [address], [place], [address], 05/21/2025 11:45:28 05/21/20 25 05/21/2025 drug scree n, urine Barbiturates : negati ve Not Available [facility] [address], [place], [address], 05/21/2025 11:45:28 05/21/20 25 05/21/2025 drug scree n, urine Benzodiazepi tariq: negati ve Not Available [facility] [address], [place], [address], 05/21/2025 11:45:28 05/24/20 25 05/24/2025 CBC W/DIF F WBC 14.8 10'3/ uL 3.5-10 .5 high Not Available [facility] (Lab) [address], [place], [address], 05/25/2025 05:01:23 05/24/20 25 05/24/2025 CBC W/DIF F RBC 4.11 10'6/ uL (based on docume nted legal sex) 3.80-5 .20 Not Available [facility] (Lab) [address], [place], [address], 05/25/2025 05:01:23 05/24/20 25 05/24/2025 CBC W/DIF F HGB 11.6 g/dL (based on docume nted legal sex) 11.6-1 5.4 Not Available [facility] (Lab) [address], [place], [address], 05/25/2025 05:01:23 05/24/20 25 05/24/2025 CBC W/DIF F HCT 36.8 % (based on docume nted legal sex) 34.0-4 5.0 Not Available [facility] (Lab) [address], [place], [address], 05/25/2025 05:01:23 05/24/2005/24/2025 CBC W/DIF F MCV 89.5 fL 80.0-9 9.0 Not Available [facility] (Lab) [address], [place], [address], 05/25/2025 05:01:23 05/24/20 25 05/24/2025 CBC W/DIF F MCH 28.2 pg 27.0-3 4.0 Not Available [facility] (Lab) [address], [place], [address], 05/25/2025 05:01:23 05/24/20 25 05/24/2025 CBC W/DIF F MCHC 31.5 g/dL 32.0-3 5.5 low Not Available [facility] (Lab) [address], [place], [address], 05/25/2025 05:01:23 05/24/20 25 05/24/2025 CBC W/DIF F RDW 14.6 % 11.0-1 5.0 Not Available [facility] (Lab) [address], [place], [address], 05/25/2025 05:01:23 05/24/20 25 05/24/2025 CBC W/DIF F plt 295 10'3/ uL 150-40 0 Not Available [facility] (Lab) [address], [place], [address], 05/25/2025 05:01:23 05/24/20 25 05/24/2025 CBC W/DIF F MPV 11.1 fL 8.8-12 .1 Not Available [facility] (Lab) [address], [place], [address], 05/25/2025 05:01:23 05/24/20 25 05/24/2025 CBC W/DIF F NRBC's 0.0 % 0.0 Not Available [facility] (Lab) [address], [place], [address], 05/25/2025 05:01:23 05/24/20 25 05/24/2025 CBC W/DIF F absolute NRBCs 0.0 10'3/ uL no refere nce range establ ished Not Available [facility] (Lab) [address], [place], [address], 05/25/2025 05:01:23 05/24/20 25 05/24/2025 CBC W/DIF F neutrophils 78.7 % 34.0-7 3.0 high Not Available [facility] (Lab) [address] [place], [address], 05/25/2025 05:01:23 05/24/20 25 05/24/2025 CBC W/DIF F lymphocytes 14.8 % 15.0-5 0.0 low Not Available [facility] (Lab) [address], [place], [address], 05/25/2025 05:01:23 05/24/20 25 05/24/2025 CBC W/DIF F monocytes 4.6 % 1.0-15 .0 Not Available [facility] (Lab) [address] [place], [address], 05/25/2025 05:01:23 05/24/20 25 05/24/2025 CBC W/DIF F eosinophils 1.2 % 0.0-8. 0 Not Available [facility] (Lab) [address] [place], [address], 05/25/2025 05:01:23 05/24/20 25 05/24/2025 CBC W/DIF F basophils 0.2 % 0.0-2. 0 Not Available [facility] (Lab) [address] [place], [address], 05/25/2025 05:01:23 05/24/20 25 05/24/2025 CBC W/DIF [...] separ ately if prese nt. Not Available [facility] (Lab) [address], [place], [address], 05/25/2025 05:01:23 05/24/20 25 05/24/2025 CBC W/DIF F absolute neutrophils 11.6 10'3/ uL 1.5-8. 0 high Not Available [facility] (Lab) [address], [place], [address], 05/25/2025 05:01:23 05/24/20 25 05/24/2025 CBC W/DIF F absolute lymphocytes 2.2 10'3/ uL 1.0-4. 0 Not Available [facility] (Lab) [address], [place], [address], 05/25/2025 05:01:23 05/24/20 25 05/24/2025 CBC W/DIF F absolute monocytes 0.7 10'3/ uL 0.2-1. 0 Not Available [facility] (Lab) [address], [place], [address], 05/25/2025 05:01:23 05/24/20 25 05/24/2025 CBC W/DIF F absolute eosinophils 0.2 10'3/ uL 0.0-0. 6 Not Available [facility] (Lab) [address] [place], [address], 05/25/2025 05:01:23 05/24/20 25 05/24/2025 CBC W/DIF F absolute basophils 0.0 10'3/ uL 0.0-0. 3 Not Available [facility] (Lab) [address] [place], [address], 05/25/2025 05:01:23 05/24/20 25 05/24/2025 CBC W/DIF F absolute immature granulocytes 0.1 10'3/ uL 0.00-0 .10 Refer ence range s for nonbi nary/ inter sex or unspe cifie d gende r patie nts have not been estab lishe d. Yanelis e [facility] range s estab lishe d for cisge nder patie nts and evalu ate in the clini raman zain xt of the indiv idual patie nt: [email or web address] :[email or web address] hui book. nm.or g/gen derx Not Available [facility] (Lab) [address] [place], [address], 05/25/2025 05:01:23 05/24/20 25 05/24/2025 GTT - GESTA DINORAH L, 3 HOUR, ACOG glucose, fasting acog 79 mg/dL 70-94 Not Available [facility] (Lab) [address] [place], [address], 05/25/2025 05:01:24 05/24/20 25 05/24/2025 GTT - GESTA DINORAH L, 3 HOUR, ACOG glucose, 1 hour acog 221 mg/dL 70-179 high Not Available [facility] (Lab) [address] [place], [address], 05/25/2025 05:01:24 05/24/20 25 05/24/2025 GTT - GESTA DINORAH L, 3 HOUR, ACOG glucose, 2 hour acog 165 mg/dL 70-154 high Not Available [facility] (Lab) [address] [place], [address], 05/25/2025 05:01:24 05/24/20 25 05/24/2025 GTT - GESTA DINORAH L, 3 HOUR, ACOG glucose, 3 hour acog 75 mg/dL 70-139 Not Available [facility] (Lab) [address] [place], [address], 05/25/2025 05:01:24 05/24/20 25 05/24/2025 CMP(C OMPRE HENSI VE METAB OLIC PANEL ) sodium 139 mmol/ L 133-14 6 Not Available [facility] (Lab) [address], [place], [address], 05/25/2025 05:01:25 05/24/20 25 05/24/2025 CMP(C OMPRE HENSI VE METAB OLIC PANEL ) potassium 4.1 mmol/ L 3.5-5. 1 Not Available [facility] (Lab) [address], [place], [address], 05/25/2025 05:01:25 05/24/20 25 05/24/2025 CMP(C OMPRE HENSI VE METAB OLIC PANEL ) chloride 103 mmol/ L 98-107 Not Available [facility] (Lab) [address], [place], [address], 05/25/2025 05:01:25 05/24/20 25 05/24/2025 CMP(C OMPRE HENSI VE METAB OLIC PANEL ) carbon dioxide 25 mmol/ L 21-31 Not Available [facility] (Lab) [address] [place], [address], 05/25/2025 05:01:25 05/24/20 25 05/24/2025 CMP(C OMPRE HENSI VE METAB OLIC PANEL ) anion gap 11 mmol/ L 4-13 Not Available [facility] (Lab) [address] [place], [address], 05/25/2025 05:01:25 05/24/20 25 05/24/2025 CMP(C OMPRE HENSI VE METAB OLIC PANEL ) blood urea nitrogen 3 mg/dL 7-25 low Not Available [facility] (Lab) [address] [place], [address], 05/25/2025 05:01:25 05/24/20 25 05/24/2025 CMP(C OMPRE HENSI VE METAB OLIC PANEL ) creatinine 0.49 mg/dL 0.60-1 .30 low Not Available [facility] (Lab) [address], [place], [address], 05/25/2025 05:01:25 05/24/20 25 05/24/2025 CMP(C OMPRE HENSI VE METAB OLIC PANEL ) egfrcr (CKD-epi 2020) >90 mL/mi n/1.7 3_m2 >=60 Not Available [facility] (Lab) [address] [place], [address], 05/25/2025 05:01:25 05/24/20 25 05/24/2025 CMP(C OMPRE HENSI VE METAB OLIC PANEL ) calcium 8.5 mg/dL 8.3-10 .5 Not Available [facility] (Lab) [address], [place], [address], 05/25/2025 05:01:25 05/24/20 25 05/24/2025 CMP(C OMPRE HENSI VE METAB OLIC PANEL ) glucose 219 mg/dL 70-100 high Not Available [facility] (Lab) [address] [place], [address], 05/25/2025 05:01:25 05/24/20 25 05/24/2025 CMP(C OMPRE HENSI VE METAB OLIC PANEL ) protein, total 5.6 g/dL 6.4-8. 3 low Not Available [facility] (Lab) [address] [place], [address], 05/25/2025 05:01:25 05/24/20 25 05/24/2025 CMP(C OMPRE HENSI VE METAB OLIC PANEL ) albumin 2.9 g/dL 3.5-5. 0 low Not Available [facility] (Lab) [address] [place], [address], 05/25/2025 05:01:25 05/24/20 25 05/24/2025 CMP(C OMPRE HENSI VE METAB OLIC PANEL ) ALT 9 units /L 9-43 Not Available [facility] (Lab) [address] [place], [address], 05/25/2025 05:01:25 05/24/20 25 05/24/2025 CMP(C OMPRE HENSI VE METAB OLIC PANEL ) alkaline phosphatase 158 units /L 34-104 high Not Available [facility] (Lab) [address] [place], [address], 05/25/2025 05:01:25 05/24/20 25 05/24/2025 CMP(C OMPRE HENSI VE METAB OLIC PANEL ) AST 9 units /L 13-39 low Not Available [facility] (Lab) [address] [place], [address], 05/25/2025 05:01:25 05/24/20 25 05/24/2025 CMP(C OMPRE HENSI VE METAB OLIC PANEL ) bilirubin, total 0.2 mg/dL 0.2-1. 2 Not Available [facility] (Lab) [address] [place], [address], 05/25/2025 05:01:25 05/24/20 25 05/24/2025 URIC ACID uric acid 2.7 mg/dL 2.3-6. 6 Not Available [facility] (Lab) [address] [place], [address], 05/25/2025 05:01:25 05/24/20 25 05/24/2025 T4 FREE T4, free 0.44 NG/dL 0.54-1 .24 low This assay is susce ptibl e to inter feren ce from high level s of bioti n which may false ly eleva te resul ts. Pleas e corre late with clini raman findi ngs. Not Available [facility] (Lab) [address] [place], [address], 05/25/2025 05:01:26 05/24/20 25 05/24/2025 TSH, REFLE X FREE T4 TSH 0.17 uIU/m L 0.30-5 .33 low Not Available [facility] (Lab) [address] [place], [address], 05/25/2025 05:01:26 05/24/20 25 05/24/2025 PROTE IN/CR EATIN INE RATIO , URINE creatinine, urine 19.5 mg/dL R-No refer ence range estab lishe d for this assay Not Available [facility] (Lab) [address] [place], [address], 05/25/2025 05:27:48 05/24/20 25 05/24/2025 PROTE IN/CR EATIN INE RATIO , URINE protein, urine <4 mg/dL R-No refer ence range estab lishe d for this assay Not Available [facility] (Lab) [address] [place], [address], 05/25/2025 05:27:48 05/24/20 25 05/24/2025 PROTE IN/CR [...] fican t prote inuri a. Not Available [facility] (Lab) [address] [place], [address], 05/25/2025 05:27:48 06/03/20 25 06/02/2025 US, obste tric, follo w-up No observ ation record ed. [email or web address] [facility] [address] [place] [address], [address], 06/04/2025 13:20:41 06/10/20 25 06/08/2025 US, obste tric, mater nal evalu ation + anato my No observ ation record ed. [email or web address] [facility] [address], [place], [address], 06/11/2025 12:09:41 06/15/20 25 06/15/2025 non-s tress test No observ ation record ed. [email or web address] [facility] [address], [place], [address], 06/16/2025 11:16:30 06/15/20 25 06/11/2025 non-s tress test No observ ation record ed. [email or web address] Not Available 2024 15:28:53 06/16/20 25 06/15/2025 US, obste tric, follo w-up No observ ation record ed. [email or web address] [facility] [address], [place], [address], 06/16/2025 12:26:43 06/18/20 25 06/18/2025 non-s tress test No observ ation record ed. [email or web address] [facility] [address], [place], [address], 06/18/2025 17:45:42 06/18/20 non-s tress test No observ ation record ed. [email or web address] [facility] [address], [place], [address], 06/18/2025 15:05:39 Result Notes None recorded. Problems Name Problem SNOMED Code Status Onset Date Resolution Date Notes Provider Name and Address Organization Details Recorded Time 43602786 Active 2024 Annalee washington [facility] 10:03:53 Past history of premature delivery 400595688 Active 2024 x2 31 weeks PPROM 34 weeks PPROM plan MFM consult Madiha Hernandez, MARC [address], [place], [address], [facility] 5 12:01:52 Obesity caused by energy imbalance 566635055 Active 2024 bmi 48 Madiha Hernandez CNM [address], [place], [address], [facility] 5 11:58:27 Past history of premature delivery 842973739 Active 2024 x2 31 weeks PPROM 34 weeks PPROM plan MFM consult Madiha Hernandez CNM [address], [place], [address], [facility] 5 12:01:52 Past history of section 045209474 Active 2024 due to distress desires TOLAC Madiha Hernandez CNM [address], [place], [address], [facility] 5 12:02:17 Tobacco user 995589275 Active 2024 1-2 packs/day Madiha Hernandez CNM [address], [place], [address], [facility] 5 12:02:31 History of subtotal thyroidec kyler 474941548 Active 2024 no meds currently , will rpt today Madiha Hernandez CNM [address], [place], [address], [facility] 5 12:02:49 Gestation al diabetes mellitus 96929546 Active 2024 Checking bs QID, serial growth us - Referral faxed to [facility] Diet teaching 05/26 06/02 - per MM, GDM and insulin to be managed by MFM. Pt prescribe d lactus 10units BID. Now 12units BID 06/15 Rebeca washington, [facility] 12:19:36 Hypertens ion AND/OR vomiting complicat ing childbirt h AND/OR puerperiu m 433299401 Active 2024 PC ratio >0.3 on 2 occasions Rebeca Weinstein padmini [facility] 11:28:10 Hypothyro idism 74499780 Active 2024 50 mcg levothyro xine TSH q4 Rebeca Weinstein [facility] 11:31:02 Problem Notes None recorded. Procedures Surgical History Date Name Laterality Status Provider Name and Address Organization Details Recorded Time 1 Caesarean Section completed [facility] 05/21/2025 09:42:35 Thyroid Surgery completed [facility] 05/21/2025 09:42:35 procedure on wrist completed [facility] 05/21/2025 10:35:26 Imaging Results None recorded. Procedure Notes None recorded. Medical Equipment None Reported. Allergies Allergen ID Allergen Name Allergen Category Reaction Reaction Severity Criticality Documentation Date Start Date Code Code System Note Provider Name and Address Organization Details Recorded Time 67471 hydrocodo ne Not available itching Not available Not available 05/21/20252022 5489 RxNorm Not Available [facility] Data Service - prod 03:03:44 44411 iodine medicatio n Not available Not available Not available 05/21/20252016 5933 RxNorm unrec ogniz ed react ion (text : Iker briceno ing, code: 20645 000) (from exter nal sourc e) Not Available [facility] External Data Service - prod 03:03:44 51334 Fish (substanc e) food,medi cation other severe Not available 05/21/2025 65758 1005 [facility]ED [facility] 09:42:34 71876 Shellfish (substanc e) food,medi cation anaphylax is Not available high 05/21/20252020 04880 9006 SNOMED Not Available joycelyn - External [...] Address Organization Details Last Updated DateTime 5 380869. 29681 g 162.56 cm 49.6 kg/m2 552687. 19 g 130/82 mm[Hg] 130/82 mm[Hg] Nilda Kenny [facility] 5 14:32:17 Social History Question Answer Notes LastModified by Organizat ion Details LastModified Time Do You Have An Advance Directive? No antolin Information n ot available 05/21/2025 How Many Years Have You Consumed Alcohol? 10 [email or web address] Information not available 05/21/2025 Are You Blind Or Do You Have Difficulty Seeing? No [email or web address] Information not available 05/21/2025 What Is Your Level Of Caffeine Consumption? Heavy [email or web address] Information not available 05/21/2025 How Much Tobacco Do You Chew? None [email or web address] Information not available 05/21/2025 In The 14 Days Before Symptom Onset, Have You Had Close Contact With A Laboratory-confirme d COVID-19 While That Case Was Ill? No [email or web address] Information n ot available 05/21/2025 In The 14 Days Before Symptom Onset, Have You Had Close Contact With A Person Who Is Under Investigation For COVID-19 While That Person Was Ill? No [email or web address] Information not available 05/21/2025 Have You Been To An Area Known To Be High Risk For COVID-19? No [email or web address] Information not available 05/21/2025 Are You Deaf Or Do You Have Serious Difficulty Hearing? No [email or web address] Information not available 05/21/2025 What Type Of Diet Are You Following? REGULAR [email or web address] Information n ot available 05/21/2025 What Is The Highest Grade Or Level Of School You Have Completed Or The Highest Degree You Have Received? LA81998-2 [email or web address] Information not available 05/21/2025 Are There Any Guns Present In Your Home? No [email or web address] Information not available 05/21/2025 Do You Use Protection During Sex? Usually [email or web address] Information not available 05/21/2025 Do You Use Your Seat Belt Or Car Seat Routinely? Yes [email or web address] Information not available 05/21/2025 Do You Have Smoke And Carbon Monoxide Detectors In Your Home? Yes [email or web address] Information not available 05/21/2025 At What Age Did You Start Smoking Tobacco? 14 Information not available 05/21/2025 How Much Tobacco Do You Smoke? 1 PPD [email or web address] Information not available 05/21/2025 Do You Use Sunscreen Routinely? No [email or web address] Information not available 05/21/2025 How Many Years Have You Smoked Tobacco? 15 Information not available 05/21/2025 Have You Used IV Drugs? No [email or web address] Information not available 05/21/2025 Sex: Unknown Functional Status Question Answer Note LastModified by Organizat ion Details LastModified Time Do you use any illicit or recreational drugs? No [email or web address] Information not available 05/21/2025 What is your level of alcohol consumption? Occasional [email or web address] Information not available 05/21/2025 Are you able to walk independently without assistance or assistive devices? YESWOREST [email or web address] Information not available 05/21/2025 What is your occupation? Na [email or web address] Information not available 05/21/2025 What is your exercise level? Moderate [email or web address] Information not available 05/21/2025 Mental Status Question Answer Note LastModified by Organization D etails LastModified Time Do you feel stressed (tense, restless, nervous, or anxious, or unable to sleep at night)? [id number] [email or web address] Information not available 05/21/2025 Family History Relationship Description Onset Age of this Age Resolved Age Notes LastModified by Organization Details LastModified Time Paternal Grandmother Anxiety disorder Not available 2024 09:42:34 Paternal Grandmother Heart disease [email or web address] Not available 2024 09:42:34 Paternal Grandmother Mental disorder [email or web address] Not available 2024 09:42:34 Paternal Aunt Anxiety disorder [email or web address] Not available 2024 09:42:34 Paternal Aunt Substance abuse [email or web address] Not available 2024 09:42:34 Paternal Aunt Diabetes mellitus [email or web address] Not available 2024 09:42:34 Paternal Aunt Mental disorder [email or web address] Not available 2024 09:42:34 Paternal Uncle Anxiety disorder Not available 2024 09:42:34 Paternal Uncle Substance abuse [email or web address] Not available 2024 09:42:34 Paternal Uncle Diabetes mellitus [email or web address] Not available 2024 09:42:34 Paternal Uncle Mental disorder [email or web address] Not available 2024 09:42:34 Maternal Grandfather Diabetes mellitus [email or web address] Not available 2024 09:42:34 Paternal Grandfather Substance abuse [email or web address] Not available 2024 09:42:34 Paternal Grandfather Diabetes mellitus [email or web address] Not available 2024 09:42:34 Father Anxiety disorder [email or web address] Not available 2024 09:42:34 Father Substance abuse [email or web address] Not available 2024 09:42:34 Father Diabetes mellitus [email or web address] Not available 2024 09:42:34 Father Mental disorder [email or web address] Not available 2024 09:42:34 Medical History Condition [...] ICD10 Code Diagnosis IMO Codes Diagnosis Note [id number] Madiha Hernandez CNM [facility] [address] [address] 05/21/2025 09:27:14 05/21/2025 12:08:11 screening 123606514 Z36.85 Gestation period, 30 weeks 51838761 Z3A.30 [id number] Aneudy Shah MD [facility] [address],[place] [address] 06/11/2025 15:05:01 06/16/2025 10:16:12 Gestational diabetes mellitus 77558884 O24.419 48875357 [id number] Aneudy Shah MD [facility] [address],[place] [address] 06/12/2025 10:13:16 06/12/2025 10:59:23 care status 158487967 Z34.83 [id number] Madiha Hernandez CNM [facility] [address] [place] [address] 06/18/2025 14:15:02 06/18/2025 15:03:16 Gestational diabetes mellitus 80279266 O24.419 14992022 [id number] Madiha Hernandez CNM [facility] [address] [address] 06/18/2025 14:15:27 06/18/2025 15:10:46 Gestation period, 34 weeks 11187761 Z3A.34 7522686 Pre-eclampsia 229847738 O14.93 1529664 Gestationa l diabetes mellitus 70787782 O24.419 37923177 Health Concerns Section Related Observation LastModified by Organization Detai ls LastModified Time None Recorded Concern Status LastModified by Organization Details LastModified Time None Recorded Payers Encounter Date Sequence Insurance Name Policy Number Policy Jimenez Covered Member ID Jimenez Member ID Guarantor Name 06/18/2025 1 [facility] ON OR AFTER 12/29/20 (MEDICAID REPLACEMENT - HMO) Carla Santos [id number] Carla Santos Notes Date Note Type Note Provider Name and Address Organization Details Recorded Time 06/18/2025 text/html Generic HPI TemplateReported by Patient Madiha Hernandez CNM [address], [place], [address], [facility] 06/18/2025 15:09:12 OBGyn Episode Ob Episode Information Episode Created Date Number of Fetuses Patient Bloodtype Patient rh Status Prepregnancy Weight lbs Domestic Partner Domestic Partner Phone Father Name Quality Intern Status 05/21/20 25 1 OPEN Fetus Data First Name Last Name Admitted to NICU Weight (g) Sex Living Outcome Pediatric Complications Fetus ID Race Codes Race Delivery Type [id number] Problems Problem Notes 10 point testing on Tuesdays with MFM. Saturday NST with routine OB.AC 98% FM delivery rec 37 wks or sooner with severe features, preeclampsia Problem Name Start Date End Date Resolution Snomed Code Not e Hypertension AND/OR vomiting complicating childbirth AND/OR puerperium 06/09/2025 [id number] PC ratio > 0.3 on 2 occasions Past history of section 05/21/2025 [id number] due to di stress desires TOLAC Obesity caused by energy imbalance 05/21/2025 [id number] bmi 48 Tobacco user 05/21/2025 [id number] 1-2 pa cks/day Hypothyroidism 06/09/2025 [id number] 50 m cg levothyroxineTSH q4 History of subtotal thyroidectomy 05/21/2025 [id number] no meds mignon shah, will rpt today Gestational diabetes mellitus 05/26/2025 [id number] Checking bs QID , serial growth us - Referral faxed to [facility] Diet teaching 05/26 06/02 - per MM, GDM and insulin to be managed by MFM. Pt prescribed lactus 10units BID. Now 12units BID 06/15 Past history of premature delivery 05/21/2025 [id number] x231 weeks PPRO M34 weeks PPROMplan MFM [...] Weight in lbs Pre/Post Dialysis Refused Weight 281.251094012862 BP Diastolic BP Location Tested BP Systolic BP Type 84 L arm 140 sitting Fetus Heart Rate Present Fetus Movement A Yes Comments transfer from [facility] home, [facility], has not been referred to [facility] [...] Weight in lbs Pre/Post Dialysis Refused Weight 285.236251546371 BP Diastolic BP Location Tested BP Systolic [...] Type Weight in lbs Pre/Post Dialysis Refused 289.331017714104 BP Diastolic BP Location Tested BP Systolic BP Type 82 L arm 130 sitting Fetus Heart Rate Present Fetus Movement A Yes Comments Flowsheet Date 06/18/2025 Ball Score Blood Edema Fundus Height Fundus Units Glucose Ketones Leukocytes Nitrite Labor Signs Protein Cervic Dilation Cervic Effacement Cervic Station Type Weight in lbs Pre/Post Dialysis Refused Weight 289.363705026109 BP Diastolic BP Location Tested BP Systolic [...] Estim ated Date of Delivery false Thalassemia (Hebrew, Slovenian, Mediterranean, Or Background): MCV < 80 false Neural Tube Defect (Meningomyelocele, Spina Bifi da, Or Anencephaly) false Congenital Heart Defect false Down Syndrome false Mingo-Sachs (eg, Worship, Cajun, Spanish-Coweta) f alse Luis E Disease false Sickle Cell Disease Or Trait () false Hemophilia Or Other Blood Disorders false Muscular Dystrophy false Cystic Fibrosis false Angwin's Chorea false Intellectual Disability/Autism false If Yes, [...]
--- OUTSIDE RECORDS SUMMARY | 2025-06-19 19:25 | XMS_ITS | Clinical Summary ---
Author Organization [facility] Address [address] [place] [address] Care Team Providers Care Auger Supervisor Name Role Phone No, Physician Primary Care Provider [phone] No, Physician Unavailable Allergies Active Allergy Reactions Criticality Noted Date Comments Fish Containing Products Anaphylaxis High 03/22/2021 Hydrocodone Itching Low 04/23/2022 Iodine Anaphylaxis High 03/22/2021 Shellfish Derived Anaphylaxis High 03/22/2021 Medications PNV no.[id number] acid-dha 35 mg iron-5 mg iron-1 mg capsule Take 1 tablet/capsule by mouth daily Active nitrofurantoin monohydrate (MACROBID) 100 mg capsuleIndicatio ns:Urinary Tract/Genitourin susan Infection Take 1 capsule (100 mg total) by mouth 2 (two) times a day 10 capsule Active Additional Information Patient not taking.Reported on 05/05/2025 Active Problems Problem Noted Date Diagnosed Date Retained products of conception after miscarriag e 04/26/2022 34 weeks gestation of 04/03/2021 Encounter for post surgical wound check 12/30/19 19 Dressing change or removal, surgical wound 12/29 Estimated Date of Delivery Comme nts Yes 07/26/2025 Date entered paras or to episode creation Encounters Date Type Department Care Team Description 05/25/2025 9:45 PM ENTERPRISE SYSTEMS MANAGER - 05/26/2025 10:20 AM ENTERPRISE SYSTEMS MANAGER Hospital Encounter [address] [address] Ravinder Méndez MD Discharge Disposition: Discharge to home or self care 05/25/2025 9:37 PM ENTERPRISE SYSTEMS MANAGER - 05/25/2025 11:21 PM ENTERPRISE SYSTEMS MANAGER Emergency [facility] Emergency Department [address] [place] [address] Discharge Disposition: Discharge to home or self care 05/23/2025 7:27 PM ENTERPRISE SYSTEMS MANAGER - 05/23/2025 8:41 PM ENTERPRISE SYSTEMS MANAGER Hospital Encounter [address] [address] Maura Ayala DO Discharge Disposition: Discharge to home or self care 05/13/2025 8:00 PM ENTERPRISE SYSTEMS MANAGER - 05/13/2025 10:13 PM ENTERPRISE SYSTEMS MANAGER Hospital Encounter [address] [address] Byron Franklin MD Discharge Disposition: Discharge to home or self care 05/05/2025 7:19 PM ENTERPRISE SYSTEMS MANAGER - 05/06/2025 12:05 AM ENTERPRISE SYSTEMS MANAGER Hospital Encounter [address] [address] Byron Franklin MD Discharge Disposition: Discharge to home or self care 04/11/2025 6:47 PM CDT - 04/11/2025 8:20 PM CDT Hospital Encounter [address] [address] Byron Franklin MD Discharge Disposition: Discharge to [...] points, staff should administer the PHQ-9) 0 05/25/2025 [place] Depression Scale Answer Date Recorded [place] Depression Scale Total 0 04/05/2021 The thought of harming myself has occurred to me . Never 04/05/2021 Humiliation, Afraid, Rape, and Kick questionnair e Answer Date Recorded Within the last year, have y ou been afraid of your partner or ex-partner? No 05/25/2025 Within the last year, have y ou been humiliated or emotionally abused in other ways by your partner or ex-partner? No Within the last year, have y ou been kicked, hit, slapped, or otherwise physically hurt by your partner or ex-partner? No 05/25/2025 Within the last year, have y ou been raped or forced to have any kind of sexual activity by your partner or ex-partner? No 05/25/2025 Social Connection and Isolation Panel Answer Date Recorded In a typical week, how many times do you talk on the phone with family, friends, or neighbors? More than three times a week 05/25/2025 How often do you get togethe r with friends or relatives? More than three times a week 05/25/2025 How often do you attend chur ch or restorationist services? Never 05/25/2025 Do you belong to any clubs o r organizations such as rastafarian groups, unions, fraternal or athletic groups, or school groups? No 05/25/2025 How often do you attend meet ings of the clubs or organizations you belong to? Never 05/25/2025 Are you , , di vorced, , never , or living with a partner? Never 05/25/2025 AUDIT-C Answer Date Recorded Q1: How often do you have a drink containing alc ohol? Never 05/25/2025 Average Number of Drinks Not on file 025 Q3: How often do you have si x or more drinks on one occasion? Never 05/25/2025 Overall Financial Resource Strain (CARDIA) Answe r Date Recorded How hard is it for you to pa y for the very basics like food, housing, medical care, and heating? Not very hard 05/25/2025 [facility] [place] [facility] Occupat ional Health - Occupational Stress Questionnaire Answer Date Recorded Do you feel stress - tense, restless, nervous, or anxious, or unable to sleep at night because your mind is troubled all the time - these days? Not at all 05/25/2025 Exercise Vital Sign Answer Date Recorde d On average, how many days pe r week do you engage in moderate to strenuous exercise (like a brisk walk)? 7 days 05/25/2025 On average, how many minutes do you engage in exercise at this level? 60 min 05/25/2025 Hunger Vital Sign Answer Date Recorded Within the past 12 months, y ou worried that your food would run out before you got the money to buy more. Never true 05/25/20 25 Within the past 12 months, t he food you bought just didn't last and you didn't have money to get more. Never true 05/25/2025 PRAPARE - Transportation Answer Date Re corded In the past 12 months, has l ack of transportation kept you from medical appointments or from getting medications? No 05/02 In the past 12 months, has l ack of transportation kept you from meetings, work, or from getting things needed for daily living? No 05/25/2025 Housing Stability Vital Sign Answer Hans e Recorded In the last 12 months, was t here a time when you were not able to pay the mortgage or rent on time? No 05/25/2025 In the past 12 months, how m any times have you moved where you were living? 1 05/25/2025 At any time in the past 12 m onths, were you homeless or living in a intermediate (including now)? No 05/25/2025 [facility] Utilities Answer Date Recorded In the past 12 months has e electric, gas, oil, or water company threatened to shut off services in your home? No 05/25/2025 Personal Safety Answer Date Recorded Have you ever been in or are you currently in a harmful physical or emotional relationship or is someone making you feel afraid or unsafe? Denies 05/25/2025 Estimated Date of Delivery Comme nts Yes 07/26/2025 Date entered paras or to episode creation Sex and Gender Information Value Date Recorded Sex Assigned at Not on file Legal Sex Female 9:06 PM ENTERPRISE SYSTEMS MANAGER Gender Identity Not on file Sexual Orientation [...] Vag-S pont None Y Livin g Delivery Location:[facility] Es 021 34w 3d 0h 03m 0h 03m 2.485 kg (5 lb 7.7 oz) F CS-LT ranv Epidu ral,S urban Y Livin g 8 8 MALON E,GIR Aruna Linder RA, DO Complications: Intolera nce,Rupture of Membranes > 18 hours,Premature Rupture of Membranes,Failure to Progress in First Stage Delivery Location:[facility] (E L AND D PROCEDURE) Current Summary Episode Dates Number of Fetuses Estimated Date of Delivery 04/11/2025 - Present (06/19/2025) 07/26/2025 (based on Alternate TUYET Entry) Dating Summary Based On TUYET [place] Diff Last Menstrual Period on 10/21/2024 07/28/2025 -2d Alternate TUYET Entry 07/26/2025 Working Comment:Date entered prior t o episode creation Vitals Pregravid Weight Height TWG (As of 06/19/2025) Pregrav id BMI 162.6 cm (5' 4) Date GA Fund Present FHR Mvmt BP Weight Edema Alb Glu Ket Dil/ Eff/Sta 10/12/202 5 24w6d Inpatient data not displayed here. See encounter summary. 5 28w3d Inpatient data not displayed here. See encounter summary. 5 29w3d Inpatient data not displayed here. See encounter summary. 5 30w6d Inpatient data not displayed here. See encounter summary. 5 31w2d Inpatient data not displayed here. See encounter summary. Notes Progress Notes - Hospital En counter - 05/26/2025 - GA:31w2d 05/26/2025 - 31w2d - Ravinder Méndez MD 31 2/7 weeks ; sees HROB due to hx. On Mag overnight after presenting with contractions around 10 pm Contractions not associated with intercourse. Hx of 31 week vaginal delivery and 34 week c/s for distress in past. Cervix closed and thick No further contractions Will turn off Mag and watch for an hour, will plan DC if all goes well. RPRISE SYSTEMS MANAGER Last Filed Vital Signs Vital Sign Reading Time Taken Comments Blood Pressure 124/60 05/26/2025 10:01 AM ENTERPRISE SYSTEMS MANAGER Pulse 114 05/26/2025 10:04 AM ENTERPRISE SYSTEMS MANAGER Temperature 36.8 C (98.2 F) 05/26/2025 8:59 AM ENTERPRISE SYSTEMS MANAGER Respiratory Rate 18 05/26/2025 7:30 AM ENTERPRISE SYSTEMS MANAGER Oxygen Saturation 97% 05/26/2025 10:04 AM ENTERPRISE SYSTEMS MANAGER Inhaled Oxygen Concentration - - Weight 120.2 kg (265 lb) 04/11/2025 6:39 PM CDT Height 162.6 cm (5' 4) 04/11/2025 7:12 PM CDT Body Mass Index 45.49 04/11/2025 6:39 PM CDT Plan of Treatment Upcoming Encounters Date Type Department Care Team (Late st Contact Info) Description 07/26/2025 Hospital Encounter [facility] [address] [place] [address] Ravinder Méndez MD [address] [place] [address] DR [facility] [address] [place] [address] (work) Health Maintenance Due Date Last Done Comments Cervical Cancer Screening 1993 Hepatitis C Screening 1993 Varicella Vaccines (1 of 2 - 13+ 2-dose series) 2006 HPV Vaccines (2 - 2-dose series) 07/14/2008 01/12/20 08 Regular Well Visit/Exam 18-64 11/10/2011 Pneumococcal vaccine <65 (1 of 2 - PCV) 2012 Influenza Vaccine (#1) 2025 Depression Screening 05/25/2026 05/25/2025, 04/11/2025, 04/11/2025, Additional history exists DTaP/Tdap/Td Vaccine (8 - Td or Tdap) 04/04/2031 04/04/2021, 01/12/2008, 01/19/1999, Additional history exists Hepatitis B Screening Completed 02/14/1995 , 02/08/1994, 1993 Medical Devices Implanted Type Area Sales Recruiting Coordinator Device Identifier Shelf Expiration Date Model / Serial / Lot Plate Plate Left: Wrist Description:2019 Procedures Procedure Name Priority Date/Time Associated Diagnosis Comments URINALYSIS AND REFLEX TO MICROSCOPIC Routine 05/23/2025 8:02 PM ENTERPRISE SYSTEMS MANAGER PROTEIN / CREATININE RATIO, URINE, RANDOM Routine 05/23/2025 7:47 PM ENTERPRISE SYSTEMS MANAGER PAMG-1 PROTEIN MARKER (ROM) STAT 05/13/2025 8:34 PM ENTERPRISE SYSTEMS MANAGER URINALYSIS AND REFLEX TO MICROSCOPIC AND CULTURE STAT 05/13/2025 8:34 PM ENTERPRISE SYSTEMS MANAGER FIBRONECTIN Routine 05/05/2025 8:1 8 PM ENTERPRISE SYSTEMS MANAGER URINALYSIS AND REFLEX TO MICROSCOPIC AND CULTURE Routine 05/05/2025 7:56 PM ENTERPRISE SYSTEMS MANAGER URINALYSIS, MICROSCOPIC ONLY STAT 04/11/2025 7:03 PM CDT URINE CULTURE STAT 04/11/2025 7:03 PM CDT URINALYSIS AND REFLEX TO MICROSCOPIC AND CULTURE STAT 04/11/2025 7:03 PM CDT from Last 3 Months Results * (ABNORMAL) Urinalysis reflex to microscopic (05/23/2025 8:02 PM ENTERPRISE SYSTEMS MANAGER) Color, ur Yellow Yellow Clarity, ur Clear Clear [facility] (YAIR) Specific gravity, ur 1.022 1.003 - 1.030 [facility] (YAIR) pH, [...] tendency for uric acid stone formation. Source: [facility] [employer] Current Interpretive Data was last revised on 2017 Protein, ur ql Negative Negative [facility] (YAIR) Glucose, ur ql 1+(A) Negative [facility] (YAIR) Ketones, ur Trace Negative [facility] (YAIR) Bilirubin, ur Negative Negative [facility] (YAIR) Blood, ur Negative Negative [facility] (YA[facility]) Urobilinogen, ur <2.0 <2.0 mg/dL [facility] (YAIR) Nitrite, ur Negative Negative [facility] (YAIR) Leukocyte esterase, ur Negative Negative [facility] (YA[facility]) UA reflex comment Reflex conditions for microscopic UA not met. [facility] (YAIR) Urine 05/23/2025 8:02 PM ENTERPRISE SYSTEMS MANAGER 05/23/2025 8:28 PM ENTERPRISE SYSTEMS MANAGER us Maura Ayala DO LAB URINE ORDERABLES Fi nal Result [facility] (YAIR) 1 [facility] Department [place] [address] * Protein / creatinine ratio, urine, random (05/23/2025 7:47 PM ENTERPRISE SYSTEMS MANAGER) Protein, ur, quant 13.2 mg/dL Comment: Interpretive Data No reference range established. Current interpretive data was last revised 2018. Creatinine Ur 114.0 mg/dL [facility] Comment: Interpretive Data No reference range established. Current interpretive data was last revised 2018. Protein/creatinin e ratio 115.8 0.0 - 180.0 mg/g CR [facility] Urine 05/23/2025 7:47 PM ENTERPRISE SYSTEMS MANAGER 05/23/2025 7:52 PM ENTERPRISE SYSTEMS MANAGER Maura Ayala DO LAB URINE ORDERABLES Fi nal Result [facility] 1 [facility] [place] [address] * ROM Plus (IGFBP-1/AFP) (05/13/2025 8:34 PM ENTERPRISE SYSTEMS MANAGER) IFG Binding Protein-1 / AFP Negative Swab 05/13/2025 8:34 PM ENTERPRISE SYSTEMS MANAGER 05/13/2025 8:40 PM ENTERPRISE SYSTEMS MANAGER Ravinder Méndez MD LAB BODY FLUIDS AND ST OOLS ORDERABLES Final Result Performing Organization Address [facility] Co de Phone Number [facility] 1 [facility] [place] [place] [address] * (ABNORMAL) Urinalysis reflex to microscopic and culture Urine, clean voided (05/13/2025 8:34 PM ENTERPRISE SYSTEMS MANAGER) Color, ur Yellow Yellow Clarity, ur Clear Clear [facility] ([place]) Specific gravity, ur 1.016 1.003 - 1.030 [facility] pH, urine 6.5 [facility] Comment: Interpretive Data U rine pH is affected by diet, medications, systemic acid-base disturbances, and renal tubular function. pH may affect urinary stone formation. For example, urine pH below 6.0 may help reduce the tendency for calcium phosphate stones and pH greater than 6.0 may reduce the tendency for uric acid stone formation. Source: [facility] Current Interpretive Data was last [...] (YAIR) Urine, clean voided 05/13/2025 8:34 PM ENTERPRISE SYSTEMS MANAGER 05/13/2025 8:40 PM ENTERPRISE SYSTEMS MANAGER us Ravinder Méndez MD LAB MICROBIOLOGY - GEN ERAL ORDERABLES Final Result [facility] ([place]) 1 [facility] Department [place] [address] * fibronectin (05/05/2025 8:18 PM ENTERPRISE SYSTEMS MANAGER) Fibronectin, Negative Negative Comment: NORMAL RANGE: Symptomatic [...] at less than or equal to 35 weeks.(I=5744; AM J OBSTET GYNECOL 1997;177:8) Testing performed by: [facility], [address] [place] [address], [place]., [address] Cervical 05/05/2025 8:18 PM ENTERPRISE SYSTEMS MANAGER 05/06/2025 1:55 AM ENTERPRISE SYSTEMS MANAGER us Byron Franklin MD LAB BODY FLUIDS AND ST OOLS ORDERABLES Final Result [facility] (YA[place]) 1 [facility] Department [place] [address] * (ABNORMAL) Urinalysis reflex to microscopic and culture Urine, clean voided (05/05/2025 7:56 PM ENTERPRISE SYSTEMS MANAGER) Color, ur Yellow Yellow Clarity, ur Clear [...] tendency for uric acid stone formation. Source: [facility] Current Interpretive Data was last revised on [...] (YAIR) Urine, clean voided 05/05/2025 7:56 PM ENTERPRISE SYSTEMS MANAGER 05/05/2025 8:01 PM ENTERPRISE SYSTEMS MANAGER us Byron Franklin MD LAB MICROBIOLOGY - GEN ERAL ORDERABLES Final Result [facility] ([place]) 1 [facility] Department [place] [address] * (ABNORMAL) Urinalysis reflex to microscopic and [...] tendency for uric acid stone formation. Source: [facility] [employer] Current Interpretive Data was last revised on 2017 Protein, ur ql Negative Negative [facility] ([facility]) Glucose, ur ql Negative Negative [facility] ([facility]) Ketones, ur Negative Negative [facility] A (YAIR) Bilirubin, ur Negative Negative [facility] [...] ORDERABLES Final Result [facility] ([place]) 1 [facility] Department [place] [address] * (ABNORMAL) Urinalysis, microscopic only (04/11/2025 7:03 PM CDT) WBC, ur 21-50(A) 0 - 5 /HPF RBC, ur 0-2 0 - 2 /HPF [facility] ([place]) Epithelial cells, squamous, ur 1-5 0 - 5 /HPF [facility] ([place]) Mucous, ur Present(A) [facility] ([place]) Culture Reflex Comment Reflex to urine culture will be performed. [facility] ([place]) Urine, clean voided 04/11/2025 7:03 PM CDT 04/11/2025 7:08 PM CDT us Byron Franklin MD LAB URINE ORDERABLES F inal Result [facility] ([place]) 1 [facility] Department [place] [address] * (ABNORMAL) Urine culture Urine, clean voided [...] allergic patients, please contact the laboratory at [phone] to request susceptibility testing * * * [...] periurethral kavitha. (.) Comment:Testing performed by : [facility], [address] [facility] [place]., [address] Organism (CLINICALLY INSIGNIFICANT GROWTH [facility] (YAIR) Organism STREPTOCOCCUS AGALACTIAE (GROUP B STREPTOCOCCI) [facility] ([place]) Urine, clean voided 04/11/2025 7:03 PM CDT 04/12/2025 1:36 AM CDT Narrative [facility] (YAIR) - 04/13/2025 10:47 AM CDT Urine culture reflexed based upon urinalysis results. Testing performed by [facility] ([phone]) us Byron Franklin MD LAB MICROBIOLOGY - GEN ERAL ORDERABLES Final Result [facility] ([place]) 1 [facility] Department [place] [address] from Last 3 Months Insurance [facility] Advance Directives For more information, please contact: [phone] * Full Code (Latest Code Status on File) Date Activated Date Inactivated Comments 04/04/2021 6:16 AM 04/06/2021 3:50 PM * Full Code Date Activated Date Inactivated Comments 04/03/2021 7:35 AM 04/04/2021 6:16 AM Full CPR in case of cardiopulmonary arrest Care Teams Auger Supervisor Relationship Specialty Start Date End Date No, Physician PCP - General 02/19/25 No, Physician 02/19/25
--- OUTSIDE RECORDS SUMMARY | 2025-06-19 19:25 | XMS_ITS | Encounter Summary ---
Author Organization [facility] Address [address] [place] [address] Care Team Providers Care Professional Nurse Name Role Phone Benjamin Rendon MD Primary Care Provider Encounter Details Date Type Department Care Team (Late st Contact Info) Description 06/09/2025 Orders Only [facility] Women's Health Maternal & Care [address] [place] [id number] aMru Guillen RN Social History Tobacco Use Types Packs/Day Years Used Date Smoking Tobacco: Every Day Cigarettes 0.5 4.5 Smokeless Tobacco: Never Alcohol Use Standard Drinks/Week Comments Not Currently 0 (1 standard drink = 0.6 oz pur e alcohol) Comments Unknown Sex and Gender Information Value Date Recorded Sex Assigned at Not on file Legal Sex Female 5:51 PM GUEST SERVICE MANAGER Gender Identity Not on file Sexual Orientation Not on file documented as of this encounter Functional Status * Is person deaf or have serious hearing difficulty? Answer Date of Assessment Author No 02/08/2020 3:22 PM Layton Vega RN * Is person blind or have serious difficulty seeing? Answer Date of Assessment Author No 02/08/2020 3:22 PM Layton Vega RN * Does person have serious difficulty walking/climbing stairs? Answer Date of Assessment Author No 02/08/2020 3:22 PM Layton Vega RN * Does person have difficulty dressing/bathing? Answer Date of Assessment Author No 02/08/2020 3:22 PM Layton Vega RN * Does person have difficulty doing errands alone? Answer Date of Assessment Author No 02/08/2020 3:22 PM Layton Vega RN documented as of this encounter Mental Status * Does person have difficulty concentrating/remembering/making decisions? Answer Entry Date Author No 02/08/2020 3:22 PM aLyton Vega RN documented in this encounter Plan of Treatment Upcoming Encounters Date Type Department Care Team (Late st Contact Info) Description 06/22/2025 9:00 AM GUEST SERVICE MANAGER Hospital Encounter Formerly [facility], [facility] Maternal & Care [address] [place] [phone] Kathy Pride MD [address] [phone] 06/22/2025 9:45 AM GUEST SERVICE MANAGER Hospital Encounter Formerly [facility], [facility] [address] [place] [phone] Kathy Pride MD [address] [phone] 06/22/2025 9:45 AM GUEST SERVICE MANAGER Hospital Encounter Formerly [facility], [facility] [address] [place] [address] Kathy Pride MD [address] [phone] 06/22/2025 9:45 AM GUEST SERVICE MANAGER Hospital Encounter Formerly [facility], [facility] [address] [place] [phone] Kathy Pride MD [address] [phone] 06/28/2025 7:30 AM GUEST SERVICE MANAGER Appointment [facility] MATERNAL/ EVALUATION UNIT [facility] [place] [address] 06/28/2025 8:15 AM GUEST SERVICE MANAGER Appointment [facility] MATERNAL/ EVALUATION UNIT [address] [place] [address] 06/28/2025 9:00 AM GUEST SERVICE MANAGER Appointment [facility] MATERNAL/ EVALUATION UNIT [facility] [place] [address] 06/28/2025 9:15 AM GUEST SERVICE MANAGER Appointment [facility] MATERNAL/ EVALUATION UNIT [facility] [address] [place] [address] documented as of this encounter Visit Diagnoses Not on filedocumented in this encounter Care Teams Professional Nurse Relationship Specialty Start Date End Date Benjamin Rendon MD PCP - General 02/07/20 documented as of this encounter
[2025-06-19 19:43] VITALS: BP 124/66; PULSE 108
[2025-06-19 19:45] VITALS: BP 126/69; PULSE 102
[2025-06-19 19:49] LABS: Add Urine Microscopic? NO; Appearance Urine Clear (Clear); Glucose Urine UA Negative (Negative); Leukocyte Esterase Ur Negative LEU/UL (Negative); Nitrate Urine Negative (Negative); Specific Grav Ur 1.016 (1.001-1.035)
[2025-06-19 20:00] VITALS: BP 125/72; PULSE 106
[2025-06-19 20:15] VITALS: BP 127/72; PULSE 95
[2025-06-19 20:30] VITALS: BP 135/74; PULSE 107
[2025-06-19 20:42] VITALS: BMI 48.8
--- NOTE | 2025-06-19 20:42 | OBADM ---
This patient, Carla Santos, admitted to the OB room Labor/Delivery/Recovery 118 for observation. Patient/family oriented to hospital policies and general routines including ID bracelet, bed and alarms, visiting hours, pain management, procedures, bathroom and other care routines, personal items, smoking policy, room service/diet, and visiting hours. Patient/Family are encouraged to report perceived risks to care and to ask questions if they do not understand what they are told or what they should do.
--- NOTE | 2025-08-08 20:06 | PM.OBTRLD ---
OB - Triage/Final Diagnosis Visit Information Comments/Additional reasons for admission: I have assessed the risk for this patient, Carla Santos, and determined that she would benefit from observation care. Evaluation Laboratory results: Laboratory Tests 06/19/25 19:37 Urine Color Yellow Urine Appearance Clear Urine pH 6.5 Ur Specific [place] 1.016 Urine Protein Negative Urine Glucose (UA) Negative Urine Ketones Negative Ur Blood (Man) Negative Urine Nitrate Negative Urine Bilirubin Negative Urine Urobilinogen 1.0 Leukocyte Esterase Rfl Negative Final Diagnosis (1) False labor: Code(s): O47.9 - False labor, unspecified Status: Acute
== END 2025-06-19 21:45 | disposition home or self-care (01) ==
PROVIDERS: Admitting Provider Obstetrics & Gynecology; Visit Provider Obstetrics & Gynecology
DX: O47.03 False labor before 37 completed weeks of gestation, third trimester (principal); Z3A.34 34 weeks gestation of pregnancy
CPT/HCPCS: 81003; G0378; G0379